=== PATIENT | male | born 1965 | race Hispanic/Latino ===

== ENCOUNTER 2016-08-28 13:40 | Emergency (ER) | payer MEDICAID ==
--- NOTE | 2016-08-28 13:58 | ED PDOC ---
Arrival/HPI - General Time Seen by Provider: 08/28/16 13:56 Historian: Patient - History of Present Illness Narrative History of Present Illness (Text): 08/28/16 13:57 51yo male with history of chronic back pain present with complaint of lower back pain. States pain started when he bent down to lift up his girlfriend from the floor. Pain is similar to his previous back pain. Took Flexeril this morning without relieve. States he was on analgesic up till few weeks ago. States he saw his neurosurgeon recently. Denies trauma, focal weakness, saddle anesthesia, urinary/fecal incontinence, tearing/ripping upper back pain, abdominal pain, urinary symptoms. Past Medical History - Provider Review Nursing Documentation Reviewed: Yes - Past History Past History: Non-Contributing - Infectious Disease Hx of Infectious Diseases: None - Tetanus Immunization Tetanus Immunization: Unknown - Cardiac Hx Cardiac Disorders: Yes Hx Congestive Heart Failure: Yes Hx Hypertension: Yes Hx Internal Defibrillator: Yes - Pulmonary Hx Chronic Obstructive Pulmonary Disease (COPD): No - Neurological HX Cerebrovascular Accident: No Hx Seizures: Yes - HEENT Hx HEENT Disorder: No Hx Blind: No Hx Cataracts: No Hx Deafness: No Hx Difficulty Chewing: No Hx Epistaxis: No Hx Glaucoma: No Hx Macular Degeneration: No - Renal Hx Renal Failure: No - Endocrine/Metabolic Hx Diabetes Mellitus Type 1: No Hx Diabetes Mellitus Type 2: No Hx Hypothyroidism: No - Hematological/Oncological Hx Blood Disorders: No Hx AIDS: No Hx Anemia: No Hx Cancer: No Hx Chemotherapy: No Hx Cirrhosis: No Hx Hemophilia: No Hx Hepatitis A: No Hx Hepatitis B: No Hx Hepatitis C: No Hx Metastasis: No Hx Shingles: No Hx Sickle Cell Disease: No Hx Unexplained Bleeding: No - Integumentary Hx Basal Cell Carcinoma: No Hx Eczema: No Hx Melanoma: No Hx Psoriasis: No Hx Squamous Cell Carcinoma: No - Musculoskeletal/Rheumatological Hx Arthritis: No - Gastrointestinal Hx Gastrointestinal Disorders: No Hx Colostomy: No Hx Crohn's Disease: No Hx Diverticulitis: No Hx Gall Bladder Disease: No Hx Gastroesophageal Reflux: No Hx Gastrointestinal Ulcer: No Hx Ileostomy: No Hx Liver Failure: No Hx Pancreatitis: No HX Swallowing Problems: No - Genitourinary/Gynecological Hx Genitourinary Disorders: No Hx Hematuria: No Hx Incontinence: No Hx Prostate Problems: No Hx Sexually Transmitted Diseases: No Hx Urinary Tract Infection: No - Psychiatric Hx Psychophysiologic Disorder: Yes Hx Substance Use: No 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: ETOH abuse - Past Surgical History Past Surgical History: Unable to Obtain - Surgical History Hx Cholecystectomy: No Hx Musculoskeletal Surgery: Yes Hx Orthopedic Surgery: Yes Hx Valve Replacement: No 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: PPM and AICD insertion. Right ankle surgery placement of screws. Plate placed in left brow area. - Anesthesia Hx Anesthesia: Yes Hx Anesthesia Reactions: No Hx Malignant Hyperthermia: No - Suicidal Assessment Feels Threatened In Home Enviroment: No Family/Social History - Physician Review Nursing Documentation Reviewed: Yes Family/Social History: Unknown Family HX Smoking Status: Light Smoker < 10 Cigarettes Daily Hx Alcohol Use: Yes Hx Substance Use: No Hx Substance Use Treatment: No Allergies/Home Meds Allergies/Adverse Reactions: Allergies Unknown Cardiac Medication Allergy (Uncoded 08/05/16 07:51) ANAPHYLAXIS Home Medications: Home Meds Medication Instructions Recorded Confirmed Folic Acid 1 mg PO DAILY 09/14/15 08/28/16 Latanoprost 0.005% Opht [Xalatan 2 drop BOTHEYES DAILY 09/14/15 08/28/16 Opht] Levetiracetam [Keppra] 500 mg PO BID 01/30/16 08/28/16 Pantoprazole [Protonix EC Tab] 20 mg PO DAILY 01/30/16 07/11/16 Vid2 1.2 mg PO QWK 01/30/16 06/15/16 Review of Systems - Physician Review All systems were reviewed & negative as marked: Yes - Review of Systems Constitutional: Normal Eyes: Normal ENT: Normal Respiratory: Normal Cardiovascular: Normal Gastrointestinal: Normal Genitourinary Male: Normal Musculoskeletal: Back Pain Skin: Normal Neurological: Normal Endocrine: Normal Hemo/Lymphatic: Normal Psychiatric: Normal Physical Exam Vital Signs Reviewed: Yes Vital Signs Temp Pulse Resp BP Pulse Ox 08/28/16 14:03 98.9 F 108 H 18 134/87 99 08/28/16 14:02 98.9 F 108 H 18 134/87 99 Temperature: Afebrile Blood Pressure: Normal Pulse: Regular Respiratory Rate: Normal Appearance: Positive for: Well-Appearing, Non-Toxic, Comfortable Pain Distress: None Mental Status: Positive for: Alert and Oriented X 3 - Systems Exam Head: Present: Atraumatic, Normocephalic Pupils: Present: PERRL Extroacular Muscles: Present: EOMI Conjunctiva: Present: Normal Mouth: Present: Moist Mucous Membranes Neck: Present: Normal Range of Motion Respiratory/Chest: Present: Clear to Auscultation, Good Air Exchange. No: Respiratory Distress, Accessory Muscle Use Cardiovascular: Present: Regular Rate and Rhythm, Normal S1, S2. No: Murmurs Abdomen: Present: Normal Bowel Sounds. No: Tenderness, Distention, Peritoneal Signs Back: Present: Midline Tenderness, Paraspinal Tenderness (Diffuse paralumbar tenderness), Pain with Leg Raise (B/L) Upper Extremity: Present: Normal Inspection. No: Cyanosis, Edema Lower Extremity: Present: Normal Inspection. No: Edema Neurological: Present: GCS=15, CN II-XII Intact, Speech Normal Skin: Present: Warm, Dry, Normal Color. No: Rashes Psychiatric: Present: Alert, Oriented x 3, Normal Insight, Normal Concentration Medical Decision Making ED Course and Treatment: 08/28/16 16:27 PT with history of chronic back pain in Ed for back pain. He was seen here on and had LS CT that was negative for any acute finding. His pain was controlled in ED with analgesic. he was ambulatory in ED. DC home with Naprosyn. Advised to f/u with his Neurosurgeon/PMD . TRT ED for any new or worsening symptoms - Medication Orders Current Medication Orders: Discontinued Medications Ketorolac Tromethamine (Toradol) 60 mg IM STAT STA Stop: 08/28/16 14:09 Last Admin: 08/28/16 14:18 Dose: 60 MG IM Administration Charges Document 08/28/16 14:18 HI (Rec: 08/28/16 14:18 HI [id number]) Injection Site MAR Injection Site Right Gluteus Aniket Charges for Administration # of IM Administrations 1 Disposition/Present on Arrival - Present on Arrival Any Indicators Present on Arrival: No History of DVT/PE: No History of Uncontrolled Diabetes: No Urinary Catheter: No History Surgical Site Infection Following: None - Disposition Have Diagnosis and Disposition been Completed?: Yes Diagnosis: Back pain Disposition: HOME/ ROUTINE Disposition Time: 14:20 Patient Plan: Discharge Patient Problems: Current Active Problems Problem Status Diagnosed Syncope Acute AICD (automatic cardioverter/defibrillator) present Acute Hypokalemia Acute Hypomagnesemia Acute Seizure disorder Acute Seizure Suspected Condition: STABLE Discharge Instructions (ExitCare): Chronic Back Pain (ED) Additional Instructions: Follow up with your doctor Return to ED for any new or worsening symptoms Prescriptions: Naproxen [Naprosyn] 500 mg PO BID #20 tab Referrals: Nestor Meyer MD [Staff Provider] - Follow up with primary
[2016-08-28 14:02] VITALS: BMI 21.4
[2016-08-28 14:03] VITALS: BP 134/87; PULSE 108; RESP 18; TEMP 98.9; O2SAT 99
== END 2016-08-28 14:44 | disposition home or self-care (01) ==
LOC: ED 13:40
DX: M54.5 Low back pain (principal); I10 Essential (primary) hypertension
CPT/HCPCS: 96372; 99283; J1885

== ENCOUNTER 2016-10-12 21:32 | Observation (INO) | payer MEDICAID ==
[2016-10-12 21:40] VITALS: BMI 21.5
[2016-10-12 21:54] VITALS: RESP 18
[2016-10-12] MEDS ORDERED: TDAP Vaccine 0.5 mL Syr IM ONE (22:02)
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
[2016-10-13 00:14] LABS: ADD MANUAL DIFF? NO
[2016-10-13 00:17] LABS: BASO # 0.04 K/mm3 (0.0-2.0); BASO % 0.6 % (0.0-3.0); EOS # 0.1 (0.0-0.7); EOS % 0.7 % (1.5-5.0); GRAN % 50.5 % (50.0-68.0); LYMPH % 42.6 % (22.0-35.0); MEAN CELL VOLUME 95.1 fL (80.0-105.0); MEAN CORPUSCULAR HEMOGLOBIN 32.7 pg (25.0-35.0); MEAN CORPUSCULAR HGB CONC 34.4 g/dl (31.0-37.0); MEAN PLATELET VOLUME 8.5 fl (7.0-11.0); MONO # 0.4 (0.1-0.6); MONO % 5.6 % (1.0-6.0); PLATELET COUNT 265 10^3/uL (120.0-450.0); RED CELL DISTRIBUTION WIDTH 15.6 % (11.5-14.5); WHITE BLOOD COUNT 7.1 10^3/ul (4.5-11.0)
[2016-10-13 00:30] LABS: ALB/GLOB RATIO 1.2 (1.1-1.8); ALKALINE PHOSPHATASE 84 U/L (38-133); ALT/SGPT 26 U/L (7-56); AST/SGOT 44 U/L (15-59); BILIRUBIN,TOTAL 0.5 mg/dL (0.2-1.3); BLOOD UREA NITROGEN 11 mg/dL (7-21); CALCIUM 8.3 mg/dL (8.4-10.5); CARBON DIOXIDE 26 mmol/L (21-33); CHLORIDE 105 mmol/L (95-110); GFR AFRICAN-AMERICAN > 60; GLUCOSE,RANDOM 98 mg/dL (70-110); POTASSIUM 3.8 mmol/L (3.6-5.0); SODIUM 147 mmol/L (132-148); TOTAL PROTEIN 7.8 g/dL (5.8-8.3)
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
[2016-10-13 09:27] VITALS: BP 126/66; PULSE 78; O2SAT 98
[2016-10-13 09:30] VITALS: TEMP 98
== END 2016-10-13 07:57 | disposition home or self-care (01) ==
LOC: ED 21:32 → EROBSV 22:02
PROVIDERS: ADMIT Emergency Medicine; ATTEND Emergency Medicine
DX: S00.81XA Abrasion of other part of head, initial encounter (principal); S09.93XA Unspecified injury of face, initial encounter; Y04.0XXA Assault by unarmed brawl or fight, initial encounter; F10.10 Alcohol abuse, uncomplicated; Y90.8 Blood alcohol level of 240 mg/100 ml or more; Z23 Encounter for immunization
CPT/HCPCS: 70450; 70486; 80053; 80320; 85025; 90471; 90715; 99283; G0378

== ENCOUNTER 2016-10-27 12:36 | Emergency (ER) | payer MEDICAID ==
[2016-10-27 12:45] VITALS: RESP 18; TEMP 98.2; O2SAT 98; BMI 22.1
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
--- NOTE | 2016-10-27 15:06 | RAD ---
HISTORY: pacer check COMPARISON: 02/07/2016 TECHNIQUE: Chest PA and lateral FINDINGS: LUNGS: No active pulmonary disease. PLEURA: No significant pleural effusion identified. No pneumothorax apparent. CARDIOVASCULAR: Normal. OSSEOUS STRUCTURES: No significant abnormalities. VISUALIZED UPPER ABDOMEN: Normal. OTHER FINDINGS: Single lead pacemaker IMPRESSION: No active disease.
[2016-10-27 15:28] VITALS: BP 135/69; PULSE 102
--- NOTE | 2016-10-27 22:30 | CARD ---
APPROVED REPORT EKG Measurement Heart [id number] <Conclusion> Poor data quality, interpretation may be adversely affected Sinus tachycardia Septal infarct, age undetermined Abnormal ECG
== END 2016-10-27 16:01 | disposition home or self-care (01) ==
LOC: ED 12:36
DX: S20.219A Contusion of unspecified front wall of thorax, initial encounter (principal); Y04.0XXA Assault by unarmed brawl or fight, initial encounter; Y92.009 Unspecified place in unspecified non-institutional (private) residence as the place of occurrence of the external cause; Z95.810 Presence of automatic (implantable) cardiac defibrillator; I10 Essential (primary) hypertension

== ENCOUNTER 2016-12-11 01:28 | Observation (INO) | payer MEDICAID ==
[2016-12-11 01:28] VITALS: BMI 22.1
[2016-12-11 01:45] VITALS: TEMP 97.8
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
[2016-12-11] MEDS ORDERED: Pantoprazole 40mg/100ml IVPB 40 MG/100 ML BAG IVPB SCH (02:00)
[2016-12-11 02:17] VITALS: BP 131/71
[2016-12-11 05:02] VITALS: PULSE 77; RESP 14; O2SAT 98
== END 2016-12-11 06:08 | disposition home or self-care (01) ==
LOC: ED 01:28 → EROBSV 02:06
PROVIDERS: ADMIT Emergency Medicine; ATTEND Emergency Medicine
DX: F10.10 Alcohol abuse, uncomplicated (principal)
CPT/HCPCS: 82948; 99284; G0378

== ENCOUNTER 2017-01-23 11:59 | Observation (INO) | payer MEDICAID ==
[2017-01-23 11:59] VITALS: BMI 22.1
--- NOTE | 2017-01-23 12:41 | ED PDOC ---
Arrival/HPI - General Chief Complaint: Alcohol Ingestion Time Seen by Provider: 01/23/17 12:33 Historian: Patient, EMS EM Caveat: Intoxicated - History of Present Illness Narrative History of Present Illness (Text): 01/23/17 12:20 51 year old M is brought in to the Emergency department for public intoxication. According to EMS patient was found sleeping in outside. Patient admits to using ETOH, but denies drug use or SI. No other complaints have been made. Time/Duration: Prior to Arrival Symptom Onset: Sudden Symptom Course: Unchanged Context: Street Past Medical History - Provider Review Nursing Documentation Reviewed: Yes - Past History Past History: Non-Contributing - Infectious Disease Hx of Infectious Diseases: None - Tetanus Immunization Tetanus Immunization: Unknown - Cardiac Hx Cardiac Disorders: Yes Hx Congestive Heart Failure: Yes Hx Hypertension: Yes Hx Internal Defibrillator: Yes (5 yrs) Hx Pacemaker: Yes (patient states he had it place 5 years ago) - Pulmonary Hx Respiratory Disorders: No Hx Chronic Obstructive Pulmonary Disease (COPD): No - Neurological Hx Neurological Disorder: Yes HX Cerebrovascular Accident: No Hx Seizures: Yes - HEENT Hx HEENT Disorder: No Hx Blind: No Hx Cataracts: No Hx Deafness: No Hx Difficulty Chewing: No Hx Epistaxis: No Hx Glaucoma: No Hx Macular Degeneration: No - Renal Hx Renal Disorder: No Hx Renal Failure: No - Endocrine/Metabolic Hx Endocrine Disorders: No Hx Diabetes Mellitus Type 1: No Hx Diabetes Mellitus Type 2: No Hx Hypothyroidism: No - Hematological/Oncological Hx Blood Disorders: No Hx AIDS: No Hx Anemia: No Hx Cancer: No Hx Chemotherapy: No Hx Cirrhosis: No Hx Hemophilia: No Hx Hepatitis A: No Hx Hepatitis B: No Hx Hepatitis C: No Hx Metastasis: No Hx Shingles: No Hx Sickle Cell Disease: No Hx Unexplained Bleeding: No - Integumentary Hx Basal Cell Carcinoma: No Hx Eczema: No Hx Melanoma: No Hx Psoriasis: No Hx Squamous Cell Carcinoma: No - Musculoskeletal/Rheumatological Hx Arthritis: No - Gastrointestinal Hx Gastrointestinal Disorders: No Hx Colostomy: No Hx Crohn's Disease: No Hx Diverticulitis: No Hx Gall Bladder Disease: No Hx Gastroesophageal Reflux: No Hx Gastrointestinal Ulcer: No Hx Ileostomy: No Hx Liver Failure: No Hx Pancreatitis: No HX Swallowing Problems: No - Genitourinary/Gynecological Hx Genitourinary Disorders: No Hx Hematuria: No Hx Incontinence: No Hx Prostate Problems: No Hx Sexually Transmitted Diseases: No Hx Urinary Tract Infection: No - Psychiatric Hx Psychophysiologic Disorder: Yes Hx Substance Use: No 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: ETOH abuse - Past Surgical History Past Surgical History: Unable to Obtain - Surgical History Hx Cholecystectomy: No Hx Musculoskeletal Surgery: Yes Hx Orthopedic Surgery: Yes (r ankle) Hx Valve Replacement: No 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: PPM and AICD insertion. Right ankle surgery placement of screws. Plate placed in left brow area. defibrillator 2012 - Anesthesia Hx Anesthesia: Yes Hx Anesthesia Reactions: No Hx Malignant Hyperthermia: No - Suicidal Assessment Feels Threatened In Home Enviroment: No Family/Social History - Physician Review Nursing Documentation Reviewed: Yes Family/Social History: Other (non-contributory ) Smoking Status: Heavy Smoker > 10 Cigarettes Daily Hx Alcohol Use: Yes Frequency of alcohol use: Daily Hx Substance Use: No Hx Substance Use Treatment: No Allergies/Home Meds Allergies/Adverse Reactions: Allergies No Known Allergies Allergy (Verified 01/23/17 12:17) Home Medications: Home Meds Medication Instructions Recorded Confirmed Unobtainable 01/23/17 01/23/17 Review of Systems - Physician Review All systems were reviewed & negative as marked: Yes - Review of Systems Constitutional: absent: Fevers Respiratory: absent: SOB Cardiovascular: absent: Chest Pain Gastrointestinal: absent: Abdominal Pain Neurological: absent: Headache Psychiatric: Other (Intoxicated ). absent: Suicidal Ideation Physical Exam - Physical Exam Physical Exam Limitations: Intoxication Vital Signs Reviewed: Yes Vital Signs Temp Pulse Resp BP Pulse Ox 01/23/17 15:40 92 H 18 106/82 98 01/23/17 12:47 98.3 F 88 17 103/77 100 - Systems Exam Head: Present: Atraumatic, Normocephalic Pupils: Present: PERRL Mouth: Present: Moist Mucous Membranes Neck: Present: Normal Range of Motion Respiratory/Chest: Present: Clear to Auscultation, Good Air Exchange. No: Respiratory Distress, Accessory Muscle Use Cardiovascular: Present: Regular Rate and Rhythm, Normal S1, S2. No: Murmurs Abdomen: Present: Normal Bowel Sounds. No: Tenderness, Distention, Peritoneal Signs Upper Extremity: No: Cyanosis, Edema Neurological: Present: GCS=15, CN II-XII Intact Skin: Present: Warm, Dry, Normal Color. No: Rashes Psychiatric: Present: Alert, Oriented x 3, Intoxicated. No: Suicidal Ideation Medical Decision Making ED Course and Treatment: 01/23/17 18:35 the pt is a&ox3 and ambulatory with steady gait. clinically sober prior to dc. ED OBSERVATION Discharge: Yes Date of observation admission: 01/23/17 Time of observation admission: 12:20 - Observation admission statement Patient is being placed in observation because:: Public intoxication - Goals of Observation Goals of observation are:: waiting for sobriety - Progress Note Progress Note: 01/23/17 12:20 Patient admits to using ETOH, no drug use. Patient will be observed for sobriety - Scribe Statement The provider has reviewed the documentation as recorded by the Scribe 01/23/2017 Angelica Villeda Provider Scribe Attestation: All medical record entries made by the Scribe were at my direction and personally dictated by me. I have reviewed the chart and agree that the record accurately reflects my personal performance of the history, physical exam, medical decision making, and the department course for this patient. I have also personally directed, reviewed, and agree with the discharge instructions and disposition. Disposition/Present on Arrival - Present on Arrival Any Indicators Present on Arrival: No History of DVT/PE: No History of Uncontrolled Diabetes: No Urinary Catheter: No History of Decub. Ulcer: No History Surgical Site Infection Following: None - Disposition Have Diagnosis and Disposition been Completed?: Yes Diagnosis: Alcohol abuse, Alcohol intoxication Disposition: HOME/ ROUTINE Disposition Time: 18:35 Patient Plan: Observation Patient Problems: Current Active Problems Problem Status Onset Alcohol abuse Acute Alcohol intoxication Acute Condition: STABLE
[2017-01-23 12:49] VITALS: TEMP 98.3
[2017-01-23 15:45] VITALS: RESP 18
[2017-01-23 18:43] VITALS: BP 118/80; PULSE 88; O2SAT 99
== END 2017-01-23 18:49 | disposition home or self-care (01) ==
LOC: ED 11:59 → EROBSV 12:52
PROVIDERS: ADMIT Emergency Medicine; ATTEND Emergency Medicine
DX: F10.129 Alcohol abuse with intoxication, unspecified (principal)
CPT/HCPCS: 99283; G0378

== ENCOUNTER 2017-02-26 15:19 | Observation (INO) | payer MEDICAID ==
[2017-02-26 15:19] VITALS: BMI 22.1
[2017-02-26 15:35] VITALS: TEMP 98
--- NOTE | 2017-02-26 15:51 | ED PDOC ---
Arrival/HPI - General Historian: Patient <Carmen Jones - Last Filed: 02/26/17 20:48> <Jonnie Goodwin - Last Filed: 02/27/17 07:52> <Neri Romero - Last Filed: 02/27/17 15:56> - General Chief Complaint: Alcohol Ingestion Time Seen by Provider: 02/26/17 15:25 - History of Present Illness Narrative History of Present Illness (Text): 02/26/17 15:48 50-year-old male presents today brought in by ambulance for acute alcohol intoxication. Patient states that he was drinking today and his girlfriend decided to call the ambulance on him. Patient denies any recent trauma or injury. Denies headache dizziness or weakness. No chest pain or shortness of breath. Patient states he had a few shots today. Patient denies suicidal or homicidal ideation. No complaints (Carmen Jones) Past Medical History - Provider Review Nursing Documentation Reviewed: Yes - Travel History Have you recently traveled outside [place] w/in the past 3 mons?: No - Past History Past History: Non-Contributing - Infectious Disease Hx of Infectious Diseases: None - Tetanus Immunization Tetanus Immunization: Unknown - Cardiac Hx Cardiac Disorders: Yes Hx Congestive Heart Failure: Yes Hx Hypertension: Yes Hx Internal Defibrillator: Yes (5 yrs) Hx Pacemaker: Yes (patient states he had it place 5 years ago) - Pulmonary Hx Respiratory Disorders: No Hx Chronic Obstructive Pulmonary Disease (COPD): No - Neurological Hx Neurological Disorder: Yes HX Cerebrovascular Accident: No Hx Seizures: Yes - HEENT Hx HEENT Disorder: No Hx Blind: No Hx Cataracts: No Hx Deafness: No Hx Difficulty Chewing: No Hx Epistaxis: No Hx Glaucoma: No Hx Macular Degeneration: No - Renal Hx Renal Disorder: No Hx Renal Failure: No - Endocrine/Metabolic Hx Endocrine Disorders: No Hx Diabetes Mellitus Type 1: No Hx Diabetes Mellitus Type 2: No Hx Hypothyroidism: No - Hematological/Oncological Hx Blood Disorders: No Hx AIDS: No Hx Anemia: No Hx Cancer: No Hx Chemotherapy: No Hx Cirrhosis: No Hx Hemophilia: No Hx Hepatitis A: No Hx Hepatitis B: No Hx Hepatitis C: No Hx Metastasis: No Hx Shingles: No Hx Sickle Cell Disease: No Hx Unexplained Bleeding: No - Integumentary Hx Basal Cell Carcinoma: No Hx Eczema: No Hx Melanoma: No Hx Psoriasis: No Hx Squamous Cell Carcinoma: No - Musculoskeletal/Rheumatological Hx Arthritis: No - Gastrointestinal Hx Gastrointestinal Disorders: No Hx Colostomy: No Hx Crohn's Disease: No Hx Diverticulitis: No Hx Gall Bladder Disease: No Hx Gastroesophageal Reflux: No Hx Gastrointestinal Ulcer: No Hx Ileostomy: No Hx Liver Failure: No Hx Pancreatitis: No HX Swallowing Problems: No - Genitourinary/Gynecological Hx Genitourinary Disorders: No Hx Hematuria: No Hx Incontinence: No Hx Prostate Problems: No Hx Sexually Transmitted Diseases: No Hx Urinary Tract Infection: No - Psychiatric Hx Psychophysiologic Disorder: Yes Hx Substance Use: No 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: ETOH abuse - Past Surgical History Past Surgical History: Unable to Obtain - Surgical History Hx Cholecystectomy: No Hx Musculoskeletal Surgery: Yes Hx Orthopedic Surgery: Yes (r ankle) Hx Valve Replacement: No 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: PPM and AICD insertion. Right ankle surgery placement of screws. Plate placed in left brow area. defibrillator 2012 - Anesthesia Hx Anesthesia: Yes Hx Anesthesia Reactions: No Hx Malignant Hyperthermia: No - Suicidal Assessment Feels Threatened In Home Enviroment: No <Carmen Jones - Last Filed: 02/26/17 20:48> Family/Social History - Physician Review Nursing Documentation Reviewed: Yes Family/Social History: Unknown Family HX Smoking Status: Heavy Smoker > 10 Cigarettes Daily Hx Alcohol Use: Yes Frequency of alcohol use: Few days per week Hx Substance Use: No Hx Substance Use Treatment: No <Carmen Jones - Last Filed: 02/26/17 20:48> Allergies/Home Meds <Carmen Jones - Last Filed: 02/26/17 20:48> <Jonnie Goodwin - Last Filed: 02/27/17 07:52> <Neri Romero - Last Filed: 02/27/17 15:56> Allergies/Adverse Reactions: Allergies No Known Allergies Allergy (Verified 02/26/17 15:29) Home Medications: Home Meds Medication Instructions Recorded Confirmed Unobtainable 01/23/17 02/26/17 Review of Systems - Review of Systems Constitutional: absent: Fatigue, Fevers Respiratory: absent: SOB, Cough Cardiovascular: absent: Chest Pain, Palpitations Gastrointestinal: absent: Abdominal Pain, Diarrhea, Nausea, Vomiting Genitourinary Male: absent: Dysuria Musculoskeletal: absent: Arthralgias Skin: absent: Rash, Pruritis Neurological: absent: Headache, Dizziness Psychiatric: absent: Anxiety, Depression, Suicidal Ideation <Carmen Jones - Last Filed: 02/26/17 20:48> Physical Exam Vital Signs Reviewed: Yes Temperature: Afebrile Blood Pressure: Normal Pulse: Regular Respiratory Rate: Normal Appearance: Positive for: Well-Appearing, Non-Toxic, Comfortable Pain Distress: None Mental Status: Positive for: Alert and Oriented X 3 - Systems Exam Head: Present: Atraumatic Mouth: Present: Moist Mucous Membranes Neck: Present: Normal Range of Motion Respiratory/Chest: Present: Clear to Auscultation, Good Air Exchange. No: Respiratory Distress, Accessory Muscle Use Cardiovascular: Present: Regular Rate and Rhythm, Normal S1, S2. No: Murmurs Abdomen: No: Tenderness Skin: Present: Warm, Dry, Normal Color. No: Rashes Psychiatric: Present: Alert, Oriented x 3. No: Suicidal Ideation, Homicidal Ideation <Carmen Jones - Last Filed: 02/26/17 20:48> Medical Decision Making <Carmen Jones - Last Filed: 02/26/17 20:48> <Jonnie Goodwin - Last Filed: 02/27/17 07:52> <Neri Romero - Last Filed: 02/27/17 15:56> ED Course and Treatment: 02/26/17 15:50 Patient alert oriented no distress admits to drinking alcohol today. Brought in by ambulance for alcohol intoxication Patient denies any complaints. Fingerstick: 93 We will observed for sobriety in the emergency room. 02/26/17 20:48 pt in no distress; sleeping in er; case signed out to dr. romero; pending sobriety. (Carmen Jones) Patient was discharged by prior shift. Addendum was inadvertently added to this chart. Disposition established by previous shift. (Jonnie Goodwin) - Lab Interpretations Lab Results: Lab Results 02/26/17 15:38: POC Glucose (mg/dL) 93 ED OBSERVATION Date of observation admission: 02/26/17 Time of observation admission: 15:51 <Carmen Jones - Last Filed: 02/26/17 20:48> <Jonnie Goodwin - Last Filed: 02/27/17 07:52> Discharge: Yes <Neri Romero - Last Filed: 02/27/17 15:56> - Observation admission statement Patient is being placed in observation because:: alcohol intoxication (Carmen Jones) - Goals of Observation Goals of observation are:: sobriety (Carmen Jones) - Progress Note Progress Note: 02/26/17 17:45 pt non toxic well appearing; resting in er. 02/26/17 19:50 pt sleeping in er; no distress 02/26/17 20:47 pt signed out to dr. romero; pending sobriety. (Carmen Jones) 02/26/17 20:47 Case endorsed to me by CRISTINA Jones, pending sobriety. 02/26/17 22:45 Pt resting comfortably, in no acute distress. 02/27/17 00:45 Pt sleeping currently, no new complaints. 02/27/17 02:39 Pt resting comfortably, in no acute distress. 02/27/17 04:12 Pt sleeping currently, no new complaints. 02/27/17 06:10 Pt resting comfortably, in no acute distress. 02/27/17 06:29 Pt awake, alert, ambulating with steady gait. In no acute distress. Pt stable for d/c. (Neri Romero) Disposition/Present on Arrival - Present on Arrival Any Indicators Present on Arrival: No History of DVT/PE: No History of Uncontrolled Diabetes: No Urinary Catheter: No History of Decub. Ulcer: No History Surgical Site Infection Following: None - Disposition Have Diagnosis and Disposition been Completed?: Yes <Carmen Jones - Last Filed: 02/26/17 20:48> <Jonnie Goodwin - Last Filed: 02/27/17 07:52> - Present on Arrival Any Indicators Present on Arrival: No - Disposition Have Diagnosis and Disposition been Completed?: Yes Disposition Time: 06:35 Patient Plan: Discharge <Neri Romero - Last Filed: 02/27/17 15:56> - Disposition Diagnosis: Alcohol abuse Disposition: HOME/ ROUTINE Condition: GOOD
[2017-02-27 06:52] VITALS: O2SAT 99
[2017-02-27 07:51] VITALS: BP 128/70; PULSE 82; RESP 18
== END 2017-02-27 06:33 | disposition home or self-care (01) ==
LOC: ED 15:19 → EROBSV 15:48
PROVIDERS: ADMIT Student in an Organized Health Care Education/Training Program; ATTEND Student in an Organized Health Care Education/Training Program
DX: F10.129 Alcohol abuse with intoxication, unspecified (principal)
CPT/HCPCS: 82948; 99284; G0378

== ENCOUNTER 2017-02-27 18:43 | Inpatient (IN) | payer MEDICAID ==
[2017-02-27 20:05] LABS: BASO # 0.04 K/mm3 (0.0-2.0); BASO % 0.9 % (0.0-3.0); EOS # 0.1 (0.0-0.7); EOS % 1.3 % (1.5-5.0); GRAN # 2.67 (1.4-6.5); GRAN % 58.1 % (50.0-68.0); HEMATOCRIT 34.1 % (42.0-52.0); LYMPH # 1.1 (1.2-3.4); LYMPH % 24.2 % (22.0-35.0); MEAN CELL VOLUME 101.2 fl (80.0-105.0); MEAN CORPUSCULAR HEMOGLOBIN 33.8 pg (25.0-35.0); MEAN CORPUSCULAR HGB CONC 33.4 g/dl (31.0-37.0); MEAN PLATELET VOLUME 8.8 fl (7.0-11.0); MONO # 0.7 (0.1-0.6); MONO % 15.5 % (1.0-6.0); RED CELL DISTRIBUTION WIDTH 14.5 % (11.5-14.5); WHITE BLOOD COUNT 4.6 10^3/ul (4.5-11.0)
[2017-02-27 20:16] LABS: ALB/GLOB RATIO 1.3 (1.1-1.8); ALKALINE PHOSPHATASE 68 U/L (38-126); ALT/SGPT 32 U/L (7-56); AST/SGOT 52 U/L (17-59); BILIRUBIN,TOTAL 2.3 mg/dL (0.2-1.3); BLOOD UREA NITROGEN 12 mg/dL (7-21); CALCIUM 8.6 mg/dL (8.4-10.5); CARBON DIOXIDE 31 mmol/L (21-33); CHLORIDE 98 mmol/L (98-107); GFR AFRICAN-AMERICAN > 60; GLUCOSE,RANDOM 83 mg/dL (70-110); INR 0.99 (0.93-1.08); PARTIAL THROMBOPLASTIN TIME 29.7 Seconds (23.7-30.8); POTASSIUM 3.3 mmol/L (3.6-5.0); SODIUM 136 mmol/L (132-148); TOTAL PROTEIN 6.8 g/dL (5.8-8.3)
[2017-02-27 20:29] LABS: TROPONIN I < 0.01 ng/mL
--- NOTE | 2017-02-27 20:38 | CT ---
EXAM: CT Head Without Intravenous Contrast CLINICAL HISTORY: 51 years old, male; Signs and symptoms; Numbness / parasthesia; Additional info: R arm/leg numbness TECHNIQUE: Axial computed tomography images of the head/brain without intravenous contrast. All CT scans at this facility use one or more dose reduction techniques, viz.: automated exposure control; ma/kV adjustment per patient size (including targeted exams where dose is matched to indication; i.e. head); or iterative reconstruction technique. COMPARISON: CT - HEAD W/O CONTRAST 10/13/2016 12:34:08 AM FINDINGS: Brain: Moderate atrophy. 1.7 x 1.2 cm intraparenchymal hemorrhage within LEFT thalamus. Mild surrounding edema. Few scattered foci of decreased attenuation within periventricular/subcortical white matter. Grossly preserved calix-white matter differentiation. Midline shift: None. Ventricles: No hydrocephalus. Bones/joints: No acute fracture. Chronic deformity LEFT zygomatic arch, nasal bones. Postsurgical changes of LEFT facial bones. Soft tissues: Unremarkable. Vasculature: Mild atherosclerotic disease of intracranial arteries. Sinuses: Moderate mucosal thickening of RIGHT maxillary sinus. Scattered minimal mucosal thickening of LEFT ethmoid, LEFT maxillary sinuses. Mastoid air cells: No mastoid effusion. Orbits: Unremarkable as visualized. IMPRESSION: 1. Intracranial hemorrhage as above. 2. Nonspecific white matter changes. 3. Incidental/non-acute findings are described above.
[2017-02-27] MEDS ORDERED: Potassium Chloride 20 mEq ER Tab PO STA (20:41)
--- NOTE | 2017-02-27 21:25 | ED PDOC ---
Arrival/HPI - General Chief Complaint: Weakness/Neurological Deficit Time Seen by Provider: 02/27/17 19:01 Historian: Patient - History of Present Illness Narrative History of Present Illness (Text): 02/27/17 21:22 Patient is well known to the ER, has had multiple visits for etoh intoxication, he has a h/o cervical and lumbar radiculopathy, presents via EMS for experiencing acute onset of R arm and R leg weakness that started possibly at 1730 today. Patient states that he was well today and then the symptoms started abruptly, states that he can not move his R arm and R leg well. Otherwise: (-) headache, (-) dizziness, (-) CP, (-) SOB, (-) head trauma, (-) N /V, (-) fever, (-) syncope. Has no history of CVA . Past Medical History - Provider Review Nursing Documentation Reviewed: Yes - Past History Past History: Non-Contributing - Infectious Disease Hx of Infectious Diseases: None - Tetanus Immunization Tetanus Immunization: Unknown - Cardiac Hx Cardiac Disorders: Yes Hx Congestive Heart Failure: Yes Hx Hypertension: Yes Hx Internal Defibrillator: Yes (5 yrs) Hx Pacemaker: Yes (patient states he had it place 5 years ago) - Pulmonary Hx Respiratory Disorders: No Hx Chronic Obstructive Pulmonary Disease (COPD): No - Neurological Hx Neurological Disorder: Yes HX Cerebrovascular Accident: No Hx Seizures: Yes - HEENT Hx HEENT Disorder: No Hx Blind: No Hx Cataracts: No Hx Deafness: No Hx Difficulty Chewing: No Hx Epistaxis: No Hx Glaucoma: No Hx Macular Degeneration: No - Renal Hx Renal Disorder: No Hx Renal Failure: No - Endocrine/Metabolic Hx Endocrine Disorders: No Hx Diabetes Mellitus Type 1: No Hx Diabetes Mellitus Type 2: No Hx Hypothyroidism: No - Hematological/Oncological Hx Blood Disorders: No Hx AIDS: No Hx Anemia: No Hx Cancer: No Hx Chemotherapy: No Hx Cirrhosis: No Hx Hemophilia: No Hx Hepatitis A: No Hx Hepatitis B: No Hx Hepatitis C: No Hx Metastasis: No Hx Shingles: No Hx Sickle Cell Disease: No Hx Unexplained Bleeding: No - Integumentary Hx Basal Cell Carcinoma: No Hx Eczema: No Hx Melanoma: No Hx Psoriasis: No Hx Squamous Cell Carcinoma: No - Musculoskeletal/Rheumatological Hx Arthritis: No - Gastrointestinal Hx Gastrointestinal Disorders: No Hx Colostomy: No Hx Crohn's Disease: No Hx Diverticulitis: No Hx Gall Bladder Disease: No Hx Gastroesophageal Reflux: No Hx Gastrointestinal Ulcer: No Hx Ileostomy: No Hx Liver Failure: No Hx Pancreatitis: No HX Swallowing Problems: No - Genitourinary/Gynecological Hx Genitourinary Disorders: No Hx Hematuria: No Hx Incontinence: No Hx Prostate Problems: No Hx Sexually Transmitted Diseases: No Hx Urinary Tract Infection: No - Psychiatric Hx Psychophysiologic Disorder: Yes Hx Substance Use: No 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: ETOH abuse - Past Surgical History Past Surgical History: Unable to Obtain - Surgical History Hx Cholecystectomy: No Hx Musculoskeletal Surgery: Yes Hx Orthopedic Surgery: Yes (r ankle) Hx Valve Replacement: No 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: PPM and AICD insertion. Right ankle surgery placement of screws. Plate placed in left brow area. defibrillator 2012 - Anesthesia Hx Anesthesia: Yes Hx Anesthesia Reactions: No Hx Malignant Hyperthermia: No - Suicidal Assessment Feels Threatened In Home Enviroment: No Family/Social History - Physician Review Nursing Documentation Reviewed: Yes Family/Social History: No Known Family HX Smoking Status: Heavy Smoker > 10 Cigarettes Daily Hx Alcohol Use: Yes Hx Substance Use: No Hx Substance Use Treatment: No Allergies/Home Meds Allergies/Adverse Reactions: Allergies No Known Allergies Allergy (Verified 02/27/17 18:47) Home Medications: Home Meds Medication Instructions Recorded Confirmed Unobtainable 01/23/17 02/27/17 Review of Systems - Review of Systems Constitutional: Normal. absent: Fatigue, Weight Change, Fevers Respiratory: Normal. absent: SOB, Cough, Sputum Cardiovascular: Normal. absent: Chest Pain, Palpitations, Edema Gastrointestinal: Normal. absent: Abdominal Pain, Stool Changes, Vomiting, Appetite Changes Musculoskeletal: Normal. absent: Arthralgias, Back Pain, Neck Pain Skin: Normal. absent: Rash, Pruritis, Skin Lesions Neurological: Normal, Focal Weakness. absent: Headache, Dizziness, Speech Changes, Facial Droop Physical Exam - Physical Exam Narrative Physical Exam (Text): 02/27/17 21:26 GENERAL APPEARANCE: Patient is awake, alert, oriented x 3, in no acute distress. SKIN: Warm, dry; (-) cyanosis. HEAD: (-) scalp tenderness, (-) scalp swelling. EYES: (-) conjunctival pallor. ENMT: Mucous membranes moist. NECK: (-) tenderness, (-) stiffness, (-) lymphadenopathy; (-) carotid bruits. CHEST AND RESPIRATORY: (-) rales, (-) rhonchi, (-) wheezes; breath sounds equal bilaterally. HEART AND CARDIOVASCULAR: (-) irregularity; (-) murmur, (-) gallop. ABDOMEN AND GI: Soft; (-) tenderness. EXTREMITIES: (-) deformity, (-) tenderness, (-) edema, distal pulses 2+. NEURO AND PSYCH: Mental status as above. Cranial nerves: Pupils equal and reactive. (-) Facial drooping noted. (-) Tongue deviation. Motor: Flaccid hemiparesis on the R side. Sensation: decreased to the R UE and LE, L UE and LE is intact. Vital Signs Temp Pulse Resp BP Pulse Ox 02/27/17 21:57 78 18 135/90 97 02/27/17 21:34 80 19 149/89 92 L 02/27/17 21:17 76 17 149/89 95 02/27/17 20:39 80 18 150/96 H 96 02/27/17 20:11 87 19 137/88 100 02/27/17 18:53 99.4 F 99 H 17 138/97 H 96 Medical Decision Making ED Course and Treatment: 02/27/17 21:28 51 y M well known to the ER, has had multiple visits for etoh intoxication, with h/o cervical and lumbar radiculopathy, presents via EMS for experiencing acute onset of R arm and R leg weakness that started at 1730 today. DDx : radiculopathy / neuropathy, r/o CVA, possible TIA Plan: -- Labs -- IV -- Urinalysis -- EKG -- CXR -- mortgage advisor -- Reassess and disposition -- CT head EKG : NSR at 90 bpm, (-) acute ST changes, as read by CRISTINA. CXR : NAD, as read by CRISTINA CT head : FINDINGS: Brain: Moderate atrophy. 1.7 x 1.2 cm intraparenchymal hemorrhage within LEFT thalamus. Mild surrounding edema. Few scattered foci of decreased attenuation within periventricular/subcortical white matter. Grossly preserved calix-white matter differentiation. Midline shift: None. Ventricles: No hydrocephalus. Bones/joints: No acute fracture. Chronic deformity LEFT zygomatic arch, nasal bones. Postsurgical changes of LEFT facial bones. Soft tissues: Unremarkable. Vasculature: Mild atherosclerotic disease of intracranial arteries. Sinuses: Moderate mucosal thickening of RIGHT maxillary sinus. Scattered minimal mucosal thickening of LEFT ethmoid, LEFT maxillary sinuses. Mastoid air cells: No mastoid effusion. Orbits: Unremarkable as visualized. IMPRESSION: 1. Intracranial hemorrhage as above. 2. Nonspecific white matter changes. 3. Incidental/non-acute findings are described above. Dictated and Authenticated by: Jerson Green MD 02/27/2017 8:37 PM Eastern Time ([place] & [place]) Vrad called ER MD and PA was notified of CT findings. Neurology and neurosurgery consulted stat. On re-evaluation, patient remains awake, alert and oriented x3. Has no additional complaints at this time. Repeat neuro exam : Cranial nerves: Pupils equal and reactive. (-) Facial drooping noted. (-) Tongue deviation. Motor: Flaccid hemiparesis on the R side. Sensation: decreased to the R UE and LE, L UE and LE is intact. Repeat neuro exam is unchanged. VS : T 99.4 P 99 BP 138/97 R 17 O2sat 96%RA. Case d/w Dr. Lozano, covering for Dr. Sy, states that the CT findings are consistent with hypertensive bleed, he states that he does not need to be consulted, request neuro to be called. Case d/w Dr. Pastor, agrees with plan to admit under the hospitalist to the ICU. Dr. Pastor discussed the case with neuro Dr. Steiner, who will evaluate the patient in the AM, recommends no IV steroids at this time. - Lab Interpretations Lab Results: 02/27/17 19:30 02/27/17 19:30 Lab Results 02/27/17 21:30: Blood Type Confirm O POSITIVE 02/27/17 21:15: Urine Opiates Screen Negative, Urine Methadone Screen Negative, Ur Barbiturates Screen Negative, Ur Phencyclidine Scrn Negative, Ur Amphetamines Screen Negative, U Benzodiazepines Scrn Negative, U Oth Cocaine Metabols Negative, U Cannabinoids Screen Negative 02/27/17 19:39: POC Glucose (mg/dL) 89 02/27/17 19:30: Magnesium 1.3 L 02/27/17 19:30: Alcohol, Quantitative < 10 02/27/17 19:30: Blood Type O POSITIVE, Antibody Screen Negative, BBK History Checked No verified bt 02/27/17 19:30: Sodium 136, Potassium 3.3 L, Chloride 98, Carbon Dioxide 31, Anion Gap 10, BUN 12, Creatinine 0.8, Est GFR ( Amer) > 60, Est GFR (Non- Af Amer) > 60, Random Glucose 83, Calcium 8.6, Total Bilirubin 2.3 H, AST 52, ALT 32, Alkaline Phosphatase 68, Troponin I < 0.01, NT-Pro-B Natriuret Pep 199, Total Protein 6.8, Albumin 3.9, Globulin 2.9, Albumin/Globulin Ratio 1.3 02/27/17 19:30: PT 10.7, INR 0.99, APTT 29.7 02/27/17 19:30: WBC 4.6 D, RBC 3.37 L, Hgb 11.4 L, Hct 34.1 L, MCV 101.2, MCH 33.8, MCHC 33.4, RDW 14.5, Plt Count 254, MPV 8.8, Gran % 58.1, Lymph % (Auto) 24.2, Ashley % (Auto) 15.5 H, Eos % (Auto) 1.3 L, Baso % (Auto) 0.9, Gran # 2.67, Lymph # 1.1 L, Ashley # 0.7 H, Eos # 0.1, Baso # 0.04 - RAD Interpretation Radiology Orders: 02/27/17 19:32 HEAD W/O CONTRAST [CT] Stat 02/27/17 19:34 CHEST TWO VIEWS (PA/LAT) [RAD] Stat - Medication Orders Current Medication Orders: Chlordiazepoxide (Librium) 10 mg PO Q8 JUSTINO PRN Reason: Protocol Hydralazine HCl (Apresoline) 10 mg IVP Q6H PRN PRN Reason: Systolic Blood Pressure Folic Acid 1 mg/ Thiamine HCl 100 mg/ Multivitamins/Vitamin C 10 ml/ Dextrose 1 ,011.2 mls @ 100 mls/hr IV .Q10H7M [facility] Last Admin: 02/27/17 22:48 Dose: 100 mls/hr Levetiracetam (Keppra) 500 mg PO BID [facility] Last Admin: 02/27/17 22:49 Dose: 500 mg Lorazepam (Ativan) 2 mg IVP Q2H PRN; Protocol PRN Reason: Symptoms of alcohol withdrawl Pantoprazole Sodium (Protonix Ec Tab) 40 mg PO 0600 JUSTINO Discontinued Medications Potassium Chloride (K-Dur 20 Meq Er Tab) 40 meq PO STAT STA Stop: 02/27/17 20:42 Last Admin: 02/27/17 20:47 Dose: 40 meq NIHSS Scale ([place]) Time Performed: 19:01 - How Severe is the Stoke Baseline Level of Consciousness: 0=Alert LOC to Questions: 0=Both comments correct LOC to commands: 0=Obeys both correctly Best Gaze: 0=Normal Visual: 0=No visual loss Facial: 0=Normal Motor Arm - Left: 0=No drift Motor Arm - Right: 1=Drift noted before 10 sec Motor Leg - Left: 0=No drift Motor Leg - Right: 1=Drift before 5 sec Limb Ataxia: 1=Present Upper or Lower Sensory: 1=Mild to moderate loss Best Language: 0=No aphasia Dysarthia: 0=Normal articulation Extinction & Inattention (Neglect): 0=Normal, no object Score: 4 Risk Level: Minor Stroke Risk - PA / CONCRETE ANALYST / Resident Statement MD/DO has reviewed & agrees with the documentation as recorded. Disposition/Present on Arrival - Present on Arrival Any Indicators Present on Arrival: No History of DVT/PE: No History of Uncontrolled Diabetes: No Urinary Catheter: No History of Decub. Ulcer: No History Surgical Site Infection Following: None - Disposition Have Diagnosis and Disposition been Completed?: Yes Diagnosis: Alcohol abuse, Intraparenchymal hemorrhage of brain Disposition: HOSPITALIZED Disposition Time: 18:37 Patient Plan: Admission Patient Problems: Current Active Problems Problem Status Onset Alcohol abuse Acute Intraparenchymal hemorrhage of brain Acute Condition: STABLE
[2017-02-27] MEDS ORDERED: levETIRAcetam Solution 100 MG/ML BOTTLE PO SCH (22:15)
[2017-02-27] MEDS: Folic Acid 1 MG, Thiamine 100 MG, Multivitamin (MVI) 10 ML in Dextrose 5% In Water 1,00... IV SCH (22:48)
[2017-02-28 06:27] LABS: ALB/GLOB RATIO 1.3 (1.1-1.8); ALKALINE PHOSPHATASE 70 U/L (38-126); ALT/SGPT 30 U/L (7-56); AST/SGOT 54 U/L (17-59); BLOOD UREA NITROGEN 9 mg/dL (7-21); CALCIUM 8.6 mg/dL (8.4-10.5); CARBON DIOXIDE 30 mmol/L (21-33); CHLORIDE 98 mmol/L (98-107); GFR AFRICAN-AMERICAN > 60; GLUCOSE,RANDOM 95 mg/dL (70-110); POTASSIUM 3.7 mmol/L (3.6-5.0); SODIUM 137 mmol/L (132-148)
--- NOTE | 2017-02-28 06:27 | CP.PCM.HP ---
History of Present Illness - History of Present Illness History of Present Illness: CC: right leg numbness x 1 day HPI: 51 y/o male with a PMhx Etoh abuse, Htn, CHF s/p AICD, seizure disorder came in to the [facility] ED with the complaint of right lower extremity numbness and tingling which started earlier today. Patient also reports a mild headache; denied any complaints of falls or loss of consciousness. States that he also feels slightly weaker in his legs and has occasional sensations of tingling and numbness in the left leg as well, but currently does not feel it. Pt underwent a CT of the head in the ED and was found to have a 1.7 x 1.2cm Left thalamic bleed. He denies any complaints of shortness of breath, chest pain, palpitations, nausea, vomiting, dizziness, fever, chills or diarrhea. He does admit to noncompliance with his medications and is unable to recall which meds he is currently supposed to be taking. PMHx: Etoh abuse (frequent ED visits for alcohol intoxication as well as admissions for alcohol withdrawal) Seizure disorder, noncompliant with keppra Htn CHF s/p AICD placement Allergies: NKDA Fam Hx: Sister - brain tumor; Sister - breast cancer Soc Hx: 1/2 ppdx x 25yrs; 1 pint of hard liquor every other day; denies illicit drug substances Meds: Keppra 500mg po bid Present on Admission - Present on Admission Any Indicators Present on Admission: No Review of Systems - Review of Systems Review of Systems: As per HPI otherwise negative for a 12 point review of systems Past Patient History - Infectious Disease Hx of Infectious Diseases: None - Tetanus Immunizations Tetanus Immunization: Unknown - Past Social History Smoking Status: Heavy Smoker > 10 Cigarettes Daily Alcohol: > 2 Drinks/Day Drugs: Denies - CARDIAC Hx Cardiac Disorders: Yes Hx Congestive Heart Failure: Yes Hx Hypertension: Yes Hx Internal Defibrillator: Yes (5 yrs) Hx Pacemaker: Yes (patient states he had it place 5 years ago) - PULMONARY Hx Respiratory Disorders: No Hx Chronic Obstructive Pulmonary Disease (COPD): No - NEUROLOGICAL Hx Neurological Disorder: Yes HX Cerebrovascular Accident: No Hx Seizures: Yes - HEENT Hx HEENT Problems: No Hx Blind: No Hx Cataracts: No Hx Deafness: No Hx Difficulty Chewing: No Hx Epistaxis: No Hx Glaucoma: No Hx Macular Degeneration: No - RENAL Hx Chronic Kidney Disease: No Hx Renal Failure: No - ENDOCRINE/METABOLIC Hx Endocrine Disorders: No Hx Diabetes Mellitus Type 1: No Hx Diabetes Mellitus Type 2: No Hx Hypothyroidism: No - HEMATOLOGICAL/ONCOLOGICAL Hx Blood Disorders: No Hx AIDS: No Hx Anemia: No Hx Cancer: No Hx Chemotherapy: No Hx Cirrhosis: No Hx Hemophilia: No Hx Hepatitis A: No Hx Hepatitis B: No Hx Hepatitis C: No Hx Metastesis: No Hx Shingles: No Hx Sickle Cell Disease: No Hx Unexplained Bleeding: No - INTEGUMENTARY Hx Basil Cell: No Hx Eczema: No Hx Melanoma: No Hx Psoriasis: No Hx Squamous Cell: No - MUSCULOSKELETAL/RHEUMATOLOGICAL Hx Arthritis: No - GASTROINTESTINAL Hx Gastrointestinal Disorders: No Hx Colostomy: No Hx Crohn's Disease: No Hx Diverticulitis: No Hx Gall Bladder Disease: No Hx Gastroesophageal Reflux: No Hx Ileostomy: No Hx Liver Failure: No Hx Pancreatitis: No HX Swallowing Problems: No - GENITOURINARY/GYNECOLOGICAL Hx Genitourinary Disorders: No Hx Hematuria: No Hx Incontinence: No Hx Prostate Problems: No Hx Sexually Transmitted Disorders: No Hx Urinary Tract Infection: No - PSYCHIATRIC Hx Psychophysiologic Disorder: Yes Hx Substance Use: No 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: ETOH abuse - SURGICAL HISTORY Hx Cholecystectomy: No Hx Musculoskeletal Surgery: Yes Hx Orthopedic Surgery: Yes (r ankle) Hx Valve Replacement: No 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: PPM and AICD insertion. Right ankle surgery placement of screws. Plate placed in left brow area. defibrillator 2012 - ANESTHESIA Hx Anesthesia: Yes Hx Anesthesia Reactions: No Hx Malignant Hyperthermia: No Meds Allergies/Adverse Reactions: Allergies Allergy/AdvReac Type Severity Reaction Status Date / Time No Known Allergies Allergy Verified 02/27/17 18:47 Physical Exam - Constitutional Appears: Non-toxic, No Acute Distress - Head Exam Head Exam: ATRAUMATIC, NORMOCEPHALIC - Eye Exam Eye Exam: EOMI, Normal appearance, PERRL Pupil Exam: NORMAL ACCOMODATION - ENT Exam ENT Exam: Mucous Membranes Moist, Normal Exam - Neck Exam Neck exam: Positive for: Normal Inspection - Respiratory Exam Respiratory Exam: Clear to Auscultation Bilateral, NORMAL BREATHING PATTERN. absent: Rhonchi, Wheezes - Cardiovascular Exam Cardiovascular Exam: REGULAR RHYTHM, +S1, +S2. absent: Systolic Murmur - GI/Abdominal Exam GI & Abdominal Exam: Normal Bowel Sounds, Soft. absent: Guarding, Rebound, Tenderness - Rectal Exam Rectal Exam: Deferred - Extremities Exam Extremities exam: Positive for: normal inspection - Neurological Exam Neurological exam: Alert, CN II-XII Intact, Oriented x3 Additional comments: 4/5 strength right upper and lower extremity; poor two point discriminations right lower extremity; abnormal finger to nose present on the right arm; normal on the left arm; some difficulty finding words however able to answer appropriately - Psychiatric Exam Psychiatric exam: Normal Affect, Normal Mood - Skin Skin Exam: Dry, Intact, Normal Color, Warm Results - Vital Signs Recent Vital Signs: Last Vital Signs Temp 99.4 F 02/27/17 18:53 Pulse 78 02/27/17 21:57 Resp 18 02/27/17 21:57 BP 135/90 02/27/17 21:57 Pulse Ox 97 02/27/17 21:57 - Labs Result Diagrams: 02/27/17 19:30 02/27/17 19:30 - EKG Data EKG Interpreted by: Myself Rate: Normal - Imaging and Cardiology CT scan - head Status: Image reviewed by me, Report reviewed by me (Left thalamic bleed 1.7 x 1.2cm) Assessment & Plan - Assessment and Plan (Free Text) Assessment: 51 yo male with a PMhx Etoh abuse, Seizure disorder, CHF s/p AICD presents to the ED with the complaint of right lower extremity numbness and tingling and is found to have an acute intraparenchymal bleed in the thalamus. The patient will be admitted to the ICU for closer management and care overnight. Plan: 1) Left thalamic bleed - will maintain a normal blood pressure (highest recorded blood pressure today was 159) will place him on Hydralazine 10mg IV Q6prn SBP > 185; formal swallow eval in the morning. Hold off on antiplatelet agents; neurochecks Q1x8h then Q2x4 then Q[address]h. CT Angio of the head/neck in the AM. ED discussed the case with neurosurgery who deferred to neurology. Case discussed with Dr. Steiner of Neurology. 2) Etoh Abuse - history of withdrawal; CIWA protocol; librium 10mg po Q8H; Ativan 2IV Q2h prn withdrawal; Banana Bag x 1 3) Seizure disorder - will restart keppra 500mg po bid; seizure precautions 4) CHF s/p AICD - stable; no acute issues at this time; strict i's and o's; daily weights 5) GI / DVT ppx - protonix po daily; SCD's case discussed with Dr Vinson in the ED labs and images reviewed personally Total time of care: 45 minutes
[2017-02-28] MEDS ORDERED: Magnesium Sulfate 2 GM in Sodium Chloride 0.9% 100 ML IVPB ONE (06:28)
[2017-02-28 06:32] LABS: BASO # 0.04 K/mm3 (0.0-2.0); BASO % 0.9 % (0.0-3.0); EOS # 0.1 (0.0-0.7); EOS % 1.6 % (1.5-5.0); GRAN # 2.56 (1.4-6.5); GRAN % 57.2 % (50.0-68.0); HEMATOCRIT 38.3 % (42.0-52.0); LYMPH # 1.1 (1.2-3.4); LYMPH % 24.4 % (22.0-35.0); MEAN CELL VOLUME 102.1 fl (80.0-105.0); MEAN CORPUSCULAR HEMOGLOBIN 35.2 pg (25.0-35.0); MEAN CORPUSCULAR HGB CONC 34.5 g/dl (31.0-37.0); MEAN PLATELET VOLUME 9.1 fl (7.0-11.0); MONO # 0.7 (0.1-0.6); MONO % 15.9 % (1.0-6.0); RED CELL DISTRIBUTION WIDTH 14.3 % (11.5-14.5); WHITE BLOOD COUNT 4.5 10^3/ul (4.5-11.0)
[2017-02-28 07:09] VITALS: BMI 19.5
[2017-02-28] MEDS ORDERED: Iohexol 350 MG/100 ML VIAL ONE (07:50)
[2017-02-28] MEDS: Pantoprazole 40 mg EC Tab PO SCH (07:54)
--- NOTE | 2017-02-28 09:14 | CT ---
PROCEDURE: CTA of the neck with contrast HISTORY: New left thalamic bleed COMPARISON: Comparison made with CT scan brain 02/28/2017 TECHNIQUE: Contiguous helical/transaxial images of the neck were obtained from the level of the skull-base to the superior mediastinum in the arteriographic phase of enhancement. Coronal and sagittal reformats or also generated. IV contrast dose: 100 cc Omnipaque 350 Radiation Dose - DLP: 513.59 mGy-cm This CT exam was performed using one or more of the following dose reduction techniques: Automated exposure control, adjustment of the mA and/or kV according to patient size, and/or use of iterative reconstruction technique FINDINGS: CT aortic arch is widely patent without evidence of significant atherosclerotic disease. The origins of the great vessels are also widely patent. The visualized common carotid arteries are patent however there arm mild Pap shaky ossified atherosclerotic plaque changes seen along both carotid bifurcations right side slightly more prominent than the left however no significant stenosis is identified. The internal carotid arteries including the petrous , cavernous and supraclinoid segments widely patent. There is mild atherosclerotic plaque along the right cavernous carotid artery with some mild narrowing of the right cavernous carotid artery. . The M1 segments are patent. The distal anterior and middle cerebral arteries are patent and not exhibit relative symmetry. The vertebral arteries are patent throughout left-sided which is slightly larger in caliber than the right. Basilar artery is also patent as are the distal posterior cerebral arteries. No evidence of large aneurysm nor vascular malformation. Previously noted chronic periventricular white matter ischemic changes and left thalamic hemorrhage is less well seen on this study as due to technique. Please refer to prior study of for additional details. . Mucoperiosteal inflammatory changes seen within the maxillary and ethmoid sinuses. Please refer to prior study for additional details. Degenerative spondylosis of the cervical spine most pronounced at the C6-C7 level. Lung apices are clear. No infiltrate or focal pneumothorax. Impression: Partially calcified atherosclerotic plaque seen both carotid bifurcations right larger than left. There also partially calcified atherosclerotic plaque seen along the right cavernous carotid artery with mild narrowing. No evidence of occlusion or significant stenosis. No evidence of large aneurysm nor vascular malformation
--- NOTE | 2017-02-28 09:23 | RAD ---
HISTORY: R arm/leg numbness COMPARISON: Comparison chest 10/27/2016 TECHNIQUE: Chest PA and lateral FINDINGS: LUNGS: No active pulmonary disease. PLEURA: No significant pleural effusion identified. No pneumothorax apparent. CARDIOVASCULAR: Heart size within range of normal. No change single lead pacemaker/defibrillator OSSEOUS STRUCTURES: Re- demonstrated is old healed fracture deformity right posterior 7th rib VISUALIZED UPPER ABDOMEN: Normal. OTHER FINDINGS: None. IMPRESSION: No acute infiltrates
[2017-02-28 09:30] LABS: CHOLESTEROL 185 mg/dL (130-200)
[2017-02-28] MEDS ORDERED: Thiamine 100 mg/ml Inj ONE (09:41)
[2017-02-28] MEDS: levETIRAcetam 500 mg/5ml UD cups PO SCH ×2 (10:00→17:26)
[2017-02-28] MEDS ORDERED: Metoprolol Succinate 25 mg XL Tab PO SCH (10:00)
[2017-02-28] MEDS: Folic Acid 1 MG, Thiamine 100 MG, Multivitamin (MVI) 10 ML in Dextrose 5% In Water 1,00... IV SCH ×2 (12:09→19:59)
--- NOTE | 2017-02-28 13:20 | CP.PCM.PN ---
Subjective - Date & Time of Evaluation Date of Evaluation: 02/28/17 Time of Evaluation: 09:55 - Subjective Subjective: CRITICAL CARE PROGRESS NOTE Patient seen and examined. 51 y/o male with a PMhx Etoh abuse, Htn, CHF s/p AICD , seizure disorder came in to the [facility] [place] [facility] ED with the complaint of right lower extremity numbness and tingling which started earlier today, CT of the head in the ED was found to have a 1.7 x 1.2cm Left thalamic bleed. He denies any complaints of shortness of breath, chest pain, palpitations, nausea, vomiting, dizziness, fever, chills or diarrhea. He does admit to noncompliance with his medications and is unable to recall which meds he is currently supposed to be taking. Currently awake, alert, motor strength 5/5 all ext. Objective - Vital Signs/Intake and Output Vital Signs (last 24 hours): Temp Pulse Resp BP Pulse Ox 98.8 F 72 15 138/93 H 97 02/28/17 12:00 02/28/17 10:00 02/28/17 01:18 02/28/17 09:43 02/27/17 21:57 Intake and Output: 02/28/17 02/28/17 06:59 18:59 Intake Total 660 Output Total 1250 Balance -590 - Medications Medications: Current Medications Amlodipine Besylate (Norvasc) 5 mg PO DAILY [facility] Last Admin: 02/28/17 09:43 Dose: 5 mg Chlordiazepoxide (Librium) 25 mg PO Q8 [facility] Last Admin: 02/28/17 09:43 Dose: 25 mg Hydralazine HCl (Apresoline) 10 mg IVP Q6H PRN PRN Reason: Systolic Blood Pressure Folic Acid 1 mg/ Thiamine HCl 100 mg/ Multivitamins/Vitamin C 10 ml/ Dextrose 1 ,011.2 mls @ 100 mls/hr IV .Q10H7M [facility] Last Admin: 02/28/17 12:09 Dose: 100 mls/hr Levetiracetam (Keppra) 500 mg PO BID [facility] Last Admin: 02/28/17 10:00 Dose: 500 mg Lorazepam (Ativan) 2 mg IVP Q2H PRN; Protocol PRN Reason: Symptoms of alcohol withdrawl Metoprolol Succinate (Toprol Xl) 25 mg PO BRK [facility] Pantoprazole Sodium (Protonix Ec Tab) 40 mg PO 0600 [facility] Last Admin: 02/28/17 07:54 Dose: 40 mg - Labs Labs: 02/28/17 05:30 02/28/17 05:30 PT 10.7 Seconds (9.9-11.8) 02/27/17 19:30 INR 0.99 (0.93-1.08) 02/27/17 19:30 APTT 29.7 Seconds (23.7-30.8) 02/27/17 19:30 - Constitutional Appears: Well, Non-toxic, No Acute Distress - Head Exam Head Exam: ATRAUMATIC, NORMAL INSPECTION - Eye Exam Eye Exam: Normal appearance Pupil Exam: PERRL - ENT Exam ENT Exam: Mucous Membranes Moist - Neck Exam Neck Exam: Full ROM - Respiratory Exam Respiratory Exam: Clear to Ausculation Bilateral, NORMAL BREATHING PATTERN - Cardiovascular Exam Cardiovascular Exam: REGULAR RHYTHM, RRR, +S1, +S2 - GI/Abdominal Exam GI & Abdominal Exam: Soft, Normal Bowel Sounds - Extremities Exam Extremities Exam: Normal Inspection - Neurological Exam Neurological Exam: Alert, Awake, Oriented x3 Neuro motor strength exam: Left Upper Extremity: 5, Right Upper Extremity: 5, Left Lower Extremity: 5, Right Lower Extremity: 5 - Skin Skin Exam: Normal Color Assessment and Plan - Assessment and Plan (Free Text) Assessment: 51 y/o male with a PMhx Etoh abuse, Htn, CHF s/p AICD, seizure disorder came in to the [facility] [place] ED with the complaint of right lower extremity numbness and tingling , found to have a 1.7 x 1.2cm Left thalamic bleed. ICH HTn EtOH abuse - currently afebrile, HD stable, comfortable on room air - CT head with L thalamic bleed - BP well controlled - Neurology consult pending Recommend: - supp o2 as needed - no active ID issues - BP control, maintain SBP 130-150 - Start Nosvasc 5mg daily, cont with home dose of Toprol XL - Check Lipid Panel, TSH - start Statin - Check ECHO - Seizure PPx Keppra - maintain euthermia - FS control - Follow up neurology, NSG - MVT, Thiamine, Folic Acid, Ativan PRN - DVT ppx, SCDs - GI ppx
--- NOTE | 2017-02-28 13:43 | CARD ---
APPROVED REPORT EKG Measurement Heart [id number] <Conclusion> Normal sinus rhythm with sinus arrhythmia Septal infarct, age undetermined Abnormal ECG
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
[2017-02-28] MEDS ORDERED: Metoprolol Succinate 25 mg XL Tab PO STA (14:50)
--- NOTE | 2017-03-01 02:49 | CON ---
DATE: HISTORY OF PRESENT ILLNESS: This is a 51-year-old male with past medical history of EtOH abuse, came to the emergency room with the right-sided weakness and CAT scan of the head show left thalamic hemorrhage. Patient in the ICU and is having right-sided weakness. PHYSICAL EXAMINATION: HEENT: Normocephalic and atraumatic. NECK: Supple. NEUROLOGIC: Awake, alert and oriented to self and place. No aphasia. Cranial nerves II through XII were tested. Pupils reactive. EOM intact. Visual field full. No facial asymmetry. Tongue midline. Motor examination: Left side 5/5, right side 2-3/5. Deep tendon reflexes 1+. Right plantar upgoing. Cerebellar gait deferred. IMPRESSION: Left thalamic hemorrhage seen by neurosurgery. Continue present management. We will follow up. James Steiner MD
[2017-03-01] MEDS: Pantoprazole 40 mg EC Tab PO SCH (05:45)
[2017-03-01 06:57] LABS: ALB/GLOB RATIO 1.3 (1.1-1.8); ALKALINE PHOSPHATASE 71 U/L (38-126); ALT/SGPT 29 U/L (7-56); AST/SGOT 52 U/L (17-59); BILIRUBIN,TOTAL 1.5 mg/dL (0.2-1.3); BLOOD UREA NITROGEN 9 mg/dL (7-21); CALCIUM 8.8 mg/dL (8.4-10.5); CARBON DIOXIDE 29 mmol/L (21-33); CHLORIDE 100 mmol/L (98-107); GFR AFRICAN-AMERICAN > 60; GLUCOSE,RANDOM 105 mg/dL (70-110); MAGNESIUM 1.9 mg/dL (1.7-2.2); PHOSPHOROUS 3.7 mg/dL (2.5-4.5); POTASSIUM 3.5 mmol/L (3.6-5.0); SODIUM 139 mmol/L (132-148); TOTAL PROTEIN 7.3 g/dL (5.8-8.3)
[2017-03-01 07:14] LABS: BASO # 0.02 K/mm3 (0.0-2.0); BASO % 0.4 % (0.0-3.0); EOS # 0.1 (0.0-0.7); EOS % 2.3 % (1.5-5.0); GRAN # 2.75 (1.4-6.5); GRAN % 53.7 % (50.0-68.0); HEMATOCRIT 40.6 % (42.0-52.0); LYMPH # 1.5 (1.2-3.4); LYMPH % 29.4 % (22.0-35.0); MEAN CELL VOLUME 103.6 fl (80.0-105.0); MEAN CORPUSCULAR HEMOGLOBIN 33.9 pg (25.0-35.0); MEAN CORPUSCULAR HGB CONC 32.8 g/dl (31.0-37.0); MEAN PLATELET VOLUME 9.6 fl (7.0-11.0); MONO # 0.7 (0.1-0.6); MONO % 14.2 % (1.0-6.0); RED CELL DISTRIBUTION WIDTH 14.4 % (11.5-14.5); WHITE BLOOD COUNT 5.1 10^3/ul (4.5-11.0)
--- NOTE | 2017-03-01 08:09 | CP.CCUPN ---
<Matilde Barth - Last Filed: 03/01/17 12:19> CCU Subjective - Physician Review Events Since Last Encounter (Free Text): 03/01/17 08:06 No acute events overnight Subjective (Free Text): 03/01/17 08:07 Critical care progress note for Dr. Eduin Barth, PGY-1 Pt S & E at bedside. Pt reports improved numbness of RUE and RLE, continues with weakness. Denies N/ V/F/C, SOB, CP, ECHOLS, vision changes. Critical Care Time Spent (in minutes): 35 CCU Objective - Vital Signs / Intake & Output Vital Signs (Last 4 hours): Vital Signs Pulse Resp 03/01/17 06:00 82 03/01/17 04:10 72 18 Intake and Output (Last 8hrs): Intake & Output 02/28/17 03/01/17 03/01/17 22:59 06:59 14:59 Intake Total 1850 1320 Output Total 1750 1250 Balance 100 70 Intake: IV 1200 1200 Right Forearm 1200 1200 Oral 650 120 Output: Urine 1750 1250 Urine, Voided 1750 1250 Stool 0 Other: # Voids Urine, Voided 4 # Bowel Movements 0 - Physical Exam Head: Positive for: Atraumatic, Normocephalic Pupils: Positive for: PERRL Extroacular Muscles: Positive for: EOMI Conjunctiva: Positive for: Normal Ears: Positive for: Normal Mouth: Positive for: Moist Mucous Membranes, Other (Tongue deviates to Right) Nose (External): Positive for: Atraumatic Neck: Positive for: Normal Range of Motion Respiratory/Chest: Positive for: Clear to Auscultation, Good Air Exchange. Negative for: Respiratory Distress, Accessory Muscle Use Cardiovascular: Positive for: Regular Rate and Rhythm, Normal S1, S2. Negative for: Murmurs Abdomen: Positive for: Normal Bowel Sounds. Negative for: Tenderness, Distention, Peritoneal Signs Upper Extremity: Positive for: Normal Inspection. Negative for: Cyanosis, Edema , Norm 2-Pt Discrimination Lower Extremity: Positive for: Normal Inspection. Negative for: Edema, CALF TENDERNESS Neurological: Positive for: GCS=15, Speech Normal. Negative for: CN II-XII Intact (Tongue deviation to Right), Motor Func Grossly Intact (2/5 motor strength of RUE and 2/5 motor strength of RLE, 5/5 motor strength of LUE and LLE ), Normal Sensory Function (Decreased sensation over RUE & RLE), Normal 2Pt Descrimination Skin: Positive for: Warm, Dry, Normal Color. Negative for: Rashes Psychiatric: Positive for: Alert, Oriented x 3, Normal Insight, Normal Concentration - Medications Active Medications: Active Medications Generic Name Dose Route Start Last Admin Trade Name Freq PRN Reason Stop Dose Admin Amlodipine Besylate 5 mg 02/28/17 10:00 02/28/17 09:43 Norvasc PO 5 mg DAILY JUSTINO Administration Chlordiazepoxide 25 mg 02/28/17 08:50 03/01/17 05:45 Librium PO 25 mg Q8 JUSTINO Administration Hydralazine HCl 10 mg 02/27/17 22:06 Apresoline IVP Q6H PRN Systolic Blood Pressure Folic Acid 1 mg/ Thiamine HCl 1,011.2 mls @ 100 mls/hr 02/27/17 22:15 19:59 100 mg/ Multivitamins/Vitamin IV 100 mls/hr C 10 ml/ Dextrose .Q10H7M JUSTINO Administration Levetiracetam 500 mg 02/28/17 10:00 02/28/17 17:26 Keppra PO 500 mg BID JUSTINO Administration Lorazepam 2 mg 02/27/17 22:07 Ativan IVP Q2H PRN Symptoms of alcohol withdrawl Protocol Metoprolol Succinate 25 mg 03/01/17 08:00 Toprol Xl PO BRK JUSTINO Pantoprazole Sodium 40 mg 02/28/17 06:00 03/01/17 05:45 Protonix Ec Tab PO 40 mg 0600 JUSTINO Administration Potassium Chloride 20 meq 03/01/17 08:00 K-Dur 20 Meq Er Tab PO BRK JUSTINO - Patient Studies Lab Studies: Lab Studies 03/01/17 03/01/17 03/01/17 Range/Units 07:57 05:15 05:15 WBC 5.1 (4.5-11.0) 10^3/ul RBC 3.92 (3.5-6.1) 10^6/uL Hgb 13.3 L (14.0-18.0) g/dL Hct 40.6 L (42.0-52.0) % MCV 103.6 (80.0-105.0) fl MCH 33.9 (25.0-35.0) pg MCHC 32.8 (31.0-37.0) g/dl RDW 14.4 (11.5-14.5) % Plt Count 276 (120.0-450.0) 10^3/uL MPV 9.6 (7.0-11.0) fl Gran % 53.7 (50.0-68.0) % Lymph % (Auto) 29.4 (22.0-35.0) % Barron % (Auto) 14.2 H (1.0-6.0) % Eos % (Auto) 2.3 (1.5-5.0) % Baso % (Auto) 0.4 (0.0-3.0) % Gran # 2.75 (1.4-6.5) Lymph # 1.5 (1.2-3.4) Barron # 0.7 H (0.1-0.6) Eos # 0.1 (0.0-0.7) Baso # 0.02 (0.0-2.0) K/mm3 Sodium 139 (132-148) mmol/L Potassium 3.5 L (3.6-5.0) mmol/L Chloride 100 (98-107) mmol/L Carbon Dioxide 29 (21-33) mmol/L Anion Gap 14 (10-20) BUN 9 (7-21) mg/dL Creatinine 0.8 (0.5-1.4) mg/dL Est GFR ( Amer) > 60 Est GFR (Non-Af Amer) > 60 POC Glucose (mg/dL) 149 H (65-110) mg/dL Random Glucose 105 (70-110) mg/dL Calcium 8.8 (8.4-10.5) mg/dL Phosphorus 3.7 (2.5-4.5) mg/dL Magnesium 1.9 (1.7-2.2) mg/dL Total Bilirubin 1.5 H (0.2-1.3) mg/dL AST 52 (17-59) U/L ALT 29 (7-56) U/L Alkaline Phosphatase 71 (38-126) U/L Total Protein 7.3 (5.8-8.3) g/dL Albumin 4.1 (3.0-4.8) g/dL Globulin 3.2 gm/dL Albumin/Globulin Ratio 1.3 (1.1-1.8) Triglycerides (35-160) mg/dL Cholesterol (130-200) mg/dL LDL Cholesterol Direct (0-129) mg/dL HDL Cholesterol (29-60) mg/dL 02/28/17 02/28/17 02/28/17 Range/Units 15:32 11:46 06:30 WBC (4.5-11.0) 10^3/ul RBC (3.5-6.1) 10^6/uL Hgb (14.0-18.0) g/dL Hct (42.0-52.0) % MCV (80.0-105.0) fl MCH (25.0-35.0) pg MCHC (31.0-37.0) g/dl RDW (11.5-14.5) % Plt Count (120.0-450.0) 10^3/uL MPV (7.0-11.0) fl Gran % (50.0-68.0) % Lymph % (Auto) (22.0-35.0) % Barron % (Auto) (1.0-6.0) % Eos % (Auto) (1.5-5.0) % Baso % (Auto) (0.0-3.0) % Gran # (1.4-6.5) Lymph # (1.2-3.4) Barron # (0.1-0.6) Eos # (0.0-0.7) Baso # (0.0-2.0) K/mm3 Sodium (132-148) mmol/L Potassium (3.6-5.0) mmol/L Chloride (98-107) mmol/L Carbon Dioxide (21-33) mmol/L Anion Gap (10-20) BUN (7-21) mg/dL Creatinine (0.5-1.4) mg/dL Est GFR ( Amer) Est GFR (Non-Af Amer) POC Glucose (mg/dL) 129 H 105 (65-110) mg/dL Random Glucose (70-110) mg/dL Calcium (8.4-10.5) mg/dL Phosphorus (2.5-4.5) mg/dL Magnesium (1.7-2.2) mg/dL Total Bilirubin (0.2-1.3) mg/dL AST (17-59) U/L ALT (7-56) U/L Alkaline Phosphatase (38-126) U/L Total Protein (5.8-8.3) g/dL Albumin (3.0-4.8) g/dL Globulin gm/dL Albumin/Globulin Ratio (1.1-1.8) Triglycerides 101 (35-160) mg/dL Cholesterol 185 (130-200) mg/dL LDL Cholesterol Direct 76 (0-129) mg/dL HDL Cholesterol 80 H (29-60) mg/dL Laboratory Results - last 24 hr 02/28/17 02/28/17 02/28/17 06:30 11:46 15:32 WBC RBC Hgb Hct MCV MCH MCHC RDW Plt Count MPV Gran % Lymph % (Auto) Barron % (Auto) Eos % (Auto) Baso % (Auto) Gran # Lymph # Barron # Eos # Baso # Sodium Potassium Chloride Carbon Dioxide Anion Gap BUN Creatinine Est GFR ( Amer) Est GFR (Non-Af Amer) POC Glucose (mg/dL) 105 129 H Random Glucose Calcium Phosphorus Magnesium Total Bilirubin AST ALT Alkaline Phosphatase Total Protein Albumin Globulin Albumin/Globulin Ratio Triglycerides 101 Cholesterol 185 LDL Cholesterol Direct 76 HDL Cholesterol 80 H 03/01/17 03/01/17 03/01/17 05:15 05:15 07:57 WBC 5.1 RBC 3.92 Hgb 13.3 L Hct 40.6 L MCV 103.6 MCH 33.9 MCHC 32.8 RDW 14.4 Plt Count 276 MPV 9.6 Gran % 53.7 Lymph % (Auto) 29.4 Barron % (Auto) 14.2 H Eos % (Auto) 2.3 Baso % (Auto) 0.4 Gran # 2.75 Lymph # 1.5 Barron # 0.7 H Eos # 0.1 Baso # 0.02 Sodium 139 Potassium 3.5 L Chloride 100 Carbon Dioxide 29 Anion Gap 14 BUN 9 Creatinine 0.8 Est GFR ( Amer) > 60 Est GFR (Non-Af Amer) > 60 POC Glucose (mg/dL) 149 H Random Glucose 105 Calcium 8.8 Phosphorus 3.7 Magnesium 1.9 Total Bilirubin 1.5 H AST 52 ALT 29 Alkaline Phosphatase 71 Total Protein 7.3 Albumin 4.1 Globulin 3.2 Albumin/Globulin Ratio 1.3 Triglycerides Cholesterol LDL Cholesterol Direct HDL Cholesterol Fingerstick Blood Sugar Results: 213 Review of Systems - Review of Systems All systems: reviewed and no additional remarkable complaints except - Constitutional Constitutional: absent: Fever, Chills - EENT Eyes: UNREMARKABLE. absent: Change in Vision Ears: UNREMARKABLE. absent: Dizziness Nose/Mouth/Throat: UNREMARKABLE. absent: Dry Mouth - Cardiovascular Cardiovascular: UNREMARKABLE. absent: Chest Pain - Gastrointestinal Gastrointestinal: UNREMARKABLE. absent: Abdominal Pain, Nausea, Vomiting - Genitourinary Genitourinary: UNREMARKABLE. absent: Change in Urinary Stream - Musculoskeletal Musculoskeletal: Muscle Weakness, Numbness - Neurological Neurological: Numbness, Focal Weakness, Lack of Coordination, Weakness. absent : Headaches Critical Care Progress Note - Extremities/Vascular Does the Patient have a Central Venous Catheter?: No Does the Patient need a Central Venous Catheter?: No Does the Patient have a [place]rana Catheter?: No Does the Patient need a [place] Catheter?: No - Prophylaxis GI Prophylaxis GI: PPI - Prophylaxis DVT Prophylaxis DVT: Not Indicated (Contraindicated 2/2 bleed) - Nutrition Nutrition: Nutrition Category Date Time Status Dysphagia/Modified Consistency Diet [DIET] Diets 03/01/17 Breakfast Ordered Assessment/Plan - Assessment and Plan (Free Text) Assessment: 51M w/PMH sig for ETOH abuse with intraparenchymal L thalamic hemorrhage with motor & sensory deficits- improving Plan: Neuro Hx ETOH abuse Intraparenchymal hemorrhage- 1.7 x 1.2 cm intraparenchymal hemorrhage within LEFT thalamus. Mild surrounding edema. Few scattered foci of decreased attenuation within periventricular/subcortical white matter. Grossly preserved calix-white matter differentiation. CT neck w/ Partially calcified atherosclerotic plaque seen both carotid bifurcations right larger than left. There also partially calcified atherosclerotic plaque seen along the right cavernous carotid artery with mild narrowing. No evidence of occlusion or significant stenosis. No evidence of large aneurysm nor vascular malformation AOx3 CIWA protocol Seizure precautions Aspiration precautions HOB to 45 degrees Ativan Librium- tapering Keppra Continued sensory/motor deficits of RUE and RLE Neuro surgery following Neuro following CVS Normotensive BP WNL Norvasc Toprol XL FU Echo Monitor Pulm SaO2 93% Target SaO2> 94% O2 via NC prn Monitor GI Hyperbilirubinemia in setting of ETOH abuse T bili 1.5 down from 3 Monitor Dysphagia/modified consistency diet Voids freely UDS negative Monitor Nephro D5W @100 Hypokalemia K 3.5 Replaced other electrolytes WNL Monitor Endo BS WNL Accuchecks Target euglycemia ID Afebrile over 24H No leukocytosis Monitor Heme/Onc Hgb 13.3 Hct 40.6 Stable MSK PT/OT Fall precautions GI/DVT ppx Protonix SCDs Contraindications to VTE ppx 2/2 bleed Dispo Stable overnight Transfer to [facility] attending Lary, PGY-1 - Date & Time Date: 03/01/17 Time: 06:40 <Demarcus Ponce - Last Filed: 03/01/17 13:51> CCU Objective - Vital Signs / Intake & Output Intake and Output (Last 8hrs): Intake & Output 02/28/17 03/01/17 03/01/17 22:59 06:59 14:59 Intake Total 1850 1320 Output Total 1750 1250 Balance 100 70 Intake: IV 1200 1200 Right Forearm 1200 1200 Oral 650 120 Output: Urine 1750 1250 Urine, Voided 1750 1250 Stool 0 Other: # Voids Urine, Voided 4 # Bowel Movements 0 - Medications Active Medications: Active Medications Generic Name Dose Route Start Last Admin Trade Name Freq PRN Reason Stop Dose Admin Amlodipine Besylate 5 mg 02/28/17 10:00 03/01/17 09:32 Norvasc PO 5 mg DAILY JUSTINO Administration Chlordiazepoxide 25 mg 03/01/17 22:00 Librium PO Q12 JUSTINO Hydralazine HCl 10 mg 02/27/17 22:06 Apresoline IVP Q6H PRN Systolic Blood Pressure Folic Acid 1 mg/ Thiamine HCl 1,011.2 mls @ 100 mls/hr 02/27/17 22:15 19:59 100 mg/ Multivitamins/Vitamin IV 100 mls/hr C 10 ml/ Dextrose .Q10H7M JUSTINO Administration Levetiracetam 500 mg 02/28/17 10:00 03/01/17 09:33 Keppra PO 500 mg BID JUSTINO Administration Lorazepam 2 mg 02/27/17 22:07 Ativan IVP Q2H PRN Symptoms of alcohol withdrawl Protocol Metoprolol Succinate 25 mg 03/01/17 08:00 03/01/17 09:32 Toprol Xl PO 25 mg BRK JUSTINO Administration Pantoprazole Sodium 40 mg 02/28/17 06:00 03/01/17 05:45 Protonix Ec Tab PO 40 mg 0600 JUSTINO Administration Potassium Chloride 20 meq 03/01/17 08:00 03/01/17 09:33 K-Dur 20 Meq Er Tab PO 20 meq BRK JUSTINO Administration - Patient Studies Lab Studies: Lab Studies 03/01/17 03/01/17 03/01/17 Range/Units 11:47 07:57 05:15 WBC (4.5-11.0) 10^3/ul RBC (3.5-6.1) 10^6/uL Hgb (14.0-18.0) g/dL Hct (42.0-52.0) % MCV (80.0-105.0) fl MCH (25.0-35.0) pg MCHC (31.0-37.0) g/dl RDW (11.5-14.5) % Plt Count (120.0-450.0) 10^3/uL MPV (7.0-11.0) fl Gran % (50.0-68.0) % Lymph % (Auto) (22.0-35.0) % Barron % (Auto) (1.0-6.0) % Eos % (Auto) (1.5-5.0) % Baso % (Auto) (0.0-3.0) % Gran # (1.4-6.5) Lymph # (1.2-3.4) Barron # (0.1-0.6) Eos # (0.0-0.7) Baso # (0.0-2.0) K/mm3 Sodium 139 (132-148) mmol/L Potassium 3.5 L (3.6-5.0) mmol/L Chloride 100 (98-107) mmol/L Carbon Dioxide 29 (21-33) mmol/L Anion Gap 14 (10-20) BUN 9 (7-21) mg/dL Creatinine 0.8 (0.5-1.4) mg/dL Est GFR ( Amer) > 60 Est GFR (Non-Af Amer) > 60 POC Glucose (mg/dL) 128 H 149 H (65-110) mg/dL Random Glucose 105 (70-110) mg/dL Calcium 8.8 (8.4-10.5) mg/dL Phosphorus 3.7 (2.5-4.5) mg/dL Magnesium 1.9 (1.7-2.2) mg/dL Total Bilirubin 1.5 H (0.2-1.3) mg/dL AST 52 (17-59) U/L ALT 29 (7-56) U/L Alkaline Phosphatase 71 (38-126) U/L Total Protein 7.3 (5.8-8.3) g/dL Albumin 4.1 (3.0-4.8) g/dL Globulin 3.2 gm/dL Albumin/Globulin Ratio 1.3 (1.1-1.8) 03/01/17 02/28/17 Range/Units 05:15 15:32 WBC 5.1 (4.5-11.0) 10^3/ul RBC 3.92 (3.5-6.1) 10^6/uL Hgb 13.3 L (14.0-18.0) g/dL Hct 40.6 L (42.0-52.0) % MCV 103.6 (80.0-105.0) fl MCH 33.9 (25.0-35.0) pg MCHC 32.8 (31.0-37.0) g/dl RDW 14.4 (11.5-14.5) % Plt Count 276 (120.0-450.0) 10^3/uL MPV 9.6 (7.0-11.0) fl Gran % 53.7 (50.0-68.0) % Lymph % (Auto) 29.4 (22.0-35.0) % Barron % (Auto) 14.2 H (1.0-6.0) % Eos % (Auto) 2.3 (1.5-5.0) % Baso % (Auto) 0.4 (0.0-3.0) % Gran # 2.75 (1.4-6.5) Lymph # 1.5 (1.2-3.4) Barron # 0.7 H (0.1-0.6) Eos # 0.1 (0.0-0.7) Baso # 0.02 (0.0-2.0) K/mm3 Sodium (132-148) mmol/L Potassium (3.6-5.0) mmol/L Chloride (98-107) mmol/L Carbon Dioxide (21-33) mmol/L Anion Gap (10-20) BUN (7-21) mg/dL Creatinine (0.5-1.4) mg/dL Est GFR ( Amer) Est GFR (Non-Af Amer) POC Glucose (mg/dL) 129 H (65-110) mg/dL Random Glucose (70-110) mg/dL Calcium (8.4-10.5) mg/dL Phosphorus (2.5-4.5) mg/dL Magnesium (1.7-2.2) mg/dL Total Bilirubin (0.2-1.3) mg/dL AST (17-59) U/L ALT (7-56) U/L Alkaline Phosphatase (38-126) U/L Total Protein (5.8-8.3) g/dL Albumin (3.0-4.8) g/dL Globulin gm/dL Albumin/Globulin Ratio (1.1-1.8) Laboratory Results - last 24 hr 02/28/17 03/01/17 03/01/17 15:32 05:15 05:15 WBC 5.1 RBC 3.92 Hgb 13.3 L Hct 40.6 L MCV 103.6 MCH 33.9 MCHC 32.8 RDW 14.4 Plt Count 276 MPV 9.6 Gran % 53.7 Lymph % (Auto) 29.4 Barron % (Auto) 14.2 H Eos % (Auto) 2.3 Baso % (Auto) 0.4 Gran # 2.75 Lymph # 1.5 Barron # 0.7 H Eos # 0.1 Baso # 0.02 Sodium 139 Potassium 3.5 L Chloride 100 Carbon Dioxide 29 Anion Gap 14 BUN 9 Creatinine 0.8 Est GFR ( Amer) > 60 Est GFR (Non-Af Amer) > 60 POC Glucose (mg/dL) 129 H Random Glucose 105 Calcium 8.8 Phosphorus 3.7 Magnesium 1.9 Total Bilirubin 1.5 H AST 52 ALT 29 Alkaline Phosphatase 71 Total Protein 7.3 Albumin 4.1 Globulin 3.2 Albumin/Globulin Ratio 1.3 03/01/17 03/01/17 07:57 11:47 WBC RBC Hgb Hct MCV MCH MCHC RDW Plt Count MPV Gran % Lymph % (Auto) Barron % (Auto) Eos % (Auto) Baso % (Auto) Gran # Lymph # Barron # Eos # Baso # Sodium Potassium Chloride Carbon Dioxide Anion Gap BUN Creatinine Est GFR ( Amer) Est GFR (Non-Af Amer) POC Glucose (mg/dL) 149 H 128 H Random Glucose Calcium Phosphorus Magnesium Total Bilirubin AST ALT Alkaline Phosphatase Total Protein Albumin Globulin Albumin/Globulin Ratio Critical Care Progress Note - Nutrition Nutrition: Nutrition Category Date Time Status Dysphagia/Modified Consistency Diet [DIET] Diets 03/01/17 Breakfast Ordered Assessment/Plan - Assessment and Plan (Free Text) Plan: Patient seen and examined, on roudns with Dr Barth, agree with note, A/P. Patient is doing significantly better, BP stable. Neurology, and NSg following. ICH, L Thalamic bleed EtOh abuse HTN Recommend: - supp o2 as needed - no active ID issues - BP control, Goal SBP 130-150 - cont with Norvasc, Lopressor - Librium taper - MVT, Thiamine, Folic Acid - HOB 30 deg - monitor HH - FS control - Maintain euthermia - follow up neurology, NSG - DVT ppx, SCDs - stable transfer to telemetry
[2017-03-01] MEDS: Metoprolol Succinate 25 mg XL Tab PO SCH (09:32)
[2017-03-01] MEDS: Potassium Chloride 20 mEq ER Tab PO SCH (09:33)
[2017-03-01] MEDS: levETIRAcetam 500 mg/5ml UD cups PO SCH ×2 (09:33→18:15)
--- NOTE | 2017-03-01 16:35 | CP.PCM.PN ---
<ANEL MEJIA - Last Filed: 03/01/17 16:32> Subjective - Date & Time of Evaluation Date of Evaluation: 03/01/17 Time of Evaluation: 07:35 - Subjective Subjective: patient was seen and examined bedside. denies any acute overnight events. denies withdrawal symptoms of seizures, shakes, irritability, or visual/ auditory hallucinations. pt feels that his motor skills have no improved and that he is still dropping things. denies fevers, chills, cp, sob, or vision changes. Objective - Vital Signs/Intake and Output Vital Signs (last 24 hours): Temp Pulse Resp BP Pulse Ox 98.2 F 98 H 18 150/100 H 93 L 03/01/17 04:00 03/01/17 09:32 03/01/17 04:10 03/01/17 09:32 02/28/17 23:01 Intake and Output: 03/01/17 03/01/17 06:59 18:59 Intake Total 1320 Output Total 1250 Balance 70 - Medications Medications: Current Medications Amlodipine Besylate (Norvasc) 5 mg PO DAILY [facility] Last Admin: 03/01/17 09:32 Dose: 5 mg Chlordiazepoxide (Librium) 25 mg PO Q12 [facility] Hydralazine HCl (Apresoline) 10 mg IVP Q6H PRN PRN Reason: Systolic Blood Pressure Folic Acid 1 mg/ Thiamine HCl 100 mg/ Multivitamins/Vitamin C 10 ml/ Dextrose 1 ,011.2 mls @ 100 mls/hr IV .Q10H7M [facility] Last Admin: 02/28/17 19:59 Dose: 100 mls/hr Levetiracetam (Keppra) 500 mg PO BID [facility] Last Admin: 03/01/17 09:33 Dose: 500 mg Lorazepam (Ativan) 2 mg IVP Q2H PRN; Protocol PRN Reason: Symptoms of alcohol withdrawl Metoprolol Succinate (Toprol Xl) 25 mg PO BRK [facility] Last Admin: 03/01/17 09:32 Dose: 25 mg Pantoprazole Sodium (Protonix Ec Tab) 40 mg PO 0600 [facility] Last Admin: 03/01/17 05:45 Dose: 40 mg Potassium Chloride (K-Dur 20 Meq Er Tab) 20 meq PO BRK [facility] Last Admin: 03/01/17 09:33 Dose: 20 meq - Labs Labs: 09/18/17 05:15 03/01/17 05:15 PT 10.7 Seconds (9.9-11.8) 02/27/17 19:30 INR 0.99 (0.93-1.08) 02/27/17 19:30 APTT 29.7 Seconds (23.7-30.8) 02/27/17 19:30 - Additional Findings Additional findings: - Constitutional Appears: No Acute Distress - Head Exam Head Exam: ATRAUMATIC, NORMAL INSPECTION, NORMOCEPHALIC - Eye Exam Eye Exam: EOMI, Normal appearance, PERRL Pupil Exam: NORMAL ACCOMODATION - ENT Exam ENT Exam: Mucous Membranes Moist - Neck Exam Neck Exam: Normal Inspection. absent: Meningismus - Respiratory Exam Respiratory Exam: Clear to Ausculation Bilateral, NORMAL BREATHING PATTERN. absent: Accessory Muscle Use, Rales, Wheezes, Respiratory Distress - Cardiovascular Exam Cardiovascular Exam: RRR - GI/Abdominal Exam GI & Abdominal Exam: Soft, Normal Bowel Sounds. absent: Distended, Tenderness - Extremities Exam Extremities Exam: absent: Full ROM, Pedal Edema - Neurological Exam Neurological Exam: Alert, Awake, Oriented x3 Neuro motor strength exam: Left Upper Extremity: 5, Right Upper Extremity: 5, Left Lower Extremity: 5, Right Lower Extremity: 4 Additional comments: RUE prefers to be flexed (less than prior exam) slurring of speech (milder than prior exam) sensory deficits in R side of face, RUE and RLE are improved - Psychiatric Exam Psychiatric exam: Normal Mood - Skin Skin Exam: Normal Color, Warm Assessment and Plan - Assessment and Plan (Free Text) Assessment: 51yo M PMH CHF s/p AICD, HTN, ETOH abuse and seizures presents w/ sudden onset R -sided weakness and numbness. Found to have 1.7x1.2cm L thalamic bleed w/ no midline shift, likely 2/2 uncontrolled HTN vs CVA w/ hemorrhagic conversion vs trauma Plan: 1. Intracranial hemorrhage - Neurology consulted, recs appreciated - CTA Head and Neck showed partially calcified atherosclerotic plaque in both carotid bifurcations (R>L), and along the R cavernous carotid artery. No evidence of occlusions, large aneurysms or vascular malformations - Neurochecks - PT eval - speech & swallow eval, rec po diet and liquid consistencies 2. ETOH - level on admission <10 - CIWA protocol - librium JUSTINO and Ativan PRN - banana bag 3. Hx HTN - Norvasc 5mg daily - Metoprolol succinate - Hydralazine PRN 4. Hx Seizures - Keppra restarted - pt has hx of non-compliance; educated about need and use of keppra - monitor for signs of withdrawal - neuro checks - VS checks - seizure precautions 5. Hx CHF w/ AICD - currently asymptomatic - should f/u as outpatient for workup - Echo shows 45% EF 6. hypokalemia - repleted - f/u BMP Dysphagia diet PTX/SCDs Patient was seen, evaluated and discussed with attending, Dr. Rosalee Mejia PGY1 <Shanti Turk - Last Filed: 03/01/17 17:51> Objective - Vital Signs/Intake and Output Vital Signs (last 24 hours): Temp Pulse Resp BP Pulse Ox 98.2 F 98 H 18 150/100 H 93 L 03/01/17 04:00 03/01/17 09:32 03/01/17 04:10 03/01/17 09:32 02/28/17 23:01 Intake and Output: 03/01/17 03/01/17 06:59 18:59 Intake Total 1320 Output Total 1250 Balance 70 - Medications Medications: Current Medications Amlodipine Besylate (Norvasc) 5 mg PO DAILY [facility] Last Admin: 03/01/17 09:32 Dose: 5 mg Chlordiazepoxide (Librium) 25 mg PO Q12 [facility] Hydralazine HCl (Apresoline) 10 mg IVP Q6H PRN PRN Reason: Systolic Blood Pressure Folic Acid 1 mg/ Thiamine HCl 100 mg/ Multivitamins/Vitamin C 10 ml/ Dextrose 1 ,011.2 mls @ 100 mls/hr IV .Q10H7M [facility] Last Admin: 02/28/17 19:59 Dose: 100 mls/hr Levetiracetam (Keppra) 500 mg PO BID [facility] Last Admin: 03/01/17 09:33 Dose: 500 mg Lorazepam (Ativan) 2 mg IVP Q2H PRN; Protocol PRN Reason: Symptoms of alcohol withdrawl Metoprolol Succinate (Toprol Xl) 25 mg PO BRK [facility] Last Admin: 03/01/17 09:32 Dose: 25 mg Pantoprazole Sodium (Protonix Ec Tab) 40 mg PO 0600 [facility] Last Admin: 03/01/17 05:45 Dose: 40 mg Potassium Chloride (K-Dur 20 Meq Er Tab) 20 meq PO BRK [facility] Last Admin: 03/01/17 09:33 Dose: 20 meq - Labs Labs: 03/01/17 05:15 03/01/17 05:15 PT 10.7 Seconds (9.9-11.8) 02/27/17 19:30 INR 0.99 (0.93-1.08) 02/27/17 19:30 APTT 29.7 Seconds (23.7-30.8) 02/27/17 19:30 Attending/Attestation - Attestation I have personally seen and examined this patient.: Yes I have fully participated in the care of the patient.: Yes I have reviewed all pertinent clinical information, including history, physical exam and plan: Yes Notes (Text): I have seen and examined the patient at bedside. Agree with the note above with the following additions/ exceptions: Briefly this is 51 year old male with history of CHF s/p AICD, HTN, alcohol abuse, seizures who was admitted for evaluation of sudden onset of right sided weakness and numbness and found to have left thalamic hemorrhage. NS and neurology consult appreciated. Avoid all anticoagulant and antiplatelet medications and maintain normothermia. Blood sugars are well within normal limits. Avoid severe elevation of BP. Keppra was restarted. Counselled patient regarding alcohol cessation. Continue librium taper, MVI, thiamine and folic acid. Echocardiogram is still pending. Upon discharge patient will follow up with Dr Stanton. Dr Shanti Turk
--- NOTE | 2017-03-01 18:47 | CP.PCM.PN ---
<Chidi Freeman - Last Filed: 03/01/17 22:36> Subjective - Date & Time of Evaluation Date of Evaluation: 03/01/17 Time of Evaluation: 09:10 - Subjective Subjective: Neurology Progress Note for Neurology Patient seen and examined at bedside in the ICU. No acute complaints. Reports improvement of R-sided extremity paresthesias, but weakness persists. Denies new paresthesias or weakness. Objective - Vital Signs/Intake and Output Vital Signs (last 24 hours): Temp Pulse Resp BP Pulse Ox 98.7 F 94 H 14 124/82 83 L 03/01/17 16:00 03/01/17 18:30 03/01/17 18:30 03/01/17 18:00 03/01/17 12:10 Intake and Output: 03/01/17 03/01/17 06:59 18:59 Intake Total 1320 Output Total 1250 Balance 70 - Medications Medications: Current Medications Amlodipine Besylate (Norvasc) 5 mg PO DAILY [facility] Last Admin: 03/01/17 09:32 Dose: 5 mg Chlordiazepoxide (Librium) 25 mg PO Q12 [facility] Hydralazine HCl (Apresoline) 10 mg IVP Q6H PRN PRN Reason: Systolic Blood Pressure Folic Acid 1 mg/ Thiamine HCl 100 mg/ Multivitamins/Vitamin C 10 ml/ Dextrose 1 ,011.2 mls @ 100 mls/hr IV .Q10H7M [facility] Last Admin: 02/28/17 19:59 Dose: 100 mls/hr Levetiracetam (Keppra) 500 mg PO BID [facility] Last Admin: 03/01/17 18:15 Dose: 500 mg Lorazepam (Ativan) 2 mg IVP Q2H PRN; Protocol PRN Reason: Symptoms of alcohol withdrawl Metoprolol Succinate (Toprol Xl) 25 mg PO BRK [facility] Last Admin: 03/01/17 09:32 Dose: 25 mg Pantoprazole Sodium (Protonix Ec Tab) 40 mg PO 0600 [facility] Last Admin: 03/01/17 05:45 Dose: 40 mg Potassium Chloride (K-Dur 20 Meq Er Tab) 20 meq PO BRK [facility] Last Admin: 03/01/17 09:33 Dose: 20 meq - Labs Labs: 03/01/17 05:15 03/01/17 05:15 PT 10.7 Seconds (9.9-11.8) 02/27/17 19:30 INR 0.99 (0.93-1.08) 02/27/17 19:30 APTT 29.7 Seconds (23.7-30.8) 02/27/17 19:30 - Constitutional Appears: Non-toxic, No Acute Distress - Head Exam Head Exam: ATRAUMATIC, NORMAL INSPECTION, NORMOCEPHALIC Additional comments: no gross facial droop appreciated - Eye Exam Eye Exam: EOMI, Normal appearance, PERRL. absent: Conjunctival injection, Scleral icterus Pupil Exam: NORMAL ACCOMODATION, PERRL. absent: Fixed, Irregular, Unequal - ENT Exam ENT Exam: Mucous Membranes Moist. absent: Normal Exam Additional comments: Tongue deviates to the right on extrusion, no uvular deviation, palate raises equally bilaterally - Neck Exam Neck Exam: Full ROM - Respiratory Exam Respiratory Exam: Clear to Ausculation Bilateral, NORMAL BREATHING PATTERN. absent: Accessory Muscle Use, Chest Wall Tenderness, Decreased Breath Sounds, Rales, Rhonchi, Wheezes - Cardiovascular Exam Cardiovascular Exam: REGULAR RHYTHM, RRR, +S1, +S2. absent: Bradycardia, Tachycardia, Irregular Rhythm, +S4 - GI/Abdominal Exam GI & Abdominal Exam: Soft, Normal Bowel Sounds. absent: Distended, Firm, Guarding, Rigid, Tenderness - Extremities Exam Extremities Exam: Normal Capillary Refill. absent: Joint Swelling, Pedal Edema , Tenderness - Neurological Exam Neurological Exam: Alert, Awake, CN II-XII Intact (except for tongue deviation to R as documented above) Additional comments: Awake and alert, follows/attempts to follow all commands appropriately 5/5 motor strength LUE/LLE/L workforce development assistant, 2-3/5 motor strength RUE/RLE (some movement against gravity but not able to maintain) and R workforce development assistant Sensory grossly intact and equal bilaterally, 2 point discrimination intact, no sided extinction with bilateral palpation - Psychiatric Exam Psychiatric exam: Normal Affect, Normal Mood - Skin Skin Exam: Dry, Intact, Normal Color, Warm Assessment and Plan - Assessment and Plan (Free Text) Assessment: This is a 51 yo M with PMH of HTN, CHF s/p AICD, seizure disorder, and EtOH abuse, known to be non-compliant with meds, who presented [place] [facility] [place] complain of new onset RLE and RUE weakness and headache, and was found to have a 1.7x1.2cm left thalamic infarct. His ICH is likely 2/2 poorly controlled HTN in the setting of chronic medication non-compliance vs new onset CVA converting into hemorrhagic CVA. Plan: 1) Avoid all antiplatelet agents for 3 weeks from start of bleeding 2) Maintain SBP 120's-130s; avoid overly elevated BPs, avoid aggressive sudden decreases in SBP to prevent watershed infarcts 3) Low sodium diet 4) Stressed importance of medication compliance with patient 5) PT/OT, will likely need acute rehab after discharge Patient reviewed and discussed with attending, Dr. Steiner. <Paddy Steiner - Last Filed: 03/02/17 10:43> Objective - Vital Signs/Intake and Output Vital Signs (last 24 hours): Temp Pulse Resp BP Pulse Ox 98.6 F 86 12 113/72 98 03/02/17 03:29 03/02/17 09:23 03/02/17 07:40 03/02/17 09:23 03/02/17 07:40 Intake and Output: 03/02/17 03/02/17 06:59 18:59 Intake Total 1920 1280 Output Total 1650 1500 Balance 270 -220 - Medications Medications: Current Medications Amlodipine Besylate (Norvasc) 5 mg PO DAILY [facility] Last Admin: 03/02/17 09:21 Dose: 5 mg Chlordiazepoxide (Librium) 25 mg PO Q12 [facility] Last Admin: 03/02/17 09:31 Dose: 25 mg Hydralazine HCl (Apresoline) 10 mg IVP Q6H PRN PRN Reason: Systolic Blood Pressure Folic Acid 1 mg/ Thiamine HCl 100 mg/ Multivitamins/Vitamin C 10 ml/ Dextrose 1 ,011.2 mls @ 100 mls/hr IV .Q10H7M [facility] Last Admin: 03/01/17 21:36 Dose: 100 mls/hr Levetiracetam (Keppra) 500 mg PO BID [facility] Last Admin: 03/02/17 09:21 Dose: 500 mg Lorazepam (Ativan) 2 mg IVP Q2H PRN; Protocol PRN Reason: Symptoms of alcohol withdrawl Metoprolol Succinate (Toprol Xl) 25 mg PO BRK [facility] Last Admin: 03/02/17 09:23 Dose: 25 mg Pantoprazole Sodium (Protonix Ec Tab) 40 mg PO 0600 [facility] Last Admin: 03/01/17 05:45 Dose: 40 mg Potassium Chloride (K-Dur 20 Meq Er Tab) 20 meq PO BRK [facility] Last Admin: 03/02/17 09:23 Dose: 20 meq - Labs Labs: 03/02/17 06:33 03/02/17 06:33 PT 10.7 Seconds (9.9-11.8) 02/27/17 19:30 INR 0.99 (0.93-1.08) 02/27/17 19:30 APTT 29.7 Seconds (23.7-30.8) 02/27/17 19:30 Attending/Attestation - Attestation I have personally seen and examined this patient.: Yes I have fully participated in the care of the patient.: Yes I have reviewed all pertinent clinical information, including history, physical exam and plan: Yes
--- NOTE | 2017-03-01 19:36 | CARD ---
APPROVED REPORT EXAM: Two-dimensional and M-mode echocardiogram with Doppler and color Doppler. INDICATION LV EF 2D DIMENSIONS Left Atrium (2D)4.3 (1.6-4.0cm)IVSd1.3 (0.7-1.1cm) LVDd4.4 (3.9-5.9cm)LVOT Diameter2.0 (1.8-2.4cm) PWd1.2 (0.7-1.1cm)LVDs3.4 (2.5-4.0cm) FS (%) 22.4 %LVEF (%)45.5 (>50%) M-Mode DIMENSIONS Aortic Root2.50 (2.2-3.7cm)Aortic Cusp Exc.0.70 (1.5-2.0cm) Aortic Valve AoV Peak Fewxnxef525.0cm/sAoV VTI32.0cmAO Peak GR.18mmHg LVOT Peak Wjwzyhmb94.9cm/sLVOT VTI8.92cmAO Mean GR.8mmHg GONZALEZ (VMAX)0.75ai9JPL (VTI)0.88cm2 Mitral Valve E/A ratio0.0 TDI E/Lateral E'0.0E/Medial E'0.0 Tricuspid Valve TR Peak Ywyradly308hi/sRAP [id number] Peak Gr.15mmHg [id number] LEFT VENTRICLE The left ventricle is normal size. There is mild concentric left ventricular hypertrophy. The systolic function is mildly impaired. Transmitral Doppler flow pattern is Grade II-pseudonormal filling dynamics. RIGHT VENTRICLE The right ventricle is normal size. There is normal right ventricular wall thickness. The right ventricular systolic function is normal. There is a pacemaker lead in the right ventricle. ATRIA The left atrium is borderline dilated. The right atrium size is normal. AORTIC VALVE The aortic valve is severely thickened , may be bicusped, a vegitation can not be ruled out, clinical correlation is recommended There is mild to moderate valvular aortic stenosis. MITRAL VALVE The mitral valve is mildly thickened. Mitral regurgitation is trace. GREAT VESSELS The aortic root is normal in size. The IVC is normal in size and collapses >50% with inspiration. <Conclusion> The left ventricle is normal size. There is mild concentric left ventricular hypertrophy. The systolic function is mildly impaired. The aortic valve is severely thickened , may be bicusped, a vegitation can not be ruled out, clinical correlation is recommended There is mild to moderate valvular aortic stenosis.
[2017-03-01] MEDS: Folic Acid 1 MG, Thiamine 100 MG, Multivitamin (MVI) 10 ML in Dextrose 5% In Water 1,00... IV SCH (21:36)
[2017-03-02 07:05] LABS: BASO # 0.02 K/mm3 (0.0-2.0); BASO % 0.3 % (0.0-3.0); EOS # 0.1 (0.0-0.7); EOS % 1.9 % (1.5-5.0); GRAN # 4.06 (1.4-6.5); GRAN % 58.9 % (50.0-68.0); HEMATOCRIT 39.8 % (42.0-52.0); LYMPH # 1.6 (1.2-3.4); LYMPH % 23.7 % (22.0-35.0); MEAN CELL VOLUME 104.5 fl (80.0-105.0); MEAN CORPUSCULAR HEMOGLOBIN 33.9 pg (25.0-35.0); MEAN CORPUSCULAR HGB CONC 32.4 g/dl (31.0-37.0); MEAN PLATELET VOLUME 9.4 fl (7.0-11.0); MONO # 1.1 (0.1-0.6); MONO % 15.2 % (1.0-6.0); RED CELL DISTRIBUTION WIDTH 14.1 % (11.5-14.5); WHITE BLOOD COUNT 6.9 10^3/ul (4.5-11.0)
[2017-03-02 07:54] LABS: ALB/GLOB RATIO 1.3 (1.1-1.8); ALKALINE PHOSPHATASE 64 U/L (38-126); ALT/SGPT 33 U/L (7-56); AST/SGOT 44 U/L (17-59); BILIRUBIN,TOTAL 0.8 mg/dL (0.2-1.3); BLOOD UREA NITROGEN 11 mg/dL (7-21); CALCIUM 8.9 mg/dL (8.4-10.5); CARBON DIOXIDE 28 mmol/L (21-33); CHLORIDE 102 mmol/L (98-107); GFR AFRICAN-AMERICAN > 60; GLUCOSE,RANDOM 74 mg/dL (70-110); MAGNESIUM 1.7 mg/dL (1.7-2.2); PHOSPHOROUS 3.5 mg/dL (2.5-4.5); SODIUM 138 mmol/L (132-148)
[2017-03-02] MEDS: levETIRAcetam 500 mg/5ml UD cups PO SCH ×2 (09:21→18:21)
[2017-03-02] MEDS: Metoprolol Succinate 25 mg XL Tab PO SCH (09:23)
[2017-03-02] MEDS: Potassium Chloride 20 mEq ER Tab PO SCH (09:23)
--- NOTE | 2017-03-02 10:19 | CP.PCM.PN ---
<ANLE FOWLER - Last Filed: 03/02/17 13:04> Subjective - Date & Time of Evaluation Date of Evaluation: 03/02/17 Time of Evaluation: 09:00 - Subjective Subjective: patient was seen and examined at bedside. states that he's feeling better and his sensation is back a little bit in the legs but his arm is still clumsy and is still dropping stuff. pt states that he is on disability due a lumbar spine surgery by neurosurgeon Dr. Trejo ([place]), whom he last saw in August. PMD is Dr. Dc ([address]), but states he hasn't seen him in a while. Pt states that he was supposed to go see Dr. Trejo for numbness in both legs. pt's pharmacy is [facility]. pt denies fevers, chills, headaches, changes in vision, cp, sob, n/v/d or seizures/withdrawal symptoms. Objective - Vital Signs/Intake and Output Vital Signs (last 24 hours): Temp Pulse Resp BP Pulse Ox 98.6 F 86 12 113/72 98 03/02/17 03:29 03/02/17 09:23 03/02/17 07:40 03/02/17 09:23 03/02/17 07:40 Intake and Output: 03/02/17 03/02/17 06:59 18:59 Intake Total 1920 1280 Output Total 1650 1500 Balance 270 -220 - Medications Medications: Current Medications Amlodipine Besylate (Norvasc) 5 mg PO DAILY [facility] Last Admin: 03/02/17 09:21 Dose: 5 mg Chlordiazepoxide (Librium) 25 mg PO Q12 [facility] Last Admin: 03/02/17 09:31 Dose: 25 mg Hydralazine HCl (Apresoline) 10 mg IVP Q6H PRN PRN Reason: Systolic Blood Pressure Folic Acid 1 mg/ Thiamine HCl 100 mg/ Multivitamins/Vitamin C 10 ml/ Dextrose 1 ,011.2 mls @ 100 mls/hr IV .Q10H7M [facility] Last Admin: 03/01/17 21:36 Dose: 100 mls/hr Levetiracetam (Keppra) 500 mg PO BID [facility] Last Admin: 03/02/17 09:21 Dose: 500 mg Lorazepam (Ativan) 2 mg IVP Q2H PRN; Protocol PRN Reason: Symptoms of alcohol withdrawl Metoprolol Succinate (Toprol Xl) 25 mg PO BRK [facility] Last Admin: 03/02/17 09:23 Dose: 25 mg Pantoprazole Sodium (Protonix Ec Tab) 40 mg PO 0600 [facility] Last Admin: 03/01/17 05:45 Dose: 40 mg Potassium Chloride (K-Dur 20 Meq Er Tab) 20 meq PO BRK [facility] Last Admin: 03/02/17 09:23 Dose: 20 meq - Labs Labs: 03/02/17 06:33 03/02/17 06:33 PT 10.7 Seconds (9.9-11.8) 02/27/17 19:30 INR 0.99 (0.93-1.08) 02/27/17 19:30 APTT 29.7 Seconds (23.7-30.8) 02/27/17 19:30 - Additional Findings Additional findings: - Constitutional Appears: No Acute Distress - Head Exam Head Exam: ATRAUMATIC, NORMAL INSPECTION, NORMOCEPHALIC - Eye Exam Eye Exam: EOMI, Normal appearance, PERRL Pupil Exam: NORMAL ACCOMODATION - ENT Exam ENT Exam: Mucous Membranes Moist - Neck Exam Neck Exam: Normal Inspection. absent: Meningismus - Respiratory Exam Respiratory Exam: Clear to Ausculation Bilateral, NORMAL BREATHING PATTERN. absent: Accessory Muscle Use, Rales, Wheezes, Respiratory Distress - Cardiovascular Exam Cardiovascular Exam: RRR - GI/Abdominal Exam GI & Abdominal Exam: Soft, Normal Bowel Sounds. absent: Distended, Tenderness - Extremities Exam Extremities Exam: absent: Full ROM, Pedal Edema - Neurological Exam Neurological Exam: Alert, Awake, Oriented x3 Neuro motor strength exam: Left Upper Extremity: 5, Right Upper Extremity: 5, Left Lower Extremity: 5, Right Lower Extremity: 4 Additional comments: RUE motor function improved from prior exam; pt able to hold arm up against gravity <5 seconds no slurring of speech noted sensory deficits in R side of face, RUE and RLE are still present but improved - Psychiatric Exam Psychiatric exam: Normal Mood - Skin Skin Exam: Normal Color, Warm Assessment and Plan - Assessment and Plan (Free Text) Assessment: 51yo M PMH CHF s/p AICD, HTN, ETOH abuse and seizures presents w/ sudden onset R -sided weakness and numbness. Found to have 1.7x1.2cm L thalamic bleed w/ no midline shift, likely 2/2 uncontrolled HTN. Currently has R-sided focal deficits that are improving. Plan: 1. Intracranial hemorrhage - Neurology consulted, rec avoiding antiplatelet agents for 3wks - PT eval pending - speech & swallow eval, rec cont dysphagia diet 2. Medical non-compliance - [facility] was contacted @ 1240 - pharmacist stated that pt is prescribed: Metoprolol 25 BID, Flexeril 10 TID, Folic acid, PTX, and Zyrtec - above meds prescribed by Dr. Bryce Dc ([address] [place] [address]) - Last time patient filled script for Keppra was in June 2016, prescribed by Dr. Stanton; pt still has refills just hasn't picked them up yet - pt educated about medication compliance, cessation of alcohol and tobacco use 3. ETOH - CIWA protocol - librium SARI and Ativan PRN - banana bag 4. Hx HTN - Norvasc 5mg daily - Metoprolol succinate - Hydralazine PRN 5. Hx Seizures - Keppra - pt has hx of non-compliance; educated about need and use of keppra - monitor for signs of withdrawal - neuro checks - VS checks - seizure precautions 6. Hx CHF w/ AICD - currently asymptomatic - should f/u as outpatient with his PMD Dr. Dc for workup - Echo shows 45% EF 7. hypokalemia, resolved - KDur 20meq sari - continue to monitor Dysphagia diet PTX/SCDs Patient was seen, evaluated and discussed with attending, Dr. Yann Fowler PGY1 <Carli Lerner - Last Filed: 03/02/17 17:46> Objective - Vital Signs/Intake and Output Vital Signs (last 24 hours): Temp Pulse Resp BP Pulse Ox 98.6 F 85 15 133/86 100 03/02/17 03:29 03/02/17 11:50 03/02/17 11:50 03/02/17 10:01 03/02/17 11:50 Intake and Output: 03/02/17 03/02/17 06:59 18:59 Intake Total 1920 1280 Output Total 1650 1500 Balance 270 -220 - Medications Medications: Current Medications Amlodipine Besylate (Norvasc) 5 mg PO DAILY [facility] Last Admin: 03/02/17 09:21 Dose: 5 mg Chlordiazepoxide (Librium) 25 mg PO Q12 [facility] Last Admin: 03/02/17 09:31 Dose: 25 mg Hydralazine HCl (Apresoline) 10 mg IVP Q6H PRN PRN Reason: Systolic Blood Pressure Folic Acid 1 mg/ Thiamine HCl 100 mg/ Multivitamins/Vitamin C 10 ml/ Dextrose 1 ,011.2 mls @ 100 mls/hr IV .Q10H7M [facility] Last Admin: 03/02/17 14:26 Dose: 100 mls/hr Levetiracetam (Keppra) 500 mg PO BID [facility] Last Admin: 03/02/17 09:21 Dose: 500 mg Lorazepam (Ativan) 2 mg IVP Q2H PRN; Protocol PRN Reason: Symptoms of alcohol withdrawl Metoprolol Succinate (Toprol Xl) 25 mg PO BRK [facility] Last Admin: 03/02/17 09:23 Dose: 25 mg Pantoprazole Sodium (Protonix Ec Tab) 40 mg PO 0600 [facility] Last Admin: 03/01/17 05:45 Dose: 40 mg Potassium Chloride (K-Dur 20 Meq Er Tab) 20 meq PO BRK [facility] Last Admin: 03/02/17 09:23 Dose: 20 meq - Labs Labs: 03/02/17 06:33 03/02/17 06:33 PT 10.7 Seconds (9.9-11.8) 02/27/17 19:30 INR 0.99 (0.93-1.08) 02/27/17 19:30 APTT 29.7 Seconds (23.7-30.8) 02/27/17 19:30 Attending/Attestation - Attestation I have personally seen and examined this patient.: Yes I have fully participated in the care of the patient.: Yes I have reviewed all pertinent clinical information, including history, physical exam and plan: Yes Notes (Text): 03/02/17 17:39 attending note; Patient seen and examined with resident in ICU. Patient is a 51 year old male with history of CHF s/p AICD, HTN, alcohol abuse, seizures who was admitted for evaluation of sudden onset of right sided weakness and numbness and found to have left thalamic hemorrhage. neurology consult appreciated. Avoid all anticoagulant and antiplatelet medications. Blood pressure is acceptable. history of seizure disorder; noncompliance with medications. Started on Keppra. Counselled patient regarding alcohol cessation. Continue librium taper, MVI, thiamine and folic acid. Echocardiogram Showed ejecton fraction of 45%. [id number] diet is stenosis. PT evaluation requested. alley worker evaluation appreciated for discharge planning. Upon discharge patient will follow up with . The diagnosis and treatment plan discussed with patient in detail. 03/02/17 17:46 03/02/17 17:46
--- NOTE | 2017-03-02 13:59 | CP.PCM.PN ---
<Chidi Freeman - Last Filed: 03/02/17 17:59> Subjective - Date & Time of Evaluation Date of Evaluation: 03/02/17 Time of Evaluation: 09:10 - Subjective Subjective: Neurology Progress Note for Neurology Patient seen and examined at bedside in the ICU. No acute complaints, and no acute events overnight. Reports improvement of R-sided extremity paresthesias, but weakness persists. Denies new paresthesias or weakness. Reports generally feeling better. Objective - Vital Signs/Intake and Output Vital Signs (last 24 hours): Temp Pulse Resp BP Pulse Ox 98.6 F 85 15 133/86 100 03/02/17 03:29 03/02/17 11:50 03/02/17 11:50 03/02/17 10:01 03/02/17 11:50 Intake and Output: 03/02/17 03/02/17 06:59 18:59 Intake Total 1920 1280 Output Total 1650 1500 Balance 270 -220 - Medications Medications: Current Medications Amlodipine Besylate (Norvasc) 5 mg PO DAILY [facility] Last Admin: 03/02/17 09:21 Dose: 5 mg Chlordiazepoxide (Librium) 25 mg PO Q12 [facility] Last Admin: 03/02/17 09:31 Dose: 25 mg Hydralazine HCl (Apresoline) 10 mg IVP Q6H PRN PRN Reason: Systolic Blood Pressure Folic Acid 1 mg/ Thiamine HCl 100 mg/ Multivitamins/Vitamin C 10 ml/ Dextrose 1 ,011.2 mls @ 100 mls/hr IV .Q10H7M [facility] Last Admin: 03/01/17 21:36 Dose: 100 mls/hr Levetiracetam (Keppra) 500 mg PO BID [facility] Last Admin: 03/02/17 09:21 Dose: 500 mg Lorazepam (Ativan) 2 mg IVP Q2H PRN; Protocol PRN Reason: Symptoms of alcohol withdrawl Metoprolol Succinate (Toprol Xl) 25 mg PO BRK [facility] Last Admin: 03/02/17 09:23 Dose: 25 mg Pantoprazole Sodium (Protonix Ec Tab) 40 mg PO 0600 [facility] Last Admin: 03/01/17 05:45 Dose: 40 mg Potassium Chloride (K-Dur 20 Meq Er Tab) 20 meq PO BRK [facility] Last Admin: 03/02/17 09:23 Dose: 20 meq - Labs Labs: 03/02/17 06:33 03/02/17 06:33 PT 10.7 Seconds (9.9-11.8) 02/27/17 19:30 INR 0.99 (0.93-1.08) 02/27/17 19:30 APTT 29.7 Seconds (23.7-30.8) 02/27/17 19:30 - Additional Findings Additional findings: - Constitutional Appears: Non-toxic, No Acute Distress - Head Exam Head Exam: ATRAUMATIC, NORMAL INSPECTION, NORMOCEPHALIC Additional comments: no gross facial droop appreciated - Eye Exam Eye Exam: EOMI, Normal appearance, PERRL. absent: Conjunctival injection, Scleral icterus Pupil Exam: NORMAL ACCOMODATION, PERRL. absent: Fixed, Irregular, Unequal - ENT Exam ENT Exam: Mucous Membranes Moist. absent: Normal Exam Tongue deviates to the right mildly on extrusion, no uvular deviation, palate raises equally bilaterally - Neck Exam Neck Exam: Full ROM - Respiratory Exam Respiratory Exam: Clear to Ausculation Bilateral, NORMAL BREATHING PATTERN. absent: Accessory Muscle Use, Chest Wall Tenderness, Decreased Breath Sounds, Rales, Rhonchi, Wheezes - Cardiovascular Exam Cardiovascular Exam: REGULAR RHYTHM, RRR, +S1, +S2. absent: Bradycardia, Tachycardia, Irregular Rhythm, +S4 - GI/Abdominal Exam GI & Abdominal Exam: Soft, Normal Bowel Sounds. absent: Distended, Firm, Guarding, Rigid, Tenderness - Extremities Exam Extremities Exam: Normal Capillary Refill. absent: Joint Swelling, Pedal Edema , Tenderness - Neurological Exam Neurological Exam: Alert, Awake, CN II-XII Intact (except for tongue deviation to R as documented above) Awake and alert, follows/attempts to follow all commands appropriately 5/5 motor strength LUE/LLE/L test hole driller, 2-3/5 motor strength RLE and 3/5 motor to RUE (some movement against gravity but not able to maintain), 3/5 R test hole driller Sensory grossly intact and equal bilaterally, 2 point discrimination intact, no sided extinction with bilateral palpation - Psychiatric Exam Psychiatric exam: Normal Affect, Normal Mood - Skin Skin Exam: Dry, Intact, Normal Color, Warm Assessment and Plan - Assessment and Plan (Free Text) Assessment: This is a 51 yo M with PMH of HTN, CHF s/p AICD, seizure disorder, and EtOH abuse, known to be non-compliant with meds, who presented to [facility] with complain of new onset RLE and RUE weakness and headache, and was found to have a 1.7x1.2cm left thalamic infarct. His ICH is likely 2/2 poorly controlled HTN in the setting of chronic medication non-compliance vs new onset CVA converting into hemorrhagic CVA. Plan: 1) Avoid all antiplatelet agents for 3 weeks from start of bleeding 2) Maintain SBP 120's-130s; avoid overly elevated BPs, avoid aggressive sudden decreases in SBP to prevent watershed infarcts 3) Low sodium diet 4) Stressed importance of medication compliance and alcohol cessation with patient 5) PT/OT, will likely need acute rehab after discharge Patient reviewed and discussed with attending, Dr. Steiner. <Paddy Steiner - Last Filed: 03/02/17 21:18> Objective - Vital Signs/Intake and Output Vital Signs (last 24 hours): Temp Pulse Resp BP Pulse Ox 97.8 F 77 12 131/81 99 03/02/17 20:00 03/02/17 20:50 03/02/17 20:50 03/02/17 20:00 03/02/17 20:00 Intake and Output: 03/02/17 03/03/17 18:59 06:59 Intake Total 1280 Output Total 1500 Balance -220 - Medications Medications: Current Medications Amlodipine Besylate (Norvasc) 5 mg PO DAILY [facility] Last Admin: 03/02/17 09:21 Dose: 5 mg Chlordiazepoxide (Librium) 25 mg PO Q12 [facility] Last Admin: 03/02/17 09:31 Dose: 25 mg Hydralazine HCl (Apresoline) 10 mg IVP Q6H PRN PRN Reason: Systolic Blood Pressure Folic Acid 1 mg/ Thiamine HCl 100 mg/ Multivitamins/Vitamin C 10 ml/ Dextrose 1 ,011.2 mls @ 100 mls/hr IV .Q10H7M [facility] Last Admin: 03/02/17 14:26 Dose: 100 mls/hr Levetiracetam (Keppra) 500 mg PO BID [facility] Last Admin: 03/02/17 18:21 Dose: 500 mg Lorazepam (Ativan) 2 mg IVP Q2H PRN; Protocol PRN Reason: Symptoms of alcohol withdrawl Metoprolol Succinate (Toprol Xl) 25 mg PO BRK [facility] Last Admin: 03/02/17 09:23 Dose: 25 mg Pantoprazole Sodium (Protonix Ec Tab) 40 mg PO 0600 [facility] Last Admin: 03/01/17 05:45 Dose: 40 mg Potassium Chloride (K-Dur 20 Meq Er Tab) 20 meq PO BRK [facility] Last Admin: 03/02/17 09:23 Dose: 20 meq - Labs Labs: 03/02/17 06:33 03/02/17 06:33 PT 10.7 Seconds (9.9-11.8) 02/27/17 19:30 INR 0.99 (0.93-1.08) 02/27/17 19:30 APTT 29.7 Seconds (23.7-30.8) 02/27/17 19:30 Attending/Attestation - Attestation I have personally seen and examined this patient.: Yes I have fully participated in the care of the patient.: Yes I have reviewed all pertinent clinical information, including history, physical exam and plan: Yes
[2017-03-02] MEDS: Folic Acid 1 MG, Thiamine 100 MG, Multivitamin (MVI) 10 ML in Dextrose 5% In Water 1,00... IV SCH ×3 (14:26→21:52)
[2017-03-03] MEDS: Pantoprazole 40 mg EC Tab PO SCH (06:20)
[2017-03-03 07:26] LABS: BASO # 0.03 K/mm3 (0.0-2.0); BASO % 0.4 % (0.0-3.0); EOS # 0.2 (0.0-0.7); EOS % 2.3 % (1.5-5.0); GRAN # 4.96 (1.4-6.5); HEMATOCRIT 41.3 % (42.0-52.0); LYMPH # 1.8 (1.2-3.4); LYMPH % 22.2 % (22.0-35.0); MEAN CELL VOLUME 104.6 fl (80.0-105.0); MEAN CORPUSCULAR HEMOGLOBIN 33.7 pg (25.0-35.0); MEAN CORPUSCULAR HGB CONC 32.2 g/dl (31.0-37.0); MEAN PLATELET VOLUME 9.3 fl (7.0-11.0); MONO # 1.1 (0.1-0.6); MONO % 13.1 % (1.0-6.0); RED CELL DISTRIBUTION WIDTH 13.9 % (11.5-14.5)
[2017-03-03 07:57] LABS: ALB/GLOB RATIO 1.3 (1.1-1.8); ALKALINE PHOSPHATASE 73 U/L (38-126); ALT/SGPT 34 U/L (7-56); AST/SGOT 47 U/L (17-59); BILIRUBIN,TOTAL 0.8 mg/dL (0.2-1.3); BLOOD UREA NITROGEN 13 mg/dL (7-21); CALCIUM 9.2 mg/dL (8.4-10.5); CARBON DIOXIDE 29 mmol/L (21-33); CHLORIDE 102 mmol/L (98-107); GFR AFRICAN-AMERICAN > 60; GLUCOSE,RANDOM 95 mg/dL (70-110); MAGNESIUM 1.7 mg/dL (1.7-2.2); PHOSPHOROUS 3.1 mg/dL (2.5-4.5); SODIUM 138 mmol/L (132-148); TOTAL PROTEIN 7.4 g/dL (5.8-8.3)
[2017-03-03] MEDS: Metoprolol Succinate 25 mg XL Tab PO SCH (08:22)
[2017-03-03] MEDS: Potassium Chloride 20 mEq ER Tab PO SCH (08:23)
[2017-03-03] MEDS: levETIRAcetam 500 mg/5ml UD cups PO SCH ×2 (09:53→17:15)
--- NOTE | 2017-03-03 18:31 | CP.PCM.PN ---
<ANEL MEJIA - Last Filed: 03/03/17 18:27> Subjective - Date & Time of Evaluation Date of Evaluation: 03/03/17 Time of Evaluation: 09:40 - Subjective Subjective: Patient was seen and examined at bedside. No acute events overnight, and patient denies any complaints of chest pain, shortness of breath, fevers/chills , n/v / d. patient is awaiting placement at sub-acute rehab for discharge. Objective - Vital Signs/Intake and Output Vital Signs (last 24 hours): Temp Pulse Resp BP Pulse Ox 98.2 F 74 11 L 119/68 96 03/03/17 16:00 03/03/17 17:00 03/03/17 17:00 03/03/17 16:00 03/03/17 04:00 Intake and Output: 03/03/17 03/03/17 06:59 18:59 Intake Total 1400 Output Total 1500 Balance -100 - Medications Medications: Current Medications Amlodipine Besylate (Norvasc) 5 mg PO DAILY [facility] Last Admin: 03/03/17 09:51 Dose: 5 mg Chlordiazepoxide (Librium) 25 mg PO Q12 [facility] Last Admin: 03/03/17 09:52 Dose: 25 mg Hydralazine HCl (Apresoline) 10 mg IVP Q6H PRN PRN Reason: Systolic Blood Pressure Levetiracetam (Keppra) 500 mg PO BID [facility] Last Admin: 03/03/17 17:15 Dose: 500 mg Lorazepam (Ativan) 2 mg IVP Q2H PRN; Protocol PRN Reason: Symptoms of alcohol withdrawl Metoprolol Succinate (Toprol Xl) 25 mg PO BRK [facility] Last Admin: 03/03/17 08:22 Dose: 25 mg Pantoprazole Sodium (Protonix Ec Tab) 40 mg PO 0600 [facility] Last Admin: 03/03/17 06:20 Dose: 40 mg Potassium Chloride (K-Dur 20 Meq Er Tab) 20 meq PO BRK [facility] Last Admin: 03/03/17 08:23 Dose: 20 meq - Labs Labs: 03/03/17 06:30 03/03/17 06:30 PT 10.7 Seconds (9.9-11.8) 02/27/17 19:30 INR 0.99 (0.93-1.08) 02/27/17 19:30 APTT 29.7 Seconds (23.7-30.8) 02/27/17 19:30 - Additional Findings Additional findings: - Constitutional Appears: No Acute Distress - Head Exam Head Exam: ATRAUMATIC, NORMAL INSPECTION, NORMOCEPHALIC - Eye Exam Eye Exam: EOMI, Normal appearance, PERRL Pupil Exam: NORMAL ACCOMODATION - ENT Exam ENT Exam: Mucous Membranes Moist - Neck Exam Neck Exam: Normal Inspection. absent: Meningismus - Respiratory Exam Respiratory Exam: Clear to Ausculation Bilateral, NORMAL BREATHING PATTERN. absent: Accessory Muscle Use, Rales, Wheezes, Respiratory Distress - Cardiovascular Exam Cardiovascular Exam: RRR - GI/Abdominal Exam GI & Abdominal Exam: Soft, Normal Bowel Sounds. absent: Distended, Tenderness - Extremities Exam Extremities Exam: absent: Full ROM, Pedal Edema - Neurological Exam Neurological Exam: Alert, Awake, Oriented x3 Neuro motor strength exam: Left Upper Extremity: 5, Right Upper Extremity: 5, Left Lower Extremity: 5, Right Lower Extremity: 4 Additional comments: RUE motor function improved from prior exam; pt able to hold arm up against gravity no slurring of speech noted sensory deficits in R side of face, RUE and RLE are still present but improved - Psychiatric Exam Psychiatric exam: Normal Mood - Skin Skin Exam: Normal Color, Warm Assessment and Plan - Assessment and Plan (Free Text) Assessment: 51yo M PMH CHF s/p AICD, HTN, ETOH abuse and seizures presents w/ sudden onset R -sided weakness and numbness. Found to have 1.7x1.2cm L thalamic bleed w/ no midline shift, likely 2/2 uncontrolled HTN. Currently has R-sided focal deficits that are improving. Plan: 1. Intracranial hemorrhage - Neurology consulted, rec avoiding antiplatelet agents for 3wks - PT eval rec MIROSLAVA pending SW and placement - speech & swallow eval, rec cont dysphagia diet 2. ETOH - CIWA protocol - folate, thiamine and MV - not currently going through withdrawals - librium JUSTINO and Ativan PRN 3. Hx HTN - Norvasc 5mg daily - Metoprolol succinate - Hydralazine PRN 4. Hx Seizures - Keppra 500mg BID - pt has hx of non-compliance; educated about need and use of keppra - neuro checks - VS checks - seizure precautions 5. Hx CHF w/ AICD - currently asymptomatic - should f/u as outpatient with his PMD Dr. Dc for workup - Echo shows 45% EF 6. Medical non-compliance - pt educated about medication compliance, cessation of alcohol and tobacco use - should f/u Dr. Bryce Dc (PMD) after d/c Dysphagia diet PTX/SCDs Patient was seen, evaluated and discussed with attending, Dr. Yann Mejia PGY1 <Carli Lerenr - Last Filed: 03/04/17 12:41> Objective - Vital Signs/Intake and Output Vital Signs (last 24 hours): Temp Pulse Resp BP Pulse Ox 98.6 F 76 18 112/79 97 03/04/17 06:00 03/04/17 06:00 03/04/17 06:00 03/04/17 06:00 03/04/17 06:00 Intake and Output: 03/04/17 03/04/17 06:59 18:59 Intake Total 240 Output Total 500 Balance -260 - Medications Medications: Current Medications Amlodipine Besylate (Norvasc) 5 mg PO DAILY [facility] Last Admin: 03/04/17 09:14 Dose: 5 mg Chlordiazepoxide (Librium) 10 mg PO Q12H [facility] Last Admin: 03/04/17 09:15 Dose: 10 mg Folic Acid (Folic Acid) 1 mg PO DAILY [facility] Last Admin: 03/04/17 09:14 Dose: 1 mg Levetiracetam (Keppra) 500 mg PO BID [facility] Last Admin: 03/04/17 09:14 Dose: 500 mg Lorazepam (Ativan) 2 mg IVP Q2H PRN; Protocol PRN Reason: Symptoms of alcohol withdrawl Metoprolol Succinate (Toprol Xl) 25 mg PO BRK [facility] Last Admin: 03/04/17 09:14 Dose: 25 mg Multivitamins/Minerals (Therapeutic-M Tab) 1 tab PO 0800 [facility] Last Admin: 03/04/17 09:14 Dose: 1 tab Pantoprazole Sodium (Protonix Ec Tab) 40 mg PO 0600 [facility] Last Admin: 03/04/17 06:42 Dose: 40 mg Thiamine HCl (Vitamin B1 Tab) 100 mg PO DAILY [facility] Last Admin: 03/04/17 09:14 Dose: 100 mg - Labs Labs: 03/03/17 06:30 09/20/17 06:30 PT 10.7 Seconds (9.9-11.8) 02/27/17 19:30 INR 0.99 (0.93-1.08) 02/27/17 19:30 APTT 29.7 Seconds (23.7-30.8) 02/27/17 19:30 Attending/Attestation - Attestation I have personally seen and examined this patient.: Yes I have fully participated in the care of the patient.: Yes I have reviewed all pertinent clinical information, including history, physical exam and plan: Yes Notes (Text): 03/04/17 12:37 attending note; Patient seen and examined with resident. Patient is a 51 year old male with history of CHF s/p AICD, HTN, alcohol abuse, seizures who was admitted for evaluation of sudden onset of right sided weakness and numbness and found to have left thalamic hemorrhage. neurology consult appreciated. Avoid all anticoagulant and antiplatelet medications. Blood pressure is stable. history of seizure disorder; noncompliance with medications. Started on Keppra. Counselled patient regarding alcohol cessation. Continue librium taper, MVI, thiamine and folic acid. Echocardiogram Showed ejecton fraction of 45%. [id number] diet is stenosis. PT evaluation appreciated. case discussed with supervisor hand workers evaluation for discharge planning. referral for rehabilitation made. Upon discharge patient will follow up with . The diagnosis and treatment plan discussed with patient in detail.
[2017-03-04] MEDS: Pantoprazole 40 mg EC Tab PO SCH (06:42)
[2017-03-04 07:06] LABS: MAGNESIUM 1.7 mg/dL (1.7-2.2); PHOSPHOROUS 3.9 mg/dL (2.5-4.5)
[2017-03-04] MEDS ORDERED: Multivitamin With Minerals Tab PO SCH (08:00)
[2017-03-04] MEDS: levETIRAcetam 500 mg/5ml UD cups PO SCH ×2 (09:14→18:13)
[2017-03-04] MEDS: Potassium Chloride 20 mEq ER Tab PO SCH (09:14)
[2017-03-04] MEDS: Metoprolol Succinate 25 mg XL Tab PO SCH (09:14)
--- NOTE | 2017-03-04 15:41 | CP.PCM.PN ---
<Chidi Freeman - Last Filed: 03/04/17 17:07> Subjective - Date & Time of Evaluation Date of Evaluation: 03/04/17 Time of Evaluation: :20 - Subjective Subjective: Neurology Progress Note for Neurology Patient seen and examined at bedside. No acute complaints, and no acute events overnight. Reports continued feeling of improving R-sided strength. Pending transfer to subacute rehab. Objective - Vital Signs/Intake and Output Vital Signs (last 24 hours): Temp Pulse Resp BP Pulse Ox 98.6 F 76 18 112/79 97 03/04/17 06:00 03/04/17 06:00 03/04/17 06:00 03/04/17 06:00 03/04/17 06:00 Intake and Output: 03/04/17 03/04/17 06:59 18:59 Intake Total 840 Output Total 950 Balance -110 - Medications Medications: Current Medications Amlodipine Besylate (Norvasc) 5 mg PO DAILY [facility] Last Admin: 03/04/17 09:14 Dose: 5 mg Chlordiazepoxide (Librium) 10 mg PO Q12H [facility] Last Admin: 03/04/17 09:15 Dose: 10 mg Folic Acid (Folic Acid) 1 mg PO DAILY [facility] Last Admin: 03/04/17 09:14 Dose: 1 mg Levetiracetam (Keppra) 500 mg PO BID [facility] Last Admin: 03/04/17 09:14 Dose: 500 mg Lorazepam (Ativan) 2 mg IVP Q2H PRN; Protocol PRN Reason: Symptoms of alcohol withdrawl Metoprolol Succinate (Toprol Xl) 25 mg PO BRK [facility] Last Admin: 03/04/17 09:14 Dose: 25 mg Multivitamins/Minerals (Therapeutic-M Tab) 1 tab PO 0800 [facility] Last Admin: 03/04/17 09:14 Dose: 1 tab Pantoprazole Sodium (Protonix Ec Tab) 40 mg PO 0600 [facility] Last Admin: 03/04/17 06:42 Dose: 40 mg Thiamine HCl (Vitamin B1 Tab) 100 mg PO DAILY [facility] Last Admin: 03/04/17 09:14 Dose: 100 mg - Labs Labs: 03/03/17 06:30 03/03/17 06:30 PT 10.7 Seconds (9.9-11.8) 02/27/17 19:30 INR 0.99 (0.93-1.08) 02/27/17 19:30 APTT 29.7 Seconds (23.7-30.8) 02/27/17 19:30 - Additional Findings Additional findings: - Constitutional Appears: Non-toxic, No Acute Distress - Head Exam Head Exam: ATRAUMATIC, NORMAL INSPECTION, NORMOCEPHALIC Additional comments: no gross facial droop appreciated - Eye Exam Eye Exam: EOMI, Normal appearance, PERRL. absent: Conjunctival injection, Scleral icterus Pupil Exam: NORMAL ACCOMODATION, PERRL. absent: Fixed, Irregular, Unequal - ENT Exam ENT Exam: Mucous Membranes Moist. absent: Normal Exam Tongue deviates to the right mildly on extrusion, no uvular deviation, palate raises equally bilaterally - Neck Exam Neck Exam: Full ROM - Respiratory Exam Respiratory Exam: Clear to Ausculation Bilateral, NORMAL BREATHING PATTERN. absent: Accessory Muscle Use, Chest Wall Tenderness, Decreased Breath Sounds, Rales, Rhonchi, Wheezes - Cardiovascular Exam Cardiovascular Exam: REGULAR RHYTHM, RRR, +S1, +S2. absent: Bradycardia, Tachycardia, Irregular Rhythm, +S4 - GI/Abdominal Exam GI & Abdominal Exam: Soft, Normal Bowel Sounds. absent: Distended, Firm, Guarding, Rigid, Tenderness - Extremities Exam Extremities Exam: Normal Capillary Refill. absent: Joint Swelling, Pedal Edema , Tenderness - Neurological Exam Neurological Exam: Alert, Awake, CN II-XII Intact (except for tongue deviation to R as documented above) Awake and alert, follows/attempts to follow all commands appropriately 5/5 motor strength LUE/LLE/L project manager finance, 3/5 motor strength RLE and 4/5 motor to RUE ( some movement against gravity but not able to maintain), 3/5 R project manager finance Sensory grossly intact and equal bilaterally, 2 point discrimination intact, no sided extinction with bilateral palpation - Psychiatric Exam Psychiatric exam: Normal Affect, Normal Mood - Skin Skin Exam: Dry, Intact, Normal Color, Warm Assessment and Plan - Assessment and Plan (Free Text) Assessment: This is a 51 yo M with PMH of HTN, CHF s/p AICD, seizure disorder, and EtOH abuse, known to be non-compliant with meds, who presented to [facility] with complain of new onset RLE and RUE weakness and headache, and was found to have a 1.7x1.2cm left thalamic infarct. His ICH is likely 2/2 poorly controlled HTN in the setting of chronic medication non-compliance vs new onset CVA converting into hemorrhagic CVA. He has since improved, is currently neurologically stable , and is pending transfer to subacute rehab. We will sign off at this time. Plan: 1) Avoid all antiplatelet agents for 3 weeks from start of bleeding 2) Maintain SBP 120's-130s; avoid overly elevated BPs, avoid aggressive sudden decreases in SBP to prevent watershed infarcts 3) Low sodium diet 4) Stressed importance of medication compliance and alcohol/substance cessation with patient 5) PT/OT, pending subacute rehab Patient reviewed and discussed with attending, Dr. Steiner. <Paddy Steiner - Last Filed: 03/05/17 10:23> Objective - Vital Signs/Intake and Output Vital Signs (last 24 hours): Temp Pulse Resp BP Pulse Ox 98.0 F 87 20 113/77 98 03/04/17 16:00 03/04/17 16:00 03/04/17 16:00 03/04/17 16:00 03/04/17 16:00 - Labs Labs: 03/03/17 06:30 03/03/17 06:30 PT 10.7 Seconds (9.9-11.8) 02/27/17 19:30 INR 0.99 (0.93-1.08) 02/27/17 19:30 APTT 29.7 Seconds (23.7-30.8) 02/27/17 19:30 Attending/Attestation - Attestation I have personally seen and examined this patient.: Yes I have fully participated in the care of the patient.: Yes I have reviewed all pertinent clinical information, including history, physical exam and plan: Yes
[2017-03-04 16:23] VITALS: BP 113/77; PULSE 87; RESP 20; TEMP 98; O2SAT 98
--- NOTE | 2017-03-06 00:32 | CP.PCM.DIS ---
Provider - Provider Date of Admission: 02/27/17 21:46 Attending physician: Carli Lerner MD Primary care physician: NO PRIMARY CARE PROVIDER Time Spent in preparation of Discharge (in minutes): 45 Hospital Course - Lab Results Lab Results: Micro Results 02/28/17 00:50 Nose MRSA Culture (Admit) - Final MRSA NOT DETECTED Most Recent Lab Values WBC 8.0 10^3/ul (4.5-11.0) 03/03/17 06:30 RBC 3.95 10^6/uL (3.5-6.1) 03/03/17 06:30 Hgb 13.3 g/dL (14.0-18.0) L 03/03/17 06:30 Hct 41.3 % (42.0-52.0) L 03/03/17 06:30 MCV 104.6 fl (80.0-105.0) 03/03/17 06:30 MCH 33.7 pg (25.0-35.0) 03/03/17 06:30 MCHC 32.2 g/dl (31.0-37.0) 03/03/17 06:30 RDW 13.9 % (11.5-14.5) 03/03/17 06:30 Plt Count 238 10^3/uL (120.0-450.0) 03/03/17 06:30 MPV 9.3 fl (7.0-11.0) 03/03/17 06:30 Gran % 62.0 % (50.0-68.0) 03/03/17 06:30 Lymph % (Auto) 22.2 % (22.0-35.0) 03/03/17 06:30 [place] % (Auto) 13.1 % (1.0-6.0) H 03/03/17 06:30 Eos % (Auto) 2.3 % (1.5-5.0) 03/03/17 06:30 Baso % (Auto) 0.4 % (0.0-3.0) 03/03/17 06:30 Gran # 4.96 (1.4-6.5) 03/03/17 06:30 Lymph # 1.8 (1.2-3.4) 03/03/17 06:30 [place] # 1.1 (0.1-0.6) H 03/03/17 06:30 Eos # 0.2 (0.0-0.7) 03/03/17 06:30 Baso # 0.03 K/mm3 (0.0-2.0) 03/03/17 06:30 PT 10.7 Seconds (9.9-11.8) 02/27/17 19:30 INR 0.99 (0.93-1.08) 02/27/17 19:30 APTT 29.7 Seconds (23.7-30.8) 02/27/17 19:30 Sodium 138 mmol/L (132-148) 03/03/17 06:30 Potassium 4.0 mmol/L (3.6-5.0) 03/03/17 06:30 Chloride 102 mmol/L (98-107) 03/03/17 06:30 Carbon Dioxide 29 mmol/L (21-33) 03/03/17 06:30 Anion Gap 11 (10-20) 03/03/17 06:30 BUN 13 mg/dL (7-21) 03/03/17 06:30 Creatinine 0.8 mg/dL (0.5-1.4) 03/03/17 06:30 Est GFR ( Amer) > 60 03/03/17 06:30 Est GFR (Non-Af Amer) > 60 03/03/17 06:30 POC Glucose (mg/dL) 114 mg/dL (65-110) H 03/04/17 16:52 Random Glucose 95 mg/dL (70-110) 03/03/17 06:30 Calcium 9.2 mg/dL (8.4-10.5) 03/03/17 06:30 Phosphorus 3.9 mg/dL (2.5-4.5) 03/04/17 06:10 Magnesium 1.7 mg/dL (1.7-2.2) 03/04/17 06:10 Total Bilirubin 0.8 mg/dL (0.2-1.3) 03/03/17 06:30 AST 47 U/L (17-59) 03/03/17 06:30 ALT 34 U/L (7-56) 03/03/17 06:30 Alkaline Phosphatase 73 U/L (38-126) 03/03/17 06:30 Troponin I < 0.01 ng/mL 02/27/17 19:30 NT-Pro-B Natriuret Pep 199 pg/mL (0-450) 02/27/17 19:30 Total Protein 7.4 g/dL (5.8-8.3) 03/03/17 06:30 Albumin 4.2 g/dL (3.0-4.8) 03/03/17 06:30 Globulin 3.2 gm/dL 03/03/17 06:30 Albumin/Globulin Ratio 1.3 (1.1-1.8) 03/03/17 06:30 Triglycerides 101 mg/dL (35-160) 02/28/17 06:30 Cholesterol 185 mg/dL (130-200) 02/28/17 06:30 LDL Cholesterol Direct 76 mg/dL (0-129) 02/28/17 06:30 HDL Cholesterol 80 mg/dL (29-60) H 02/28/17 06:30 Urine Opiates Screen Negative (NEGATIVE) 02/27/17 21:15 Urine Methadone Screen Negative (NEGATIVE) 02/27/17 21:15 Ur Barbiturates Screen Negative (NEGATIVE) 02/27/17 21:15 Ur Phencyclidine Scrn Negative (NEGATIVE) 02/27/17 21:15 Ur Amphetamines Screen Negative (NEGATIVE) 02/27/17 21:15 U Benzodiazepines Scrn Negative (NEGATIVE) 02/27/17 21:15 U Oth Cocaine Metabols Negative (NEGATIVE) 02/27/17 21:15 U Cannabinoids Screen Negative (NEGATIVE) 02/27/17 21:15 Alcohol, Quantitative < 10 mg/dL (0-10) 02/27/17 19:30 Blood Type O POSITIVE 02/27/17 19:30 Blood Type Confirm O POSITIVE 02/27/17 21:30 Antibody Screen Negative 02/27/17 19:30 BBK History Checked No verified bt 02/27/17 19:30 - Hospital Course Hospital Course: Mr Myers is a 51 y/o male with a PMhx Etoh abuse, Htn, CHF s/p AICD, seizure disorder came in to the [facility] with the complaint of right lower extremity numbness and tingling which started prior to admission. Patient also reports a mild headache; denied any complaints of falls or loss of consciousness. States that he also feels slightly weaker in his legs and has occasional sensations of tingling and numbness in the left leg as well, but currently does not feel it. Pt underwent a CT of the head in the ED and was found to have a 1.7 x 1.2cm Left thalamic bleed. He denies any complaints of shortness of breath, chest pain, palpitations, nausea, vomiting, dizziness, fever, chills or diarrhea. He does admit to noncompliance with his medications and is unable to recall which meds he is currently supposed to be taking. - Date & Time of H&P Date of H&P: 02/27/17 Time of H&P: 22:01 Discharge Exam - Head Exam Head Exam: ATRAUMATIC, NORMAL INSPECTION, NORMOCEPHALIC Discharge Plan - Follow Up Plan Condition: STABLE Disposition: REHAB FACILITY/REHAB UNIT Instructions: Hemorrhagic Stroke (DC) Additional Instructions: - please take Keppra 500mg TWICE a day - please take your folic acid, thiamine and multivitamin daily - please take your norvasc 5mg daily and metoprolol 25mg twice a day - please take protonix daily - please take your flexeril three times a day - please take Zyrtec twice daily if needed - please stop using alcohol as it has serious negative effects on your health - please take all your medications as prescribed - please f/u Neurology after your are discharged from rehab within 1-2 weeks. avoid aspirin, plavix, heparin or lovenox for 3 weeks. Thank you James Mejia PGY1 Dr. Lerner, Attending Physician Referrals: [facility] [Outside] Paddy Steiner MD [Staff Provider] - PCP,NO [Primary Care Provider] -
== END 2017-03-04 18:48 | DRG 810 ==
LOC: ED 18:43 → ERH 21:46 → CCU 02-28 00:20 → 3RSO 03-04 00:50
PROVIDERS: ADMIT Hospitalist; ATTEND Internal Medicine
DX: I61.8 Other nontraumatic intracerebral hemorrhage (principal); I11.0 Hypertensive heart disease with heart failure; I50.9 Heart failure, unspecified; E87.6 Hypokalemia; M54.12 Radiculopathy, cervical region; M54.16 Radiculopathy, lumbar region; G40.909 Epilepsy, unspecified, not intractable, without status epilepticus; F10.10 Alcohol abuse, uncomplicated; Z91.14 Patient's other noncompliance with medication regimen; Z95.810 Presence of automatic (implantable) cardiac defibrillator

== ENCOUNTER 2017-03-29 18:02 | Emergency (ER) | payer MEDICAID ==
[2017-03-29 18:02] VITALS: BMI 20.7
[2017-03-29 18:23] VITALS: BP 152/82; PULSE 82; RESP 16; TEMP 98.2; O2SAT 100
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
--- NOTE | 2017-03-29 19:03 | CT ---
PROCEDURE: CT scan brain dated 03/29/2017 HISTORY: trauma COMPARISON: Comparison made with prior study 02/28/2017. TECHNIQUE: Axial computed tomography images were obtained through the head/brain without intravenous contrast. Radiation dose: Total exam DLP = 800.41 mGy-cm. This CT exam was performed using one or more of the following dose reduction techniques: Automated exposure control, adjustment of the mA and/or kV according to patient size, and/or use of iterative reconstruction technique. FINDINGS: HEMORRHAGE: Previously noted left colonic hemorrhage has resolved with an area of low attenuation encephalomalacia. BRAIN: Moderate chronic periventricular white matter ischemic changes seen extending peripherally into the deep and subcortical regions of both cerebral hemispheres. . Moderate atrophy. Minor vascular calcifications both carotid siphons. VENTRICLES: No obstructive CALVARIUM: Hydrocephalus there are no acute calvarial fractures PARANASAL SINUSES: Moderate mucosal thickening within the right maxillary sinus with apparent postoperative changes medial wall left maxillary sinus. There is also deformity posterolateral wall which could be due to old trauma. Clinical correlation recommended. MASTOID AIR CELLS: Mild to moderate mucosal thickening within the OTHER FINDINGS: None. IMPRESSION: Interval resolution previously noted left colonic hemorrhage within area of low attenuation encephalomalacia. There is also moderate diffuse/ confluent chronic white matter ischemic changes. Moderate atrophy.
== END 2017-03-29 20:05 | disposition home or self-care (01) ==
LOC: ED 18:02
DX: F10.129 Alcohol abuse with intoxication, unspecified (principal); I50.9 Heart failure, unspecified; I10 Essential (primary) hypertension; Z86.73 Personal history of transient ischemic attack (TIA), and cerebral infarction without residual deficits

== ENCOUNTER 2017-07-03 15:55 | Emergency (ER) | payer MEDICAID ==
[2017-07-03 15:56] VITALS: BMI 20.7
[2017-07-03] MEDS ORDERED: TDAP Vaccine 0.5 mL Syr IM ONE (16:26)
--- NOTE | 2017-07-03 16:49 | ED PDOC ---
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 Pt denies any loc, c/o mild icnrementation of his chronic lubar back pain and is concerned about the movement of his spina;l hardware. ROS: per HPI, 12 systems reviewed and negative by me PMD: Dr. Bryce Dc in [facility] PMH: Intracranial hemorrhage, ETOH abuse, HTN, Seizures, Moderate Aortic Stenosis, Mild Systolic Dysfunction PSH: R ankle surgery, s/p AICD FH: brain CA SH: tobacco 25 pack year, ETOH abuse hx denies IVDU MEDS: as below and reviewed ALLERGIES: NKDA Time/Duration: Prior to Arrival Symptom Onset: Gradual Symptom Course: Worsening Quality: Aching Past Medical History - Provider Review Nursing Documentation Reviewed: Yes - Past History Past History: Non-Contributing - Infectious Disease Hx of Infectious Diseases: None - Tetanus Immunization Tetanus Immunization: Unknown - Cardiac Hx Cardiac Disorders: Yes Hx Congestive Heart Failure: Yes Hx Hypertension: Yes - Pulmonary Hx Respiratory Disorders: No - Neurological Hx Neurological Disorder: Yes HX Cerebrovascular Accident: Yes Hx Seizures: Yes - HEENT Hx HEENT Disorder: No - Renal Hx Renal Disorder: No - Endocrine/Metabolic Hx Endocrine Disorders: No - Hematological/Oncological Hx Blood Disorders: No Hx Blood Transfusions: No Hx Blood Transfusion Reaction: No - Integumentary Hx Dermatological Disorder: No - Musculoskeletal/Rheumatological Hx Falls: No - Gastrointestinal Hx Gastrointestinal Disorders: No - Genitourinary/Gynecological Hx Genitourinary Disorders: No - Psychiatric Hx Psychophysiologic Disorder: Yes Hx Substance Use: No - Past Surgical History Past Surgical History: Unable to Obtain - Surgical History Hx Musculoskeletal Surgery: Yes Hx Orthopedic Surgery: Yes (r ankle) Hx Valve Replacement: No 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: PPM and AICD insertion. Right ankle surgery placement of screws. Plate placed in left brow area. defibrillator 2012 - Anesthesia Hx Anesthesia: Yes Hx Anesthesia Reactions: No Hx Malignant Hyperthermia: No - Suicidal Assessment Feels Threatened In Home Enviroment: No Family/Social History - Physician Review Nursing Documentation Reviewed: Yes Family/Social History: No Known Family HX Smoking Status: Current Some Days Smoker Hx Alcohol Use: Yes Hx Substance Use: No Hx Substance Use Treatment: No Allergies/Home Meds Allergies/Adverse Reactions: Allergies No Known Allergies Allergy (Verified 07/03/17 16:15) Home Medications: Home Meds Medication Instructions Recorded Confirmed Unobtainable 03/29/17 07/03/17 Review of Systems - Physician Review All systems were reviewed & negative as marked: Yes - Review of Systems Constitutional: Normal Eyes: Normal ENT: Normal Respiratory: Normal Cardiovascular: Normal Gastrointestinal: Normal Genitourinary Male: Normal Musculoskeletal: Other (aforementioned ) Skin: Normal Neurological: Normal Endocrine: Normal Hemo/Lymphatic: Normal Psychiatric: Normal Physical Exam Vital Signs Reviewed: Yes Vital Signs Temp Pulse Resp BP Pulse Ox 07/04/17 07:00 85 18 118/82 100 07/04/17 03:18 93 H 17 118/75 96 07/03/17 21:37 92 H 19 114/73 98 07/03/17 19:00 98 F 87 19 121/81 100 07/03/17 18:44 97.8 F 86 20 128/78 97 07/03/17 16:00 97.8 F 100 H 20 132/94 H 99 Temperature: Afebrile Blood Pressure: Normal Pulse: Regular Respiratory Rate: Normal Appearance: Positive for: Well-Appearing, Non-Toxic, Comfortable Pain Distress: None Mental Status: Positive for: Alert and Oriented X 3 - Systems Exam Pupils: Present: PERRL Extroacular Muscles: Present: EOMI Conjunctiva: Present: Normal Mouth: Present: Moist Mucous Membranes Nose (External): Present: Abrasion, Other (cartilagnous nose and base on bony nare deviated to the right . ) Neck: Present: Normal Range of Motion Respiratory/Chest: Present: Clear to Auscultation, Good Air Exchange. No: Respiratory Distress, Accessory Muscle Use Cardiovascular: Present: Regular Rate and Rhythm, Normal S1, S2. No: Murmurs Abdomen: Present: Normal Bowel Sounds. No: Tenderness, Distention, Peritoneal Signs Back: Present: Normal Inspection Upper Extremity: Present: Normal Inspection. No: Cyanosis, Edema Lower Extremity: Present: Normal Inspection. No: Edema Neurological: Present: GCS=15, CN II-XII Intact, Speech Normal Skin: Present: Warm, Dry, Normal Color. No: Rashes Psychiatric: Present: Alert, Oriented x 3, Normal Insight, Normal Concentration Medical Decision Making ED Course and Treatment: 51 y/o male w/ pmhx of spinal surgeries as well as cva presents + etob , s/p acciddntal [facility] nasal fracture -r/o occult fracture ct head/maxillofcaial ct/lumbar spine xray /pelvis/chest xray abx tdap update 07/03/17 16:54 - RAD Interpretation Radiology Orders: 07/03/17 16:22 HEAD W/O CONTRAST [CT] Stat MAXILLOFACIAL W/O CONTRAST [CT] Stat 07/03/17 16:23 HAND RIGHT 3RD DIGIT (FINGER) [RAD] Stat 07/03/17 16:28 CHEST ONE VIEW [RAD] Stat PELVIS ONE VIEW [RAD] Stat 07/03/17 17:53 LUMBAR SPINE W/O CONTRAST [CT] Stat THORACIC SPINE W/O CONT [CT] Stat - Medication Orders Current Medication Orders: Discontinued Medications Cephalexin Monohydrate (Keflex) 500 mg PO STAT STA PRN Reason: Protocol Stop: 07/03/17 16:28 Last Admin: 07/03/17 16:41 Dose: 500 mg Tetanus/Reduced Diphtheria/Acell Pertussis (Boostrix Vaccine Inj) 0.5 ml IM .ONCE ONE Stop: 07/03/17 16:27 Last Admin: 07/03/17 16:42 Dose: 0.5 ml [facility] Immunization Data Document 07/03/17 16:42 AKIRA (Rec: 07/03/17 16:42 AKIRA [id number]) Immunization Data Vaccine Information Sheet Given Yes Disposition/Present on Arrival - Present on Arrival Any Indicators Present on Arrival: No History of DVT/PE: No History of Uncontrolled Diabetes: No Urinary Catheter: No History of Decub. Ulcer: No History Surgical Site Infection Following: None - Disposition Have Diagnosis and Disposition been Completed?: Yes Diagnosis: Nasal fracture Disposition: HOME/ ROUTINE Disposition Time: :25 Patient Plan: Discharge Condition: FAIR Discharge Instructions (ExitCare): Nasal Fracture (ED) [place] [facility] [place] [facility] [place] - Follow up with primary Forms: [employer] (Turkish)
[2017-07-03 19:47] VITALS: TEMP 98
--- NOTE | 2017-07-03 19:58 | CT ---
EXAM: CT Head Without Intravenous Contrast EXAM DATE/TIME: 07/03/2017 4:22 PM CLINICAL HISTORY: The patient age is 51 years old and is male; Injury or trauma; Fall; Initial encounter; Abrasion; Head, generalized Facility exam id and description: Ct heads head w/o contrast TECHNIQUE: Axial computed tomography images of the head/brain without intravenous contrast. All CT scans at this facility use one or more dose reduction techniques, viz.: automated exposure control; ma/kV adjustment per patient size (including targeted exams where dose is matched to indication; i.e. head); or iterative reconstruction technique. Coronal and sagittal reformatted images were created and reviewed. COMPARISON: CT - HEAD W/O CONTRAST 2017-03-29 18:50 FINDINGS: Brain: There are nonspecific periventricular foci of hypodensity, suggestive of small vessel ischemic disease. Demyelination is within the differential. There is a small hypodense chronic lacunar infarct within the left thalamus. The acuity of the white matter disease is indeterminate. The white-calix differentiation is preserved demonstrating no acute territorial type infarct. There is mild prominence of the ventricles and sulci, compatible with atrophy. No acute intracranial hemorrhage is seen. There is a band of hypodensity within the inferior left frontal lobe, suggestive of artifact. Midline shift: There is no midline shift. Ventricles: See above. Bones/joints: The calvarium demonstrates no evidence for a depressed fracture. Soft tissues: No acute abnormality. Vasculature: There is atherosclerotic calcification of the cavernous internal carotid arteries. Sinuses: Unremarkable as visualized. No acute sinusitis. Mastoid air cells: Minimal effusions are visualized within the mastoid air cells bilaterally. IMPRESSION: 1. No acute intracranial hemorrhage or acute territorial type infarct. 2. There are nonspecific periventricular foci of hypodensity, suggestive of small vessel ischemic disease. Demyelination is within the differential. 3. There is a small hypodense chronic lacunar infarct within the left thalamus. 4. Mild atrophy. 5. Incidental/non-acute findings are described above.
--- NOTE | 2017-07-03 20:08 | CT ---
EXAM: CT Maxillofacial Without Intravenous Contrast EXAM DATE/TIME: 07/03/2017 4:22 PM CLINICAL HISTORY: The patient age is 51 years old and is male; Injury or trauma; Fall; Initial encounter; Abrasion; Nose; Patient HX: S/P fall Facility exam id and description: Ct faces maxillofacial w/o contrast TECHNIQUE: Axial computed tomography images of the face without intravenous contrast. All CT scans at this facility use one or more dose reduction techniques, viz.: automated exposure control; ma/kV adjustment per patient size (including targeted exams where dose is matched to indication; i.e. head); or iterative reconstruction technique. Coronal and sagittal reformatted images were created and reviewed. COMPARISON: CT - MAXILLOFACIAL W/O CONTRAST 2016-10-13 00:36 FINDINGS: Bones/joints: There is mucosal thickening of the bilateral maxillary sinuses. There is stable abnormal morphology and of the bautista of the left maxillary sinus, with discontinuity/old fractures of the anterior and lateral bautista. These findings are stable. There is an old fracture of the left zygomatic arch. The nasal bones are fractured, stable compared to the prior study. Old fractures are visualized of the anterior nasal spine. Old fractures are visualized of the inferior and lateral bautista of the left orbit. There is angulation of the superior nasal septum, consistent with old fracture. There is nasal septal deviation to the left. There is a fracture of the nasal septum superiorly, which is likely chronic. 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 The remaining visualized facial bones are intact, without acute fracture. Soft tissues: No acute facial soft tissue swelling. Orbits: Postoperative changes are identified involving the lateral left orbit. Sinuses: See above. There is opacification of a few left-sided ethmoid air cells. IMPRESSION: 1. No definitive new acute facial bone fracture is visualized. 2. There is stable abnormal morphology and of the bautista of the left maxillary sinus, with discontinuity/old fractures of the anterior and lateral bautista. These findings are stable. 3. There is an old fracture of the left zygomatic arch. 4. The nasal bones are fractured, stable compared to the prior study. Old fractures are visualized of the anterior nasal spine. 5. Old fractures are visualized of the inferior and lateral bautista of the left orbit. 6. There is a fracture of the nasal septum superiorly, which is likely chronic. 7. Paranasal sinus disease is noted above. 8. Additional CT findings described above.
--- NOTE | 2017-07-03 20:36 | CT ---
EXAM: CT Lumbar Spine Without Intravenous Contrast EXAM DATE/TIME: 07/03/2017 5:53 PM CLINICAL HISTORY: 51 years old, male; Injury or trauma; Fall; Initial encounter; Abrasion; Prior surgery; Patient HX: R/O hardware dislodgement TECHNIQUE: Axial computed tomography images of the lumbar spine without intravenous contrast. All CT scans at this facility use one or more dose reduction techniques, viz.: automated exposure control; ma/kV adjustment per patient size (including targeted exams where dose is matched to indication; i.e. head); or iterative reconstruction technique. Coronal and sagittal reformatted images were created and reviewed. COMPARISON: Prior lumbar spine CT of 2016-08-05 08:30 FINDINGS: LIMITATIONS: Streak artifact from metallic hardware in the lumbar spine. VERTEBRAE: Post operative changes. There is a bilateral posterior kj and screw fixation device extending from L4 to L5, which appears intact. There is a metallic spacer in the L3-4 intervertebral disc. Mild anterolisthesis of L3 over L4 is seen, about 5 mm, stable in appearance. Indentation of multiple superior lumbar vertebral endplates noted, which clears unchanged, and is felt to be secondary to degenerative Schmorl's nodes. Vertebrae appear demineralized. No acute lumbar spine fractures are seen. No evidence of acute vertebral compression fractures. DISCS/SPINAL CANAL/NEURAL FORAMINA: Moderate to severe multilevel degenerative disc disease, greatest at L3-4 on the right. Intervertebral disc incidentally noted at S1-2, a normal variant. No evidence of bony spinal canal stenosis. SOFT TISSUES: Right inguinal hernia incidentally noted, containing fat, vessels, and a possible bowel loop. This is incompletely visualized. IMPRESSION: - No acute lumbar spine fractures identified. - Postsurgical changes. Evidence of previous surgical fusion of L3 and L4. - Mild anterior subluxation of L3 over L4, which appears chronic, and is stable compared to a 08/05/[address] - See above for remaining findings.
--- NOTE | 2017-07-03 20:46 | CT ---
EXAM: CT Thoracic Spine Without Intravenous Contrast EXAM DATE/TIME: 07/03/2017 5:53 PM CLINICAL HISTORY: 51 years old, male; Injury or trauma; Fall; Initial encounter; Abrasion; Prior surgery; Patient HX: R/O hardware dislodegment TECHNIQUE: Axial computed tomography images of the thoracic spine without intravenous contrast. All CT scans at this facility use one or more dose reduction techniques, viz.: automated exposure control; ma/kV adjustment per patient size (including targeted exams where dose is matched to indication; i.e. head); or iterative reconstruction technique. Coronal and sagittal reformatted images were created and reviewed. COMPARISON: No relevant prior studies available. FINDINGS: VERTEBRAE: Chronic-appearing 50% vertebral height loss/compression deformity of T12, which could be secondary to either a chronic compression fracture or an underlying congenital vertebral anomaly. Degenerative Schmorl's nodes noted within multiple vertebra, greatest at T5. Vertebrae appear demineralized. No acute fractures are seen. No evidence of significant vertebral subluxation. DISCS/SPINAL CANAL/NEURAL FORAMINA: Moderate to severe multilevel degenerative disc disease of the mid to lower thoracic spine, greatest at the T10-11 level. No evidence of bony spinal canal stenosis. SOFT TISSUES: No acute abnormality of the visualized soft tissues is seen. IMPRESSION: - No acute thoracic spine fractures identified. - Chronic 50% vertebral height loss/compression deformity of T12. - See above for multiple non-emergent findings.
--- NOTE | 2017-07-03 20:59 | ED PDOC ---
Physical Exam Vital Signs Temp Pulse Resp BP Pulse Ox 07/03/17 21:37 92 H 19 114/73 98 07/03/17 19:00 98 F 87 19 121/81 100 07/03/17 18:44 97.8 F 86 20 128/78 97 07/03/17 16:00 97.8 F 100 H 20 132/94 H 99 Medical Decision Making ED Course and Treatment: 07/03/17 19:00 Case endorsed to me by Dr. Vail, pending CT scans, XR, re-evaluation, and disposition. 07/03/17 22:30 Reviewed radiology, Chest X-ray shows no acute processes XR Pelvis shows no acute processes XR Right Hand shows no acute processes. CT Head: 1. No acute intracranial hemorrhage or acute territorial type infarct. 2. There are nonspecific periventricular foci of hypodensity, suggestive of small vessel ischemic disease. Demyelination is within the differential. 3. There is a small hypodense chronic lacunar infarct within the left thalamus. 4. Mild atrophy. 5. Incidental/non-acute findings are described above. CT Maxillofacial: 1. No definitive new acute facial bone fracture is visualized. 2. There is stable abnormal morphology and of the bautista of the left maxillary sinus, with discontinuity/old fractures of the anterior and lateral bautista. These findings are stable. 3. There is an old fracture of the left zygomatic arch. 4. The nasal bones are fractured, stable compared to the prior study. Old fractures are visualized of the anterior nasal spine. 5. Old fractures are visualized of the inferior and lateral bautista of the left orbit. 6. There is a fracture of the nasal septum superiorly, which is likely chronic. 7. Paranasal sinus disease is noted above. 8. Additional CT findings described above. CT Thoracic Spine: - No acute thoracic spine fractures identified. - Chronic 50% vertebral height loss/compression deformity of T12. - See above for multiple non-emergent findings. CT Lumbar Spine: - No acute lumbar spine fractures identified. - Postsurgical changes. Evidence of previous surgical fusion of L3 and L4. - Mild anterior subluxation of L3 over L4, which appears chronic, and is stable compared to a 08/05/[address] - See above for remaining findings. Re-evaluation Time: 06:30 Reassessment Condition: Re-examined - RAD Interpretation Radiology Orders: 07/03/17 16:22 HEAD W/O CONTRAST [CT] Stat MAXILLOFACIAL W/O CONTRAST [CT] Stat 07/03/17 16:23 HAND RIGHT 3RD DIGIT (FINGER) [RAD] Stat 07/03/17 16:28 CHEST ONE VIEW [RAD] Stat PELVIS ONE VIEW [RAD] Stat 07/03/17 17:53 LUMBAR SPINE W/O CONTRAST [CT] Stat THORACIC SPINE W/O CONT [CT] Stat - Medication Orders Current Medication Orders: Discontinued Medications Cephalexin Monohydrate (Keflex) 500 mg PO STAT STA PRN Reason: Protocol Stop: 07/03/17 16:28 Last Admin: 07/03/17 16:41 Dose: 500 mg Tetanus/Reduced Diphtheria/Acell Pertussis (Boostrix Vaccine Inj) 0.5 ml IM .ONCE ONE Stop: 07/03/17 16:27 Last Admin: 07/03/17 16:42 Dose: 0.5 ml MAR Immunization Data Document 07/03/17 16:42 [place] (Rec: 07/03/17 16:42 AKIRA [id number]) Immunization Data Vaccine Information Sheet Given Yes - Scribe Statement The provider has reviewed the documentation as recorded by the Scribe Nereida Casanova All medical record entries made by the Scribe were at my direction and personally dictated by me. I have reviewed the chart and agree that the record accurately reflects my personal performance of the history, physical exam, medical decision making, and the department course for this patient. I have also personally directed, reviewed, and agree with the discharge instructions and disposition. Disposition/Present on Arrival - Present on Arrival Any Indicators Present on Arrival: No History of DVT/PE: No History of Uncontrolled Diabetes: No Urinary Catheter: No History of Decub. Ulcer: No History Surgical Site Infection Following: None - Disposition Have Diagnosis and Disposition been Completed?: Yes Diagnosis: Nasal fracture Disposition: HOME/ ROUTINE Disposition Time: 06:30 Condition: FAIR Discharge Instructions (ExitCare): Nasal Fracture (ED) [place] [facility] [place] [facility] [place] - Follow up with primary Forms: [employer] (Norwegian)
[2017-07-04 07:08] VITALS: BP 118/82; PULSE 85; RESP 18; O2SAT 100
--- NOTE | 2017-07-04 08:43 | RAD ---
HISTORY: fall COMPARISON: Chest x-ray performed 02/27/17 TECHNIQUE: Chest, one view. FINDINGS: LUNGS: No focal consolidation. Please note that chest x-ray has limited sensitivity for the detection of pulmonary masses. PLEURA: No significant pleural effusion identified. No definite pneumothorax . CARDIOVASCULAR: Heart size appears within normal limits. Left-sided AICD. OSSEOUS STRUCTURES: Right 7th rib fracture deformity, chronic. VISUALIZED UPPER ABDOMEN: Unremarkable. OTHER FINDINGS: None. IMPRESSION: No acute findings. See above.
--- NOTE | 2017-07-04 10:08 | RAD ---
PROCEDURE: Right middle finger radiographs. HISTORY: s/p fall COMPARISON: None available. TECHNIQUE: AP radiograph of the right hand, as well as spot oblique and lateral images of right middle finger were obtained. FINDINGS: RIGHT MIDDLE FINGER: Right 3rd digit appears unremarkable, without acute displaced fracture identified. Irregularity about the distal 1st phalanx imaged on a single view of unclear significance ; nondisplaced fracture cannot be excluded. Correlate with physical exam. Remainder of the right hand (as seen on the AP view) grossly unremarkable. JOINTS: No dislocation. SOFT TISSUES: Unremarkable. No evidence of radiopaque foreign body. OTHER FINDINGS: None. IMPRESSION: Right 3rd digit appears unremarkable, without acute displaced fracture identified. Irregularity about the distal 1st phalanx imaged on a single view of unclear significance ; nondisplaced fracture cannot be excluded. Correlate with physical exam. Study has been marked for PA review.
--- NOTE | 2017-07-04 10:15 | RAD ---
PROCEDURE: Radiographs of the pelvis. HISTORY: s/p fall COMPARISON: None available. FINDINGS: BONES: No acute displaced fracture. Degenerative changes of the included lower lumbar spine and bilateral hip joints. Partially imaged lumbar fusion hardware. JOINTS: Limited evaluation for dislocation in the absence of orthogonal views. No dislocation identified. OTHER FINDINGS: No significant joint effusion appreciated. Soft tissues appear unremarkable. No evidence of radiopaque foreign body. Pelvic calcifications, likely phleboliths. IMPRESSION: No acute displaced fracture or dislocation identified. If high clinical index of suspicion for occult fracture suggest cross-sectional imaging. Otherwise, if symptoms persist, or if there is continued clinical concern, x-ray follow-up in 7-10 days should be considered.
== END 2017-07-04 07:00 | disposition home or self-care (01) ==
LOC: ED 15:55
DX: S02.2XXA Fracture of nasal bones, initial encounter for closed fracture (principal); W01.0XXA Fall on same level from slipping, tripping and stumbling without subsequent striking against object, initial encounter; Z23 Encounter for immunization

== ENCOUNTER 2017-07-23 23:23 | Emergency (ER) | payer MEDICAID ==
[2017-07-23 23:24] VITALS: BMI 20.7
--- NOTE | 2017-07-24 00:17 | ED PDOC ---
Arrival/HPI - General Chief Complaint: Upper Extremity Problem/Injury Time Seen by Provider: 07/24/17 00:09 Historian: Patient - History of Present Illness Narrative History of Present Illness (Text): 07/24/17 00:10 52 y/o male pmh including a.fibb/seizure/cva, nkda, c/o rt. hand 4th digit pain x 3 hours s/p twisted while walking down the stair. Pt. stated that he had a stroke with chronic rt. sided bodyweakness, trying to walk down the stair tonight, caught the rt. hand on the side rail and twisted the 4th digit, stated that he has chronic rt. upper extremity pain as well with no fall or trauma but he is concerning for DVT. pt. has no chest pain or shortness of breath, no night sweat, no rash, no numbness or tingling, no other medical or psychological complaints. Past Medical History - Provider Review Nursing Documentation Reviewed: Yes - Past History Past History: Non-Contributing - Infectious Disease Hx of Infectious Diseases: None - Tetanus Immunization Tetanus Immunization: Unknown - Cardiac Hx Cardiac Disorders: Yes Hx Congestive Heart Failure: Yes Hx Hypertension: Yes - Pulmonary Hx Respiratory Disorders: No - Neurological Hx Neurological Disorder: Yes HX Cerebrovascular Accident: Yes Hx Seizures: Yes - HEENT Hx HEENT Disorder: No - Renal Hx Renal Disorder: No - Endocrine/Metabolic Hx Endocrine Disorders: No - Hematological/Oncological Hx Blood Disorders: No Hx Blood Transfusions: No Hx Blood Transfusion Reaction: No - Integumentary Hx Dermatological Disorder: No - Musculoskeletal/Rheumatological Hx Musculoskeletal Disorders: No Hx Falls: No - Gastrointestinal Hx Gastrointestinal Disorders: No - Genitourinary/Gynecological Hx Genitourinary Disorders: No - Psychiatric Hx Psychophysiologic Disorder: Yes Hx Substance Use: No - Past Surgical History Past Surgical History: Unable to Obtain - Surgical History Hx Musculoskeletal Surgery: Yes Hx Orthopedic Surgery: Yes (r ankle) Hx Valve Replacement: No 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: PPM and AICD insertion. Right ankle surgery placement of screws. Plate placed in left brow area. defibrillator 2012 - Anesthesia Hx Anesthesia: Yes Hx Anesthesia Reactions: No Hx Malignant Hyperthermia: No - Suicidal Assessment Feels Threatened In Home Enviroment: No Family/Social History - Physician Review Nursing Documentation Reviewed: Yes Family/Social History: Unknown Family HX Smoking Status: Light Smoker < 10 Cigarettes Daily Hx Alcohol Use: Yes Frequency of alcohol use: Few days per week Hx Substance Use: No Hx Substance Use Treatment: No Allergies/Home Meds Allergies/Adverse Reactions: Allergies No Known Allergies Allergy (Verified 07/03/17 16:15) Review of Systems - Review of Systems Constitutional: absent: Fatigue, Fevers Eyes: absent: Vision Changes ENT: absent: Hearing Changes Respiratory: absent: SOB, Cough Cardiovascular: absent: Chest Pain Gastrointestinal: absent: Abdominal Pain, Nausea, Vomiting Musculoskeletal: Arthralgias. absent: Back Pain, Neck Pain, Joint Swelling, Myalgias Skin: absent: Rash, Pruritis Neurological: absent: Headache Psychiatric: absent: Anxiety, Depression Physical Exam Vital Signs Reviewed: Yes Vital Signs Temp Pulse Resp BP Pulse Ox 07/24/17 06:13 98.2 F 79 17 124/84 98 07/23/17 23:54 97.9 F 96 H 16 140/89 97 Temperature: Afebrile Blood Pressure: Normal Pulse: Regular Respiratory Rate: Normal Appearance: Positive for: Well-Appearing, Non-Toxic, Comfortable Pain Distress: Mild Mental Status: Positive for: Alert and Oriented X 3 - Systems Exam Head: Present: Atraumatic, Normocephalic Pupils: Present: PERRL Extroacular Muscles: Present: EOMI Conjunctiva: Present: Normal Ears: Present: NORMAL TM, Normal Canal. No: Erythema Mouth: Present: Moist Mucous Membranes Neck: Present: Normal Range of Motion, Trachea Midline. No: MIDLINE TENDERNESS , Paraspinal Tenderness, Lymphadenopathy Respiratory/Chest: Present: Clear to Auscultation, Good Air Exchange. No: Respiratory Distress, Accessory Muscle Use Cardiovascular: Present: Regular Rate and Rhythm, Normal S1, S2. No: Murmurs Abdomen: Present: Normal Bowel Sounds. No: Tenderness, Distention, Peritoneal Signs Back: Present: Normal Inspection Upper Extremity: Present: Normal Inspection, Other (RUE: +ttp on the proximal 4th digit region, +ttp on the 1st digit thumb distal phalanx region with skin close, no scaphoid or wrist tenderness, no ecchymosis, FROM without limitation, sensation intact, motor 5/5, +radial pulse, capillary refill< 2 seconds, neurovascular intact. ). No: Cyanosis, Edema Lower Extremity: Present: Normal Inspection. No: Edema Neurological: Present: GCS=15, CN II-XII Intact, Speech Normal Skin: Present: Warm, Dry, Normal Color. No: Rashes Psychiatric: Present: Alert, Oriented x 3, Normal Insight, Normal Concentration Medical Decision Making ED Course and Treatment: 07/24/17 00:18 -Rt. hand xray -RUE venuous doppler -tylenol -observe and reassess 07/24/17 02:32 -xray show rt. hand thumb and rt. 4th digit fracture, thumb spica and ulnar gutter splint applied me with neurovascular intact. -Sling applied. -Discharge home with thumb spica and ulnar gutter splint applied, tylenol for pain, follow up with your own pmd and hand specialist within 2 days, return to the ER for any new or worsening signs or symptoms. -Pain is well controlled. - RAD Interpretation Radiology Orders: 07/24/17 00:19 HAND RIGHT 3 VIEWS [RAD] Stat 07/24/17 00:20 DUPLEX UPPER EXTRM VEIN RIGHT [US] Stat Rt. hand: acute proximal 4th digit fracture. RUE Venuous doppler: as per preliminary report, no acute DVT. Triage Nurse: Radiologist - Medication Orders Current Medication Orders: Discontinued Medications Acetaminophen (Tylenol 325mg Tab) 650 mg PO STAT STA Stop: 07/24/17 00:21 Last Admin: 07/24/17 01:05 Dose: 650 mg - PA / LEAD QUALITY CONTROL TECHNICIAN / Resident Statement / has reviewed & agrees with the documentation as recorded. Disposition/Present on Arrival - Present on Arrival Any Indicators Present on Arrival: No History of DVT/PE: No History of Uncontrolled Diabetes: No Urinary Catheter: No History of Decub. Ulcer: No History Surgical Site Infection Following: None - Disposition Have Diagnosis and Disposition been Completed?: Yes Diagnosis: Hand fracture Disposition: HOME/ ROUTINE Disposition Time: 02:36 Patient Plan: Discharge Condition: GOOD Additional Instructions: -Discharge home with thumb spica and ulnar gutter splint applied, tylenol for pain, follow up with your own pmd and hand specialist within 2 days, return to the ER for any new or worsening signs or symptoms. Prescriptions: Acetaminophen [Tylenol 325mg tab] 2 tab PO QID PRN #30 tab PRN Reason: Other Referrals: Bryce Dc MD [Primary Care Provider] - Follow up with primary Suman Royal III, MD [Medical Doctor] - Follow up with primary Forms: WORK NOTE
[2017-07-24 06:16] VITALS: BP 124/84; PULSE 79; RESP 17; TEMP 98.2; O2SAT 98
--- NOTE | 2017-07-24 09:51 | RAD ---
PROCEDURE: Right Hand Radiographs. HISTORY: rt. hand 4th proximal phalanx injury COMPARISON: None. FINDINGS: BONES: Oblique fracture through the proximal phalanx 4th digit. Major fracture fragments are anatomically aligned. JOINTS: Normal. No osteoarthritic changes. SOFT TISSUES: Soft tissue swelling attests to the acuity of the fracture. OTHER FINDINGS: None. IMPRESSION: Acute fracture proximal phalanx 4th digit. Concordant results with the preliminary interpretation rendered by the emergency department physician procedure.
--- NOTE | 2017-07-25 10:57 | US ---
PROCEDURE: Right upper extremity venous US CLINICAL HISTORY: Arm pain and swelling Evaluate for deep venous thrombosis. PHYSICIAN(S): Antione Aaron M.D FINDINGS: The visualized rightinternal jugular vein is sonographically normal and compressible. No evidence of obstruction or thrombus is seen. The visualized segments of the right subclavian vein are patent with normal waveforms. No sonographic evidence of obstruction or thrombosis is seen. The visualized deep venous system of the proximal right upper extremity is sonographically normal and compressible. IMPRESSION: 1. No sonographic evidence for deep venous thrombosis in the visualized segments of the right upper extremity.
== END 2017-07-24 06:16 | disposition home or self-care (01) ==
LOC: ED 23:23
DX: S62.614A Displaced fracture of proximal phalanx of right ring finger, initial encounter for closed fracture (principal); X50.1XXA Overexertion from prolonged static or awkward postures, initial encounter; Y92.89 Other specified places as the place of occurrence of the external cause

== ENCOUNTER 2017-08-26 19:33 | Emergency (ER) | payer MEDICAID ==
[2017-08-26 19:33] VITALS: BMI 20.7
[2017-08-26 19:45] VITALS: TEMP 98.3
[2017-08-26] MEDS ORDERED: Morphine 5 MG/ML SYRINGE IVP STA (20:14)
[2017-08-26] MEDS ORDERED: Sodium Chloride 0.9% 1,000 ML IV STA (20:14)
--- NOTE | 2017-08-26 20:18 | ED PDOC ---
Arrival/HPI - General Chief Complaint: Abdominal Pain Time Seen by Provider: 08/26/17 20:10 Historian: Patient - History of Present Illness Narrative History of Present Illness (Text): 08/26/17 20:16 A 52 year old female, whose past medical history includes right inguinal hernia , presents to the emergency department complaining of worsening right groin pain. Patient notes his hernia has progressively increased in size over the past few months and now won't reduce by itself. Patient states his pain has worsened over the past 3 days which caused him to come in for further evaluation. Patient notes associated nausea and constipation but denies any fever, chills, vomiting, chest pain, shortness of breath or any other complaints. Time/Duration: Other (months) Symptom Course: Worsening (x3 days) Quality: Other Context: Home Past Medical History - Provider Review Nursing Documentation Reviewed: Yes - Past History Past History: Non-Contributing - Infectious Disease Hx of Infectious Diseases: None - Tetanus Immunization Tetanus Immunization: Unknown - Cardiac Hx Cardiac Disorders: Yes Hx Congestive Heart Failure: Yes Hx Hypertension: Yes - Pulmonary Hx Respiratory Disorders: No - Neurological Hx Neurological Disorder: Yes HX Cerebrovascular Accident: Yes Hx Seizures: Yes - HEENT Hx HEENT Disorder: No - Renal Hx Renal Disorder: No - Endocrine/Metabolic Hx Endocrine Disorders: No - Hematological/Oncological Hx Blood Disorders: No Hx Blood Transfusions: No Hx Blood Transfusion Reaction: No - Integumentary Hx Dermatological Disorder: No - Musculoskeletal/Rheumatological Hx Musculoskeletal Disorders: No Hx Falls: No - Gastrointestinal Hx Gastrointestinal Disorders: No - Genitourinary/Gynecological Hx Genitourinary Disorders: No - Psychiatric Hx Psychophysiologic Disorder: Yes Hx Substance Use: No - Past Surgical History Past Surgical History: Unable to Obtain - Surgical History Hx Musculoskeletal Surgery: Yes Hx Orthopedic Surgery: Yes (r ankle) Hx Valve Replacement: No 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 - Anesthesia Hx Anesthesia: Yes Hx Anesthesia Reactions: No Hx Malignant Hyperthermia: No - Suicidal Assessment Feels Threatened In Home Enviroment: No Family/Social History - Physician Review Nursing Documentation Reviewed: Yes Family/Social History: No Known Family HX Smoking Status: Light Smoker < 10 Cigarettes Daily Hx Alcohol Use: Yes Frequency of alcohol use: Daily Hx Substance Use: No Hx Substance Use Treatment: No Allergies/Home Meds Allergies/Adverse Reactions: Allergies No Known Allergies Allergy (Verified 08/26/17 19:35) Home Medications: Home Meds Medication Instructions Recorded Confirmed Cetirizine HCl [All Day Allergy] 10 mg PO DAILY 08/26/17 08/26/17 Metoprolol Tartrate [Lopressor] 25 mg PO BID 08/26/17 08/26/17 Pantoprazole [Protonix EC Tab] 20 mg PO DAILY 08/26/17 08/26/17 Thiamine Mononitrate [Vitamin B-1] 1 tab PO DAILY 08/26/17 08/26/17 amLODIPine [Norvasc] 5 mg PO DAILY 08/26/17 08/26/17 Review of Systems - Physician Review All systems were reviewed & negative as marked: Yes - Review of Systems Constitutional: absent: Fevers, Night Sweats Respiratory: absent: SOB Cardiovascular: absent: Chest Pain Gastrointestinal: Constipation, Nausea. absent: Vomiting Genitourinary Male: Other (right groin pain) Physical Exam Vital Signs Reviewed: Yes Vital Signs Temp Pulse Resp BP Pulse Ox 08/26/17 19:39 98.3 F 97 H 17 137/83 96 Temperature: Afebrile Blood Pressure: Normal Pulse: Tachycardic Respiratory Rate: Normal Appearance: Positive for: Well-Appearing, Non-Toxic, Comfortable Pain Distress: None Mental Status: Positive for: Alert and Oriented X 3 - Systems Exam Head: Present: Atraumatic, Normocephalic Pupils: Present: PERRL Extroacular Muscles: Present: EOMI Conjunctiva: Present: Normal Mouth: Present: Moist Mucous Membranes Neck: Present: Normal Range of Motion Respiratory/Chest: Present: Clear to Auscultation, Good Air Exchange. No: Respiratory Distress, Accessory Muscle Use Cardiovascular: Present: Regular Rate and Rhythm, Normal S1, S2. No: Murmurs Abdomen: Present: Normal Bowel Sounds, Hernias (Large right inguinal hernia, non -reducible). No: Tenderness, Distention, Peritoneal Signs Back: Present: Normal Inspection Upper Extremity: Present: Normal Inspection. No: Cyanosis, Edema Lower Extremity: Present: Normal Inspection. No: Edema Neurological: Present: GCS=15, CN II-XII Intact, Speech Normal Skin: Present: Warm, Dry, Normal Color. No: Rashes Psychiatric: Present: Alert, Oriented x 3, Normal Insight, Normal Concentration Medical Decision Making ED Course and Treatment: 08/26/17 20:16 Impression: A 52 year old male with worsening right inguinal hernia. Patient notes nausea and constipation. Plan: -- Abdomen and pelvis CT -- Labs -- Morphine and IV fluids -- Reassess and disposition 08/26/17 22:22 Resting comfortably after morphine. Will sign out to Dr. Fox to follow-up CT and consult surgery. 08/26/17 22:23 - Lab Interpretations Lab Results: 08/26/17 20:46 08/26/17 20:46 Lab Results 08/26/17 20:46: Sodium 137, Potassium 3.7, Chloride 102, Carbon Dioxide 26, Anion Gap 12, BUN 20, Creatinine 0.7 L, Est GFR ( Amer) > 60, Est GFR ( Non-Af Amer) > 60, Random Glucose 92, Calcium 9.6, Total Bilirubin 0.6, AST 35, ALT 26, Alkaline Phosphatase 54, Total Protein 7.2, Albumin 4.2, Globulin 3.0, Albumin/Globulin Ratio 1.4 08/26/17 20:46: PT 10.4, INR 0.91 L, APTT 29.5 08/26/17 20:46: WBC 5.4 D, RBC 3.75, Hgb 12.2 L, Hct 36.8 L, MCV 98.1 D, MCH 32.5, MCHC 33.2, RDW 13.9, Plt Count 218, MPV 9.3, Gran % 44.9 L, Lymph % (Auto ) 36.7 H, [place] % (Auto) 15.2 H, Eos % (Auto) 2.6, Baso % (Auto) 0.6, Gran # 2.43 , Lymph # (Auto) 2.0, [place] # (Auto) 0.8 H, Eos # (Auto) 0.1, Baso # (Auto) 0.03 I have reviewed the lab results: Yes - RAD Interpretation Radiology Orders: 08/26/17 20:30 ABD PELVIS PO & IV CONTRAST [CT] Stat - Medication Orders Current Medication Orders: Discontinued Medications Sodium Chloride (Sodium Chloride 0.9%) 1,000 mls @ 999 mls/hr IV .Q1H1M STA Stop: 08/26/17 21:14 Last Admin: 08/26/17 20:43 Dose: 999 mls/hr eMAR Start Stop Document 08/26/17 20:43 SS (Rec: 08/26/17 20:43 SS [id number]) Intravenous Solution Start Date 08/26/17 Start Time 20:43 End Date 08/26/17 End time 21:43 Total Infusion Time 60 Morphine Sulfate (Morphine) 5 mg IVP STAT STA Stop: 08/26/17 20:15 Last Admin: 08/26/17 20:35 Dose: 5 mg IVP Administration Document 08/26/17 20:35 SS (Rec: 08/26/17 20:43 SS [id number]) Charges for Administration # of IVP Administrations 1 - Scribe Statement The provider has reviewed the documentation as recorded by the Todibsarahi Spencer Provider Scribe Attestation: All medical record entries made by the Scribe were at my direction and personally dictated by me. I have reviewed the chart and agree that the record accurately reflects my personal performance of the history, physical exam, medical decision making, and the department course for this patient. I have also personally directed, reviewed, and agree with the discharge instructions and disposition. Disposition/Present on Arrival - Present on Arrival Any Indicators Present on Arrival: No History of DVT/PE: No History of Uncontrolled Diabetes: No Urinary Catheter: No History of Decub. Ulcer: No History Surgical Site Infection Following: None - Disposition Have Diagnosis and Disposition been Completed?: Yes Diagnosis: Hernia Disposition Time: 23:00 Condition: FAIR Referrals: PCP,NO [Primary Care Provider] - Follow up with primary Forms: Fnbox (Honduran)
[2017-08-26] MEDS ORDERED: Iohexol 240 (50 ml) ONE (20:49)
[2017-08-26 20:51] LABS: BASO # 0.03 K/mm3 (0.0-2.0); BASO % 0.6 % (0.0-3.0); EOS # 0.1 (0.0-0.7); EOS % 2.6 % (1.5-5.0); GRAN # 2.43 (1.4-6.5); GRAN % 44.9 % (50.0-68.0); HEMOGLOBIN 12.2 g/dL (14.0-18.0); LYMPH % 36.7 % (22.0-35.0); MEAN CELL VOLUME 98.1 fl (80.0-105.0); MEAN CORPUSCULAR HEMOGLOBIN 32.5 pg (25.0-35.0); MEAN CORPUSCULAR HGB CONC 33.2 g/dl (31.0-37.0); MEAN PLATELET VOLUME 9.3 fl (7.0-11.0); MONO # 0.8 (0.1-0.6); MONO % 15.2 % (1.0-6.0); RBC 3.75 10^6/uL (3.5-6.1); RED CELL DISTRIBUTION WIDTH 13.9 % (11.5-14.5); WHITE BLOOD COUNT 5.4 10^3/ul (4.5-11.0)
[2017-08-26 21:01] LABS: ALB/GLOB RATIO 1.4 (1.1-1.8); ALBUMIN 4.2 g/dL (3.0-4.8); ALT/SGPT 26 U/L (7-56); AST/SGOT 35 U/L (17-59); BLOOD UREA NITROGEN 20 mg/dL (7-21); CALCIUM 9.6 mg/dL (8.4-10.5); GFR AFRICAN-AMERICAN > 60; GFR NON-AFRICAN AMERICAN > 60; PROTHROMBIN TIME 10.4 SECONDS (9.4-12.5)
[2017-08-26 21:02] LABS: INR 0.91 (0.93-1.08); PARTIAL THROMBOPLASTIN TIME 29.5 Seconds (25.1-36.5)
[2017-08-26] MEDS ORDERED: Iohexol 350 MG/100 ML VIAL ONE (22:49)
--- NOTE | 2017-08-26 23:19 | ED PDOC ---
Physical Exam Vital Signs Reviewed: Yes Vital Signs Temp Pulse Resp BP Pulse Ox 08/26/17 19:39 98.3 F 97 H 17 137/83 96 Temperature: Afebrile Blood Pressure: Normal Pulse: Tachycardic Respiratory Rate: Normal Appearance: Positive for: Well-Appearing, Non-Toxic, Comfortable Pain Distress: None Mental Status: Positive for: Alert and Oriented X 3 Medical Decision Making ED Course and Treatment: 08/26/17 23:17 :Patient endorsed to me by Dr. Rodriguez. Patient has history of right inguinal hernia that has become increasingly worse over the past [address], surgery consult, reevaluation and disposition. 08/27/17 03:25: residential sales came to evaluate patient and was able to reduce the hernia. States patient is able to be discharged home. - Lab Interpretations Lab Results: 08/26/17 20:46 08/26/17 20:46 Lab Results 08/26/17 20:46: Sodium 137, Potassium 3.7, Chloride 102, Carbon Dioxide 26, Anion Gap 12, BUN 20, Creatinine 0.7 L, Est GFR ( Amer) > 60, Est GFR ( Non-Af Amer) > 60, Random Glucose 92, Calcium 9.6, Total Bilirubin 0.6, AST 35, ALT 26, Alkaline Phosphatase 54, Total Protein 7.2, Albumin 4.2, Globulin 3.0, Albumin/Globulin Ratio 1.4 08/26/17 20:46: PT 10.4, INR 0.91 L, APTT 29.5 08/26/17 20:46: WBC 5.4 D, RBC 3.75, Hgb 12.2 L, Hct 36.8 L, MCV 98.1 D, MCH 32.5, MCHC 33.2, RDW 13.9, Plt Count 218, MPV 9.3, Gran % 44.9 L, Lymph % (Auto ) 36.7 H, [place] % (Auto) 15.2 H, Eos % (Auto) 2.6, Baso % (Auto) 0.6, Gran # 2.43 , Lymph # (Auto) 2.0, [place] # (Auto) 0.8 H, Eos # (Auto) 0.1, Baso # (Auto) 0.03 - RAD Interpretation Radiology Orders: 08/26/17 20:30 ABD PELVIS PO & IV CONTRAST [CT] Stat - Medication Orders Current Medication Orders: Discontinued Medications Sodium Chloride (Sodium Chloride 0.9%) 1,000 mls @ 999 mls/hr IV .Q1H1M STA Stop: 08/26/17 21:14 Last Admin: 08/26/17 20:43 Dose: 999 mls/hr eMAR Start Stop Document 08/26/17 20:43 SS (Rec: 08/26/17 20:43 SS [id number]) Intravenous Solution Start Date 08/26/17 Start Time 20:43 End Date 08/26/17 End time 21:43 Total Infusion Time 60 Morphine Sulfate (Morphine) 5 mg IVP STAT STA Stop: 08/26/17 20:15 Last Admin: 08/26/17 20:35 Dose: 5 mg IVP Administration Document 08/26/17 20:35 SS (Rec: 08/26/17 20:43 SS [id number]) Charges for Administration # of IVP Administrations 1 - Scribe Statement The provider has reviewed the documentation as recorded by the Pawan Roper Provider Scribe Attestation: All medical record entries made by the Scribe were at my direction and personally dictated by me. I have reviewed the chart and agree that the record accurately reflects my personal performance of the history, physical exam, medical decision making, and the department course for this patient. I have also personally directed, reviewed, and agree with the discharge instructions and disposition. Disposition/Present on Arrival - Present on Arrival Any Indicators Present on Arrival: No History of DVT/PE: No History of Uncontrolled Diabetes: No Urinary Catheter: No History of Decub. Ulcer: No History Surgical Site Infection Following: None - Disposition Have Diagnosis and Disposition been Completed?: No Diagnosis: Hernia, Right inguinal hernia Disposition: HOME/ ROUTINE Disposition Time: 03:12 Patient Plan: Discharge Patient Problems: Current Active Problems Problem Status Onset Hernia Acute Condition: GOOD Discharge Instructions (ExitCare): Abdominal Hernia (DC), Groin Hernia Repair, Laparoscopic Surgery, Abdominal Wall Hernias Additional Instructions: Mr Myers- Please follow up with Dr Eric [General Surgery] [phone]. Return to us if any problems Best- Dr. Jeremias Fox Referrals: PCP,NO [Primary Care Provider] - Follow up with primary Forms: [employer]nachey (Greek)
--- NOTE | 2017-08-27 00:12 | CT ---
EXAM: CT Abdomen and Pelvis With Intravenous Contrast CLINICAL HISTORY: 52 years old, male; Pain; Abdominal pain; Additional info: R inguinal hernia TECHNIQUE: Axial computed tomography images of the abdomen and pelvis with intravenous contrast. All CT scans at this facility use one or more dose reduction techniques, viz.: automated exposure control; ma/kV adjustment per patient size (including targeted exams where dose is matched to indication; i.e. head); or iterative reconstruction technique. Coronal and sagittal reformatted images were created and reviewed. CONTRAST: 91 mL of omni 350 administered intravenously. COMPARISON: DX - PELVIS ONE VIEW 2017-07-03 18:13 FINDINGS: Limitations: Streak artifact - mild. Lower thorax: Mild atelectasis. Pacemaker leads. Coronary artery calcifications. ABDOMEN: Liver: Fatty infiltration. Few < 0.5 cm lesions. Gallbladder and bile ducts: Tiny calcified gallstone or wall calcification. No significant ductal dilation. Pancreas: No ductal dilation. No mass. Spleen: No splenomegaly. Adrenals: No mass. Kidneys and ureters: Few too small to characterize lesions within kidneys. No hydronephrosis. Stomach and bowel: Duodenal diverticulum. No definite mural thickening. No obstruction. Appendix: No findings to suggest acute appendicitis. PELVIS: Bladder: Unremarkable. Reproductive: Unremarkable as visualized. ABDOMEN and PELVIS: Intraperitoneal space: No significant fluid collection. No free air. Bones/joints: Postsurgical changes of lumbar spine. Degenerative changes of spine. Mild compression deformity T12 vertebral body, chronic. Soft tissues: Large right inguinal hernia containing fat and loops of small bowel. Tiny left inguinal hernia containing fat. Tiny umbilical hernia containing fat. Vasculature: Mild atherosclerotic disease. No aneurysm. Lymph nodes: No pathologically enlarged lymph nodes. IMPRESSION: 1. Large right inguinal hernia containing fat and bowel. No obstruction. 2. Liver lesions. For patients with low to average risk of malignancy, no further follow-up is necessary. For patients with high risk of malignancy (known malignancy that can metastasize or other risk factors), recommend follow-up abdominal CT or MR in 6 months. 3. Incidental/non-acute findings are described above.
--- NOTE | 2017-08-27 03:17 | CP.PCM.CON ---
History of Present Illness - History of Present Illness History of Present Illness: General Surgery Consult Note: Dr. Eric Reason for consult: Right inguinal hernia CC: Right groin discomfort HPI: 51M with PMH Intracranial hemorrhage, s/p AICD, ETOH abuse, HTN, Seizures, Moderate Aortic Stenosis, Mild Systolic Dysfunction, presented to [facility] ED with complaints of right groin pain. Patient states pain he developed right groin pain this afternoon. At time of examination patient denied fever/chills, nausea/ vomiting, chest pain, shortness of breath, abdominal pain. Patient reports passing flatus and having normal bowel movements. CT scan of Abd & Pelvis demonstrated a large right inguinal hernia containing fat and bowel with no signs of obstruction. Right inguinal hernia was easily reducible at bedside. PMH: as stated above PSH: spine surgery, R ankle surgery, AICD placement Soc Hx: Hx of EtOH abuse Allergies: NKDA Review of Systems - Review of Systems Review of Systems: 12 pt ROS unremarkable except as stated in HPI Past Patient History - Infectious Disease Hx of Infectious Diseases: None - Tetanus Immunizations Tetanus Immunization: Unknown - Past Medical History & Family History Past Medical History?: Yes - Past Social History Smoking Status: Light Smoker < 10 Cigarettes Daily - CARDIAC Hx Cardiac Disorders: Yes Hx Congestive Heart Failure: Yes Hx Hypertension: Yes - PULMONARY Hx Respiratory Disorders: No - NEUROLOGICAL Hx Neurological Disorder: Yes HX Cerebrovascular Accident: Yes Hx Seizures: Yes - HEENT Hx HEENT Problems: No - RENAL Hx Chronic Kidney Disease: No - ENDOCRINE/METABOLIC Hx Endocrine Disorders: No - HEMATOLOGICAL/ONCOLOGICAL Hx Blood Disorders: No Hx Blood Transfusions: No Hx Blood Transfusion Reaction: No - INTEGUMENTARY Hx Dermatological Problems: No - MUSCULOSKELETAL/RHEUMATOLOGICAL Hx Musculoskeletal Disorders: No Hx Falls: No - GASTROINTESTINAL Hx Gastrointestinal Disorders: No - GENITOURINARY/GYNECOLOGICAL Hx Genitourinary Disorders: No - PSYCHIATRIC Hx Psychophysiologic Disorder: Yes Hx Substance Use: No - SURGICAL HISTORY Hx Musculoskeletal Surgery: Yes Hx Orthopedic Surgery: Yes (r ankle) Hx Valve Replacement: No 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 - ANESTHESIA Hx Anesthesia: Yes Hx Anesthesia Reactions: No Hx Malignant Hyperthermia: No Meds Allergies/Adverse Reactions: Allergies Allergy/AdvReac Type Severity Reaction Status Date / Time No Known Allergies Allergy Verified 08/26/17 19:35 Physical Exam - Constitutional Appears: No Acute Distress - Head Exam Head Exam: NORMOCEPHALIC - Eye Exam Eye Exam: EOMI, Normal appearance - ENT Exam ENT Exam: Mucous Membranes Moist, Normal Exam - Neck Exam Neck exam: Positive for: Normal Inspection - Respiratory Exam Respiratory Exam: NORMAL BREATHING PATTERN - Cardiovascular Exam Cardiovascular Exam: +S1, +S2 - GI/Abdominal Exam GI & Abdominal Exam: Hernia, Soft. absent: Distended, Firm, Guarding, Rebound, Rigid Additional comments: right inguinal hernia reducible No erythematous changes in skin No crepitus noted - Neurological Exam Neurological exam: Alert, Oriented x3 - Psychiatric Exam Psychiatric exam: Normal Mood - Skin Skin Exam: Dry, Normal Color, Warm Results - Vital Signs Recent Vital Signs: Last Vital Signs Temp 98.3 F 08/26/17 19:39 Pulse 97 H 08/26/17 19:39 Resp 17 08/26/17 19:39 BP 137/83 08/26/17 19:39 Pulse Ox 96 08/26/17 19:39 - Labs Result Diagrams: 08/26/17 20:46 08/26/17 20:46 Labs: Laboratory Results - last 24 hr 08/26/17 08/26/17 08/26/17 20:46 20:46 20:46 WBC 5.4 D RBC 3.75 Hgb 12.2 L Hct 36.8 L MCV 98.1 D MCH 32.5 MCHC 33.2 RDW 13.9 Plt Count 218 MPV 9.3 Gran % 44.9 L Lymph % (Auto) 36.7 H [place] % (Auto) 15.2 H Eos % (Auto) 2.6 Baso % (Auto) 0.6 Gran # 2.43 Lymph # (Auto) 2.0 [place] # (Auto) 0.8 H Eos # (Auto) 0.1 Baso # (Auto) 0.03 PT 10.4 INR 0.91 L APTT 29.5 Sodium 137 Potassium 3.7 Chloride 102 Carbon Dioxide 26 Anion Gap 12 BUN 20 Creatinine 0.7 L Est GFR ( Amer) > 60 Est GFR (Non-Af Amer) > 60 Random Glucose 92 Calcium 9.6 Total Bilirubin 0.6 AST 35 ALT 26 Alkaline Phosphatase 54 Total Protein 7.2 Albumin 4.2 Globulin 3.0 Albumin/Globulin Ratio 1.4 - Imaging and Cardiology CT scan - abdomen Status: Image reviewed by me, Report reviewed by me Assessment & Plan - Assessment and Plan (Free Text) Assessment: 52M with right inguinal hernia Plan: Hernia easily reducible at bedside Patient has no signs of obstructive symptoms May follow up in Dr. Eric's office to plan for elective inguinal hernia repair No acute surgical intervention required at this present time Further recs per Dr. Hernesto Ledezma PGY2
[2017-08-27 03:51] VITALS: RESP 18
[2017-08-27 05:40] VITALS: BP 128/80; PULSE 80; O2SAT 97
== END 2017-08-27 05:15 | disposition home or self-care (01) ==
LOC: ED 19:33
DX: K40.90 Unilateral inguinal hernia, without obstruction or gangrene, not specified as recurrent (principal); F17.210 Nicotine dependence, cigarettes, uncomplicated; I50.9 Heart failure, unspecified; I10 Essential (primary) hypertension
CPT/HCPCS: 74177; 80053; 85025; 85610; 85730; 96361; 96374; 99284; J2270; J7040; Q9966; Q9967

== ENCOUNTER 2017-11-14 21:33 | Emergency (ER) | payer MEDICAID ==
[2017-11-14 21:33] VITALS: BMI 20.7
[2017-11-14 21:49] VITALS: TEMP 97.4
--- NOTE | 2017-11-14 22:22 | ED PDOC ---
Arrival/HPI - General Chief Complaint: Alcohol Ingestion Time Seen by Provider: 11/14/17 21:47 Historian: Patient - History of Present Illness Narrative History of Present Illness (Text): 11/14/17 22:18 Omar Myers is a 52 year old male, whose past medical history includes alcohol abuse, hypertension s/p AICD, and seizure disorder, who presents to the Emergency department brought in by EMS for public intoxication. Patient was found outside inebriated by EMS tonight and patient admits to drinking alcohol. Patient denies any fever, chills, chest pain, shortness of breath, nausea, vomiting, diarrhea, urinary symptoms, back pain, neck pain, headache, dizziness , or any other complaints. Time/Duration: Other (tonight) Symptom Onset: Gradual Symptom Course: Unchanged Activities at Onset: Light Context: Street Past Medical History - Provider Review Nursing Documentation Reviewed: Yes - Past History Past History: Non-Contributing - Infectious Disease Hx of Infectious Diseases: None - Tetanus Immunization Tetanus Immunization: Unknown - Cardiac Hx Cardiac Disorders: Yes Hx Congestive Heart Failure: Yes Hx Hypertension: Yes - Pulmonary Hx Respiratory Disorders: No - Neurological Hx Neurological Disorder: Yes HX Cerebrovascular Accident: Yes Hx Seizures: Yes - HEENT Hx HEENT Disorder: No - Renal Hx Renal Disorder: No - Endocrine/Metabolic Hx Endocrine Disorders: No - Hematological/Oncological Hx Blood Disorders: No Hx Blood Transfusions: No Hx Blood Transfusion Reaction: No - Integumentary Hx Dermatological Disorder: No - Musculoskeletal/Rheumatological Hx Musculoskeletal Disorders: No Hx Falls: No - Gastrointestinal Hx Gastrointestinal Disorders: No - Genitourinary/Gynecological Hx Genitourinary Disorders: No - Psychiatric Hx Psychophysiologic Disorder: Yes Hx Substance Use: No - Past Surgical History Past Surgical History: Unable to Obtain - Surgical History Hx Musculoskeletal Surgery: Yes Hx Orthopedic Surgery: Yes (r ankle) Hx Valve Replacement: No 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 - Anesthesia Hx Anesthesia: Yes Hx Anesthesia Reactions: No Hx Malignant Hyperthermia: No - Suicidal Assessment Feels Threatened In Home Enviroment: No Family/Social History - Physician Review Nursing Documentation Reviewed: Yes Family/Social History: Unknown Family HX Smoking Status: Light Smoker < 10 Cigarettes Daily Hx Alcohol Use: Yes Frequency of alcohol use: Daily Hx Substance Use: No Hx Substance Use Treatment: No Allergies/Home Meds Allergies/Adverse Reactions: Allergies No Known Allergies Allergy (Verified 11/14/17 21:48) Home Medications: Home Meds Medication Instructions Recorded Confirmed Cetirizine HCl [All Day Allergy] 10 mg PO DAILY 08/26/17 11/14/17 Metoprolol Tartrate [Lopressor] 25 mg PO BID 08/26/17 11/14/17 Pantoprazole [Protonix EC Tab] 20 mg PO DAILY 08/26/17 11/14/17 Thiamine Mononitrate [Vitamin B-1] 1 tab PO DAILY 08/26/17 11/14/17 amLODIPine [Norvasc] 5 mg PO DAILY 08/26/17 11/14/17 Review of Systems - Physician Review All systems were reviewed & negative as marked: Yes - Review of Systems Constitutional: Normal. absent: Fevers Eyes: Normal ENT: Normal Respiratory: Normal. absent: SOB, Cough Cardiovascular: Normal. absent: Chest Pain Gastrointestinal: Normal. absent: Abdominal Pain, Diarrhea, Nausea, Vomiting Genitourinary Male: Normal. absent: Dysuria, Frequency, Hematuria, Urinary Output Changes Musculoskeletal: Normal. absent: Back Pain, Neck Pain Skin: Normal. absent: Rash Neurological: Normal. absent: Headache, Dizziness Endocrine: Normal Hemo/Lymphatic: Normal Psychiatric: Other (+alcohol intoxication) Physical Exam Vital Signs Reviewed: Yes Vital Signs Temp Pulse Resp BP Pulse Ox 11/15/17 01:50 87 12 132/74 96 11/14/17 21:44 97.4 F L 97 H 17 149/73 96 Temperature: Afebrile Blood Pressure: Normal Pulse: Regular Respiratory Rate: Normal Appearance: Positive for: Well-Appearing, Non-Toxic, Comfortable Pain Distress: None Mental Status: Positive for: Alert and Oriented X 3 - Systems Exam Head: Present: Atraumatic, Normocephalic Pupils: Present: PERRL Extroacular Muscles: Present: EOMI Conjunctiva: Present: Normal Mouth: Present: Moist Mucous Membranes Neck: Present: Normal Range of Motion Respiratory/Chest: Present: Clear to Auscultation, Good Air Exchange. No: Respiratory Distress, Accessory Muscle Use Cardiovascular: Present: Regular Rate and Rhythm, Normal S1, S2. No: Murmurs Abdomen: No: Tenderness, Distention, Peritoneal Signs Back: Present: Normal Inspection Upper Extremity: Present: Normal Inspection. No: Cyanosis, Edema Lower Extremity: Present: Normal Inspection. No: Edema Neurological: Present: GCS=15, CN II-XII Intact, Speech Normal Skin: Present: Warm, Dry, Normal Color. No: Rashes Psychiatric: Present: Alert, Oriented x 3, Normal Insight, Normal Concentration Medical Decision Making ED Course and Treatment: 11/14/17 22:18 Impression: 52 year old male brought in for public intoxication tonight. Differential Diagnosis included but are not limited to: alcohol intoxication Plan: -- Reassess and disposition Progress Notes: 11/15/17 06:22 Pt awake, alert, in no acute distress. Ambulating with steady gait, clinically sober. Pt stable for d/c. - Scribe Statement The provider has reviewed the documentation as recorded by the Todibsarahi Casanova Provider Scribe Attestation: All medical record entries made by the Scribe were at my direction and personally dictated by me. I have reviewed the chart and agree that the record accurately reflects my personal performance of the history, physical exam, medical decision making, and the department course for this patient. I have also personally directed, reviewed, and agree with the discharge instructions and disposition. Disposition/Present on Arrival - Present on Arrival Any Indicators Present on Arrival: No History of DVT/PE: No History of Uncontrolled Diabetes: No Urinary Catheter: No History of Decub. Ulcer: No History Surgical Site Infection Following: None - Disposition Have Diagnosis and Disposition been Completed?: Yes Diagnosis: Alcohol abuse Disposition: HOME/ ROUTINE Disposition Time: 06:24 Patient Plan: Discharge Condition: STABLE Discharge Instructions (ExitCare): Alcohol Intoxication (ED), Abuse of Alcohol (ED), Alcohol Dependence (ED) Referrals: Alcoholics Anonymous [Outside] - Follow up with primary Forms: [employer] ([place])
[2017-11-15 06:37] VITALS: BP 118/70; PULSE 72; RESP 16; O2SAT 100
== END 2017-11-15 06:36 | disposition home or self-care (01) ==
LOC: ED 21:33
DX: F10.10 Alcohol abuse, uncomplicated (principal)

== ENCOUNTER 2017-11-16 17:52 | Emergency (ER) | payer MEDICAID ==
[2017-11-16 18:08] VITALS: BMI 22.1
[2017-11-16 18:17] VITALS: TEMP 98
--- NOTE | 2017-11-16 18:38 | ED PDOC ---
Arrival/HPI - General Chief Complaint: Alcohol Ingestion Time Seen by Provider: 11/16/17 18:12 Historian: Patient - History of Present Illness Narrative History of Present Illness (Text): 11/16/17 18:16 A 52 year old male, whose past medical history includes alcohol abuse, hypertension s/p AICD, and seizure disorder, brought in by EMS and presents to the emergency department for public intoxication. Patient admits to drinking today. Patient denies any fall/trauma. PMD: Dr. Rosales Past Medical History - Provider Review Nursing Documentation Reviewed: Yes - Past History Past History: Non-Contributing - Infectious Disease Hx of Infectious Diseases: None - Tetanus Immunization Tetanus Immunization: Unknown - Cardiac Hx Cardiac Disorders: Yes Hx Congestive Heart Failure: Yes Hx Hypertension: Yes Hx Pacemaker: Yes (defibrillator) - Pulmonary Hx Respiratory Disorders: No - Neurological Hx Neurological Disorder: Yes HX Cerebrovascular Accident: Yes (right sided weakness) Hx Seizures: Yes - HEENT Hx HEENT Disorder: No - Renal Hx Renal Disorder: No - Endocrine/Metabolic Hx Endocrine Disorders: No - Hematological/Oncological Hx Blood Disorders: No Hx Blood Transfusions: No Hx Blood Transfusion Reaction: No - Integumentary Hx Dermatological Disorder: No - Musculoskeletal/Rheumatological Hx Musculoskeletal Disorders: No Hx Falls: No - Gastrointestinal Hx Gastrointestinal Disorders: No - Genitourinary/Gynecological Hx Genitourinary Disorders: No - Psychiatric Hx Psychophysiologic Disorder: Yes Hx Substance Use: No - Past Surgical History Past Surgical History: Unable to Obtain - Surgical History Hx Cardiac Catheterization: Yes Hx Musculoskeletal Surgery: Yes Hx Orthopedic Surgery: Yes (r ankle) Hx Valve Replacement: No 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 - Anesthesia Hx Anesthesia: Yes Hx Anesthesia Reactions: No Hx Malignant Hyperthermia: No - Suicidal Assessment Feels Threatened In Home Enviroment: No Family/Social History - Physician Review Nursing Documentation Reviewed: Yes Family/Social History: No Known Family HX Smoking Status: Light Smoker < 10 Cigarettes Daily Hx Alcohol Use: Yes Frequency of alcohol use: Daily Hx Substance Use: No Hx Substance Use Treatment: No Allergies/Home Meds Allergies/Adverse Reactions: Allergies No Known Allergies Allergy (Verified 11/16/17 18:08) Home Medications: Home Meds Medication Instructions Recorded Confirmed Cetirizine HCl [All Day Allergy] 10 mg PO DAILY 08/26/17 11/14/17 Metoprolol Tartrate [Lopressor] 25 mg PO BID 08/26/17 11/14/17 Pantoprazole [Protonix EC Tab] 20 mg PO DAILY 08/26/17 11/14/17 Thiamine Mononitrate [Vitamin B-1] 1 tab PO DAILY 08/26/17 11/14/17 amLODIPine [Norvasc] 5 mg PO DAILY 08/26/17 11/14/17 Review of Systems - Physician Review All systems were reviewed & negative as marked: Yes - Review of Systems Constitutional: absent: Other (no head trauma and no falls) Gastrointestinal: absent: Abdominal Pain Physical Exam Vital Signs Reviewed: Yes Vital Signs Temp Pulse Resp BP Pulse Ox 11/17/17 06:27 85 18 118/67 99 11/17/17 05:56 82 18 112/69 99 11/17/17 02:00 98.0 F 85 19 117/69 99 11/16/17 22:08 84 18 110/72 98 11/16/17 18:16 98.0 F 90 20 120/82 97 Temperature: Afebrile Blood Pressure: Normal Pulse: Regular Respiratory Rate: Normal Appearance: Positive for: Other (intoxicated) Pain Distress: None - Systems Exam Head: Present: Atraumatic, Normocephalic Pupils: Present: PERRL Extroacular Muscles: Present: EOMI Conjunctiva: Present: Normal Mouth: Present: Moist Mucous Membranes Neck: Present: Normal Range of Motion Respiratory/Chest: Present: Clear to Auscultation, Good Air Exchange. No: Respiratory Distress, Accessory Muscle Use Cardiovascular: Present: Regular Rate and Rhythm, Normal S1, S2. No: Murmurs Abdomen: No: Tenderness, Distention, Peritoneal Signs Back: Present: Normal Inspection Upper Extremity: Present: Normal Inspection. No: Cyanosis, Edema Lower Extremity: Present: Normal Inspection. No: Edema Neurological: Present: GCS=15, CN II-XII Intact, Speech Normal Skin: Present: Warm, Dry, Normal Color. No: Rashes Psychiatric: Present: Intoxicated Medical Decision Making ED Course and Treatment: 11/16/17 18:20 Impression: 52 year old male with intoxication. Plan: -- Fingerstick -- Reassess and disposition Prior Visits: Notes and results from previous visits were reviewed. Patient was last seen in the emergency department on 11/14/2017 for public intoxication. Patient was discharged home. Progress Notes: 11/19/17 23:19 pt observed sleeping in n ad. 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 I have reviewed the chart and agree that the record accurately reflects my personal performance of the history, physical exam, medical decision making, and the department course for this patient. I have also personally directed, reviewed, and agree with the discharge instructions and disposition. Disposition/Present on Arrival - Present on Arrival Any Indicators Present on Arrival: No History of DVT/PE: No History of Uncontrolled Diabetes: No Urinary Catheter: No History of Decub. Ulcer: No History Surgical Site Infection Following: None - Disposition Have Diagnosis and Disposition been Completed?: Yes Diagnosis: Alcohol abuse Disposition: HOME/ ROUTINE Disposition Time: 11:00 Condition: STABLE Discharge Instructions (ExitCare): Alcohol Intoxication (ED), Abuse of Alcohol (ED), Alcohol Dependence (ED) Referrals: Yvon Rosales MD [Primary Care Provider] - Follow up with primary Forms: [employer] ([place])
[2017-11-17 03:18] VITALS: O2SAT 99
[2017-11-17 05:57] VITALS: RESP 18
[2017-11-17 06:28] VITALS: BP 118/67; PULSE 85
== END 2017-11-17 06:27 | disposition home or self-care (01) ==
LOC: ED 17:52
DX: F10.10 Alcohol abuse, uncomplicated (principal)

== ENCOUNTER 2018-01-13 21:29 | Emergency (ER) | payer MEDICAID ==
[2018-01-13 21:29] VITALS: BMI 22.1
[2018-01-13] MEDS ORDERED: Multivitamin (MVI) 10 ML, Thiamine 100 MG, Folic Acid 1 MG in Dextrose 5% In Water 1,00... IV ONE (21:38)
[2018-01-13] MEDS ORDERED: TDAP Vaccine 0.5 mL Syr IM ONE (21:39)
--- NOTE | 2018-01-13 21:41 | ED PDOC ---
Arrival/HPI - General Historian: Patient - History of Present Illness Time/Duration: Prior to Arrival Symptom Onset: Sudden Symptom Course: Unchanged Activities at Onset: Rest, Light Context: Home <Etienne Blanc - Last Filed: 01/14/18 02:26> <Neri Hillman - Last Filed: 01/14/18 07:36> - General Chief Complaint: Alcohol Ingestion Time Seen by Provider: 01/13/18 21:31 - History of Present Illness Narrative History of Present Illness (Text): 01/13/18 21:39 A 52 year old male, whose past medical history includes intracranial bleed/ hypertension with AICD, no allergies to food/drug, last tetanus shot unknown, is brought into the emergency department by EMS s/p tip and fall on his head while intoxicated. The patient found publicly intoxicated, bring here by the ambulance. Pt. denies fevers, chills, headache, dizziness, sore throat, cough, chest pain, shortness of breath, dyspnea on exertion, abdominal pain, nausea, vomiting, diarrhea, neck/back pain, urinary/bowel changes, extremity pain/ discomfort, suidical/homicidal ideation, auditory/visual hallucination or any other complaint. (Etienne Blanc) Past Medical History - Provider Review Nursing Documentation Reviewed: Yes - Past History Past History: Non-Contributing - Infectious Disease Hx of Infectious Diseases: None - Tetanus Immunization Tetanus Immunization: Unknown - Cardiac Hx Cardiac Disorders: Yes Hx Congestive Heart Failure: Yes Hx Hypertension: Yes Hx Pacemaker: Yes (defibrillator) - Pulmonary Hx Respiratory Disorders: No - Neurological Hx Neurological Disorder: Yes HX Cerebrovascular Accident: Yes (right sided weakness) Hx Seizures: Yes - HEENT Hx HEENT Disorder: No - Renal Hx Renal Disorder: No - Endocrine/Metabolic Hx Endocrine Disorders: No - Hematological/Oncological Hx Blood Disorders: No Hx Blood Transfusions: No Hx Blood Transfusion Reaction: No - Integumentary Hx Dermatological Disorder: No - Musculoskeletal/Rheumatological Hx Musculoskeletal Disorders: No Hx Falls: No - Gastrointestinal Hx Gastrointestinal Disorders: No - Genitourinary/Gynecological Hx Genitourinary Disorders: No - Psychiatric Hx Psychophysiologic Disorder: Yes Hx Substance Use: No - Past Surgical History Past Surgical History: Unable to Obtain - Surgical History Hx Cardiac Catheterization: Yes Hx Musculoskeletal Surgery: Yes Hx Orthopedic Surgery: Yes (r ankle) Hx Valve Replacement: No 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 - Anesthesia Hx Anesthesia: Yes Hx Anesthesia Reactions: No Hx Malignant Hyperthermia: No - Suicidal Assessment Feels Threatened In Home Enviroment: No <Etienne Blanc - Last Filed: 01/14/18 02:26> Family/Social History - Physician Review Nursing Documentation Reviewed: Yes Family/Social History: No Known Family HX Smoking Status: Light Smoker < 10 Cigarettes Daily Hx Alcohol Use: Yes Hx Substance Use: No Hx Substance Use Treatment: No <Etienne Blanc - Last Filed: 01/14/18 02:26> Allergies/Home Meds <Etienne Blanc - Last Filed: 01/14/18 02:26> <Neri Hillman - Last Filed: 01/14/18 07:36> Allergies/Adverse Reactions: Allergies No Known Allergies Allergy (Verified 01/13/18 21:38) Home Medications: Home Meds Medication Instructions Recorded Confirmed Cetirizine HCl [All Day Allergy] 10 mg PO DAILY 08/26/17 11/14/17 Metoprolol Tartrate [Lopressor] 25 mg PO BID 08/26/17 11/14/17 Pantoprazole [Protonix EC Tab] 20 mg PO DAILY 08/26/17 11/14/17 Thiamine Mononitrate [Vitamin B-1] 1 tab PO DAILY 08/26/17 11/14/17 amLODIPine [Norvasc] 5 mg PO DAILY 08/26/17 11/14/17 Review of Systems - Physician Review All systems were reviewed & negative as marked: Yes - Review of Systems Constitutional: absent: Fatigue, Fevers Respiratory: absent: SOB, Cough Cardiovascular: absent: Chest Pain, PARRISH Gastrointestinal: absent: Abdominal Pain, Stool Changes, Diarrhea, Nausea, Vomiting Genitourinary Male: absent: Urinary Output Changes Musculoskeletal: absent: Back Pain, Neck Pain Skin: Other (Abrasion to forehead). absent: Rash, Pruritis, Laceration, Abscess , Cellulitis Neurological: absent: Headache, Dizziness Psychiatric: absent: Anxiety, Depression, Suicidal Ideation <Etienne Blanc - Last Filed: 01/14/18 02:26> Physical Exam Vital Signs Reviewed: Yes Temperature: Afebrile Blood Pressure: Normal Pulse: Regular Respiratory Rate: Normal Appearance: Positive for: Well-Appearing, Non-Toxic, Comfortable Pain Distress: None Mental Status: Positive for: Alert and Oriented X 3 - Systems Exam Head: Present: Tenderness (frontal forehead with 2cm diameter abrasion with no skin laceration or gapping) Pupils: Present: PERRL Extroacular Muscles: Present: EOMI Conjunctiva: Present: Normal Ears: Present: NORMAL TM, Normal Canal. No: Erythema Mouth: Present: Moist Mucous Membranes Pharnyx: Present: Normal. No: ERYTHEMA, EXUDATE, TONSILS ENLARGED Nose (External): Present: Abrasion (0.5cm diameter), Contusion. No: Laceration , Lesions Nose (Internal): Present: Normal Inspection, No Active Bleeding. No: Rhinorrhea , Septal Hematoma, Epistaxis Neck: Present: Normal Range of Motion, Trachea Midline. No: MIDLINE TENDERNESS , Paraspinal Tenderness, Lymphadenopathy Respiratory/Chest: Present: Clear to Auscultation, Good Air Exchange. No: Respiratory Distress, Accessory Muscle Use, Wheezes, Decreased Breath Sounds, Rales, Retracting, Rhonchi Cardiovascular: Present: Regular Rate and Rhythm, Normal S1, S2. No: Murmurs Abdomen: No: Tenderness, Distention, Peritoneal Signs, Rebound Back: Present: Normal Inspection Upper Extremity: Present: Normal Inspection. No: Cyanosis, Edema Lower Extremity: Present: Normal Inspection. No: Edema Neurological: Present: GCS=15, CN II-XII Intact, Speech Normal, Motor Func Grossly Intact, Gait Normal, Memory Normal Skin: Present: Warm, Dry, Normal Color. No: Rashes Psychiatric: Present: Alert, Oriented x 3, Normal Insight, Normal Concentration <Etienne Blanc - Last Filed: 01/14/18 02:26> Vital Signs Temp Pulse Resp BP Pulse Ox 01/14/18 05:29 82 16 114/72 97 01/14/18 03:29 70 16 116/78 97 01/14/18 01:29 74 16 112/72 96 01/13/18 23:29 84 17 118/74 98 01/13/18 21:40 97.7 F 87 16 115/79 97 Medical Decision Making - Lab Interpretations I have reviewed the lab results: Yes <Etienne Blanc - Last Filed: 01/14/18 02:26> <Neri Hillman - Last Filed: 01/14/18 07:36> ED Course and Treatment: 01/13/18 21:47 -Labs -CT head/cervical/facial -IV Banana bag/tdap -wound irrigated with saline, clean with betadine, bacitracin and gauze dressing. -Observe and reassess 01/14/18 02:27 -Labs are non-significant -CT Head/facial/cervical ordered and pending result -Case discussed and endorsed to the ER attending Dr. Hillman for the follow up care/labs/radiology result and dispo. (Etienne Blanc) 01/14/18 06:32 Reviewed radiology, CT Head shows: 1. No evidence of an acute intracranial hemorrhage, midline shift or mass effect is identified. 2. Right posterior parietal scalp soft tissue swelling and contusion. CT Cervical Spine shows: There is no acute fracture of the cervical spine. CT scan Maxillo/facial-No acute findings /old chronic fxs.Discussed in full with the radiologist 01/14/18 07:33 Pt. awake alert sober with steady gait. (Neri Hillman) - Lab Interpretations Lab Results: 01/13/18 22:35 01/13/18 22:35 Lab Results 01/13/18 22:35: WBC 6.8 D, RBC 4.26, Hgb 13.8 L, Hct 40.5 L, MCV 95.1 D, MCH 32.4, MCHC 34.1, RDW 13.3, Plt Count 212, MPV 8.9, Gran % 37.9 L, Lymph % (Auto ) 52.1 H, [place] % (Auto) 7.3 H, Eos % (Auto) 2.3, Baso % (Auto) 0.4, Gran # 2.58 , Lymph # (Auto) 3.6 H, [place] # (Auto) 0.5, Eos # (Auto) 0.2, Baso # (Auto) 0.03 01/13/18 22:35: Sodium 145, Potassium 3.9, Chloride 107, Carbon Dioxide 25, Anion Gap 18, BUN 13, Creatinine 0.7 L, Est GFR ( Amer) > 60, Est GFR ( Non-Af Amer) > 60, Random Glucose 92, Calcium 8.3 L, Magnesium 1.9, Total Bilirubin 0.4, AST 49, ALT 18, Alkaline Phosphatase 69, Total Creatine Kinase 112, Total Protein 7.3, Albumin 4.2, Globulin 3.1, Albumin/Globulin Ratio 1.4 - RAD Interpretation Radiology Orders: 01/13/18 21:38 CERVICAL SPINE W/O CONTRAST [CT] Stat HEAD W/O CONTRAST [CT] Stat MAXILLOFACIAL W/O CONTRAST [CT] Stat - Medication Orders Current Medication Orders: Discontinued Medications Multivitamins/Vitamin C 10 ml/Thiamine HCl 100 mg/ Folic Acid 1 mg/ Dextrose 1, 011.2 mls @ 1,000 mls/hr IV .Q1H1M ONE Stop: 01/13/18 22:38 Last Admin: 01/13/18 22:00 Dose: 1,000 mls/hr eMAR Start Stop Document 01/13/18 22:00 JOL (Rec: 01/13/18 23:33 [email or web address] [id number]) Intravenous Solution Start Date 01/13/18 Start Time 22:00 End Date 01/13/18 End time 23:01 Total Infusion Time 61 Tetanus/Reduced Diphtheria/Acell Pertussis (Boostrix Vaccine Inj) 0.5 ml IM .ONCE ONE Stop: 01/13/18 21:40 Last Admin: 01/14/18 00:05 Dose: 0.5 ml Immunization Registry Document 01/14/18 00:05 JOL (Rec: 01/14/18 00:47 JOL [id number]) Immunization Registry Consent Date 01/13/18 - PA / EXCELLENCE COACH / Resident Statement / has reviewed & agrees with the documentation as recorded. <Etienne Blanc - Last Filed: 01/14/18 02:26> Disposition/Present on Arrival - Present on Arrival Any Indicators Present on Arrival: No History of DVT/PE: No History of Uncontrolled Diabetes: No Urinary Catheter: No History of Decub. Ulcer: No History Surgical Site Infection Following: None - Disposition Have Diagnosis and Disposition been Completed?: Yes Disposition Time: 02:28 <Etienne Blanc - Last Filed: 01/14/18 02:26> - Present on Arrival Any Indicators Present on Arrival: No - Disposition Have Diagnosis and Disposition been Completed?: Yes Disposition Time: 07:33 Patient Plan: Discharge <Neri Hillman - Last Filed: 01/14/18 07:36> - Disposition Diagnosis: Alcohol abuse, Alcohol intoxication, Abrasion, Fall Disposition: HOME/ ROUTINE Patient Problems: Current Active Problems Problem Status Onset Abrasion Acute Alcohol abuse Acute Alcohol intoxication Acute Fall Acute Condition: GOOD Discharge Instructions (ExitCare): Alcohol Intoxication (ED), Abuse of Alcohol (ED), Alcohol Dependence (ED) Referrals: Alcoholics Anonymous [Outside] - Follow up with primary Forms: Bridg ([place]orese)
[2018-01-13 22:45] LABS: BASO # 0.03 K/mm3 (0.0-2.0); BASO % 0.4 % (0.0-3.0); EOS # 0.2 (0.0-0.7); EOS % 2.3 % (1.5-5.0); GRAN # 2.58 (1.4-6.5); GRAN % 37.9 % (50.0-68.0); HEMOGLOBIN 13.8 g/dL (14.0-18.0); LYMPH # 3.6 (1.2-3.4); LYMPH % 52.1 % (22.0-35.0); MEAN CELL VOLUME 95.1 fl (80.0-105.0); MEAN CORPUSCULAR HEMOGLOBIN 32.4 pg (25.0-35.0); MEAN CORPUSCULAR HGB CONC 34.1 g/dl (31.0-37.0); MEAN PLATELET VOLUME 8.9 fl (7.0-11.0); MONO # 0.5 (0.1-0.6); MONO % 7.3 % (1.0-6.0); RBC 4.26 10^6/uL (3.5-6.1); RED CELL DISTRIBUTION WIDTH 13.3 % (11.5-14.5); WHITE BLOOD COUNT 6.8 10^3/ul (4.5-11.0)
[2018-01-13 22:52] LABS: ALB/GLOB RATIO 1.4 (1.1-1.8); ALBUMIN 4.2 g/dL (3.0-4.8); ALT/SGPT 18 U/L (7-56); AST/SGOT 49 U/L (17-59); BLOOD UREA NITROGEN 13 mg/dL (7-21); CALCIUM 8.3 mg/dL (8.4-10.5); GFR AFRICAN-AMERICAN > 60; GFR NON-AFRICAN AMERICAN > 60
[2018-01-14 07:46] VITALS: PULSE 72; RESP 18
[2018-01-14 07:47] VITALS: BP 112/79; TEMP 98.2; O2SAT 99
--- NOTE | 2018-01-14 09:26 | CT ---
Date of service: 01/14/2018 PROCEDURE: CT Cervical Spine without contrast HISTORY: fall, etoh COMPARISON: None available. TECHNIQUE: Axial computed tomography images were obtained of the cervical spine without the use of intravenous contrast. Coronal and sagittal reformatted images were created and reviewed. Radiation dose: Total exam DLP = 425 mGy-cm. This CT exam was performed using one or more of the following dose reduction techniques: Automated exposure control, adjustment of the mA and/or kV according to patient size, and/or use of iterative reconstruction technique. FINDINGS: VERTEBRAE: No fracture. Normal alignment. No destructive bony lesion. DISCS/SPINAL CANAL/NEURAL FORAMINA: There is severe facet arthropathy on the right side at C4-5 and C5-6. There is mild foraminal stenosis. Disc degeneration at C6-7 PARASPINAL SOFT TISSUES: Unremarkable. OTHER FINDINGS: The report concurs with the preliminary [facility] report IMPRESSION: No acute findings
--- NOTE | 2018-01-14 09:30 | CT ---
Date of service: 01/14/2018 PROCEDURE: CT HEAD WITHOUT CONTRAST. HISTORY: head injury fall, etoh COMPARISON: None available. TECHNIQUE: Axial computed tomography images were obtained through the head/brain without intravenous contrast. Radiation dose: Total exam DLP = 906 mGy-cm. This CT exam was performed using one or more of the following dose reduction techniques: Automated exposure control, adjustment of the mA and/or kV according to patient size, and/or use of iterative reconstruction technique. FINDINGS: HEMORRHAGE: No intracranial hemorrhage. BRAIN: No mass effect or edema. Mild atrophy. Mild microvascular changes. No acute findings VENTRICLES: Unremarkable. No hydrocephalus. CALVARIUM: Unremarkable. PARANASAL SINUSES: Unremarkable as visualized. No significant inflammatory changes. MASTOID AIR CELLS: Unremarkable as visualized. No inflammatory changes. OTHER FINDINGS: The report concurs with the preliminary [facility] report IMPRESSION: No acute findings
--- NOTE | 2018-01-14 10:14 | CT ---
Date of service: 01/14/2018 PROCEDURE: CT MAXILLOFACIAL BONES WITHOUT CONTRAST HISTORY: nasal injury fall, etoh COMPARISON: 07/03/17 TECHNIQUE: Contiguous axial CT images of the maxillofacial bones were obtained. Coronal and sagittal reformats were generated. Radiation dose: Total exam DLP = mGy-cm. This CT exam was performed using one or more of the following dose reduction techniques: Automated exposure control, adjustment of the mA and/or kV according to patient size, and/or use of iterative reconstruction technique. FINDINGS: There is mucosal thickening of the bilateral maxillary sinuses. There is stable abnormal morphology and of the bautista of the left maxillary sinus, with discontinuity/old fractures of the anterior and lateral bautista. These findings are stable. There is an old fracture of the left zygomatic arch. The nasal bones are fractured, stable compared to the prior study. Old fractures are visualized of the anterior nasal spine. Old fractures are visualized of the inferior and lateral bautista of the left orbit. There is angulation of the superior nasal septum, consistent with old fracture. There is nasal septal deviation to the left. There is a fracture of the nasal septum superiorly, which is likely chronic. 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 No acute fracture. IMPRESSION: No acute pathology. No significant interval change since prior exam.
== END 2018-01-14 07:46 | disposition home or self-care (01) ==
LOC: ED 21:29
DX: F10.129 Alcohol abuse with intoxication, unspecified (principal); S00.81XA Abrasion of other part of head, initial encounter; W19.XXXA Unspecified fall, initial encounter; F17.210 Nicotine dependence, cigarettes, uncomplicated; I50.9 Heart failure, unspecified; Z23 Encounter for immunization
CPT/HCPCS: 70450; 70486; 72125; 80053; 82550; 83735; 85025; 90471; 90715; 96360; 99285; J3411; J7070

== ENCOUNTER 2018-02-22 07:23 | Emergency (ER) | payer MEDICAID ==
[2018-02-22 07:37] VITALS: BMI 22.8
[2018-02-22 07:38] VITALS: BP 134/94
--- NOTE | 2018-02-22 07:58 | ED PDOC ---
Arrival/HPI - General Chief Complaint: Alcohol Ingestion Time Seen by Provider: 02/22/18 07:49 Historian: Patient, EMS - History of Present Illness Narrative History of Present Illness (Text): 02/22/18 07:53 52 year old male, with past medical history of alcohol abuse, intracranial bleed , hypertension s/p AICD, and seizure disorder, presents to the Emergency department via EMS for possible public intoxication. As per EMS, patient was sleeping on the park bench when a bystander called 911 and patient was subsequently brought to the Emergency department for medical evaluation. Patient denies drinking alcohol and states he was just sleeping on the park bench secondary to homelessness. Patient denies any medical complaints. Patient denies symptoms of alcohol withdrawal in the past. Patient admits to drinking alcohol couple days a week but none today. Patient denies any tremors, sweats, or anxiousness. Patient denies any fevers, chills, headache, dizziness, chest pain, shortness of breath, dyspnea on exertion, cough, abdominal pain, nausea, vomiting, diarrhea, back pain, neck pain, or any other complaints. Patient states he is feeling fine and requests to be discharged. Time/Duration: Prior to Arrival Symptom Onset: Gradual Symptom Course: Resolved Activities at Onset: Light Context: Other (Park) Past Medical History - Provider Review Nursing Documentation Reviewed: Yes - Past History Past History: Non-Contributing - Infectious Disease Hx of Infectious Diseases: None - Tetanus Immunization Tetanus Immunization: Unknown - Cardiac Hx Cardiac Disorders: Yes Hx Congestive Heart Failure: Yes Hx Hypertension: Yes Hx Pacemaker: Yes (defibrillator) - Pulmonary Hx Respiratory Disorders: No - Neurological Hx Neurological Disorder: Yes HX Cerebrovascular Accident: Yes (right sided weakness) Hx Seizures: Yes - HEENT Hx HEENT Disorder: No - Renal Hx Renal Disorder: No - Endocrine/Metabolic Hx Endocrine Disorders: No - Hematological/Oncological Hx Blood Disorders: No Hx Blood Transfusions: No Hx Blood Transfusion Reaction: No - Integumentary Hx Dermatological Disorder: No - Musculoskeletal/Rheumatological Hx Musculoskeletal Disorders: No Hx Falls: No - Gastrointestinal Hx Gastrointestinal Disorders: No - Genitourinary/Gynecological Hx Genitourinary Disorders: No - Psychiatric Hx Psychophysiologic Disorder: Yes Hx Substance Use: No - Past Surgical History Past Surgical History: Unable to Obtain - Surgical History Hx Cardiac Catheterization: Yes Hx Musculoskeletal Surgery: Yes Hx Orthopedic Surgery: Yes (r ankle) Hx Valve Replacement: No 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 - Anesthesia Hx Anesthesia: Yes Hx Anesthesia Reactions: No Hx Malignant Hyperthermia: No - Suicidal Assessment Feels Threatened In Home Enviroment: No Family/Social History - Physician Review Nursing Documentation Reviewed: Yes Family/Social History: No Known Family HX Smoking Status: Light Smoker < 10 Cigarettes Daily Hx Alcohol Use: Yes Hx Substance Use: No Hx Substance Use Treatment: No Allergies/Home Meds Allergies/Adverse Reactions: Allergies No Known Allergies Allergy (Verified 01/13/18 21:38) Home Medications: Home Meds Medication Instructions Recorded Confirmed Cetirizine HCl [All Day Allergy] 10 mg PO DAILY 08/26/17 02/22/18 Metoprolol Tartrate [Lopressor] 25 mg PO BID 08/26/17 02/22/18 Pantoprazole [Protonix EC Tab] 20 mg PO DAILY 08/26/17 02/22/18 amLODIPine [Norvasc] 5 mg PO DAILY 08/26/17 02/22/18 Cyclobenzaprine [Cyclobenzaprine 10 mg PO TID 02/22/18 02/22/18 HCl] Folic Acid 1 mg PO DAILY 02/22/18 02/22/18 Meloxicam [Mobic] 7.5 mg PO DAILY 02/22/18 02/22/18 Review of Systems - Physician Review All systems were reviewed & negative as marked: Yes - Review of Systems Constitutional: absent: Fevers, Night Sweats Respiratory: absent: SOB, Cough Cardiovascular: absent: Chest Pain, PARRISH Gastrointestinal: absent: Abdominal Pain, Diarrhea, Nausea, Vomiting Musculoskeletal: absent: Back Pain, Neck Pain Neurological: absent: Headache, Dizziness Psychiatric: absent: Anxiety Physical Exam - Physical Exam Narrative Physical Exam (Text): 02/22/18 07:50 Gen: VS reviewed, alert, well developed, well nourished, nontoxic, mild distress. ENT: normal pharynx. Eye: EOMI, PERRL. Neck: no JVD, supple, no adenopathy. CV: regular rate, regular rhythm, no rubs, no murmur, no gallops, S1, S2, pulses equal and strong. Pulm: no distress, clear to auscultation, no wheeze, no rhonchi, breath sounds equal, no rales. Abd: soft, nontender, no guarding, no rebound, no rigidity, normal bowel sounds. Ext: no edema. 4/5 strength on left upper extremity secondary to history of CVA Skin: good color, no rash, no cyanosis. Psych: responds appropriately to questions, normal affect. Neuro: oriented x 3, CN2-12 intact grossly, motor intact, sensation intact. Vital Signs Reviewed: Yes Vital Signs Temp Pulse Resp BP Pulse Ox 02/22/18 07:36 98.7 F 99 H 18 134/94 H 98 Temperature: Afebrile Blood Pressure: Normal Pulse: Tachycardic Respiratory Rate: Normal Appearance: Positive for: Well-Appearing, Non-Toxic, Comfortable Pain Distress: None Mental Status: Positive for: Alert and Oriented X 3 Medical Decision Making ED Course and Treatment: 02/22/18 08:00 Impression: 52 year old male presents to the Emergency department for medical evaluation for possible alcohol intoxication. Plan: -- Diet -- Reassess and disposition Prior Visits: Notes and results from previous visits were reviewed. Progress Notes: 02/22/18 08:00 - Scribe Statement The provider has reviewed the documentation as recorded by the Scribe Ned Allen. All medical record entries made by the Scribe were at my direction and personally dictated by me. I have reviewed the chart and agree that the record accurately reflects my personal performance of the history, physical exam, medical decision making, and the department course for this patient. I have also personally directed, reviewed, and agree with the discharge instructions and disposition. Disposition/Present on Arrival - Present on Arrival History of DVT/PE: No History of Uncontrolled Diabetes: No Urinary Catheter: No History of Decub. Ulcer: No History Surgical Site Infection Following: None - Disposition Diagnosis: Homeless Patient Problems: Current Active Problems Problem Status Onset Homeless Acute Print Language: ICELANDIC Additional Instructions: EMMA DAVIES, thank you for letting us take care of you today. Your provider was Dr. Martin An and you were treated for suspected alcohol intoxication. The emergency medical care you received today was directed at your acute symptoms. If you were prescribed any medication, please fill it and take as directed. It may take several days for your symptoms to resolve. Return to the Emergency Department if your symptoms worsen, do not improve, or if you have any other problems. Please contact your doctor or call one of the physicians/clinics you have been referred to that are listed on the Patient Visit Information form that is included in your discharge packet. Bring any paperwork you were given at discharge with you along with any medications you are taking to your follow up visit. Our treatment cannot replace ongoing medical care by a primary care provider outside of the emergency department. Thank you for allowing the [facility] team to be part of your care today. If you had an X-Ray or CT scan: A Radiologist will review the ED reading if any change in treatment is needed we will contact you. If you had a blood, urine, or wound culture: It will take several days for the results, if any change in treatment is needed we will contact you. If you had an STI test: It will take 48 hours for the results. Please call after 1 week if you have not heard back. Referrals: [facility] [Outside] - Follow up with primary Bryce Dc MD [Primary Care Provider] - Follow up with primary Mariza Alvarez MD [Medical Doctor] - Follow up with primary Forms: Re-Compose (Divehi)
[2018-02-22 08:44] VITALS: PULSE 97; RESP 19; TEMP 98.5; O2SAT 99
== END 2018-02-22 08:44 | disposition home or self-care (01) ==
LOC: ED 07:23
DX: Z59.0 Homelessness (principal); I50.9 Heart failure, unspecified; I10 Essential (primary) hypertension; G40.909 Epilepsy, unspecified, not intractable, without status epilepticus; F17.210 Nicotine dependence, cigarettes, uncomplicated

== ENCOUNTER 2018-07-12 17:31 | Emergency (ER) | payer MEDICAID ==
[2018-07-12 17:48] VITALS: BMI 24.3
[2018-07-12] MEDS ORDERED: Naproxen 550 mg Tab PO STA (17:51)
--- NOTE | 2018-07-12 18:47 | ED PDOC ---
Arrival/HPI - General Chief Complaint: Lower Extremity Problem/Injury Time Seen by Provider: 07/12/18 17:43 Historian: Patient - History of Present Illness Narrative History of Present Illness (Text): 07/12/18 17:51 52 year old male, with past medical history of alcohol abuse, intracranial bleed, hypertension s/p AICD, and seizure disorder, presents to the Emergency department complaining of right foot pain at the first MTP joint since 2 days. Patient informs trip and fall 2 days ago with no immediate discomfort to the area. Patient reports progressively worsening pain today prompting him to present to the ED for medical evaluation. Patient denies any fevers, chills, headache, numbness/tingling to the extremities, dizziness, chest pain, shortness of breath, dyspnea on exertion, cough, abdominal pain, nausea, vomiting, diarrhea, back pain, neck pain, or any other complaints. Time/Duration: < week Symptom Onset: Gradual Symptom Course: Unchanged Quality: Aching Activities at Onset: Light Context: Home Past Medical History - Provider Review Nursing Documentation Reviewed: Yes - Past History Past History: Non-Contributing - Infectious Disease Hx of Infectious Diseases: None - Tetanus Immunization Tetanus Immunization: Unknown - Cardiac Hx Cardiac Disorders: Yes Hx Cardiac Arrhythmia: Yes Hx Congestive Heart Failure: Yes Hx Hypertension: Yes Hx Pacemaker: Yes (defibrillator) 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: L pacemaker +defibrillator - Pulmonary Hx Respiratory Disorders: No - Neurological Hx Neurological Disorder: Yes HX Cerebrovascular Accident: Yes (right sided weakness) Hx Seizures: Yes - HEENT Hx HEENT Disorder: No - Renal Hx Renal Disorder: No - Endocrine/Metabolic Hx Endocrine Disorders: No - Hematological/Oncological Hx Blood Disorders: No Hx Blood Transfusions: No Hx Blood Transfusion Reaction: No - Integumentary Hx Dermatological Disorder: No - Musculoskeletal/Rheumatological Hx Falls: No 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: R ankle surgery. back surgery - Gastrointestinal Hx Gastrointestinal Disorders: No - Genitourinary/Gynecological Hx Genitourinary Disorders: No - Psychiatric Hx Psychophysiologic Disorder: Yes Hx Substance Use: No - Past Surgical History Past Surgical History: Unable to Obtain - Surgical History Hx Cardiac Catheterization: Yes Hx Musculoskeletal Surgery: Yes Hx Orthopedic Surgery: Yes (r ankle) Hx Valve Replacement: No 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 - Anesthesia Hx Anesthesia: Yes Hx Anesthesia Reactions: No Hx Malignant Hyperthermia: No - Suicidal Assessment Feels Threatened In Home Enviroment: No Family/Social History - Physician Review Nursing Documentation Reviewed: Yes Family/Social History: No Known Family HX Smoking Status: Light Smoker < 10 Cigarettes Daily Hx Alcohol Use: Yes Frequency of alcohol use: Few days per week Hx Substance Use: No Hx Substance Use Treatment: No Allergies/Home Meds Allergies/Adverse Reactions: Allergies No Known Allergies Allergy (Verified 01/13/18 21:38) Home Medications: Home Meds Medication Instructions Recorded Confirmed Cetirizine HCl [All Day Allergy] 10 mg PO DAILY 08/26/17 02/22/18 Metoprolol Tartrate [Lopressor] 25 mg PO BID 08/26/17 02/22/18 Pantoprazole [Protonix EC Tab] 20 mg PO DAILY 08/26/17 02/22/18 amLODIPine [Norvasc] 5 mg PO DAILY 08/26/17 02/22/18 Cyclobenzaprine [Cyclobenzaprine 10 mg PO TID 02/22/18 02/22/18 HCl] Folic Acid 1 mg PO DAILY 02/22/18 02/22/18 Meloxicam [Mobic] 7.5 mg PO DAILY 02/22/18 02/22/18 Review of Systems - Physician Review All systems were reviewed & negative as marked: Yes - Review of Systems Constitutional: absent: Fevers Respiratory: absent: SOB, Cough Cardiovascular: absent: Chest Pain Gastrointestinal: absent: Abdominal Pain, Diarrhea, Nausea, Vomiting Genitourinary Male: absent: Dysuria, Urinary Output Changes Musculoskeletal: Myalgias (right foot pain ). absent: Back Pain, Neck Pain Skin: absent: Rash Neurological: absent: Headache, Dizziness Psychiatric: absent: Anxiety Physical Exam Appearance: Positive for: Well-Appearing, Non-Toxic, Comfortable Pain Distress: None Mental Status: Positive for: Alert and Oriented X 3 - Systems Exam Head: Present: Atraumatic, Normocephalic Pupils: Present: PERRL Extroacular Muscles: Present: EOMI Conjunctiva: Present: Normal Neck: Present: Normal Range of Motion Respiratory/Chest: Present: Clear to Auscultation, Good Air Exchange. No: Respiratory Distress, Accessory Muscle Use Cardiovascular: Present: Regular Rate and Rhythm, Normal S1, S2. No: Murmurs Abdomen: No: Tenderness, Distention, Peritoneal Signs Upper Extremity: Present: Normal Inspection. No: Cyanosis, Edema Lower Extremity: Present: Tenderness (Right first MTP joint), Swelling (Right first MTP joint), Erythema (Right first MTP joint). No: Edema Neurological: Present: GCS=15, CN II-XII Intact, Speech Normal Skin: Present: Warm, Dry, Normal Color. No: Rashes Psychiatric: Present: Alert, Oriented x 3, Normal Insight, Normal Concentration Medical Decision Making ED Course and Treatment: 07/12/18 17:51 Impression: 52 year old male presents to the ED for evaluation of right foot pain. Plan: -- Colocrys -- Indocin -- X-ray of right foot -- Reassess and disposition Prior Visits: Notes and results from previous visits were reviewed. Progress Notes: XR R foot: +2 screws by the ankle joint, no fracture, no dislocation, as read by PA On reevaluation, patient reports improvement of pain. On exam, patient remains awake alert and oriented 3 in no acute distress. Advised to follow up with the clinic in 1-2 days without fail. Advised to take medication as prescribed. Return to the emergency room at any time for any new or worsening symptoms. Patient states he fully agrees with and understands discharge instructions. States that he agrees with the plan and disposition. Verbalized and repeated discharge instructions and plan. I have given the patient opportunity to ask any additional questions. - RAD Interpretation Radiology Orders: 07/12/18 17:51 FOOT RIGHT 3 VIEWS ROUTINE [RAD] Stat - Medication Orders Current Medication Orders: Colchicine (Colocrys) 0.6 mg PO ONCE ONE Stop: 07/13/18 19:11 Discontinued Medications Colchicine (Colocrys) 1.2 mg PO STAT STA Stop: 07/12/18 18:10 Last Admin: 07/12/18 18:43 Dose: 1.2 mg Indomethacin (Indocin) 50 mg PO STAT STA Stop: 07/12/18 18:10 Last Admin: 07/12/18 18:43 Dose: 50 mg [facility] Pain Assessment Document 07/12/18 18:43 OCS (Rec: 07/12/18 18:43 OCS [id number]) Pain Reassessment Is this a pain reassessment? No Sleep Is patient sleeping during reassessment? No Presence of Pain Presence of Pain Yes Pain Scale Used Protocol: PSCALES Pain Scale Used Numeric Location Left, Right or Bilateral Right Pain Location Body Site Leg Description Description Constant Intensity of Pain at present 6 Aggravating Factors ADL's - PA / NATIONAL INSURANCE OFFICER / Resident Statement MD/DO has reviewed & agrees with the documentation as recorded. - Scribe Statement The provider has reviewed the documentation as recorded by the Todibe Ned Allen. All medical record entries made by the Pawan were at my direction and personally dictated by me. I have reviewed the chart and agree that the record accurately reflects my personal performance of the history, physical exam, medical decision making, and the department course for this patient. I have also personally directed, reviewed, and agree with the discharge instructions and disposition. Disposition/Present on Arrival - Present on Arrival Any Indicators Present on Arrival: No History of DVT/PE: No History of Uncontrolled Diabetes: No Urinary Catheter: No History of Decub. Ulcer: No History Surgical Site Infection Following: None - Disposition Have Diagnosis and Disposition been Completed?: Yes Diagnosis: Gout Disposition: HOME/ ROUTINE Disposition Time: 19:30 Patient Plan: Discharge Patient Problems: Current Active Problems Problem Status Onset Gout Acute Condition: STABLE Discharge Instructions (ExitCare): Gout (DC) Additional Instructions: Thank you for letting us take care of you today. You were treated for gout. The emergency medical care you received today was directed at your acute symptoms. If you were prescribed any medication, please fill it and take as directed. It may take several days for your symptoms to resolve. Return to the Emergency Department if your symptoms worsen, do not improve, or if you have any other problems. Please contact the clinic in 2 days for re-evaluation and follow up. Bring any paperwork you were given at discharge with you along with any medications you are taking to your follow up visit. Our treatment cannot replace ongoing medical care by a primary care provider (PCP) outside of the emergency department. Thank you for allowing the [facility] team to be part of your care today. If you had an X-Ray : A Radiologist will review the ED reading if any change in treatment is needed we will contact you. Prescriptions: Colchicine 0.6 mg PO DAILY #10 tablet Indomethacin [Indocin] 50 mg PO TID PRN #20 cap PRN Reason: Pain, Moderate (4-7) Referrals: Podiatry Clinic [Outside] - Follow up with primary [facility] [Outside] - Follow up with primary Forms: [employer] (Salvadorean)
[2018-07-12 21:09] VITALS: BP 135/74; PULSE 78; RESP 16; TEMP 97.6; O2SAT 96
--- NOTE | 2018-07-13 16:01 | RAD ---
PROCEDURE: Right foot radiographs. HISTORY: pain COMPARISON: Right foot radiographs performed 01/09/15 FINDINGS: BONES: Osseous demineralization limits evaluation for acute fracture lines. No acute displaced fracture. Postsurgical changes with 2 screws the distal tibia. JOINTS: No dislocation. Degenerative changes including joint space narrowing at the 1st MTP joint. SOFT TISSUES: Unremarkable. No evidence of radiopaque foreign body. OTHER FINDINGS: None. IMPRESSION: Osseous demineralization. Degenerative changes. No acute displaced fracture, dislocation, or significant joint effusion identified.If symptoms persist, or if there is continued clinical concern, x-ray follow-up in 7-10 days should be considered.
== END 2018-07-12 21:06 | disposition home or self-care (01) ==
LOC: ED 17:31
DX: M10.9 Gout, unspecified (principal); F17.210 Nicotine dependence, cigarettes, uncomplicated; I50.9 Heart failure, unspecified; I10 Essential (primary) hypertension

== ENCOUNTER 2018-08-01 18:38 | Inpatient (IN) | payer MEDICAID ==
[2018-08-01 18:39] VITALS: BMI 22.8
[2018-08-01] MEDS ORDERED: Folic Acid 1 MG, Thiamine 100 MG, Multivitamin (MVI) 10 ML in Dextrose 5% In Water 1,00... IV SCH ×2 (19:45→23:15)
[2018-08-01] MEDS ORDERED: Sodium Chloride 0.9% 1,000 ML IV SCH (20:00)
--- NOTE | 2018-08-01 20:37 | ED PDOC ---
Arrival/HPI <Martin An - Last Filed: 08/02/18 00:43> - General Historian: Patient - History of Present Illness Narrative History of Present Illness (Text): 08/01/18 20:30 53 y/o male with PMH of HTN, CHF, alcohol abuse presents to the ED with one day h/o vomiting that started early this morning after drinking green tea. It's getting worse during the day with multiple dark colored vomitus during the day. It's associated with nausea and epigastric pain. Patient is a chronic alcoholic, drinks 4 times a week, 5 beers a day with hard liquir as well. Patient had episodes of vomiting in the past related to alcohol drinking but denied similar severity of symptoms. He denied associated fever, chills, diarrhea, change in bowel movement, pain that radiates to the back, hematemesis, chest pain, SOB, palpitations. Patient's last drink was last night, denied recent travel/sick contacts, unusual food. Time/Duration: 24 hours Symptom Onset: Gradual Symptom Course: Worsening Quality: Dullness Severity Level: 7 Activities at Onset: Rest <Darian Ross - Last Filed: 08/02/18 02:42> - General Chief Complaint: GI Problem Past Medical History - Provider Review Nursing Documentation Reviewed: Yes - Past History Past History: Non-Contributing - Infectious Disease Hx of Infectious Diseases: None - Tetanus Immunization Tetanus Immunization: Unknown - Cardiac Hx Cardiac Disorders: Yes Hx Cardiac Arrhythmia: Yes Hx Congestive Heart Failure: Yes Hx Hypertension: Yes Hx Pacemaker: Yes (defibrillator) 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: L pacemaker +defibrillator - Pulmonary Hx Respiratory Disorders: No - Neurological Hx Neurological Disorder: Yes HX Cerebrovascular Accident: Yes (right sided weakness) Hx Seizures: Yes - HEENT Hx HEENT Disorder: No - Renal Hx Renal Disorder: No - Endocrine/Metabolic Hx Endocrine Disorders: No - Hematological/Oncological Hx Blood Disorders: No Hx Blood Transfusions: No Hx Blood Transfusion Reaction: No - Integumentary Hx Dermatological Disorder: No - Musculoskeletal/Rheumatological Hx Falls: No 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: R ankle surgery. back surgery - Gastrointestinal Hx Gastrointestinal Disorders: No - Genitourinary/Gynecological Hx Genitourinary Disorders: No - Psychiatric Hx Psychophysiologic Disorder: Yes Hx Substance Use: No - Past Surgical History Past Surgical History: Unable to Obtain - Surgical History Hx Cardiac Catheterization: Yes Hx Musculoskeletal Surgery: Yes Hx Orthopedic Surgery: Yes (r ankle) Hx Valve Replacement: No 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 - Anesthesia Hx Anesthesia: Yes Hx Anesthesia Reactions: No Hx Malignant Hyperthermia: No - Suicidal Assessment Feels Threatened In Home Enviroment: No <Darian Ross - Last Filed: 08/02/18 02:42> Family/Social History - Physician Review Nursing Documentation Reviewed: Yes Family/Social History: No Known Family HX Smoking Status: Heavy Smoker > 10 Cigarettes Daily Hx Alcohol Use: Yes Frequency of alcohol use: Daily Hx Substance Use: No Hx Substance Use Treatment: No <Darian Ross - Last Filed: 08/02/18 02:42> Allergies/Home Meds <Martin An - Last Filed: 08/02/18 00:43> <Darian Ross - Last Filed: 08/02/18 02:42> Allergies/Adverse Reactions: Allergies No Known Allergies Allergy (Verified 08/01/18 18:41) Home Medications: Home Meds Medication Instructions Recorded Confirmed Cetirizine HCl [All Day Allergy] 10 mg PO DAILY 08/26/17 02/22/18 Metoprolol Tartrate [Lopressor] 25 mg PO BID 08/26/17 02/22/18 Pantoprazole [Protonix EC Tab] 20 mg PO DAILY 08/26/17 02/22/18 amLODIPine [Norvasc] 5 mg PO DAILY 08/26/17 02/22/18 Cyclobenzaprine [Cyclobenzaprine 10 mg PO TID 02/22/18 02/22/18 HCl] Folic Acid 1 mg PO DAILY 02/22/18 02/22/18 Meloxicam [Mobic] 7.5 mg PO DAILY 02/22/18 02/22/18 Review of Systems - Physician Review All systems were reviewed & negative as marked: Yes - Review of Systems Constitutional: Normal Eyes: Normal ENT: Normal Respiratory: Normal Cardiovascular: Normal Gastrointestinal: Abdominal Pain, Nausea, Vomiting Genitourinary Male: Normal Musculoskeletal: Normal Skin: Normal Neurological: Normal Endocrine: Normal Hemo/Lymphatic: Normal Psychiatric: Normal <Darian Ross - Last Filed: 08/02/18 02:42> Physical Exam Pain Distress: Mild Mental Status: Positive for: Alert and Oriented X 3 - Systems Exam Head: Present: Atraumatic, Normocephalic Pupils: Present: PERRL Extroacular Muscles: Present: EOMI Conjunctiva: Present: Normal Mouth: Present: Dry Pharnyx: Present: Normal Neck: Present: Normal Range of Motion Respiratory/Chest: Present: Decreased Breath Sounds Cardiovascular: Present: Regular Rate and Rhythm, Normal S1, S2 Abdomen: Present: Tenderness (mild epigastric tenderness) Upper Extremity: Present: Normal Inspection. No: Cyanosis, Edema Lower Extremity: Present: Normal Inspection. No: Edema Neurological: Present: GCS=15, CN II-XII Intact Skin: Present: Warm, Dry Psychiatric: Present: Alert, Oriented x 3, Normal Insight <Darian Ross - Last Filed: 08/02/18 02:42> Medical Decision Making - Lab Interpretations Lab Results: Total Bilirubin 1.3 mg/dL (0.2-1.3) 08/01/18 21:10 AST 249 U/L (17-59) H D 08/01/18 21:10 ALT 146 U/L (7-56) H 08/01/18 21:10 Alkaline Phosphatase 77 U/L (38-126) 08/01/18 21:10 Total Protein 8.1 g/dL (5.8-8.3) 08/01/18 21:10 Albumin 5.1 g/dL (3.0-4.8) H 08/01/18 21:10 Globulin 3.0 gm/dL 08/01/18 21:10 Albumin/Globulin Ratio 1.7 (1.1-1.8) 08/01/18 21:10 Lipase 79 U/L (23-300) 08/01/18 21:10 Urine Color Yellow (YELLOW) 08/01/18 22:50 Urine Appearance Clear (CLEAR) 08/01/18 22:50 Urine pH 6.0 (4.7-8.0) 08/01/18 22:50 Ur Specific [place] >= 1.030 (1.005-1.035) 08/01/18 22:50 Urine Protein 30 mg/dL (<30 mg/dL) H 08/01/18 22:50 Urine Glucose (UA) Negative mg/dL (NEGATIVE) 08/01/18 22:50 Urine Ketones >=80 mg/dL (NEGATIVE) 08/01/18 22:50 Urine Blood Negative (NEGATIVE) 08/01/18 22:50 Urine Nitrate Negative (NEGATIVE) 08/01/18 22:50 Urine Bilirubin Negative (NEGATIVE) 08/01/18 22:50 Urine Urobilinogen 0.2 E.U./dL (<1 E.U./dL) 08/01/18 22:50 Ur Leukocyte Esterase Negative Silvia/uL (NEGATIVE) 08/01/18 22:50 Urine RBC 0 - 2 /hpf (0-2) 08/01/18 22:50 Urine WBC 0 - 2 /hpf (0-6) 08/01/18 22:50 Ur Epithelial Cells 0 - 2 /hpf (0-5) 08/01/18 22:50 Urine Bacteria None /hpf (NONE) 08/01/18 22:50 Hyaline Casts 1-3 /hpf (NONE) 08/01/18 22:50 - RAD Interpretation Radiology Orders: 08/01/18 19:40 CHEST PORTABLE [RAD] Stat - EKG Interpretation EKG Interpretation (Text): 08/02/18 00:43 0030: ekg my read: sinus tachycardia at 104 bpm, nml qrs, nml axis, lateral flipped t waves Interpreted by ED Physician: Yes - Medication Orders Current Medication Orders: Sodium Chloride (Sodium Chloride 0.9%) 1,000 mls @ 150 mls/hr IV .Q6H40M [facility] Last Admin: 08/01/18 21:05 Dose: 150 mls/hr eMAR Start Stop Document 08/01/18 21:05 (Rec: 08/01/18 21:05 [email or web address] Intravenous Solution Start Date 08/01/18 Start Time 21:05 Folic Acid 1 mg/ Thiamine HCl 100 mg/ Multivitamins/Vitamin C 10 ml/ Dextrose 1 ,011.2 mls @ 100 mls/hr IV .Q10H7M [facility] Last Admin: 08/02/18 00:15 Dose: 150 mls/hr eMAR Start Stop Document 08/02/18 00:15 (Rec: 08/02/18 00:16 [email or web address] Intravenous Solution Start Date 08/02/18 Start Time 00:15 Pantoprazole Sodium (Protonix 40mg Ivpb) 40 mg in 100 mls @ 20 mls/hr IVPB .Q5H [facility] Discontinued Medications Magnesium Sulfate (Magnesium Sulfate 2 Gm/50 Ml Water) 2 gm in 50 mls @ 50 mls/hr IVPB ONCE ONE Stop: 08/01/18 23:14 Last Admin: 08/01/18 23:46 Dose: 50 mls/hr eMAR Start Stop Document 08/01/18 23:46 (Rec: 08/01/18 23:46 [facility] [email or web address] Intravenous Solution Start Date 08/01/18 Start Time 23:46 Ondansetron HCl (Zofran Inj) 4 mg IVP STAT STA Stop: 08/01/18 19:39 Last Admin: 08/01/18 21:05 Dose: 4 mg IVP Administration Document 08/01/18 21:05 MD (Rec: 08/01/18 21:06 [facility] [email or web address]) Charges for Administration # of IVP Administrations 1 Pantoprazole Sodium (Protonix Inj) 40 mg IVP STAT STA Stop: 08/01/18 19:39 Last Admin: 08/01/18 21:06 Dose: 40 mg IVP Administration Document 08/01/18 21:06 (Rec: 08/01/18 21:06 [facility] [email or web address] Charges for Administration # of IVP Administrations 1 <Martin An - Last Filed: 08/02/18 00:43> ED Course and Treatment: 08/01/18 23:32 Case discussed with attending Dr Olivia and the district medical examiner who accepted the admission. Patient to be admitted to [facility] for observation. - Lab Interpretations I have reviewed the lab results: Yes Interpretation: Abnormal lab values - RAD Interpretation Radiology Orders: 08/01/18 19:40 CHEST PORTABLE [RAD] Stat - Medication Orders Current Medication Orders: Sodium Chloride (Sodium Chloride 0.9%) 1,000 mls @ 150 mls/hr IV .Q6H40M [facility] Discontinued Medications Ondansetron HCl (Zofran Inj) 4 mg IVP STAT STA Stop: 08/01/18 19:39 Pantoprazole Sodium (Protonix Inj) 40 mg IVP STAT STA Stop: 08/01/18 19:39 <Darian Ross - Last Filed: 08/02/18 02:42> Disposition/Present on Arrival <Martin An - Last Filed: 08/02/18 00:43> - Present on Arrival Any Indicators Present on Arrival: No History of DVT/PE: No History of Uncontrolled Diabetes: No Urinary Catheter: No History of Decub. Ulcer: No History Surgical Site Infection Following: None - Disposition Have Diagnosis and Disposition been Completed?: Yes Disposition Time: 23:26 Patient Plan: Admission <Darian Ross - Last Filed: 08/02/18 02:42> - Disposition Diagnosis: Alcohol abuse, Alcoholic gastritis Disposition: HOSPITALIZED Patient Problems: Current Active Problems Problem Status Onset Alcohol abuse Acute Alcoholic gastritis Acute Condition: GUARDED
[2018-08-01 21:30] LABS: BASO # 0.01 K/mm3 (0.0-2.0); BASO % 0.1 % (0.0-3.0); HEMOGLOBIN 14.6 g/dL (14.0-18.0); LYMPH # 0.5 (1.2-3.4); LYMPH % 4.6 % (22.0-35.0); MEAN CELL VOLUME 98.2 fl (80.0-105.0); MEAN CORPUSCULAR HEMOGLOBIN 32.9 pg (25.0-35.0); MEAN CORPUSCULAR HGB CONC 33.5 g/dl (31.0-37.0); MONO # 0.5 (0.1-0.6); MONO % 4.1 % (1.0-6.0); PLATELET COUNT 150 10^3/uL (120.0-450.0); RBC 4.44 10^6/uL (3.5-6.1); RED CELL DISTRIBUTION WIDTH 15.5 % (11.5-14.5); WHITE BLOOD COUNT 11.6 10^3/uL (4.5-11.0)
[2018-08-01 21:55] LABS: ALB/GLOB RATIO 1.7 (1.1-1.8); ALBUMIN 5.1 g/dL (3.0-4.8); ALT/SGPT 146 U/L (7-56); AST/SGOT 249 U/L (17-59); BLOOD UREA NITROGEN 15 mg/dL (7-21); CALCIUM 8.9 mg/dL (8.4-10.5); GFR NON-AFRICAN AMERICAN > 60; LIPASE 79 U/L (23-300)
[2018-08-01] MEDS ORDERED: Magnesium Sulfate 2 gm/50 ml 2 GM/50 ML BAG IVPB ONE (22:15)
[2018-08-01 23:00] LABS: URINE BILIRUBIN NEGATIVE (NEGATIVE); URINE BLOOD NEGATIVE (NEGATIVE); URINE GLUCOSE (UA) NEGATIVE (NEGATIVE); URINE LEUKOCYTE ESTERASE NEGATIVE Leu/uL (NEGATIVE); URINE PROTEIN 30 mg/dL (<30 mg/dL); URINE UROBILINOGEN 0.2 E.U./dL (<1 E.U./dL)
[2018-08-01 23:03] LABS: BAND 5 % (0-2); EOSINOPHIL 2 % (0.0-3.0); LYMPHOCYTE 3 % (22.0-35.0); MONOCYTE 4 % (1.0-6.0); NEUTROPHIL 86 % (50.0-70.0); PLATELET ESTIMATE NORMAL (NORMAL); TOXIC GRANULATION 1+
[2018-08-01 23:04] LABS: URINE APPEARANCE CLEAR (CLEAR); URINE COLOR YELLOW (YELLOW)
[2018-08-01 23:23] LABS: URINE EPITHELIAL CELLS 0 - 2 /hpf (0-5); URINE RBC 0 - 2 /hpf (0-2); URINE WBC 0 - 2 /hpf (0-6)
--- NOTE | 2018-08-02 00:01 | CP.PCM.HP ---
<Edvin Blanc L - Last Filed: 08/02/18 02:20> History of Present Illness - History of Present Illness History of Present Illness: Resident History & Physical for Hospitalist Service Patient is a 53 year old male with past medical history of gastritis, intracranial hemorrhage, seizures, aortic stenosis, systolic CHF, HTN presenting with chief complaint of nausea, vomiting, and abdominal discomfort which began this morning. Patient states that he has had approximately 30 episodes of brown colored emesis. For the past week he has been drinking an extra two to three shots of hard liquor in addition to his typical daily beer intake. He tried Tums and Peptol Bismol with minimal relief. Patient's last alcohol intake was yesterday evening. [place] [facility] [place] November [place] and endoscopy done at that time showed diffuse gastritis and Grade D esophageal ulcers. Denies fevers, chills, chest pain, shortness of breath, palpitations, diarrhea, hematochezia, dysuria. PMH: gastritis, intracranial hemorrhage, seizures, aortic stenosis, systolic CHF, HTN PSH: AICD, inguinal hernia repair, back surgery, right ankle surgery SHx: drinks three 24 oz. 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 Present on Admission - Present on Admission Any Indicators Present on Admission: No Review of Systems - Review of Systems All systems: reviewed and no additional remarkable complaints except (as stated in HPI) Past Patient History - Infectious Disease Hx of Infectious Diseases: None - Tetanus Immunizations Tetanus Immunization: Unknown - Past Medical History & Family History Past Medical History?: Yes - Past Social History Smoking Status: Heavy Smoker > 10 Cigarettes Daily - CARDIAC Hx Cardiac Disorders: Yes Hx Cardia Arrhythmia: Yes Hx Congestive Heart Failure: Yes Hx Hypertension: Yes Hx Pacemaker: Yes (defibrillator) 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: L pacemaker +defibrillator - PULMONARY Hx Respiratory Disorders: No - NEUROLOGICAL Hx Neurological Disorder: Yes HX Cerebrovascular Accident: Yes (right sided weakness) Hx Seizures: Yes - HEENT Hx HEENT Problems: No - RENAL Hx Chronic Kidney Disease: No - ENDOCRINE/METABOLIC Hx Endocrine Disorders: No - HEMATOLOGICAL/ONCOLOGICAL Hx Blood Disorders: No Hx Blood Transfusions: No Hx Blood Transfusion Reaction: No - INTEGUMENTARY Hx Dermatological Problems: No - MUSCULOSKELETAL/RHEUMATOLOGICAL Hx Falls: No 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: R ankle surgery. back surgery - GASTROINTESTINAL Hx Gastrointestinal Disorders: No - GENITOURINARY/GYNECOLOGICAL Hx Genitourinary Disorders: No - PSYCHIATRIC Hx Psychophysiologic Disorder: Yes Hx Substance Use: No - SURGICAL HISTORY Hx Cardiac Catheterization: Yes Hx Musculoskeletal Surgery: Yes Hx Orthopedic Surgery: Yes (r ankle) Hx Valve Replacement: No 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 - ANESTHESIA Hx Anesthesia: Yes Hx Anesthesia Reactions: No Hx Malignant Hyperthermia: No Meds Allergies/Adverse Reactions: Allergies Allergy/AdvReac Type Severity Reaction Status Date / Time No Known Allergies Allergy Verified 08/01/18 18:41 Physical Exam - Constitutional Appears: Non-toxic, No Acute Distress - Head Exam Head Exam: ATRAUMATIC, NORMOCEPHALIC - Eye Exam Eye Exam: EOMI, Normal appearance, PERRL. absent: Scleral icterus - ENT Exam ENT Exam: Mucous Membranes Moist - Neck Exam Neck exam: Positive for: Full Rom - Respiratory Exam Respiratory Exam: Clear to Auscultation Bilateral, NORMAL BREATHING PATTERN. absent: Rales, Rhonchi, Wheezes, Respiratory Distress - Cardiovascular Exam Cardiovascular Exam: REGULAR RHYTHM, +S1, +S2. absent: Tachycardia, Systolic Murmur - GI/Abdominal Exam GI & Abdominal Exam: Soft. absent: Distended, Firm, Guarding, Rebound, Rigid, Tenderness - Extremities Exam Extremities exam: Positive for: normal capillary refill, pedal pulses present. Negative for: pedal edema, tenderness - Neurological Exam Neurological exam: Alert, CN II-XII Intact, Oriented x3 Additional comments: +4/5 muscle strength on right extremities - Psychiatric Exam Psychiatric exam: Normal Affect, Normal Mood - Skin Skin Exam: Dry, Intact, Normal Color, Warm Results - Labs Result Diagrams: 08/01/18 21:10 08/01/18 21:10 Labs: Laboratory Results - last 24 hr 08/01/18 08/01/18 08/01/18 21:10 21:10 21:10 WBC 11.6 H RBC 4.44 Hgb 14.6 Hct 43.6 MCV 98.2 D MCH 32.9 MCHC 33.5 RDW 15.5 H Plt Count 150 MPV 11.0 Neut % (Auto) 91.2 H Lymph % (Auto) 4.6 L Wake % (Auto) 4.1 Eos % (Auto) 0.0 L Baso % (Auto) 0.1 Lymph # (Auto) 0.5 L Wake # (Auto) 0.5 Eos # (Auto) 0.0 Baso # (Auto) 0.01 Absolute Neuts (auto) 10.59 H Neutrophils % (Manual) 86 H Band Neutrophils % 5 H Lymphocytes % (Manual) 3 L Monocytes % (Manual) 4 Eosinophils % (Manual) 2 Toxic Granulation 1+ Platelet Evaluation Normal Sodium 143 Potassium 3.9 Chloride 100 Carbon Dioxide 18 L Anion Gap 30 H BUN 15 Creatinine 0.8 Est GFR ( Amer) > 60 Est GFR (Non-Af Amer) > 60 Random Glucose 93 Calcium 8.9 Magnesium 1.3 L Total Bilirubin 1.3 AST 249 H D ALT 146 H Alkaline Phosphatase 77 Total Protein 8.1 Albumin 5.1 H Globulin 3.0 Albumin/Globulin Ratio 1.7 Lipase 79 Urine Color Urine Appearance Urine pH Ur Specific Pooler Urine Protein Urine Glucose (UA) Urine Ketones Urine Blood Urine Nitrate Urine Bilirubin Urine Urobilinogen Ur Leukocyte Esterase Urine RBC Urine WBC Ur Epithelial Cells Urine Bacteria Hyaline Casts Alcohol, Quantitative 28 H 08/01/18 22:50 WBC RBC Hgb Hct MCV MCH MCHC RDW Plt Count MPV Neut % (Auto) Lymph % (Auto) Wake % (Auto) Eos % (Auto) Baso % (Auto) Lymph # (Auto) Wake # (Auto) Eos # (Auto) Baso # (Auto) Absolute Neuts (auto) Neutrophils % (Manual) Band Neutrophils % Lymphocytes % (Manual) Monocytes % (Manual) Eosinophils % (Manual) Toxic Granulation Platelet Evaluation Sodium Potassium Chloride Carbon Dioxide Anion Gap BUN Creatinine Est GFR ( Amer) Est GFR (Non-Af Amer) Random Glucose Calcium Magnesium Total Bilirubin AST ALT Alkaline Phosphatase Total Protein Albumin Globulin Albumin/Globulin Ratio Lipase Urine Color Yellow Urine Appearance Clear Urine pH 6.0 Ur Specific Pooler >= 1.030 Urine Protein 30 H Urine Glucose (UA) Negative Urine Ketones >=80 Urine Blood Negative Urine Nitrate Negative Urine Bilirubin Negative Urine Urobilinogen 0.2 Ur Leukocyte Esterase Negative Urine RBC 0 - 2 Urine WBC 0 - 2 Ur Epithelial Cells 0 - 2 Urine Bacteria None Hyaline Casts 1-3 Alcohol, Quantitative Assessment & Plan - Assessment and Plan (Free Text) Assessment: Patient is a 53 year old male with past medical history of intracranial hemorrhage, seizures, aortic stenosis, systolic CHF, HTN presenting with hematem esis and alcohol intoxication. Plan: Hematemesis - Protonix drip - Zofran PRN - NPO - GI consulted. Appreciate recs. - Type and screen - FOBT - CBC Q6H Polysubstance abuse - Alcohol level 28 - [facility] protocol - Ativan 2 mg IV Q4H for signs of alcohol withdrawal - MVI/folic acid/thiamine daily - Nicotine patch - Aspiration, seizure precautions - Neurochecks - Cessation counseling HTN - hold home metoprolol due to NPO PPX - Protonix drip, SCDs Case discussed with Dr. Ne Blanc PGY-1 <Gena Olivia - Last Filed: 08/02/18 19:32> Results - Vital Signs Recent Vital Signs: Last Vital Signs Temp 98.3 F 08/02/18 14:16 Pulse 96 H 08/02/18 15:30 Resp 18 08/02/18 15:30 BP 124/83 08/02/18 15:30 Pulse Ox 96 08/02/18 15:30 - Labs Result Diagrams: 08/02/18 07:50 08/02/18 07:50 Labs: Laboratory Results - last 24 hr 08/01/18 08/01/18 08/01/18 21:10 21:10 21:10 WBC 11.6 H RBC 4.44 Hgb 14.6 Hct 43.6 MCV 98.2 D MCH 32.9 MCHC 33.5 RDW 15.5 H Plt Count 150 MPV 11.0 Neut % (Auto) 91.2 H Lymph % (Auto) 4.6 L Wake % (Auto) 4.1 Eos % (Auto) 0.0 L Baso % (Auto) 0.1 Lymph # (Auto) 0.5 L Wake # (Auto) 0.5 Eos # (Auto) 0.0 Baso # (Auto) 0.01 Absolute Neuts (auto) 10.59 H Neutrophils % (Manual) 86 H Band Neutrophils % 5 H Lymphocytes % (Manual) 3 L Monocytes % (Manual) 4 Eosinophils % (Manual) 2 Toxic Granulation 1+ Platelet Evaluation Normal Retic Count PT INR Sodium 143 Potassium 3.9 Chloride 100 Carbon Dioxide 18 L Anion Gap 30 H BUN 15 Creatinine 0.8 Est GFR ( Amer) > 60 Est GFR (Non-Af Amer) > 60 Random Glucose 93 Calcium 8.9 Magnesium 1.3 L Iron TIBC % Saturation Ferritin Total Bilirubin 1.3 AST 249 H D ALT 146 H Alkaline Phosphatase 77 Troponin I Total Protein 8.1 Albumin 5.1 H Globulin 3.0 Albumin/Globulin Ratio 1.7 Lipase 79 Urine Color Urine Appearance Urine pH Ur Specific Pooler Urine Protein Urine Glucose (UA) Urine Ketones Urine Blood Urine Nitrate Urine Bilirubin Urine Urobilinogen Ur Leukocyte Esterase Urine RBC Urine WBC Ur Epithelial Cells Urine Bacteria Hyaline Casts Alcohol, Quantitative 28 H Hepatitis A IgM Ab Hep Bs Antigen Hep B Core IgM Ab Hepatitis C Antibody Blood Type Antibody Screen BBK History Checked 08/01/18 08/01/18 08/01/18 21:10 21:10 21:10 WBC RBC Hgb Hct MCV MCH MCHC RDW Plt Count MPV Neut % (Auto) Lymph % (Auto) Wake % (Auto) Eos % (Auto) Baso % (Auto) Lymph # (Auto) Wake # (Auto) Eos # (Auto) Baso # (Auto) Absolute Neuts (auto) Neutrophils % (Manual) Band Neutrophils % Lymphocytes % (Manual) Monocytes % (Manual) Eosinophils % (Manual) Toxic Granulation Platelet Evaluation Retic Count 0.67 PT INR Sodium Potassium Chloride Carbon Dioxide Anion Gap BUN Creatinine Est GFR ( Amer) Est GFR (Non-Af Amer) Random Glucose Calcium Magnesium Iron 64 TIBC 231 L % Saturation 28 Ferritin 441.0 Total Bilirubin AST ALT Alkaline Phosphatase Troponin I < 0.01 Total Protein Albumin Globulin Albumin/Globulin Ratio Lipase Urine Color Urine Appearance Urine pH Ur Specific Pooler Urine Protein Urine Glucose (UA) Urine Ketones Urine Blood Urine Nitrate Urine Bilirubin Urine Urobilinogen Ur Leukocyte Esterase Urine RBC Urine WBC Ur Epithelial Cells Urine Bacteria Hyaline Casts Alcohol, Quantitative Hepatitis A IgM Ab Hep Bs Antigen Hep B Core IgM Ab Hepatitis C Antibody Blood Type Antibody Screen BBK History Checked 08/01/18 08/02/18 08/02/18 22:50 01:45 07:50 WBC RBC Hgb Hct MCV MCH MCHC RDW Plt Count MPV Neut % (Auto) Lymph % (Auto) Wake % (Auto) Eos % (Auto) Baso % (Auto) Lymph # (Auto) Wake # (Auto) Eos # (Auto) Baso # (Auto) Absolute Neuts (auto) Neutrophils % (Manual) Band Neutrophils % Lymphocytes % (Manual) Monocytes % (Manual) Eosinophils % (Manual) Toxic Granulation Platelet Evaluation Retic Count PT 11.3 INR 1.00 Sodium Potassium Chloride Carbon Dioxide Anion Gap BUN Creatinine Est GFR ( Amer) Est GFR (Non-Af Amer) Random Glucose Calcium Magnesium Iron TIBC % Saturation Ferritin Total Bilirubin AST ALT Alkaline Phosphatase Troponin I Total Protein Albumin Globulin Albumin/Globulin Ratio Lipase Urine Color Yellow Urine Appearance Clear Urine pH 6.0 Ur Specific Pooler >= 1.030 Urine Protein 30 H Urine Glucose (UA) Negative Urine Ketones >=80 Urine Blood Negative Urine Nitrate Negative Urine Bilirubin Negative Urine Urobilinogen 0.2 Ur Leukocyte Esterase Negative Urine RBC 0 - 2 Urine WBC 0 - 2 Ur Epithelial Cells 0 - 2 Urine Bacteria None Hyaline Casts 1-3 Alcohol, Quantitative Hepatitis A IgM Ab Hep Bs Antigen Hep B Core IgM Ab Hepatitis C Antibody Blood Type O POSITIVE Antibody Screen Negative BBK History Checked Patient has bt 08/02/18 08/02/18 08/02/18 07:50 07:50 07:50 WBC 10.3 RBC 4.09 Hgb 13.4 L Hct 40.1 L MCV 98.0 MCH 32.8 MCHC 33.4 RDW 15.4 H Plt Count 131 MPV 10.8 Neut % (Auto) 80.9 H Lymph % (Auto) 9.9 L Wake % (Auto) 9.0 H Eos % (Auto) 0.1 L Baso % (Auto) 0.1 Lymph # (Auto) 1.0 L Wake # (Auto) 0.9 H Eos # (Auto) 0.0 Baso # (Auto) 0.01 Absolute Neuts (auto) 8.36 H Neutrophils % (Manual) Band Neutrophils % Lymphocytes % (Manual) Monocytes % (Manual) Eosinophils % (Manual) Toxic Granulation Platelet Evaluation Retic Count PT INR Sodium 142 Potassium 4.1 Chloride 100 Carbon Dioxide 24 Anion Gap 22 H BUN 19 Creatinine 0.9 Est GFR ( Amer) > 60 Est GFR (Non-Af Amer) > 60 Random Glucose 111 H Calcium 8.6 Magnesium Iron TIBC % Saturation Ferritin Total Bilirubin 1.8 H AST 219 H ALT 122 H Alkaline Phosphatase 76 Troponin I Total Protein 7.8 Albumin 4.7 Globulin 3.1 Albumin/Globulin Ratio 1.5 Lipase Urine Color Urine Appearance Urine pH Ur Specific Pooler Urine Protein Urine Glucose (UA) Urine Ketones Urine Blood Urine Nitrate Urine Bilirubin Urine Urobilinogen Ur Leukocyte Esterase Urine RBC Urine WBC Ur Epithelial Cells Urine Bacteria Hyaline Casts Alcohol, Quantitative Hepatitis A IgM Ab Negative Hep Bs Antigen Negative Hep B Core IgM Ab Negative Hepatitis C Antibody Negative Blood Type Antibody Screen BBK History Checked Attending/Attestation - Attestation I have personally seen and examined this patient.: Yes I have fully participated in the care of the patient.: Yes I have reviewed all pertinent clinical information: Yes Notes (Text): 08/02/18 19:31 seen and examined with resident. A&P formulated with resident. H/O gastritis, intracranial hemorrhage, seizures, aortic stenosis, systolic CHF and HTN. Hematemesis Protonix gtt H&H Q 6 Tele GI consult Exam significate for right sided paresis (Pt.at baseline).
[2018-08-02] MEDS ORDERED: Multivitamin (MVI) 10 ML, Thiamine 100 MG, Folic Acid 1 MG in Sodium Chloride 0.9% 1,00... IV ONE (00:02)
[2018-08-02] MEDS ORDERED: Pantoprazole 40mg/100mL NS 40 MG/100 ML BAG IVPB SCH (00:15)
[2018-08-02] MEDS ORDERED: Morphine 2 mg/ml ISec IVP PRN (00:59)
[2018-08-02] MEDS ORDERED: Lidocaine 5% Patch TD PRN (01:00)
[2018-08-02 02:21] LABS: IRON 64 ug/dL (45-180)
[2018-08-02 02:30] LABS: % IRON SATURATION 28 % (20-55); TOTAL IRON BINDING CAPACITY 231 ug/dL (261-462)
[2018-08-02 03:08] LABS: TROPONIN I < 0.01 ng/mL
[2018-08-02 08:09] LABS: PROTHROMBIN TIME 11.3 SECONDS (9.4-12.5)
[2018-08-02 08:38] LABS: BASO # 0.01 K/mm3 (0.0-2.0); BASO % 0.1 % (0.0-3.0); EOS % 0.1 % (1.5-5.0); HEMOGLOBIN 13.4 g/dL (14.0-18.0); LYMPH % 9.9 % (22.0-35.0); MEAN CORPUSCULAR HEMOGLOBIN 32.8 pg (25.0-35.0); MEAN CORPUSCULAR HGB CONC 33.4 g/dl (31.0-37.0); MEAN PLATELET VOLUME 10.8 fl (7.0-11.0); MONO # 0.9 (0.1-0.6); RBC 4.09 10^6/uL (3.5-6.1); RED CELL DISTRIBUTION WIDTH 15.4 % (11.5-14.5); WHITE BLOOD COUNT 10.3 10^3/uL (4.5-11.0)
[2018-08-02 09:02] LABS: ALB/GLOB RATIO 1.5 (1.1-1.8); ALBUMIN 4.7 g/dL (3.0-4.8); ALT/SGPT 122 U/L (7-56); AST/SGOT 219 U/L (17-59); BLOOD UREA NITROGEN 19 mg/dL (7-21); CALCIUM 8.6 mg/dL (8.4-10.5); GFR NON-AFRICAN AMERICAN > 60
--- NOTE | 2018-08-02 09:48 | RAD ---
Date of service: 08/01/2018 HISTORY: CHF COMPARISON: 07/03/2017 FINDINGS: LUNGS: No active pulmonary disease. PLEURA: No significant pleural effusion identified, no pneumothorax apparent. CARDIOVASCULAR: No aortic atherosclerotic calcification present. Normal cardiac size. No pulmonary vascular congestion. OSSEOUS STRUCTURES: No significant abnormalities. VISUALIZED UPPER ABDOMEN: Normal. OTHER FINDINGS: Dual lead pacemaker IMPRESSION: No active disease.
[2018-08-02] MEDS ORDERED: Multivitamin (MVI) 10 ML, Folic Acid 1 MG, Thiamine 100 MG in Sodium Chloride 0.9% 1,00... IV SCH (10:00)
[2018-08-02] MEDS ORDERED: Thiamine 100 mg/ml Inj IM SCH (10:00)
--- NOTE | 2018-08-02 10:40 | CP.PCM.CON ---
<Meme Warner - Last Filed: 08/02/18 10:43> History of Present Illness - History of Present Illness History of Present Illness: PGY5 GI Consult Omar Myers is a 53M w/ hx of alcohol abuse, Grade D esophagitis, who presents intractable vomiting. Pt states that the onset was 1 day prior to admission. Pt states that the onset was sudden and noted that the emesis was dark brown. He does admit to drinking at least 6 beers and few shots prior to onset. Denies any abd pain, rectal bleeding or hematemsis (bright red). Pt came to the ER for further evaluation. Pt continued to have emesis in ER but resolved. His initial hgb was ~14 and only dropped to ~13 after 6 hrs. Pt was started on PPI drip. He was noted to have a hx of Grade D esophagitis in 2014 at [facility] [place]. Pt notes compliance to PPI until a few months ago and was switched to Pepcid at [place]. Vitals remained stable throughout ER visit. PMH: gastritis, intracranial hemorrhage, seizures, aortic stenosis, systolic CHF, HTN PSH: AICD, inguinal hernia repair, back surgery, right ankle surgery SHx: drinks three 24 oz. cans of beer per day for the past 30 years, 1/2 PPD for 30 years, denies illicit drug use FHx: brain cancer Endo Hx: EGD [facility] [place] 11/201415 Grade D esophagitis, Colonoscopy: unknown (pt not sure) ROS 12 point ROS conducted neg other than above Past Patient History - Infectious Disease Hx of Infectious Diseases: None - Tetanus Immunizations Tetanus Immunization: Unknown - Past Medical History & Family History Past Medical History?: Yes - Past Social History Smoking Status: Heavy Smoker > 10 Cigarettes Daily - CARDIAC Hx Cardiac Disorders: Yes Hx Cardia Arrhythmia: Yes Hx Congestive Heart Failure: Yes Hx Hypertension: Yes Hx Pacemaker: Yes (defibrillator) 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: L pacemaker +defibrillator - PULMONARY Hx Respiratory Disorders: No - NEUROLOGICAL Hx Neurological Disorder: Yes HX Cerebrovascular Accident: Yes (right sided weakness) Hx Seizures: Yes - HEENT Hx HEENT Problems: No - RENAL Hx Chronic Kidney Disease: No - ENDOCRINE/METABOLIC Hx Endocrine Disorders: No - HEMATOLOGICAL/ONCOLOGICAL Hx Blood Disorders: No Hx Blood Transfusions: No Hx Blood Transfusion Reaction: No - INTEGUMENTARY Hx Dermatological Problems: No - MUSCULOSKELETAL/RHEUMATOLOGICAL Hx Falls: No 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: R ankle surgery. back surgery - GASTROINTESTINAL Hx Gastrointestinal Disorders: No - GENITOURINARY/GYNECOLOGICAL Hx Genitourinary Disorders: No - PSYCHIATRIC Hx Psychophysiologic Disorder: Yes Hx Substance Use: No - SURGICAL HISTORY Hx Cardiac Catheterization: Yes Hx Musculoskeletal Surgery: Yes Hx Orthopedic Surgery: Yes (r ankle) Hx Valve Replacement: No 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 - ANESTHESIA Hx Anesthesia: Yes Hx Anesthesia Reactions: No Hx Malignant Hyperthermia: No Meds Allergies/Adverse Reactions: Allergies Allergy/AdvReac Type Severity Reaction Status Date / Time No Known Allergies Allergy Verified 08/01/18 18:41 - Medications Medications: Current Medications Multivitamins/Vitamin C 10 ml/Folic Acid 1 mg/ Thiamine HCl 100 mg/ Sodium Chloride 1,011.2 mls @ 100 mls/hr IV DAILY JUSTINO Lidocaine (Lidoderm) 1 ea TD DAILY PRN PRN Reason: Pain, moderate (4-7) Lorazepam (Ativan) 2 mg IVP Q4H PRN; Protocol PRN Reason: Symptoms of alcohol withdrawl Nicotine (Nicoderm Cq) 1 patch TD DAILY PRN PRN Reason: URGE TO SMOKE Ondansetron HCl (Zofran Inj) 4 mg IVP Q6H PRN PRN Reason: Nausea/Vomiting Pantoprazole Sodium (Protonix Inj) 40 mg IVP Q12 JUSTINO Physical Exam - Constitutional Appears: Well, No Acute Distress - Head Exam Head Exam: ATRAUMATIC, NORMOCEPHALIC - Eye Exam Eye Exam: Normal appearance - ENT Exam ENT Exam: Mucous Membranes Moist, Normal Exam - Neck Exam Neck exam: Positive for: Normal Inspection - Respiratory Exam Respiratory Exam: Clear to Auscultation Bilateral, NORMAL BREATHING PATTERN. absent: Rales, Rhonchi, Wheezes, Respiratory Distress - Cardiovascular Exam Cardiovascular Exam: REGULAR RHYTHM, +S1, +S2 - GI/Abdominal Exam GI & Abdominal Exam: Normal Bowel Sounds, Soft. absent: Diminished Bowel Sounds, Distended, Firm, Guarding, Hernia, Organomegaly, Rebound, Rigid - Extremities Exam Extremities exam: Negative for: joint swelling, pedal edema - Neurological Exam Neurological exam: Alert, Oriented x3 - Psychiatric Exam Psychiatric exam: Normal Affect, Normal Mood - Skin Skin Exam: Dry, Intact, Normal Color, Warm Results - Vital Signs Recent Vital Signs: Last Vital Signs Temp 98.2 F 08/02/18 07:00 Pulse 103 H 08/02/18 07:00 Resp 19 08/02/18 07:00 BP 142/78 08/02/18 07:00 Pulse Ox 98 08/02/18 07:00 - Labs Result Diagrams: 08/02/18 07:50 08/02/18 07:50 Labs: Laboratory Results - last 24 hr 08/01/18 08/01/18 08/01/18 21:10 21:10 21:10 WBC 11.6 H RBC 4.44 Hgb 14.6 Hct 43.6 MCV 98.2 D MCH 32.9 MCHC 33.5 RDW 15.5 H Plt Count 150 MPV 11.0 Neut % (Auto) 91.2 H Lymph % (Auto) 4.6 L Walker % (Auto) 4.1 Eos % (Auto) 0.0 L Baso % (Auto) 0.1 Lymph # (Auto) 0.5 L Walker # (Auto) 0.5 Eos # (Auto) 0.0 Baso # (Auto) 0.01 Absolute Neuts (auto) 10.59 H Neutrophils % (Manual) 86 H Band Neutrophils % 5 H Lymphocytes % (Manual) 3 L Monocytes % (Manual) 4 Eosinophils % (Manual) 2 Toxic Granulation 1+ Platelet Evaluation Normal Retic Count PT INR Sodium 143 Potassium 3.9 Chloride 100 Carbon Dioxide 18 L Anion Gap 30 H BUN 15 Creatinine 0.8 Est GFR ( Amer) > 60 Est GFR (Non-Af Amer) > 60 Random Glucose 93 Calcium 8.9 Magnesium 1.3 L Iron TIBC % Saturation Total Bilirubin 1.3 AST 249 H D ALT 146 H Alkaline Phosphatase 77 Troponin I Total Protein 8.1 Albumin 5.1 H Globulin 3.0 Albumin/Globulin Ratio 1.7 Lipase 79 Urine Color Urine Appearance Urine pH Ur Specific Newell Urine Protein Urine Glucose (UA) Urine Ketones Urine Blood Urine Nitrate Urine Bilirubin Urine Urobilinogen Ur Leukocyte Esterase Urine RBC Urine WBC Ur Epithelial Cells Urine Bacteria Hyaline Casts Alcohol, Quantitative 28 H Blood Type Antibody Screen BBK History Checked 08/01/18 08/01/18 08/01/18 21:10 21:10 21:10 WBC RBC Hgb Hct MCV MCH MCHC RDW Plt Count MPV Neut % (Auto) Lymph % (Auto) Walker % (Auto) Eos % (Auto) Baso % (Auto) Lymph # (Auto) Walker # (Auto) Eos # (Auto) Baso # (Auto) Absolute Neuts (auto) Neutrophils % (Manual) Band Neutrophils % Lymphocytes % (Manual) Monocytes % (Manual) Eosinophils % (Manual) Toxic Granulation Platelet Evaluation Retic Count 0.67 PT INR Sodium Potassium Chloride Carbon Dioxide Anion Gap BUN Creatinine Est GFR ( Amer) Est GFR (Non-Af Amer) Random Glucose Calcium Magnesium Iron 64 TIBC 231 L % Saturation 28 Total Bilirubin AST ALT Alkaline Phosphatase Troponin I < 0.01 Total Protein Albumin Globulin Albumin/Globulin Ratio Lipase Urine Color Urine Appearance Urine pH Ur Specific Newell Urine Protein Urine Glucose (UA) Urine Ketones Urine Blood Urine Nitrate Urine Bilirubin Urine Urobilinogen Ur Leukocyte Esterase Urine RBC Urine WBC Ur Epithelial Cells Urine Bacteria Hyaline Casts Alcohol, Quantitative Blood Type Antibody Screen BBK History Checked 08/01/18 08/02/18 08/02/18 22:50 01:45 07:50 WBC RBC Hgb Hct MCV MCH MCHC RDW Plt Count MPV Neut % (Auto) Lymph % (Auto) Walker % (Auto) Eos % (Auto) Baso % (Auto) Lymph # (Auto) Walker # (Auto) Eos # (Auto) Baso # (Auto) Absolute Neuts (auto) Neutrophils % (Manual) Band Neutrophils % Lymphocytes % (Manual) Monocytes % (Manual) Eosinophils % (Manual) Toxic Granulation Platelet Evaluation Retic Count PT 11.3 INR 1.00 Sodium Potassium Chloride Carbon Dioxide Anion Gap BUN Creatinine Est GFR ( Amer) Est GFR (Non-Af Amer) Random Glucose Calcium Magnesium Iron TIBC % Saturation Total Bilirubin AST ALT Alkaline Phosphatase Troponin I Total Protein Albumin Globulin Albumin/Globulin Ratio Lipase Urine Color Yellow Urine Appearance Clear Urine pH 6.0 Ur Specific Newell >= 1.030 Urine Protein 30 H Urine Glucose (UA) Negative Urine Ketones >=80 Urine Blood Negative Urine Nitrate Negative Urine Bilirubin Negative Urine Urobilinogen 0.2 Ur Leukocyte Esterase Negative Urine RBC 0 - 2 Urine WBC 0 - 2 Ur Epithelial Cells 0 - 2 Urine Bacteria None Hyaline Casts 1-3 Alcohol, Quantitative Blood Type O POSITIVE Antibody Screen Negative BBK History Checked Patient has bt 08/02/18 08/02/18 07:50 07:50 WBC 10.3 RBC 4.09 Hgb 13.4 L Hct 40.1 L MCV 98.0 MCH 32.8 MCHC 33.4 RDW 15.4 H Plt Count 131 MPV 10.8 Neut % (Auto) 80.9 H Lymph % (Auto) 9.9 L Walker % (Auto) 9.0 H Eos % (Auto) 0.1 L Baso % (Auto) 0.1 Lymph # (Auto) 1.0 L Walker # (Auto) 0.9 H Eos # (Auto) 0.0 Baso # (Auto) 0.01 Absolute Neuts (auto) 8.36 H Neutrophils % (Manual) Band Neutrophils % Lymphocytes % (Manual) Monocytes % (Manual) Eosinophils % (Manual) Toxic Granulation Platelet Evaluation Retic Count PT INR Sodium 142 Potassium 4.1 Chloride 100 Carbon Dioxide 24 Anion Gap 22 H BUN 19 Creatinine 0.9 Est GFR ( Amer) > 60 Est GFR (Non-Af Amer) > 60 Random Glucose 111 H Calcium 8.6 Magnesium Iron TIBC % Saturation Total Bilirubin 1.8 H AST 219 H ALT 122 H Alkaline Phosphatase 76 Troponin I Total Protein 7.8 Albumin 4.7 Globulin 3.1 Albumin/Globulin Ratio 1.5 Lipase Urine Color Urine Appearance Urine pH Ur Specific Newell Urine Protein Urine Glucose (UA) Urine Ketones Urine Blood Urine Nitrate Urine Bilirubin Urine Urobilinogen Ur Leukocyte Esterase Urine RBC Urine WBC Ur Epithelial Cells Urine Bacteria Hyaline Casts Alcohol, Quantitative Blood Type Antibody Screen BBK History Checked Assessment & Plan - Assessment and Plan (Free Text) Assessment: Patient is a 53 year old male with past medical history of intracranial hemorrha ge, seizures, aortic stenosis, systolic CHF, HTN presenting with hematemesis and alcohol intoxication. Intractable vomiting Alcohol intoxication Coffee-ground emesis? Alcoholic Hepatitis Hx of esophagitis Plan: -d/c PPI drip, start protonix 40mg IV BID -recommend abd U/S to eval liver lesions noted on prior imaging w/ AFP -zofran PRN -monitor cbc q 8hrs -maintain x2 IV access -check viral hep profile -discussed alcohol cessation with Pt -type and screen blood -start clears -will continue to monitor D/W Dr. Ramirez <Emir Ramirez Y - Last Filed: 08/02/18 12:26> Meds - Medications Medications: Current Medications Multivitamins/Vitamin C 10 ml/Folic Acid 1 mg/ Thiamine HCl 100 mg/ Sodium Chloride 1,011.2 mls @ 100 mls/hr IV DAILY JUSTINO Lidocaine (Lidoderm) 1 ea TD DAILY PRN PRN Reason: Pain, moderate (4-7) Lorazepam (Ativan) 2 mg IVP Q4H PRN; Protocol PRN Reason: Symptoms of alcohol withdrawl Nicotine (Nicoderm Cq) 1 patch TD DAILY PRN PRN Reason: URGE TO SMOKE Ondansetron HCl (Zofran Inj) 4 mg IVP Q6H PRN PRN Reason: Nausea/Vomiting Pantoprazole Sodium (Protonix Inj) 40 mg IVP Q12 JUSTINO Last Admin: 08/02/18 11:29 Dose: 40 mg Results - Vital Signs Recent Vital Signs: Last Vital Signs Temp 98 F 08/02/18 10:00 Pulse 79 08/02/18 10:00 Resp 18 08/02/18 10:00 BP 138/77 08/02/18 10:00 Pulse Ox 97 08/02/18 10:00 - Labs Result Diagrams: 08/02/18 07:50 08/02/18 07:50 Labs: Laboratory Results - last 24 hr 08/01/18 08/01/18 08/01/18 21:10 21:10 21:10 WBC 11.6 H RBC 4.44 Hgb 14.6 Hct 43.6 MCV 98.2 D MCH 32.9 MCHC 33.5 RDW 15.5 H Plt Count 150 MPV 11.0 Neut % (Auto) 91.2 H Lymph % (Auto) 4.6 L Walker % (Auto) 4.1 Eos % (Auto) 0.0 L Baso % (Auto) 0.1 Lymph # (Auto) 0.5 L Walker # (Auto) 0.5 Eos # (Auto) 0.0 Baso # (Auto) 0.01 Absolute Neuts (auto) 10.59 H Neutrophils % (Manual) 86 H Band Neutrophils % 5 H Lymphocytes % (Manual) 3 L Monocytes % (Manual) 4 Eosinophils % (Manual) 2 Toxic Granulation 1+ Platelet Evaluation Normal Retic Count PT INR Sodium 143 Potassium 3.9 Chloride 100 Carbon Dioxide 18 L Anion Gap 30 H BUN 15 Creatinine 0.8 Est GFR ( Amer) > 60 Est GFR (Non-Af Amer) > 60 Random Glucose 93 Calcium 8.9 Magnesium 1.3 L Iron TIBC % Saturation Total Bilirubin 1.3 AST 249 H D ALT 146 H Alkaline Phosphatase 77 Troponin I Total Protein 8.1 Albumin 5.1 H Globulin 3.0 Albumin/Globulin Ratio 1.7 Lipase 79 Urine Color Urine Appearance Urine pH Ur Specific Newell Urine Protein Urine Glucose (UA) Urine Ketones Urine Blood Urine Nitrate Urine Bilirubin Urine Urobilinogen Ur Leukocyte Esterase Urine RBC Urine WBC Ur Epithelial Cells Urine Bacteria Hyaline Casts Alcohol, Quantitative 28 H Blood Type Antibody Screen BBK History Checked 08/01/18 08/01/18 08/01/18 21:10 21:10 21:10 WBC RBC Hgb Hct MCV MCH MCHC RDW Plt Count MPV Neut % (Auto) Lymph % (Auto) Walker % (Auto) Eos % (Auto) Baso % (Auto) Lymph # (Auto) Walker # (Auto) Eos # (Auto) Baso # (Auto) Absolute Neuts (auto) Neutrophils % (Manual) Band Neutrophils % Lymphocytes % (Manual) Monocytes % (Manual) Eosinophils % (Manual) Toxic Granulation Platelet Evaluation Retic Count 0.67 PT INR Sodium Potassium Chloride Carbon Dioxide Anion Gap BUN Creatinine Est GFR ( Amer) Est GFR (Non-Af Amer) Random Glucose Calcium Magnesium Iron 64 TIBC 231 L % Saturation 28 Total Bilirubin AST ALT Alkaline Phosphatase Troponin I < 0.01 Total Protein Albumin Globulin Albumin/Globulin Ratio Lipase Urine Color Urine Appearance Urine pH Ur Specific Newell Urine Protein Urine Glucose (UA) Urine Ketones Urine Blood Urine Nitrate Urine Bilirubin Urine Urobilinogen Ur Leukocyte Esterase Urine RBC Urine WBC Ur Epithelial Cells Urine Bacteria Hyaline Casts Alcohol, Quantitative Blood Type Antibody Screen BBK History Checked 08/01/18 08/02/18 08/02/18 22:50 01:45 07:50 WBC RBC Hgb Hct MCV MCH MCHC RDW Plt Count MPV Neut % (Auto) Lymph % (Auto) Walker % (Auto) Eos % (Auto) Baso % (Auto) Lymph # (Auto) Walker # (Auto) Eos # (Auto) Baso # (Auto) Absolute Neuts (auto) Neutrophils % (Manual) Band Neutrophils % Lymphocytes % (Manual) Monocytes % (Manual) Eosinophils % (Manual) Toxic Granulation Platelet Evaluation Retic Count PT 11.3 INR 1.00 Sodium Potassium Chloride Carbon Dioxide Anion Gap BUN Creatinine Est GFR ( Amer) Est GFR (Non-Af Amer) Random Glucose Calcium Magnesium Iron TIBC % Saturation Total Bilirubin AST ALT Alkaline Phosphatase Troponin I Total Protein Albumin Globulin Albumin/Globulin Ratio Lipase Urine Color Yellow Urine Appearance Clear Urine pH 6.0 Ur Specific Newell >= 1.030 Urine Protein 30 H Urine Glucose (UA) Negative Urine Ketones >=80 Urine Blood Negative Urine Nitrate Negative Urine Bilirubin Negative Urine Urobilinogen 0.2 Ur Leukocyte Esterase Negative Urine RBC 0 - 2 Urine WBC 0 - 2 Ur Epithelial Cells 0 - 2 Urine Bacteria None Hyaline Casts 1-3 Alcohol, Quantitative Blood Type O POSITIVE Antibody Screen Negative BBK History Checked Patient has bt 08/02/18 08/02/18 07:50 07:50 WBC 10.3 RBC 4.09 Hgb 13.4 L Hct 40.1 L MCV 98.0 MCH 32.8 MCHC 33.4 RDW 15.4 H Plt Count 131 MPV 10.8 Neut % (Auto) 80.9 H Lymph % (Auto) 9.9 L Walker % (Auto) 9.0 H Eos % (Auto) 0.1 L Baso % (Auto) 0.1 Lymph # (Auto) 1.0 L Walker # (Auto) 0.9 H Eos # (Auto) 0.0 Baso # (Auto) 0.01 Absolute Neuts (auto) 8.36 H Neutrophils % (Manual) Band Neutrophils % Lymphocytes % (Manual) Monocytes % (Manual) Eosinophils % (Manual) Toxic Granulation Platelet Evaluation Retic Count PT INR Sodium 142 Potassium 4.1 Chloride 100 Carbon Dioxide 24 Anion Gap 22 H BUN 19 Creatinine 0.9 Est GFR ( Amer) > 60 Est GFR (Non-Af Amer) > 60 Random Glucose 111 H Calcium 8.6 Magnesium Iron TIBC % Saturation Total Bilirubin 1.8 H AST 219 H ALT 122 H Alkaline Phosphatase 76 Troponin I Total Protein 7.8 Albumin 4.7 Globulin 3.1 Albumin/Globulin Ratio 1.5 Lipase Urine Color Urine Appearance Urine pH Ur Specific Newell Urine Protein Urine Glucose (UA) Urine Ketones Urine Blood Urine Nitrate Urine Bilirubin Urine Urobilinogen Ur Leukocyte Esterase Urine RBC Urine WBC Ur Epithelial Cells Urine Bacteria Hyaline Casts Alcohol, Quantitative Blood Type Antibody Screen BBK History Checked Attending/Attestation - Attestation I have fully participated in the care of the patient.: Yes I have reviewed all pertinent clinical information: Yes Notes (Text): 08/02/18 12:24 ETOH abuse Nausea, vomiting Acute alcoholic hepatitis - Liquid diet as tolerated - Abdominal US reviewed by me showing steatosis, no evidence of hepatic lesions - Continue to monitor LFTs - Continue with PPI therapy, supportive care - ETOH cessation counseling
--- NOTE | 2018-08-02 10:47 | US ---
Date of service: 08/02/2018 HISTORY: eval liver lesions, elevated LFTs COMPARISON: None. TECHNIQUE: Sonographic evaluation of the abdomen. FINDINGS: LIVER: Measures 18.1 cm. Diffusely increased echogenicity of the liver parenchyma. Consistent with fatty infiltration. Smooth contour. No mass. No biliary ductal dilatation. GALLBLADDER: Unremarkable. No gallstones. COMMON BILE DUCT: Measures 6 mm. No stones. No dilatation. PANCREAS: Unremarkable as visualized. No mass. No ductal dilatation. RIGHT KIDNEY: Measures 11.9cm. Normal echogenicity. No calculus, mass, or hydronephrosis. LEFT KIDNEY: Measures 10.3cm. Normal echogenicity. No calculus, mass, or hydronephrosis. SPLEEN: Normal in size and contour. No mass. AORTA: No aneurysmal dilatation. IVC: Unremarkable. OTHER FINDINGS: None. IMPRESSION: Mild hepatomegaly with fatty infiltration of the liver. No evidence of cholelithiasis or cholecystitis. No evidence of biliary obstruction.
[2018-08-02 13:22] LABS: HEPATITIS B SURFACE AG Negative (NEGATIVE)
[2018-08-02 13:28] LABS: HEPATITIS A IGM NEGATIVE (NEGATIVE); HEPATITIS B CORE AB NEGATIVE (NEGATIVE)
[2018-08-02 13:39] LABS: HEPATITIS C ANTIBODY NEGATIVE (NEGATIVE)
[2018-08-02] MEDS ORDERED: Influenza Vaccine 60 mcg/0.5 mL SYR (4YR UP) IM ONE (21:52)
[2018-08-02] MEDS ORDERED: Pneumococcal 23-Valent Vaccine IM ONE (21:52)
--- NOTE | 2018-08-02 22:57 | CARD ---
APPROVED REPORT Date of service: 08/02/2018 EKG Measurement Heart [id number] <Conclusion> Poor data quality, interpretation may be adversely affected Sinus tachycardia Possible septal infarct, age undetermined NDSTT abnormalities Abnormal ECG
[2018-08-03 04:09] LABS: BASO # 0.02 K/mm3 (0.0-2.0); BASO % 0.3 % (0.0-3.0); EOS # 0.1 (0.0-0.7); EOS % 0.8 % (1.5-5.0); HEMOGLOBIN 12.7 g/dL (14.0-18.0); LYMPH # 1.8 (1.2-3.4); LYMPH % 22.9 % (22.0-35.0); MEAN CELL VOLUME 97.7 fl (80.0-105.0); MEAN CORPUSCULAR HEMOGLOBIN 32.5 pg (25.0-35.0); MEAN CORPUSCULAR HGB CONC 33.2 g/dl (31.0-37.0); MEAN PLATELET VOLUME 10.9 fl (7.0-11.0); MONO # 0.7 (0.1-0.6); MONO % 8.3 % (1.0-6.0); RBC 3.91 10^6/uL (3.5-6.1); RED CELL DISTRIBUTION WIDTH 15.3 % (11.5-14.5); WHITE BLOOD COUNT 7.9 10^3/uL (4.5-11.0)
[2018-08-03 04:27] LABS: ALB/GLOB RATIO 1.4 (1.1-1.8); ALBUMIN 3.9 g/dL (3.0-4.8); ALT/SGPT 92 U/L (7-56); AST/SGOT 121 U/L (17-59); BLOOD UREA NITROGEN 15 mg/dL (7-21); CALCIUM 8.3 mg/dL (8.4-10.5); GFR NON-AFRICAN AMERICAN > 60
[2018-08-03] MEDS ORDERED: Alum-Mag Hydrox-Simethicone Susp (30 mL) PO PRN (06:26)
--- NOTE | 2018-08-03 08:35 | CP.PCM.PN ---
<Meme Warner - Last Filed: 08/03/18 08:36> Subjective - Date & Time of Evaluation Date of Evaluation: 08/03/18 Time of Evaluation: 07:15 - Subjective Subjective: PGY5 GI Gi Followup Pt seen and examined bedside slight LLQ abd discomfort denies any BM in 3-4 days Denies any nausea or vomiting; or any additional episodes of hematemsis or coffee-ground emesis ROS: 12 point ROS conducted neg other than above Objective - Vital Signs/Intake and Output Vital Signs (last 24 hours): Temp Pulse Resp BP Pulse Ox 98.3 F 66 18 124/83 96 08/02/18 14:16 08/03/18 05:37 08/02/18 21:36 08/02/18 15:30 08/02/18 15:30 Intake and Output: 08/03/18 08/03/18 06:59 18:59 Intake Total 1860 Output Total 1350 Balance 510 - Medications Medications: Current Medications Al Hydrox/Mg Hydrox/Simethicone (Maalox Plus 30 Ml) 30 ml PO DAILY PRN PRN Reason: Indigestion / Heartburn Last Admin: 08/03/18 06:34 Dose: 30 ml Multivitamins/Vitamin C 10 ml/Folic Acid 1 mg/ Thiamine HCl 100 mg/ Sodium Chloride 1,011.2 mls @ 100 mls/hr IV DAILY [facility] Last Admin: 08/02/18 21:37 Dose: 100 mls/hr Lidocaine (Lidoderm) 1 ea TD DAILY PRN PRN Reason: Pain, moderate (4-7) Lorazepam (Ativan) 2 mg IVP Q4H PRN; Protocol PRN Reason: Symptoms of alcohol withdrawl Nicotine (Nicoderm Cq) 1 patch TD DAILY PRN PRN Reason: URGE TO SMOKE Ondansetron HCl (Zofran Inj) 4 mg IVP Q6H PRN PRN Reason: Nausea/Vomiting Pantoprazole Sodium (Protonix Inj) 40 mg IVP Q12 [facility] Last Admin: 08/02/18 21:35 Dose: 40 mg - Labs Labs: 08/03/18 03:25 08/03/18 03:25 PT 11.3 SECONDS (9.4-12.5) 08/02/18 07:50 INR 1.00 08/02/18 07:50 - Constitutional Appears: Well, No Acute Distress - Head Exam Head Exam: ATRAUMATIC, NORMOCEPHALIC - Eye Exam Eye Exam: Normal appearance - ENT Exam ENT Exam: Mucous Membranes Moist, Normal Exam - Respiratory Exam Respiratory Exam: Clear to Ausculation Bilateral, NORMAL BREATHING PATTERN. absent: Rales, Rhonchi, Wheezes, Respiratory Distress - Cardiovascular Exam Cardiovascular Exam: REGULAR RHYTHM, +S1, +S2 - GI/Abdominal Exam GI & Abdominal Exam: Soft, Normal Bowel Sounds. absent: Distended, Firm, Guarding, Rigid, Tenderness, Organomegaly, Rebound - Extremities Exam Extremities Exam: absent: Joint Swelling, Pedal Edema - Neurological Exam Neurological Exam: Alert, Awake, Oriented x3 - Psychiatric Exam Psychiatric exam: Normal Affect, Normal Mood - Skin Skin Exam: Dry, Intact, Normal Color, Warm Assessment and Plan - Assessment and Plan (Free Text) Assessment: Patient is a 53 year old male with past medical history of intracranial hemorrhage, seizures, aortic stenosis, systolic CHF, HTN presenting with hematemesis and alcohol intoxication. Intractable vomiting Alcohol intoxication Coffee-ground emesis, no further episodes, hgb stable Alcoholic Hepatitis, LFT improving, DF <32 Hx of esophagitis Plan: -continue PPi BID -Abd U/S did not reveal any lesion, or cholelithiasis -zofran PRN -maintain x2 IV access -discussed alcohol cessation with Pt -continue clears, can advance diet to full for lunch -watch for alcohol withdrawl -keep hgb > 7 -no indication for EGD at this time D/W Dr. Ramirez <Emir Ramirez - Last Filed: 08/03/18 12:26> Objective - Vital Signs/Intake and Output Vital Signs (last 24 hours): Temp Pulse Resp BP Pulse Ox 98 F 71 20 126/80 96 08/03/18 08:48 08/03/18 08:48 08/03/18 08:48 08/03/18 08:48 08/03/18 08:48 Intake and Output: 08/03/18 08/03/18 06:59 18:59 Intake Total 1860 Output Total 1350 Balance 510 - Medications Medications: Current Medications Al Hydrox/Mg Hydrox/Simethicone (Maalox Plus 30 Ml) 30 ml PO DAILY PRN PRN Reason: Indigestion / Heartburn Last Admin: 08/03/18 06:34 Dose: 30 ml Multivitamins/Vitamin C 10 ml/Folic Acid 1 mg/ Thiamine HCl 100 mg/ Sodium Chloride 1,011.2 mls @ 100 mls/hr IV DAILY [facility] Last Admin: 08/02/18 21:37 Dose: 100 mls/hr Lidocaine (Lidoderm) 1 ea TD DAILY PRN PRN Reason: Pain, moderate (4-7) Lorazepam (Ativan) 2 mg IVP Q4H PRN; Protocol PRN Reason: Symptoms of alcohol withdrawl Nicotine (Nicoderm Cq) 1 patch TD DAILY PRN PRN Reason: URGE TO SMOKE Ondansetron HCl (Zofran Inj) 4 mg IVP Q6H PRN PRN Reason: Nausea/Vomiting Pantoprazole Sodium (Protonix Inj) 40 mg IVP Q12 [facility] Last Admin: 08/03/18 12:15 Dose: 40 mg Polyethylene Glycol (Miralax) 17 gm PO BID [facility] Last Admin: 08/03/18 12:14 Dose: 17 gm Potassium Phos/Sodium Phos (Neutra-Phos) 1 pkt PO DAILY [facility] Last Admin: 08/03/18 12:15 Dose: 1 pkt Senna/Docusate Sodium (Senokot S 50 Mg-8.6 Mg) 1 tab PO HS [facility] - Labs Labs: 08/03/18 08:38 08/03/18 03:25 PT 11.3 SECONDS (9.4-12.5) 08/02/18 07:50 INR 1.00 08/02/18 07:50 Attending/Attestation - Attestation I have fully participated in the care of the patient.: Yes I have reviewed all pertinent clinical information, including history, physical exam and plan: Yes Notes (Text): 08/03/18 12:24 ETOH abuse Nausea, vomiting - resolved CHF HTN Seizure disorder Transaminitis, acute ETOH hepatitis - Advance diet as tolerated - Continue with PPI therapy - H/H stable, continue to monitor - Abdominal US reviewed by me showing no biliary dilation or hepatic lesions - Continue to monitor LFTs, viral hepatitis panel negative - ETOH cessation counseling - No further planned GI intervention, will sign off case. Please reconsult as necessary, thank you.
[2018-08-03 08:45] LABS: BASO # 0.01 K/mm3 (0.0-2.0); BASO % 0.1 % (0.0-3.0); EOS % 0.4 % (1.5-5.0); HEMOGLOBIN 12.5 g/dL (14.0-18.0); LYMPH # 1.7 (1.2-3.4); LYMPH % 24.2 % (22.0-35.0); MEAN CELL VOLUME 97.7 fl (80.0-105.0); MEAN CORPUSCULAR HEMOGLOBIN 32.2 pg (25.0-35.0); MEAN PLATELET VOLUME 9.8 fl (7.0-11.0); MONO # 0.7 (0.1-0.6); RBC 3.88 10^6/uL (3.5-6.1); RED CELL DISTRIBUTION WIDTH 15.1 % (11.5-14.5); WHITE BLOOD COUNT 6.9 10^3/uL (4.5-11.0)
[2018-08-03] MEDS ORDERED: Potassium Chloride 20 mEq ER Tab PO ONE ×2 (08:53→09:15)
[2018-08-03] MEDS ORDERED: Potassium Phosphate 15 MMOLE in Sodium Chloride 0.9% 250 ML IVPB ONE (09:14)
[2018-08-03] MEDS ORDERED: Potassium Chloride 20 mEq ER Tab PO SCH (10:00)
[2018-08-03] MEDS ORDERED: POLYETHYLENE GLYCOL 3350 17 GM/Dose PACKET PO SCH (10:00)
[2018-08-03] MEDS ORDERED: Potassium & Sodium Phosphate PO SCH (10:00)
--- NOTE | 2018-08-03 16:24 | CP.PCM.DIS ---
<NelasukhiKanwal mcclain - Last Filed: 08/03/18 16:16> Provider - Provider Date of Admission: 08/01/18 23:19 Attending physician: Tahir Gonzalez MD Primary care physician: NO FAMILY PROVIDER Consults: 08/02/18 21:29 Social Work Referral Routine Comment: gastritis/alcohol dependence Physician Instructions: Reason For Exam: eval 08/02/18 21:52 Inpatient [employer]EL [employer] Core Measures Referral Routine Comment: gastritis alcohol dependence Physician Instructions: Reason For Exam: assess Transition In Care/Readmission Reduction Routine Comment: gastritis/alcohol dependence Physician Instructions: Reason For Exam: assess Time Spent in preparation of Discharge (in minutes): 60 Diagnosis - Discharge Diagnosis (1) Alcohol abuse Status: Acute (2) Alcoholic gastritis Status: Acute Hospital Course - Lab Results Lab Results: Most Recent Lab Values WBC 6.9 10^3/uL (4.5-11.0) 08/03/18 08:38 RBC 3.88 10^6/uL (3.5-6.1) 08/03/18 08:38 Hgb 12.5 g/dL (14.0-18.0) L 08/03/18 08:38 Hct 37.9 % (42.0-52.0) L 08/03/18 08:38 MCV 97.7 fl (80.0-105.0) 08/03/18 08:38 MCH 32.2 pg (25.0-35.0) 08/03/18 08:38 MCHC 33.0 g/dl (31.0-37.0) 08/03/18 08:38 RDW 15.1 % (11.5-14.5) H 08/03/18 08:38 Plt Count 95 10^3/uL (120.0-450.0) L 08/03/18 08:38 MPV 9.8 fl (7.0-11.0) 08/03/18 08:38 Neut % (Auto) 65.3 % (50.0-68.0) 08/03/18 08:38 Lymph % (Auto) 24.2 % (22.0-35.0) 08/03/18 08:38 [place] % (Auto) 10.0 % (1.0-6.0) H 08/03/18 08:38 Eos % (Auto) 0.4 % (1.5-5.0) L 08/03/18 08:38 Baso % (Auto) 0.1 % (0.0-3.0) 08/03/18 08:38 Lymph # (Auto) 1.7 (1.2-3.4) 08/03/18 08:38 [place] # (Auto) 0.7 (0.1-0.6) H 08/03/18 08:38 Eos # (Auto) 0.0 (0.0-0.7) 08/03/18 08:38 Baso # (Auto) 0.01 K/mm3 (0.0-2.0) 08/03/18 08:38 Absolute Neuts (auto) 4.51 (1.4-6.5) 08/03/18 08:38 Neutrophils % (Manual) 86 % (50.0-70.0) H 08/01/18 21:10 Band Neutrophils % 5 % (0-2) H 08/01/18 21:10 Lymphocytes % (Manual) 3 % (22.0-35.0) L 08/01/18 21:10 Monocytes % (Manual) 4 % (1.0-6.0) 08/01/18 21:10 Eosinophils % (Manual) 2 % (0.0-3.0) 08/01/18 21:10 Toxic Granulation 1+ 08/01/18 21:10 Platelet Evaluation Normal (NORMAL) 08/01/18 21:10 Retic Count 0.67 % (0.5-1.5) 08/01/18 21:10 PT 11.3 SECONDS (9.4-12.5) 08/02/18 07:50 INR 1.00 08/02/18 07:50 Sodium 135 mmol/L (132-148) 08/03/18 03:25 Potassium 3.2 mmol/L (3.6-5.0) L 08/03/18 03:25 Chloride 96 mmol/L (98-107) L 08/03/18 03:25 Carbon Dioxide 32 mmol/L (21-33) 08/03/18 03:25 Anion Gap 10 (10-20) 08/03/18 03:25 BUN 15 mg/dL (7-21) 08/03/18 03:25 Creatinine 0.7 mg/dl (0.8-1.5) L 08/03/18 03:25 Est GFR ( Amer) > 60 08/03/18 03:25 Est GFR (Non-Af Amer) > 60 08/03/18 03:25 Random Glucose 108 mg/dL (70-110) 08/03/18 03:25 Calcium 8.3 mg/dL (8.4-10.5) L 08/03/18 03:25 Phosphorus 2.2 mg/dL (2.5-4.5) L 08/03/18 03:25 Magnesium 2.0 mg/dL (1.7-2.2) 08/03/18 03:25 Iron 64 ug/dL (45-180) 08/01/18 21:10 TIBC 231 ug/dL (261-462) L 08/01/18 21:10 % Saturation 28 % (20-55) 08/01/18 21:10 Ferritin 441.0 ng/mL 08/01/18 21:10 Total Bilirubin 2.2 mg/dL (0.2-1.3) H 08/03/18 03:25 AST 121 U/L (17-59) H D 08/03/18 03:25 ALT 92 U/L (7-56) H 08/03/18 03:25 Alkaline Phosphatase 61 U/L (38-126) 08/03/18 03:25 Troponin I < 0.01 ng/mL 08/01/18 21:10 Total Protein 6.7 g/dL (5.8-8.3) 08/03/18 03:25 Albumin 3.9 g/dL (3.0-4.8) 08/03/18 03:25 Globulin 2.8 gm/dL 08/03/18 03:25 Albumin/Globulin Ratio 1.4 (1.1-1.8) 08/03/18 03:25 Lipase 79 U/L (23-300) 08/01/18 21:10 Urine Color Yellow (YELLOW) 08/01/18 22:50 Urine Appearance Clear (CLEAR) 08/01/18 22:50 Urine pH 6.0 (4.7-8.0) 08/01/18 22:50 Ur Specific [place] >= 1.030 (1.005-1.035) 08/01/18 22:50 Urine Protein 30 mg/dL (<30 mg/dL) H 08/01/18 22:50 Urine Glucose (UA) Negative mg/dL (NEGATIVE) 08/01/18 22:50 Urine Ketones >=80 mg/dL (NEGATIVE) 08/01/18 22:50 Urine Blood Negative (NEGATIVE) 08/01/18 22:50 Urine Nitrate Negative (NEGATIVE) 08/01/18 22:50 Urine Bilirubin Negative (NEGATIVE) 08/01/18 22:50 Urine Urobilinogen 0.2 E.U./dL (<1 E.U./dL) 08/01/18 22:50 Ur Leukocyte Esterase Negative Silvia/uL (NEGATIVE) 08/01/18 22:50 Urine RBC 0 - 2 /hpf (0-2) 08/01/18 22:50 Urine WBC 0 - 2 /hpf (0-6) 08/01/18 22:50 Ur Epithelial Cells 0 - 2 /hpf (0-5) 08/01/18 22:50 Urine Bacteria None /hpf (NONE) 08/01/18 22:50 Hyaline Casts 1-3 /hpf (NONE) 08/01/18 22:50 Alcohol, Quantitative 28 mg/dL (0-10) H 08/01/18 21:10 Hepatitis A IgM Ab Negative (NEGATIVE) 08/02/18 07:50 Hep Bs Antigen Negative (NEGATIVE) 08/02/18 07:50 Hep B Core Total Ab Non reactive (Non Reactive) 08/02/18 08:43 Hep B Core IgM Ab Negative (NEGATIVE) 08/02/18 07:50 Hepatitis Be Antigen Non-reactive (Non-reactive) 08/02/18 08:43 Hepatitis C Antibody Negative (NEGATIVE) 08/02/18 07:50 Blood Type O POSITIVE 08/02/18 01:45 Antibody Screen Negative 08/02/18 01:45 BBK History Checked Patient has bt 08/02/18 01:45 - Hospital Course Hospital Course: Kanwal Winkler, PGY-1, Internal Medicine Discharge Summary for Dr. Gonzalez 53 year old male with past medical history of gastritis, intracranial hemorrhage, seizures, aortic stenosis, systolic congestive heart failure and hypertension presented with chief complaint of nausea, intractable vomiting, and abdominal discomfort of one day. Patient states that he had approximately 30 episodes of brown colored emesis the day prior to admission. He admitted to drinking at least six beers and multiple shots the night prior to onset of vomiting. He tried Tums and PeptolBismol with minimal relief. Patient had previously presented to [facility] with hematemesis in November 2014 and endoscopy done at that time showed diffuse gastritis and Grade D esophageal ulcers. Due to intractable bloody vomitus likely indicating gastritis vs. mild Angela-Gonzalez tear during this admission, patient was started on PPI drip. Lab workup showed elevated serum alcohol and LFTs. Abdominal Ultrasound was ordered by GI on 08/02 which indicated mild hepatomegaly with fatty infiltration of the liver, no evidence of cholelithiasis or cholecystitis and no evidence of biliary obstruction. Dr. Ramirez recommended checking viral hepatitis profile which returned as negative. LFTs trended downward throughout the admission. Patients diet was gradually advanced to regular diet today. Patient was treated for ETOH withdrawal with Ativan PRN. He was started on a banana bag and started on CIWA protocol. Patient did not require PRN Ativan during admission as CIWA scores were 0-2 throughout admission. Patient was started on MVI, thiamine, and folic acid once banana bag was completed. Patient was observed to rule out ACS. Troponin was negative. No acute EKG changes were noted. CXR revealed no abnormalities with an AICD placed. He was treated symptomatically with Protonix, Miralax, and Maalox for abdominal symptoms. GI recommended patient be discharged on PPI BID and does not need endoscopy at this time. Patient was stable and ready for discharge on 08/03. He reported feeling better this morning with no acute complaints. He was told to follow up with PCP and GI. He was instructed to follow his home medication regimen. He was advised on cessation of alcohol. In addition, he was told to return to the emergency department if he had any recurring or new concerning symptoms. - Date & Time of H&P Date of H&P: 08/02/18 Time of H&P: 00:01 Discharge Exam - Head Exam Head Exam: ATRAUMATIC, NORMOCEPHALIC - Eye Exam Eye Exam: EOMI, PERRL - ENT Exam ENT Exam: Mucous Membranes Moist - Respiratory Exam Respiratory Exam: Clear to PA & Lateral, NORMAL BREATHING PATTERN - Cardiovascular Exam Cardiovascular Exam: REGULAR RHYTHM, RRR - GI/Abdominal Exam GI & Abdominal Exam: Normal Bowel Sounds, Soft. absent: Tenderness - Extremities Exam Extremities exam: full ROM - Neurological Exam Neurological exam: Alert, CN II-XII Intact, Oriented x3 - Skin Skin Exam: Dry, Intact, Normal Color Discharge Plan - Discharge Medications Prescriptions: Pantoprazole Sodium [Protonix] 40 mg PO BID 10 Days #20 ect - Follow Up Plan Condition: GUARDED Disposition: HOME/ ROUTINE Instructions: Alcohol Use - When Is Drinking a Problem? Additional Instructions: Please follow up with PCP in 7-14 days and follow up with GI within 5-7 days Please take all medications as prescribed. Please refrain from alcohol use due to myriad of problems that arise with chronic use and abuse including esophageal varices, liver cancer, and esophageal cancer. 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 Routine Comment: gastritis alcohol dependence Physician Instructions: Reason For Exam: assess Transition In Care/Readmission Reduction Routine Comment: gastritis/alcohol dependence Physician Instructions: Reason For Exam: assess Hospital Course - Lab Results Lab Results: Most Recent Lab Values WBC 6.9 10^3/uL (4.5-11.0) 08/03/18 08:38 RBC 3.88 10^6/uL (3.5-6.1) 08/03/18 08:38 Hgb 12.5 g/dL (14.0-18.0) L 08/03/18 08:38 Hct 37.9 % (42.0-52.0) L 08/03/18 08:38 MCV 97.7 fl (80.0-105.0) 08/03/18 08:38 MCH 32.2 pg (25.0-35.0) 08/03/18 08:38 MCHC 33.0 g/dl (31.0-37.0) 08/03/18 08:38 RDW 15.1 % (11.5-14.5) H 08/03/18 08:38 Plt Count 95 10^3/uL (120.0-450.0) L 08/03/18 08:38 MPV 9.8 fl (7.0-11.0) 08/03/18 08:38 Neut % (Auto) 65.3 % (50.0-68.0) 08/03/18 08:38 Lymph % (Auto) 24.2 % (22.0-35.0) 08/03/18 08:38 [place] % (Auto) 10.0 % (1.0-6.0) H 08/03/18 08:38 Eos % (Auto) 0.4 % (1.5-5.0) L 08/03/18 08:38 Baso % (Auto) 0.1 % (0.0-3.0) 08/03/18 08:38 Lymph # (Auto) 1.7 (1.2-3.4) 08/03/18 08:38 [place] # (Auto) 0.7 (0.1-0.6) H 08/03/18 08:38 Eos # (Auto) 0.0 (0.0-0.7) 08/03/18 08:38 Baso # (Auto) 0.01 K/mm3 (0.0-2.0) 08/03/18 08:38 Absolute Neuts (auto) 4.51 (1.4-6.5) 08/03/18 08:38 Neutrophils % (Manual) 86 % (50.0-70.0) H 08/01/18 21:10 Band Neutrophils % 5 % (0-2) H 08/01/18 21:10 Lymphocytes % (Manual) 3 % (22.0-35.0) L 08/01/18 21:10 Monocytes % (Manual) 4 % (1.0-6.0) 08/01/18 21:10 Eosinophils % (Manual) 2 % (0.0-3.0) 08/01/18 21:10 Toxic Granulation 1+ 08/01/18 21:10 Platelet Evaluation Normal (NORMAL) 08/01/18 21:10 Retic Count 0.67 % (0.5-1.5) 08/01/18 21:10 PT 11.3 SECONDS (9.4-12.5) 08/02/18 07:50 INR 1.00 08/02/18 07:50 Sodium 135 mmol/L (132-148) 08/03/18 03:25 Potassium 3.2 mmol/L (3.6-5.0) L 08/03/18 03:25 Chloride 96 mmol/L (98-107) L 08/03/18 03:25 Carbon Dioxide 32 mmol/L (21-33) 08/03/18 03:25 Anion Gap 10 (10-20) 08/03/18 03:25 BUN 15 mg/dL (7-21) 08/03/18 03:25 Creatinine 0.7 mg/dl (0.8-1.5) L 08/03/18 03:25 Est GFR ( Amer) > 60 08/03/18 03:25 Est GFR (Non-Af Amer) > 60 08/03/18 03:25 Random Glucose 108 mg/dL (70-110) 08/03/18 03:25 Calcium 8.3 mg/dL (8.4-10.5) L 08/03/18 03:25 Phosphorus 2.2 mg/dL (2.5-4.5) L 08/03/18 03:25 Magnesium 2.0 mg/dL (1.7-2.2) 08/03/18 03:25 Iron 64 ug/dL (45-180) 08/01/18 21:10 TIBC 231 ug/dL (261-462) L 08/01/18 21:10 % Saturation 28 % (20-55) 08/01/18 21:10 Ferritin 441.0 ng/mL 08/01/18 21:10 Total Bilirubin 2.2 mg/dL (0.2-1.3) H 08/03/18 03:25 AST 121 U/L (17-59) H D 08/03/18 03:25 ALT 92 U/L (7-56) H 08/03/18 03:25 Alkaline Phosphatase 61 U/L (38-126) 08/03/18 03:25 Troponin I < 0.01 ng/mL 08/01/18 21:10 Total Protein 6.7 g/dL (5.8-8.3) 08/03/18 03:25 Albumin 3.9 g/dL (3.0-4.8) 08/03/18 03:25 Globulin 2.8 gm/dL 08/03/18 03:25 Albumin/Globulin Ratio 1.4 (1.1-1.8) 08/03/18 03:25 Lipase 79 U/L (23-300) 08/01/18 21:10 Urine Color Yellow (YELLOW) 08/01/18 22:50 Urine Appearance Clear (CLEAR) 08/01/18 22:50 Urine pH 6.0 (4.7-8.0) 08/01/18 22:50 Ur Specific [place] >= 1.030 (1.005-1.035) 08/01/18 22:50 Urine Protein 30 mg/dL (<30 mg/dL) H 08/01/18 22:50 Urine Glucose (UA) Negative mg/dL (NEGATIVE) 08/01/18 22:50 Urine Ketones >=80 mg/dL (NEGATIVE) 08/01/18 22:50 Urine Blood Negative (NEGATIVE) 08/01/18 22:50 Urine Nitrate Negative (NEGATIVE) 08/01/18 22:50 Urine Bilirubin Negative (NEGATIVE) 08/01/18 22:50 Urine Urobilinogen 0.2 E.U./dL (<1 E.U./dL) 08/01/18 22:50 Ur Leukocyte Esterase Negative Silvia/uL (NEGATIVE) 08/01/18 22:50 Urine RBC 0 - 2 /hpf (0-2) 08/01/18 22:50 Urine WBC 0 - 2 /hpf (0-6) 08/01/18 22:50 Ur Epithelial Cells 0 - 2 /hpf (0-5) 08/01/18 22:50 Urine Bacteria None /hpf (NONE) 08/01/18 22:50 Hyaline Casts 1-3 /hpf (NONE) 08/01/18 22:50 Alcohol, Quantitative 28 mg/dL (0-10) H 08/01/18 21:10 Hepatitis A IgM Ab Negative (NEGATIVE) 08/02/18 07:50 Hep Bs Antigen Negative (NEGATIVE) 08/02/18 07:50 Hep B Core Total Ab Non reactive (Non Reactive) 08/02/18 08:43 Hep B Core IgM Ab Negative (NEGATIVE) 08/02/18 07:50 Hepatitis Be Antigen Non-reactive (Non-reactive) 08/02/18 08:43 Hepatitis C Antibody Negative (NEGATIVE) 08/02/18 07:50 Blood Type O POSITIVE 08/02/18 01:45 Antibody Screen Negative 08/02/18 01:45 BBK History Checked Patient has bt 08/02/18 01:45 Attending/Attestation - Attestation I have personally seen and examined this patient.: Yes I have fully participated in the care of the patient.: Yes I have reviewed all pertinent clinical information, including history, physical exam and plan: Yes Notes (Text): 08/03/18 17:00 53 year old male with past medical history of alcohol abuse, gastritis, seizures, CHF, and hypertension who presented with complaint of ?hematemesis after recent alcohol use. He was admitted for observation. He was not in alcohol withdrawal. His nausea/vomiting resolved and he had no further episodes. LFTs were elevated likely secondary to ETOH abuse. US abdomen was reviewed. He was seen by GI who advanced diet which patient tolerated. Patient is discharged home to follow up with pmd. Follow up with GI. Discharged on PPI. Counselled on alcohol abstinence. Tahir Gonzalez MD Hospitalist.
[2018-08-03 17:07] VITALS: BP 126/84; PULSE 76; RESP 18; TEMP 98.4; O2SAT 97
[2018-08-03] MEDS ORDERED: Docusate-Senna 50 mg-8.6 mg Tab PO SCH (22:00)
== END 2018-08-03 19:58 | disposition home or self-care (01) | DRG 551 ==
LOC: ED 18:38 → ERH 23:19 → 3RSO 08-02 13:23 → ERH 08-02 15:30 → 3RSO 08-02 15:59
PROVIDERS: ADMIT Internal Medicine; ATTEND Internal Medicine
DX: K29.20 Alcoholic gastritis without bleeding (principal); I50.22 Chronic systolic (congestive) heart failure; I11.0 Hypertensive heart disease with heart failure; I35.0 Nonrheumatic aortic (valve) stenosis; F10.239 Alcohol dependence with withdrawal, unspecified; Y90.1 Blood alcohol level of 20-39 mg/100 ml; I69.351 Hemiplegia and hemiparesis following cerebral infarction affecting right dominant side; K22.10 Ulcer of esophagus without bleeding; K70.10 Alcoholic hepatitis without ascites; G40.909 Epilepsy, unspecified, not intractable, without status epilepticus; Z95.810 Presence of automatic (implantable) cardiac defibrillator; Z87.891 Personal history of nicotine dependence

== ENCOUNTER 2018-09-10 18:05 | Emergency (ER) | payer SELFPAY ==
[2018-09-10 18:06] VITALS: BMI 22.8
--- NOTE | 2018-09-10 18:17 | ED PDOC ---
Arrival/HPI - General Chief Complaint: Trauma Historian: Patient - History of Present Illness Narrative History of Present Illness (Text): 09/10/18 19:18 53 y/o male with PMH of alcohol abuse, ICH, cardiac disease (s/p ICD) presents to the ED [facility] for public intoxication. Pt has abrasion to right forehead, states he stumbled and fell today. 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 Admits to drinking a large amount of alcohol today, (+) ETOH on breath, asking for something to eat. No physical complaints. Alert and ambulating in ED. Had tetanus booster in 01/2018. Denies fever, chills, chest pain, shortness of breath, numbness, paresthesias, weakness, headache, vision changes, abdominal pain, nausea, vomiting, neck pain, back pain, or any other associated complaints . ROS and HPI limited secondary to intoxicated state. Past Medical History - Past History Past History: Non-Contributing - Infectious Disease Hx of Infectious Diseases: None - Tetanus Immunization Tetanus Immunization: Unknown - Cardiac Hx Cardiac Disorders: Yes Hx Cardiac Arrhythmia: Yes Hx Congestive Heart Failure: Yes Hx Hypertension: Yes Hx Internal Defibrillator: Yes (about 7 yrs ago) 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: pt stated"I just have a defibrillator." - Pulmonary Hx Respiratory Disorders: No - Neurological Hx Neurological Disorder: Yes HX Cerebrovascular Accident: Yes (right sided weakness) Hx Seizures: Yes 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: off balance, difficulty climbing stairs since cva 1 1/2 yrs ago - HEENT Hx HEENT Disorder: No - Renal Hx Renal Disorder: No - Endocrine/Metabolic Hx Endocrine Disorders: No - Hematological/Oncological Hx Blood Disorders: No - Integumentary Hx Dermatological Disorder: Yes (skin flushed) - Musculoskeletal/Rheumatological Hx Falls: Yes (past) - Gastrointestinal Hx Gastrointestinal Disorders: Yes (gastritis) - Genitourinary/Gynecological Hx Genitourinary Disorders: No - Psychiatric Hx Psychophysiologic Disorder: Yes Hx Substance Use: No - Past Surgical History Past Surgical History: Unable to Obtain - Surgical History Hx Cardiac Catheterization: Yes Hx Musculoskeletal Surgery: Yes Hx Orthopedic Surgery: Yes (r ankle, has a screw) Hx Valve Replacement: No 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: pt stated "I just have a defibrillator." - Anesthesia Hx Anesthesia: Yes Hx Anesthesia Reactions: No Hx Malignant Hyperthermia: No - Suicidal Assessment Feels Threatened In Home Enviroment: No Family/Social History - Physician Review Nursing Documentation Reviewed: Yes Family/Social History: No Known Family HX Smoking Status: Heavy Smoker > 10 Cigarettes Daily Hx Alcohol Use: Yes (every other day 5 beers) Frequency of alcohol use: Daily Hx Substance Use: No Hx Substance Use Treatment: No Allergies/Home Meds Allergies/Adverse Reactions: Allergies No Known Allergies Allergy (Verified 08/01/18 18:41) Home Medications: Home Meds Medication Instructions Recorded Confirmed Metoprolol Tartrate [Lopressor] 25 mg PO BID 08/26/17 08/02/18 Cyclobenzaprine [Flexeril] 10 mg PO TID 02/22/18 08/02/18 Folic Acid 1 mg PO DAILY 02/22/18 08/02/18 Review of Systems - Review of Systems Systems not reviewed;Unavailable: Intoxicated Constitutional: Normal. absent: Fatigue, Fevers Eyes: Normal. absent: Vision Changes Respiratory: Normal. absent: SOB, Cough Cardiovascular: Normal. absent: Chest Pain, Palpitations Gastrointestinal: Normal. absent: Abdominal Pain, Nausea, Vomiting Musculoskeletal: Normal. absent: Arthralgias, Back Pain, Neck Pain Skin: Other (abrasion) Neurological: Normal. absent: Headache, Dizziness, Focal Weakness, Seizure Physical Exam Vital Signs Reviewed: Yes Temperature: Afebrile Blood Pressure: Normal Pulse: Regular Respiratory Rate: Normal Appearance: Positive for: Non-Toxic, Comfortable, Unkept Pain Distress: None Mental Status: Positive for: other (Intoxicated) - Systems Exam Head: Present: Normocephalic, Abrasion (superficial abrasion to right forehead) Pupils: Present: PERRL Extroacular Muscles: Present: EOMI Conjunctiva: Present: Normal Mouth: Present: Moist Mucous Membranes Nose (External): Present: Atraumatic Nose (Internal): Present: No Active Bleeding, Other (chronic appearing nasal deformity). No: Septal Hematoma Neck: Present: Normal Range of Motion. No: Meningeal Signs, MIDLINE TENDERNESS, Paraspinal Tenderness Respiratory/Chest: Present: Clear to Auscultation, Good Air Exchange. No: Respiratory Distress, Accessory Muscle Use Cardiovascular: Present: Regular Rate and Rhythm, Normal S1, S2, Peripheal Pulses Present Abdomen: Present: Normal Bowel Sounds. No: Tenderness, Distention, Peritoneal Signs, Rebound, Guarding Back: Present: Normal Inspection. No: CVA Tenderness, Midline Tenderness, Paraspinal Tenderness Upper Extremity: Present: Normal Inspection, Normal ROM, NORMAL PULSES, Neurovascularly Intact, Capillary Refill < 2s. No: Cyanosis, Edema, Tenderness, Swelling, Temperature Abnormalties Lower Extremity: Present: Normal Inspection, NORMAL PULSES, Normal ROM, Neurovascularly Intact, Capillary Refill < 2 s. No: Edema, Tenderness, Swelling, Deformity, Temperature Abnormalties Neurological: Present: GCS=15, Motor Func Grossly Intact, Normal Sensory Function Skin: Present: Warm, Dry, Normal Color. No: Rashes Psychiatric: Present: Alert, Oriented x 3, Intoxicated Medical Decision Making ED Course and Treatment: 09/10/18 19:27 Initial Plan: * Fingerstick * CT Head * CT Maxillofacial * CT Cervical Spine * Reassess and Disposition 01:21 CT negative for acute pathology Fingerstick wnl Pt tolerated full meal without vomiting. 02:00 Patient care signed out to ED attending Dr. Bhatia, pending clinical sobriety, reassessment and disposition. - RAD Interpretation Narrative RAD Interpretations (Text): 19:[address]: FINDINGS: BRAIN Chronic periventricular and subcortical microvascular disease is seen. VENTRICLES: There is generalized parenchymal atrophy noted as demonstrated by symmetrical dilatation of ventricles and sulci. ORBITS: The orbits are unremarkable. SINUSES AND MASTOIDS: The paranasal sinuses and mastoid air cells are clear. BONES: No fracture. SOFT TISSUES: Unremarkable. MISCELLANEOUS: No acute intracranial pathology. IMPRESSION: 1. There is generalized parenchymal atrophy noted as demonstrated by symmetrical dilatation of ventricles and sulci. 2. Chronic periventricular and subcortical microvascular disease is seen. 3. No acute intracranial pathology. Electronically signed on Sep 10, 2018 7:16:29 PM EDT by: Syed Espinosa M.D., ADARSH Certified By ABR & [facility] Fellowship Trained MRI and CT Specialist 20:[address]: FINDINGS: BONES: There is deformity and multiple fractures involving the nasal bones. There is deformity of the maxillary sinuses particularly the left maxillary sinus likely related to old trauma. There is also fracture deformity of the left zygomatic arch which is likely chronic in nature. SOFT TISSUES: The soft tissues are unremarkable. SINUSES: Mucous membrane thickening involving the maxillary sinuses. ORBITS: The orbits are normal. No retrobulbar hematoma or mass. IMPRESSION: Nasal bone deformity and fractures likely chronic in nature. Deformity and old posttraumatic changes likely involving the left maxillary sinus and left zygomatic arch. Clinical correlation advised. Electronically signed on Sep 10, 2018 7:47:25 PM EDT by: James Barragan M.D., Certified by ABR, Diagnostic Radiology Cervical Spine CT: FINDINGS: There is mild reversal of the normal lordotic curve. The vertebral body stature is maintained throughout. There is advanced hypertrophic and degenerative change with disc space narrowing at the C5-C6 C6-C7 C7-T1 levels. There is minimal anterolisthesis at the C4-C5 and C5-C6 levels. Spinal canal appears preserved. There is no acute fracture. Impression: Advanced hypertrophic and degenerative changes with chronic disc disease lower cervical spine. No acute fracture. Minimal anterolisthesis at the C4-C5 and C5-C6 levels. Clinical correlation advised. Electronically signed on Sep 10, 2018 7:57:56 PM EDT by: James Barragan M.D., Certified by ABR, Diagnostic Radiology Research Attorney: Radiologist - Transfer of Care Patient signed out to Dr:: Jannette Other: Clinical sobriety, Reassessment and Disposition Disposition/Present on Arrival - Present on Arrival Any Indicators Present on Arrival: No History of DVT/PE: No History of Uncontrolled Diabetes: No Urinary Catheter: No History of Decub. Ulcer: No History Surgical Site Infection Following: None - Disposition Have Diagnosis and Disposition been Completed?: No Diagnosis: Alcohol intoxication Disposition: HOME/ ROUTINE Disposition Time: 02:00 Condition: STABLE
[2018-09-10 18:31] VITALS: RESP 18; TEMP 98.3
[2018-09-10] MEDS ORDERED: Lidocaine 5% Patch TD STA (19:48)
--- NOTE | 2018-09-11 02:14 | ED PDOC ---
Physical Exam Vital Signs Reviewed: Yes Vital Signs Temp Pulse Resp BP Pulse Ox 09/11/18 01:26 95 H 18 114/62 96 09/10/18 18:06 98.3 F 82 18 129/81 98 Temperature: Afebrile Blood Pressure: Normal Pulse: Regular Respiratory Rate: Normal Appearance: Positive for: Well-Appearing, Non-Toxic, Comfortable Pain Distress: None Mental Status: Positive for: Alert and Oriented X 3 Finger Stick Blood Glucose: 70 Medical Decision Making ED Course and Treatment: 09/11/18 02:14: Case endorsed to me by CRSITINA Hall. Pending clinical sobriety, reassessment, and disposition. - RAD Interpretation Radiology Orders: 09/10/18 18:17 CERVICAL SPINE W/O CONTRAST [CT] Stat HEAD W/O CONTRAST [CT] Stat MAXILLOFACIAL W/O CONTRAST [CT] Stat - Medication Orders Current Medication Orders: Discontinued Medications Lidocaine (Lidoderm) 1 ea TD STAT STA Stop: 09/10/18 19:49 Last Admin: 09/10/18 20:10 Dose: 1 ea MAR Transdermal Patch Site Document 09/10/18 20:10 AD (Rec: 09/10/18 20:10 AD [id number]) Transdermal Patch Site Transdermal Patch Site Right Shoulder - Scribe Statement The provider has reviewed the documentation as recorded by the Paw[employer] training under Ciara Roper Provider Scribe Attestation: All medical record entries made by the Scribe were at my direction and personally dictated by me. I have reviewed the chart and agree that the record accurately reflects my personal performance of the history, physical exam, medical decision making, and the department course for this patient. I have also personally directed, reviewed, and agree with the discharge instructions and disposition. Disposition/Present on Arrival - Present on Arrival Any Indicators Present on Arrival: No History of DVT/PE: No History of Uncontrolled Diabetes: No Urinary Catheter: No History of Decub. Ulcer: No History Surgical Site Infection Following: None - Disposition Have Diagnosis and Disposition been Completed?: Yes Diagnosis: Alcohol intoxication Disposition: HOME/ ROUTINE Disposition Time: 02:00 Patient Plan: Discharge Patient Problems: Current Active Problems Problem Status Onset Alcohol intoxication Acute Condition: GOOD Discharge Instructions (ExitCare): Alcohol Abuse and Alcoholism (DC) Forms: [employer] (Gu[place]an)
[2018-09-11 06:07] VITALS: O2SAT 100
[2018-09-11 06:09] VITALS: BP 114/89; PULSE 87
--- NOTE | 2018-09-11 09:02 | CT ---
Date of service: 09/10/2018 PROCEDURE: CT HEAD WITHOUT CONTRAST. HISTORY: headache COMPARISON: 01/14/2018 TECHNIQUE: Axial computed tomography images were obtained through the head/brain without intravenous contrast. Radiation dose: Total exam DLP = 914.07 mGy-cm. This CT exam was performed using one or more of the following dose reduction techniques: Automated exposure control, adjustment of the mA and/or kV according to patient size, and/or use of iterative reconstruction technique. FINDINGS: HEMORRHAGE: No intracranial hemorrhage. BRAIN: No mass effect or edema. No atrophy or chronic microvascular ischemic changes. VENTRICLES: Unremarkable. No hydrocephalus. CALVARIUM: Unremarkable. PARANASAL SINUSES: Unremarkable as visualized. No significant inflammatory changes. MASTOID AIR CELLS: Unremarkable as visualized. No inflammatory changes. OTHER FINDINGS: The report concurs with the preliminary [facility] report IMPRESSION: No acute findings
--- NOTE | 2018-09-11 09:08 | CT ---
Date of service: 09/10/2018 PROCEDURE: CT MAXILLOFACIAL BONES WITHOUT CONTRAST HISTORY: facial injury COMPARISON: None available. TECHNIQUE: Contiguous axial CT images of the maxillofacial bones were obtained. Coronal and sagittal reformats were generated. Radiation dose: Total exam DLP = 1688.72 mGy-cm. This CT exam was performed using one or more of the following dose reduction techniques: Automated exposure control, adjustment of the mA and/or kV according to patient size, and/or use of iterative reconstruction technique. FINDINGS: NASAL BONES: Chronic appearing nasal bone fractures ORBITS: Unremarkable. PARANASAL SINUSES/ MASTOIDS: Clear. MAXILLA: Chronic appearing fractures of the left maxilla and left zygomatic arch MANDIBLE/ TEMPOROMANDIBULAR JOINTS: Unremarkable. SKULL BASE: Unremarkable. TEMPORAL BONES: Middle ears and mastoid grossly unremarkable. OTHER FINDINGS: The report concurs with the preliminary [facility] report IMPRESSION: Chronic nasal bone in left maxillary fractures. No acute fractures
--- NOTE | 2018-09-11 09:11 | CT ---
Date of service: 09/10/2018 PROCEDURE: CT Cervical Spine without contrast HISTORY: neck pain COMPARISON: None available. TECHNIQUE: Axial computed tomography images were obtained of the cervical spine without the use of intravenous contrast. Coronal and sagittal reformatted images were created and reviewed. Radiation dose: Total exam DLP = 553.58 mGy-cm. This CT exam was performed using one or more of the following dose reduction techniques: Automated exposure control, adjustment of the mA and/or kV according to patient size, and/or use of iterative reconstruction technique. FINDINGS: VERTEBRAE: No fracture. Normal alignment. No destructive bony lesion. DISCS/SPINAL CANAL/NEURAL FORAMINA: No significant central canal or neural foraminal stenosis. Disc degeneration at C5-6 and C6-7 PARASPINAL SOFT TISSUES: Unremarkable. OTHER FINDINGS: The report concurs with the preliminary [facility] report IMPRESSION: Unremarkable CT of the cervical spine.
== END 2018-09-11 06:07 | disposition home or self-care (01) ==
LOC: ED 18:05
DX: F10.129 Alcohol abuse with intoxication, unspecified (principal); I11.0 Hypertensive heart disease with heart failure; I50.9 Heart failure, unspecified; I69.351 Hemiplegia and hemiparesis following cerebral infarction affecting right dominant side; F17.210 Nicotine dependence, cigarettes, uncomplicated

== ENCOUNTER 2018-09-27 16:23 | Observation (INO) | payer OTHER ==
[2018-09-27 16:24] VITALS: BMI 22.8
[2018-09-27] MEDS ORDERED: TDAP Vaccine 0.5 mL Syr IM ONE (17:45)
--- NOTE | 2018-09-27 18:27 | ED PDOC ---
Arrival/HPI - General Chief Complaint: Trauma Time Seen by Provider: 09/27/18 17:38 Historian: Patient - History of Present Illness Narrative History of Present Illness (Text): 09/27/18 18:35 53 year old male, with a past medical history of alcohol abuse, hypertension, ICH, and cardiac disease, who presents to the emergency department with public intoxication. Patient reports his last drink was yesterday. He reports he was walking to the store when he felt lightheaded, had LOC and hit his head. He endorses a "bump" on his right forehead and laceration on his right elbow. Patient denies any headache, nausea, palpitations, vomiting, neck pain, back pain, shortness of breath, or any other complaints. Time/Duration: 24 hours Symptom Onset: Gradual Symptom Course: Unchanged Activities at Onset: Light Context: Home Past Medical History - Provider Review Nursing Documentation Reviewed: Yes - Past History Past History: Non-Contributing - Infectious Disease Hx of Infectious Diseases: None - Tetanus Immunization Tetanus Immunization: Unknown - Cardiac Hx Cardiac Disorders: Yes Hx Cardiac Arrhythmia: Yes Hx Congestive Heart Failure: Yes Hx Hypertension: Yes Hx Internal Defibrillator: Yes (about 7 yrs ago) 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: pt stated"I just have a defibrillator." - Pulmonary Hx Respiratory Disorders: No - Neurological Hx Neurological Disorder: Yes HX Cerebrovascular Accident: Yes (right sided weakness) Hx Seizures: Yes 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: off balance, difficulty climbing stairs since cva 1 1/2 yrs ago - HEENT Hx HEENT Disorder: No - Renal Hx Renal Disorder: No - Endocrine/Metabolic Hx Endocrine Disorders: No - Hematological/Oncological Hx Blood Disorders: No - Integumentary Hx Dermatological Disorder: Yes (skin flushed) - Musculoskeletal/Rheumatological Hx Falls: Yes (past) - Gastrointestinal Hx Gastrointestinal Disorders: Yes (gastritis) - Genitourinary/Gynecological Hx Genitourinary Disorders: No - Psychiatric Hx Psychophysiologic Disorder: Yes Hx Substance Use: No - Past Surgical History Past Surgical History: Unable to Obtain - Surgical History Hx Cardiac Catheterization: Yes Hx Musculoskeletal Surgery: Yes Hx Orthopedic Surgery: Yes (r ankle, has a screw) Hx Valve Replacement: No 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: pt stated "I just have a defibrillator." - Anesthesia Hx Anesthesia: Yes Hx Anesthesia Reactions: No Hx Malignant Hyperthermia: No - Suicidal Assessment Feels Threatened In Home Enviroment: No Family/Social History - Physician Review Nursing Documentation Reviewed: Yes Family/Social History: Unknown Family HX Smoking Status: Heavy Smoker > 10 Cigarettes Daily Hx Alcohol Use: Yes (every other day 5 beers) Hx Substance Use: No Hx Substance Use Treatment: No Allergies/Home Meds Allergies/Adverse Reactions: Allergies No Known Allergies Allergy (Verified 08/01/18 18:41) Home Medications: Home Meds Medication Instructions Recorded Confirmed Metoprolol Tartrate [Lopressor] 25 mg PO BID 08/26/17 08/02/18 Cyclobenzaprine [Flexeril] 10 mg PO TID 02/22/18 08/02/18 Folic Acid 1 mg PO DAILY 02/22/18 08/02/18 Review of Systems - Physician Review All systems were reviewed & negative as marked: Yes - Review of Systems Constitutional: absent: Fevers Respiratory: absent: SOB, Cough Gastrointestinal: absent: Nausea, Vomiting Musculoskeletal: absent: Back Pain, Neck Pain Neurological: absent: Headache, Dizziness Endocrine: absent: Diaphoresis Physical Exam Vital Signs Reviewed: Yes Vital Signs Temp Pulse Resp BP Pulse Ox 09/27/18 17:04 99.3 F 94 H 18 136/86 95 Temperature: Afebrile Blood Pressure: Normal Pulse: Regular Respiratory Rate: Normal Appearance: Positive for: Non-Toxic, Comfortable Pain Distress: None Mental Status: Positive for: Alert and Oriented X 3 Finger Stick Blood Glucose: 188 - Systems Exam Head: Present: Atraumatic, Normocephalic, Swelling (+ hematoma 4cm on right side of forehead), Other Pupils: Present: PERRL Extroacular Muscles: Present: EOMI Conjunctiva: Present: Normal Mouth: Present: Dry Neck: Present: Normal Range of Motion Respiratory/Chest: Present: Clear to Auscultation, Good Air Exchange. No: Respiratory Distress, Accessory Muscle Use Cardiovascular: Present: Regular Rate and Rhythm, Normal S1, S2. No: Murmurs Abdomen: No: Tenderness, Distention, Peritoneal Signs Back: Present: Normal Inspection Upper Extremity: Present: Normal Inspection, Other (2cm laceration on olecranon process of right elow ). No: Cyanosis, Edema Lower Extremity: Present: Normal Inspection. No: Edema Neurological: Present: GCS=15, Speech Normal Skin: Present: Warm, Dry, Normal Color. No: Rashes Psychiatric: Present: Alert, Oriented x 3, Normal Insight, Normal Concentration Medical Decision Making ED Course and Treatment: 09/27/18 18:24 Impression: 53 year old male presents to the emergency department with public intoxication. Differential Diagnosis included but are not limited to: Plan: -- CT head -- EKG -- Labs -- Chest X-ray -- XR R shoulder / humerus / elbow -- IV Fluids -- Dextrose -- Boostrix vaccine -- Laceration repair -- Reassess and disposition Prior Visits: Notes and results from previous visits were reviewed. Progress Notes: XR R shoulder : no fracture, no dislocation, as read by PA XR R humerus : no fracture, no dislocation, as read by PA XR R elbow: no fracture, no dislocation, as read by PA CXR : NAD. EKG : accelerated junctional rhythm at 79 bpm, prolonged QT 452ms, no acute ST changes. Labs reviewed, trop (-), K 3.5, rest of the labs wnl. On reevaluation, patient remains awake alert and oriented 3 in no acute distress. Results d/w the patient, he is in agreement with observation in the hospital. Case d/w the medical assistant internal medicine, agrees with plan for observation, resident discussed case with Dr. Alvarez and agrees with plan for observation to remote [facility] for observation for syncope. - RAD Interpretation Narrative RAD Interpretations (Text): 09/27/18 20:07 CT Head Without IV contrast. FINDINGS: BRAIN: No acute intraparenchymal hemorrhage. No mass lesion. No CT evidence for acute territorial infarct. No midline shift or extra-axial collections. VENTRICLES: No hydrocephalus. ORBITS: The orbits are unremarkable. SINUSES AND MASTOIDS: There is mucosal membrane thickening involving the maxillary sinuses postsurgical changes medial aspect left maxillary sinus. There is deformity of the left maxillary sinus which may be related to old trauma or postsurgical change. BONES: Nasal bone fractures which may be acute and/or chronic in nature. Clinical correlation advised. There is evidence of an old fracture deformity left zygomatic arch. Metallic density projects along the superolateral aspect of the left orbit for which clinical correlation is advised. SOFT TISSUES: Unremarkable. IMPRESSION: No acute intracranial abnormality. Chronic changes suspected within the maxillary sinuses. Nasal bone fractures. Old fracture left zygomatic arch suspected. Clinical correlation advised. 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 - Medication Orders Current Medication Orders: Folic Acid 1 mg/ Thiamine HCl 100 mg/ Multivitamins/Vitamin C 10 ml/ Dextrose 1,011.2 mls @ 200 mls/hr IV .[id number] JUSTINO Discontinued Medications Tetanus/Reduced Diphtheria/Acell Pertussis (Boostrix Vaccine Inj) 0.5 ml IM .ONCE ONE Stop: 09/27/18 17:46 Procedure: Wound Repair - Time Performed Time Performed: 22:00 - Time Out Time Out: Side verified, Site verified, Patient ID confirmed - Consent Obtained Consent obtained: Verbal - Performed by Performed by: Mid-level Provider - Indications Indication(s):: Laceration - Location Location:: Right, Elbow Shape:: Linear Dimensions Length cm: 1 Depth:: Epidermis - Anesthetic Technique Anesthetic Technique: Local - Debris Debris:: None - Irrigated Irrigated with ml of normal saline: 50 - Complexity Complexity:: Simple (one layer) - Wound repair method Sutures:: # (2), Size (4-0 nylon) - Patient tolerated procedure Patient Tolerated Procedure:: Well - PA / INSTRUMENT TECHNICIAN APPRENTICE / Resident Statement / has reviewed & agrees with the documentation as recorded. / has examined the patient and agrees with the treatment plan. - Scribe Statement The provider has reviewed the documentation as recorded by the Todibsarahi Hutchins All medical record entries made by the Todibsarahi were at my direction and personally dictated by me. I have reviewed the chart and agree that the record accurately reflects my personal performance of the history, physical exam, medical decision making, and the department course for this patient. I have also personally directed, reviewed, and agree with the discharge instructions and disposition. Disposition/Present on Arrival - Present on Arrival Any Indicators Present on Arrival: No History of DVT/PE: No History of Uncontrolled Diabetes: No Urinary Catheter: No History of Decub. Ulcer: No History Surgical Site Infection Following: None - Disposition Have Diagnosis and Disposition been Completed?: Yes Diagnosis: Syncope, Alcohol abuse, Head trauma, Laceration of right elbow Disposition: HOSPITALIZED Disposition Time: 23:00 Patient Plan: Observation (to remote tele) Patient Problems: Current Active Problems Problem Status Onset Alcohol abuse Acute Head trauma Acute Laceration of right elbow Acute Syncope Acute Condition: STABLE Discharge Instructions (ExitCare): Syncope (ED), Alcohol Intoxication (ED), Abuse of Alcohol (ED), Alcohol Dependence (ED) Forms: [employer] (Grenadian)
[2018-09-27 18:51] LABS: BASO # 0.03 K/mm3 (0.0-2.0); BASO % 0.6 % (0.0-3.0); EOS % 0.4 % (1.5-5.0); HEMOGLOBIN 12.8 g/dL (14.0-18.0); LYMPH # 1.1 (1.2-3.4); LYMPH % 22.2 % (22.0-35.0); MEAN CELL VOLUME 98.4 fl (80.0-105.0); MEAN CORPUSCULAR HEMOGLOBIN 33.1 pg (25.0-35.0); MEAN CORPUSCULAR HGB CONC 33.6 g/dl (31.0-37.0); MONO # 0.8 (0.1-0.6); MONO % 16.9 % (1.0-6.0); RBC 3.87 10^6/uL (3.5-6.1); RED CELL DISTRIBUTION WIDTH 13.6 % (11.5-14.5); WHITE BLOOD COUNT 4.7 10^3/uL (4.5-11.0)
[2018-09-27 19:06] LABS: INR 1.02; PARTIAL THROMBOPLASTIN TIME 29.7 Seconds (26.9-38.3); PROTHROMBIN TIME 11.3 SECONDS (9.4-12.5)
[2018-09-27 19:12] LABS: ALB/GLOB RATIO 1.4 (1.1-1.8); ALBUMIN 4.4 g/dL (3.0-4.8); ALT/SGPT 23 U/L (7-56); AST/SGOT 55 U/L (17-59); BLOOD UREA NITROGEN 10 mg/dL (7-21); CALCIUM 8.8 mg/dL (8.4-10.5); GFR NON-AFRICAN AMERICAN > 60
[2018-09-27 19:22] LABS: TROPONIN I < 0.01 ng/mL
[2018-09-27] MEDS ORDERED: Potassium Chloride 20 mEq/15 ml LIQ UD PO STA (19:27)
[2018-09-27 19:32] LABS: CK-MB 3.2 ng/mL (0.0-3.6)
[2018-09-27] MEDS: Folic Acid 1 MG, Thiamine 100 MG, Multivitamin (MVI) 10 ML in Dextrose 5% In Water 1,00... IV SCH (19:46)
--- NOTE | 2018-09-27 20:16 | CARD ---
APPROVED REPORT Date of service: 09/27/2018 EKG Measurement Heart [id number] <Conclusion> NSR with first degree AVB Prolonged QT Abnormal ECG
[2018-09-27] MEDS ORDERED: Lidocaine 1% 5ml Abboject ONE (20:20)
--- NOTE | 2018-09-27 22:51 | CP.PCM.HP ---
<Viraj Simon - Last Filed: 09/28/18 04:29> History of Present Illness - History of Present Illness History of Present Illness: PGY-1 History and Physical for Dr. 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 Patient reports his last drink was yesterday. He states he was walking to a store when he became lightheaded, had LOC, and subsequently hit his head. He states the "bump" on his right forehead is from a fall 1-2 weeks ago. He complains of intermittent headaches and dizziness since sustaining the injury. He also has a R elbow laceration sutured on current ED visit, as per patient. He reports a history of lightheadedness and falls since his CVA ~1.5 y ears ago. He also endorses history of seizure but cannot recall when his last seizure was. He appears to have history of medication noncompliance, is not well versed on his own medical history; however, further information regarding medical history and medications was difficult to obtain as patient is mildly confused during interview. He is alert and oriented x 3 however. No fevers/chills, chest pain, palpitations, sob, cough, abdominal pain, nausea/vomiting/diarrhea/constipation, dysuria, or changes in stool. 12 pt ROS reviewed and otherwise negative. 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, L thalamus), HFrEF, aortic stenosis, HTN PSHx: AICD, inguinal hernia repair, back surgery, right ankle surgery Allergies: NKDA Home Meds: reviewed Social Hx: (+) alcohol--several cans of beers, shots of alcohol, "whatever I can get" more days than not for the past 30 years, + tobacco--1/2 ppd for 30 years, denies illicit drug use Family Hx: "brain cancer" PMD: unknown Pharmacy: listed pharmacy is [facility] pharmacy, patient also mentions [facility] ([address] [place] [address]; [phone]) Present on Admission - Present on Admission Any Indicators Present on Admission: No Review of Systems - Review of Systems All systems: reviewed and no additional remarkable complaints except Review of Systems: as per HPI Past Patient History - Infectious Disease Hx of Infectious Diseases: None - Tetanus Immunizations Tetanus Immunization: Unknown - Past Medical History & Family History Past Medical History?: Yes - Past Social History Smoking Status: Heavy Smoker > 10 Cigarettes Daily - CARDIAC Hx Cardiac Disorders: Yes Hx Cardia Arrhythmia: Yes Hx Congestive Heart Failure: Yes Hx Hypertension: Yes Hx Internal Defibrillator: Yes (about 7 yrs ago) 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: pt stated"I just have a defibrillator." - PULMONARY Hx Respiratory Disorders: No - NEUROLOGICAL Hx Neurological Disorder: Yes HX Cerebrovascular Accident: Yes (right sided weakness) Hx Seizures: Yes 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: off balance, difficulty climbing stairs since cva 1 1/2 yrs ago - HEENT Hx HEENT Problems: No - RENAL Hx Chronic Kidney Disease: No - ENDOCRINE/METABOLIC Hx Endocrine Disorders: No - HEMATOLOGICAL/ONCOLOGICAL Hx Blood Disorders: No - INTEGUMENTARY Hx Dermatological Problems: Yes (skin flushed) - MUSCULOSKELETAL/RHEUMATOLOGICAL Hx Falls: Yes (past) - GASTROINTESTINAL Hx Gastrointestinal Disorders: Yes (gastritis) - GENITOURINARY/GYNECOLOGICAL Hx Genitourinary Disorders: No - PSYCHIATRIC Hx Psychophysiologic Disorder: Yes Hx Substance Use: No - SURGICAL HISTORY Hx Cardiac Catheterization: Yes Hx Musculoskeletal Surgery: Yes Hx Orthopedic Surgery: Yes (r ankle, has a screw) Hx Valve Replacement: No 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: pt stated "I just have a defibrillator." - ANESTHESIA Hx Anesthesia: Yes Hx Anesthesia Reactions: No Hx Malignant Hyperthermia: No Meds Allergies/Adverse Reactions: Allergies Allergy/AdvReac Type Severity Reaction Status Date / Time No Known Allergies Allergy Verified 08/01/18 18:41 Physical Exam - Constitutional Appears: No Acute Distress, Confused (mildly) - Head Exam Additional comments: hematoma,~ 4cm on right side of forehead with superficial abrasion flushed, red face - Eye Exam Eye Exam: EOMI, Normal appearance, PERRL. absent: Scleral icterus Pupil Exam: NORMAL ACCOMODATION - ENT Exam ENT Exam: Mucous Membranes Dry, Normal Exam - Neck Exam Neck exam: Positive for: Full Rom, Normal Inspection. Negative for: Lymphadenopathy, Tenderness - Respiratory Exam Respiratory Exam: Clear to Auscultation Bilateral, NORMAL BREATHING PATTERN. absent: Accessory Muscle Use, Rales, Rhonchi, Wheezes, Respiratory Distress - Cardiovascular Exam Cardiovascular Exam: REGULAR RHYTHM, +S1, +S2 - GI/Abdominal Exam GI & Abdominal Exam: Normal Bowel Sounds, Soft. absent: Distended, Firm, Gu arding, Rebound, Rigid, Tenderness - Extremities Exam Extremities exam: Positive for: normal capillary refill, pedal pulses present. Negative for: calf tenderness, joint swelling, pedal edema Additional comments: abrasion noted to R anterior tibia old scabs noted to knees b/l - Back Exam Back exam: NORMAL INSPECTION - Neurological Exam Neurological exam: Alert, CN II-XII Intact, Oriented x3 Additional comments: no tremors noted - Skin Skin Exam: Abrasion (R anterior tibia), Dry, Intact, Warm Additional comments: findings as noted above Results - Vital Signs Recent Vital Signs: Last Vital Signs Temp 98.9 F 09/27/18 22:38 Pulse 68 09/27/18 22:38 Resp 18 09/27/18 22:38 BP 130/84 09/27/18 22:38 Pulse Ox 95 09/27/18 22:38 - Labs Result Diagrams: 09/27/18 18:40 09/27/18 18:40 Labs: Laboratory Results - last 24 hr 09/27/18 09/27/18 09/27/18 17:01 18:40 18:40 WBC 4.7 D RBC 3.87 Hgb 12.8 L Hct 38.1 L MCV 98.4 MCH 33.1 MCHC 33.6 RDW 13.6 Plt Count 193 MPV 10.0 Neut % (Auto) 59.9 Lymph % (Auto) 22.2 [place] % (Auto) 16.9 H Eos % (Auto) 0.4 L Baso % (Auto) 0.6 Lymph # (Auto) 1.1 L [place] # (Auto) 0.8 H Eos # (Auto) 0.0 Baso # (Auto) 0.03 Absolute Neuts (auto) 2.84 PT INR APTT Sodium 137 Potassium 3.5 L Chloride 98 Carbon Dioxide 25 Anion Gap 18 BUN 10 Creatinine 0.7 L Est GFR ( Amer) > 60 Est GFR (Non-Af Amer) > 60 POC Glucose (mg/dL) 135 H Random Glucose 107 Calcium 8.8 Magnesium 1.2 L Total Bilirubin 1.5 H AST 55 ALT 23 Alkaline Phosphatase 71 Lactate Dehydrogenase 596 Total Creatine Kinase 272 H CK-MB (CK-2) 3.2 CK-MB (CK-2) % Cancelled Troponin I < 0.01 Total Protein 7.4 Albumin 4.4 Globulin 3.0 Albumin/Globulin Ratio 1.4 Alcohol, Quantitative 09/27/18 09/27/18 18:40 18:40 WBC RBC Hgb Hct MCV MCH MCHC RDW Plt Count MPV Neut % (Auto) Lymph % (Auto) [place] % (Auto) Eos % (Auto) Baso % (Auto) Lymph # (Auto) [place] # (Auto) Eos # (Auto) Baso # (Auto) Absolute Neuts (auto) PT 11.3 INR 1.02 APTT 29.7 Sodium Potassium Chloride Carbon Dioxide Anion Gap BUN Creatinine Est GFR ( Amer) Est GFR (Non-Af Amer) POC Glucose (mg/dL) Random Glucose Calcium Magnesium Total Bilirubin AST ALT Alkaline Phosphatase Lactate Dehydrogenase Total Creatine Kinase CK-MB (CK-2) CK-MB (CK-2) % Troponin I Total Protein Albumin Globulin Albumin/Globulin Ratio Alcohol, Quantitative < 10 Assessment & Plan - Assessment and Plan (Free Text) Assessment: 53 year old male with pmhx of alcohol abuse, seizure disorder, CVA (1.5 years ago), 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 Plan: Syncope -EKG (09/28/18): accelerated junctional rhythm at 79 bpm, prolonged QT @ 452ms, no acute ST changes -f/u repeat EKG -front desk monitor -fall precautions -orthostatic vitals Head Trauma, R elbow laceration -4 cm hematoma on R forehead with superficial abrasion, 2 cm laceration on R elbow region sutured with two 4-0 nylon -CT head w/o contrast (09/28/18): No acute intraparenchymal hemorrhage. Chronic changes suspected within the maxillary sinuses. Nasal bone fractures which may be acute and/or chronic in nature. Clinical correlation advised. There is evidence of an old fracture deformity left zygomatic arch. Metallic density projects along the superolateral aspect of the left orbit Hx of Alcohol/Tobacco abuse -alcohol serum < 10 -no signs of active withdrawal on PE -CIWA protocol -fall, aspiration, seizure precautions -banana bag -MV/thiamine/folate -ativan 2 mg IVP q4 prn for signs of withdrawal -Nicotine patch 1 TD daily -alcohol/smoking cessation counseling Hx of Falls -CXR (09/28/18): no acute findings -XR R shoulder/humerus/elbow (09/28/18): no acute findings Hx of ICH -CT head without contrast (02/2017): moderate brain atrophy, 1.7 x 1.2 cm i ntraparenchymal hemorrhage L thalamus, mild surrounding edema. -PT/OT on board Hx of seizures -seizure precautions -unclear what/if any meds pt is currently on -listed pharmacy is [facility] pharmacy, patient also mentions [facility] ([address] [place] [address]; [phone]) -call pharmacy in AM to verify meds Hx of CVA -no residual deficits on PE -neurochecks -not currently on ASA/statin -verify meds with pharmacy in AM HFrEF s/p AICD placement -ECHO (02/2017): mild concentric LVH, systolic function mildly impaired with EF 45%. AV severely thickened, may be bicuspid, vegetation can not be ruled out. Mild to Moderate . -f/u repeat ECHO Moderate Aortic Stenosis -stable at this time -ECHO (02/2017): see A&P above -f/u repeat ECHO Hx of HTN -currently normotensive, continue to monitor -unclear what meds currently taking -call pharmacy in AM to verify all meds PPx, Diet, Disposition -DVT ppx: scds -GI ppx: protonix 40 mg IVP daily -Diet: HHD -PT on board Case discussed with Dr. Kim Simon DO, PGY-1 <Mariza Alvarez - Last Filed: 09/28/18 11:47> Results - Vital Signs Recent Vital Signs: Last Vital Signs Temp 98.0 F 09/28/18 06:00 Pulse 79 09/28/18 10:00 Resp 20 09/28/18 06:00 BP 140/81 09/28/18 06:00 Pulse Ox 96 09/28/18 06:00 - Labs Result Diagrams: 09/28/18 06:20 09/28/18 06:20 Labs: Laboratory Results - last 24 hr 09/27/18 09/27/18 09/27/18 17:01 18:40 18:40 WBC 4.7 D RBC 3.87 Hgb 12.8 L Hct 38.1 L MCV 98.4 MCH 33.1 MCHC 33.6 RDW 13.6 Plt Count 193 MPV 10.0 Neut % (Auto) 59.9 Lymph % (Auto) 22.2 [place] % (Auto) 16.9 H Eos % (Auto) 0.4 L Baso % (Auto) 0.6 Lymph # (Auto) 1.1 L [place] # (Auto) 0.8 H Eos # (Auto) 0.0 Baso # (Auto) 0.03 Absolute Neuts (auto) 2.84 PT INR APTT Sodium 137 Potassium 3.5 L Chloride 98 Carbon Dioxide 25 Anion Gap 18 BUN 10 Creatinine 0.7 L Est GFR ( Amer) > 60 Est GFR (Non-Af Amer) > 60 POC Glucose (mg/dL) 135 H Random Glucose 107 Calcium 8.8 Phosphorus Magnesium 1.2 L Total Bilirubin 1.5 H AST 55 ALT 23 Alkaline Phosphatase 71 Lactate Dehydrogenase 596 Total Creatine Kinase 272 H CK-MB (CK-2) 3.2 CK-MB (CK-2) % Cancelled Troponin I < 0.01 Total Protein 7.4 Albumin 4.4 Globulin 3.0 Albumin/Globulin Ratio 1.4 Alcohol, Quantitative 09/27/18 09/27/18 09/28/18 18:40 18:40 06:20 WBC 6.0 D RBC 4.05 Hgb 13.2 L Hct 39.8 L MCV 98.3 MCH 32.6 MCHC 33.2 RDW 13.5 Plt Count 181 MPV 10.0 Neut % (Auto) 48.9 L Lymph % (Auto) 28.8 [place] % (Auto) 18.5 H Eos % (Auto) 3.3 Baso % (Auto) 0.5 Lymph # (Auto) 1.7 [place] # (Auto) 1.1 H Eos # (Auto) 0.2 Baso # (Auto) 0.03 Absolute Neuts (auto) 2.93 PT 11.3 INR 1.02 APTT 29.7 Sodium Potassium Chloride Carbon Dioxide Anion Gap BUN Creatinine Est GFR ( Amer) Est GFR (Non-Af Amer) POC Glucose (mg/dL) Random Glucose Calcium Phosphorus Magnesium Total Bilirubin AST ALT Alkaline Phosphatase Lactate Dehydrogenase Total Creatine Kinase CK-MB (CK-2) CK-MB (CK-2) % Troponin I Total Protein Albumin Globulin Albumin/Globulin Ratio Alcohol, Quantitative < 10 09/28/18 06:20 WBC RBC Hgb Hct MCV MCH MCHC RDW Plt Count MPV Neut % (Auto) Lymph % (Auto) [place] % (Auto) Eos % (Auto) Baso % (Auto) Lymph # (Auto) [place] # (Auto) Eos # (Auto) Baso # (Auto) Absolute Neuts (auto) PT INR APTT Sodium 135 Potassium 3.4 L Chloride 99 Carbon Dioxide 28 Anion Gap 12 BUN 7 Creatinine 0.6 L Est GFR ( Amer) > 60 Est GFR (Non-Af Amer) > 60 POC Glucose (mg/dL) Random Glucose 101 Calcium 8.5 Phosphorus 3.0 Magnesium 1.8 Total Bilirubin 1.9 H AST 54 ALT 17 Alkaline Phosphatase 65 Lactate Dehydrogenase Total Creatine Kinase CK-MB (CK-2) CK-MB (CK-2) % Troponin I Total Protein 6.8 Albumin 3.8 Globulin 3.0 Albumin/Globulin Ratio 1.3 Alcohol, Quantitative Attending/Attestation - Attestation I have personally seen and examined this patient.: Yes I have fully participated in the care of the patient.: Yes I have reviewed all pertinent clinical information: Yes Notes (Text): 09/28/18 11:40 Pt seen with the resident by the bedside. Case discussed in detail. O/E pt has a defibrillator in the left upper anterior chest wall. Agree with documentation,assessment and plan of treatment 09/28/18 11:45
[2018-09-27] MEDS ORDERED: Magnesium Sulfate 2 gm/50 ml 2 GM/50 ML BAG IVPB ONE (23:55)
[2018-09-28 01:26] VITALS: RESP 20
[2018-09-28] MEDS ORDERED: Pneumococcal 23-Valent Vaccine IM ONE (01:26)
[2018-09-28] MEDS: Folic Acid 1 MG, Thiamine 100 MG, Multivitamin (MVI) 10 ML in Dextrose 5% In Water 1,00... IV SCH ×2 (01:45→06:49)
[2018-09-28 07:09] LABS: BASO # 0.03 K/mm3 (0.0-2.0); BASO % 0.5 % (0.0-3.0); EOS # 0.2 (0.0-0.7); EOS % 3.3 % (1.5-5.0); HEMOGLOBIN 13.2 g/dL (14.0-18.0); LYMPH # 1.7 (1.2-3.4); LYMPH % 28.8 % (22.0-35.0); MEAN CELL VOLUME 98.3 fl (80.0-105.0); MEAN CORPUSCULAR HEMOGLOBIN 32.6 pg (25.0-35.0); MEAN CORPUSCULAR HGB CONC 33.2 g/dl (31.0-37.0); MONO # 1.1 (0.1-0.6); MONO % 18.5 % (1.0-6.0); RBC 4.05 10^6/uL (3.5-6.1); RED CELL DISTRIBUTION WIDTH 13.5 % (11.5-14.5)
[2018-09-28 08:06] LABS: ALB/GLOB RATIO 1.3 (1.1-1.8); ALBUMIN 3.8 g/dL (3.0-4.8); ALT/SGPT 17 U/L (7-56); AST/SGOT 54 U/L (17-59); BLOOD UREA NITROGEN 7 mg/dL (7-21); CALCIUM 8.5 mg/dL (8.4-10.5); GFR NON-AFRICAN AMERICAN > 60
[2018-09-28] MEDS ORDERED: Potassium Chloride 20 mEq ER Tab PO ONE (08:41)
[2018-09-28] MEDS: Multivitamin With Minerals Tab PO SCH (09:29)
--- NOTE | 2018-09-28 09:36 | CP.PCM.PN ---
<Froylan Yusuf - Last Filed: 09/28/18 14:15> Subjective - Date & Time of Evaluation Date of Evaluation: 09/28/18 Time of Evaluation: 09:30 - Subjective Subjective: PGY-1 Medicine progress note for Dr. Hawkins Patient was seen and examined at bedside. No acute events overnight. Patient is resting comfortably and in no distress. He denies fevers, chills, shortness of breath, chest pain, nausea, vomiting, diarrhea, dysuria, or any other complaints. Objective - Vital Signs/Intake and Output Vital Signs (last 24 hours): Temp Pulse Resp BP Pulse Ox 98.0 F 72 20 140/81 96 09/28/18 06:00 09/28/18 06:00 09/28/18 06:00 09/28/18 06:00 09/28/18 06:00 Intake and Output: 09/28/18 09/28/18 06:59 18:59 Intake Total 1880 Output Total 900 Balance 980 - Medications Medications: Current Medications Folic Acid (Folic Acid) 1 mg PO DAILY JUSTINO Lorazepam (Ativan) 2 mg IVP Q4 PRN; Protocol PRN Reason: Symptoms of alcohol withdrawl Multivitamins/Minerals (Therapeutic-M Tab) 1 tab PO 0800 JUSTINO Nicotine (Nicoderm Cq) 1 patch TD DAILY JUSTINO Pantoprazole Sodium (Protonix Inj) 40 mg IVP DAILY JUSTINO Thiamine HCl (Vitamin B1 Tab) 100 mg PO DAILY JUSTINO - Labs Labs: 09/28/18 06:20 09/28/18 06:20 PT 11.3 SECONDS (9.4-12.5) 09/27/18 18:40 INR 1.02 09/27/18 18:40 APTT 29.7 Seconds (26.9-38.3) 09/27/18 18:40 - Additional Findings Additional findings: - Constitutional Appears: No Acute Distress, Confused (mildly) - Head Exam Additional comments: hematoma,~ 4cm on right side of forehead with superficial abrasion flushed, red face - Eye Exam Eye Exam: EOMI, Normal appearance, PERRL. absent: Scleral icterus Pupil Exam: NORMAL ACCOMODATION - ENT Exam ENT Exam: Mucous Membranes Dry, Normal Exam - Neck Exam Neck exam: Positive for: Full Rom, Normal Inspection. Negative for: Lymphadenopathy, Tenderness - Respiratory Exam Respiratory Exam: Clear to Auscultation Bilateral, NORMAL BREATHING PATTERN. absent: Accessory Muscle Use, Rales, Rhonchi, Wheezes, Respiratory Distress - Cardiovascular Exam Cardiovascular Exam: REGULAR RHYTHM, +S1, +S2 - GI/Abdominal Exam GI & Abdominal Exam: Normal Bowel Sounds, Soft. absent: Distended, Firm, Guarding, Rebound, Rigid, Tenderness - Extremities Exam Extremities exam: Positive for: normal capillary refill, pedal pulses present. Negative for: calf tenderness, joint swelling, pedal edema Additional comments: abrasion noted to R anterior tibia old scabs noted to knees b/l - Neurological Exam Neurological exam: Alert, CN II-XII Intact, Oriented x3 Additional comments: no tremors noted - Skin Skin Exam: Abrasion (R anterior tibia), Dry, Intact, Warm Assessment and Plan - Assessment and Plan (Free Text) Assessment: Patient is a 53 year old male with a past medical history of alcohol abuse, seizure disorder, CV, CHF, and HTN, admitted for syncope and alcohol intoxic ation. Plan: Syncope - Likely from alcohol abuse, r/o neurological vs cardiac etiologies - EKG (09/28/18): accelerated junctional rhythm at 79 bpm, prolonged QTc @ 518ms, no acute ST changes - Carotid ultrasound: bilateral 20-39% proximal ICA stenosis - Echocardiogram: pending - Start Keppra 500mg PO BID - Neurology consulted, Dr. Rodgers - Cardiology consulted, Dr. Richter - Continue to monitor on telemetry - Fall precautions - Check orthostatic vitals Hx of Falls - CT head w/o contrast (09/28/18): No acute intraparenchymal hemorrhage. Chronic changes suspected within the maxillary sinuses. Nasal bone fractures which may be acute and/or chronic in nature. - CXR (09/28/18): no acute findings - X-ray of R shoulder/humerus/elbow (09/28/18): no acute findings - 4 cm hematoma on R forehead with superficial abrasion, 2 cm laceration on R elbow region sutured with two 4-0 nylon Hx of Alcohol - Alcohol serum level: < 10 - CIWA: 0 - Fall, aspiration, seizure precautions - Banana bag - MV/thiamine/folate - Ativan 2 mg IVP Q4 PRN for withdrawal symptoms - Counseled on alcohol cessation Hx of seizures - Seizure precautions - Start Keppra 500mg PO BID - Ativan 2 mg IVP Q4 PRN Hypokalemia, hypomagnesemia - Replete as needed - COntinue to monitor Tobacco abuse disorder - Nicotine patch 1 TD daily - Counseled on smoking cessation Hx of CVA - CT head w/o contrast (09/28/18): No acute intraparenchymal hemorrhage. - Neurochecks - Patient not on ASA/statin HFrEF s/p AICD placement - Echo (02/2017): mild concentric LVH, systolic function mildly impaired with EF 45%. AV severely thickened, may be bicuspid, vegetation can not be ruled out. Mild to Moderate . - Repeat Echo: - Start Lisinopril 10mg QD Hx of HTN - Start Lisinopril 10mg QD - Continue to monitor PPx, Diet, Disposition -DVT ppx: SCD's -GI ppx: protonix 40 mg PO daily Patient seen and case discussed with attending, Dr. Hawkins. Froylan Yusuf, PGY-1 <Avelina Hawkins - Last Filed: 09/29/18 17:04> Objective - Vital Signs/Intake and Output Vital Signs (last 24 hours): Temp Pulse Resp BP Pulse Ox 98.4 F 77 20 127/83 98 09/29/18 00:01 09/29/18 06:00 09/29/18 00:01 09/29/18 00:01 09/29/18 00:01 - Labs Labs: 09/29/18 06:00 09/29/18 06:00 PT 11.3 SECONDS (9.4-12.5) 09/27/18 18:40 INR 1.02 09/27/18 18:40 APTT 29.7 Seconds (26.9-38.3) 09/27/18 18:40 Attending/Attestation - Attestation I have personally seen and examined this patient.: Yes I have fully participated in the care of the patient.: Yes I have reviewed all pertinent clinical information, including history, physical exam and plan: Yes Notes (Text): 09/29/18 17:04 Medical record note made by the resident after discussion with my direction and input after the patient was personally seen and examined by me. I have reviewed the chart and agree that the record accurately reflects by personal performance of the history, physical exam, data review, and medical decision-making, in the course for the patient. I have also personally directed the plan of care.
--- NOTE | 2018-09-28 09:46 | RAD ---
Date of service: 09/27/2018 PROCEDURE: CHEST RADIOGRAPH, 1 VIEW HISTORY: fall COMPARISON: 08/01/2018 FINDINGS: LUNGS: Clear. PLEURA: No pneumothorax or pleural fluid seen. CARDIOVASCULAR: No aortic atherosclerotic calcification present. Normal. OSSEOUS STRUCTURES: No significant abnormalities. VISUALIZED UPPER ABDOMEN: Normal. OTHER FINDINGS: Dual lead pacemaker IMPRESSION: No active disease.
--- NOTE | 2018-09-28 10:20 | RAD ---
Date of service: 09/27/2018 PROCEDURE: Radiographs of the right elbow. HISTORY: trauma COMPARISON: No prior. TECHNIQUE: 3 views obtained. FINDINGS: BONES: Normal. No fracture. JOINTS: Normal. No osteoarthritis. SOFT TISSUES: Normal. JOINT EFFUSION: None. OTHER FINDINGS: None. IMPRESSION: Unremarkable radiographs of the right elbow.
--- NOTE | 2018-09-28 10:22 | RAD ---
Date of service: 09/27/2018 PROCEDURE: Radiographs of the Right Shoulder HISTORY: fall COMPARISON: No prior. TECHNIQUE: 3 views obtained. FINDINGS: BONES: There is an old fracture deformity of the mid clavicle JOINTS: Normal. Glenohumeral and acromioclavicular joints preserved. No osteoarthritis. SOFT TISSUES: Normal. OTHER FINDINGS: None. IMPRESSION: No acute findings
--- NOTE | 2018-09-28 10:23 | RAD ---
PROCEDURE: Radiographs of the right humerus. HISTORY: fall COMPARISON: None. TECHNIQUE: 2 views obtained. FINDINGS: BONES: Normal. No fracture or focal lesion. SOFT TISSUES: Normal. OTHER FINDINGS: None. IMPRESSION: Normal radiographs of right humerus.
--- NOTE | 2018-09-28 10:55 | CT ---
Date of service: 09/27/2018 PROCEDURE: CT HEAD WITHOUT CONTRAST. HISTORY: trauma, fall COMPARISON: 09/10/2018 TECHNIQUE: Axial computed tomography images were obtained through the head/brain without intravenous contrast. Radiation dose: Total exam DLP = 906.77 mGy-cm. This CT exam was performed using one or more of the following dose reduction techniques: Automated exposure control, adjustment of the mA and/or kV according to patient size, and/or use of iterative reconstruction technique. FINDINGS: HEMORRHAGE: No intracranial hemorrhage. BRAIN: No mass effect or edema. There is mild atrophy VENTRICLES: Unremarkable. No hydrocephalus. CALVARIUM: Chronic fractures of the nasal bones left maxillary sinus and left zygomatic arch PARANASAL SINUSES: Unremarkable as visualized. No significant inflammatory changes. MASTOID AIR CELLS: Unremarkable as visualized. No inflammatory changes. OTHER FINDINGS: The report concurs with the preliminary [facility] report IMPRESSION: No acute intracranial findings
--- NOTE | 2018-09-28 10:59 | US ---
PROCEDURE: Bilateral carotid artery duplex ultrasound HISTORY: Carotid stenosis syncope PHYSICIAN(S): Antione Aaron MD. TECHNIQUE: Duplex sonography and color-flow Doppler were used to evaluate the carotid bifurcations and limited segments of the vertebral arteries bilaterally. FINDINGS: There is mild smooth heterogeneous echogenic plaque noted at the carotid bifurcations bilaterally. The peak systolic velocity in the proximal right internal carotid artery is 52 cm/sec. This corresponds to a 20 to 39% proximal right ICA stenosis. Normal systolic velocities are noted in the proximal right external carotid artery. There is antegrade flow in the right vertebral artery. The peak systolic velocity in the proximal left internal carotid artery is 43 cm/sec. This corresponds to a 20 to 39% proximal left ICA stenosis. Normal systolic velocities are noted in the proximal left external carotid artery. There is antegrade flow in the left vertebral artery. IMPRESSION: 1. Bilateral 20-39% proximal ICA stenoses. 2. Antegrade flow in both vertebral arteries.
--- NOTE | 2018-09-28 15:55 | CP.PCM.CON ---
<Ganesh Cole - Last Filed: 09/28/18 15:48> History of Present Illness - History of Present Illness History of Present Illness: Neuro consult note: Kelsey PGY - 2 Reason for consult: Syncope; Hx seizures 53 M with pertinent hx of alcohol abuse, seizure disorder, hemorrhagic CVA and HTN brought in by EMS because he fell in the grass. Does not remember falling this time. Says his last drink was Wednesday. When asked about his past history of falls, he states that he does not feel palpitations or chest pain or have an aura before he falls; but does say he gets dizzy every other week. Describes dizziness as sudden silveira, but it resolves shortly thereafter. Yesterday he d oes not recall feeling dizzy, and does not remember falling, which is different from when he has fallen in the past. Per EMR and patient history, he fell and hit his forehead 1-2 weeks ago, but this was a purely mechanical fall - he states he was carrying groceries for his girlfriend when he missed a step and fell. He describes his past seizures as without having an aura or loss of bowel bladder, no tongue biting, just falling. He remembers these events when he falls and does not generally have a post-ictal state. EMR review reveals that he had an EEG done in 2013 that did show possible seizure activity. Of note, patient had a hemorrhagic stroke 02/2017 states that his R side just went numb and got weak. 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, L thalamus), HFrEF, aortic stenosis, HTN PSHx: AICD, inguinal hernia repair, back surgery, right ankle surgery Allergies: NKDA Home Meds: Reviewed Social Hx: (+) alcohol for the past 30 years, +Tobacco 1/2 ppd for 30 years, denies illicit drug use Family Hx: Brain cancer PMD: Unknown Past Patient History - Infectious Disease Hx of Infectious Diseases: None - Tetanus Immunizations Tetanus Immunization: Unknown - Past Medical History & Family History Past Medical History?: Yes - Past Social History Smoking Status: Heavy Smoker > 10 Cigarettes Daily - CARDIAC Hx Cardiac Disorders: Yes Hx Congestive Heart Failure: Yes Hx Hypertension: Yes - PULMONARY Hx Respiratory Disorders: No - NEUROLOGICAL HX Cerebrovascular Accident: Yes (right sided weakness) - HEENT Hx HEENT Problems: No - RENAL Hx Chronic Kidney Disease: No - ENDOCRINE/METABOLIC Hx Endocrine Disorders: No - HEMATOLOGICAL/ONCOLOGICAL Hx Blood Disorders: No - INTEGUMENTARY Hx Dermatological Problems: Yes (skin flushed) - MUSCULOSKELETAL/RHEUMATOLOGICAL Hx Falls: Yes (past) - GASTROINTESTINAL Hx Gastrointestinal Disorders: Yes (gastritis) - GENITOURINARY/GYNECOLOGICAL Hx Genitourinary Disorders: No - PSYCHIATRIC Hx Psychophysiologic Disorder: Yes Hx Substance Use: No - SURGICAL HISTORY Hx Cardiac Catheterization: Yes Hx Musculoskeletal Surgery: Yes Hx Orthopedic Surgery: Yes (r ankle, has a screw) Hx Valve Replacement: No 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: pt stated "I just have a defibrillator." - ANESTHESIA Hx Anesthesia: Yes Hx Anesthesia Reactions: No Hx Malignant Hyperthermia: No Meds Allergies/Adverse Reactions: Allergies Allergy/AdvReac Type Severity Reaction Status Date / Time No Known Allergies Allergy Verified 08/01/18 18:41 - Medications Medications: Current Medications Folic Acid (Folic Acid) 1 mg PO DAILY [facility] Last Admin: 09/28/18 10:30 Dose: 1 mg Levetiracetam (Keppra) 500 mg PO BID [facility] Lisinopril (Zestril) 10 mg PO DAILY [facility] Lorazepam (Ativan) 2 mg IVP Q4 PRN; Protocol PRN Reason: Symptoms of alcohol withdrawl Last Admin: 09/28/18 12:20 Dose: 2 mg Metoprolol Tartrate (Lopressor) 25 mg PO BID [facility] Multivitamins/Minerals (Therapeutic-M Tab) 1 tab PO 0800 [facility] Last Admin: 09/28/18 09:29 Dose: 1 tab Nicotine (Nicoderm Cq) 1 patch TD DAILY [facility] Last Admin: 09/28/18 10:30 Dose: 1 patch Pantoprazole Sodium (Protonix Ec Tab) 40 mg PO ACB [facility] Thiamine HCl (Vitamin B1 Tab) 100 mg PO DAILY [facility] Last Admin: 09/28/18 10:29 Dose: 100 mg Physical Exam - Constitutional Appears: Well - Head Exam Head Exam: ATRAUMATIC, NORMAL INSPECTION, NORMOCEPHALIC - Eye Exam Eye Exam: EOMI, Normal appearance, PERRL Pupil Exam: NORMAL ACCOMODATION, PERRL - ENT Exam ENT Exam: Mucous Membranes Moist, Normal Exam - Neck Exam Neck exam: Positive for: Normal Inspection - Respiratory Exam Respiratory Exam: Clear to Auscultation Bilateral, NORMAL BREATHING PATTERN - Cardiovascular Exam Cardiovascular Exam: REGULAR RHYTHM - GI/Abdominal Exam GI & Abdominal Exam: Normal Bowel Sounds, Soft. absent: Tenderness - Extremities Exam Extremities exam: Positive for: normal inspection - Back Exam Back exam: NORMAL INSPECTION - Neurological Exam Neurological exam: Alert, CN II-XII Intact, Normal Gait, Oriented x3, Reflexes Normal - Psychiatric Exam Psychiatric exam: Normal Affect, Normal Mood - Skin Skin Exam: Dry, Intact, Normal Color, Warm - Additional Findings Additional findings: Mental status: The patient is alert, attentive, and oriented. Speech is clear and fluent with good repetition, comprehension, and naming. Cranial nerves: CN II - : Intact CN VII: Face is symmetric with normal eye closure and smile. CN VIII: Hearing is normal to rubbing fingers CN IX, X: Palate elevates symmetrically. Phonation is normal. CN XI: Head turning and shoulder shrug are intact CN XII: Tongue is midline with normal movements and no atrophy. Motor: Positive pronator drift of out-stretched arms on the right. Muscle bulk and tone are normal. Muscle strength: 5/5 b/l LE and UE Reflexes: 2+ b/l UE and LE Sensory: Light touch, pinprick, position sense, and vibration sense are intact in fingers and toes. Coordination: Rapid alternating movements and fine finger movements are diminished on the R. There are no abnormal or extraneous movements. Romberg is absent. Gait/Stance: Posture is normal. Gait is steady with normal steps, base, arm swing, and turning. Heel and toe walking are normal. Tandem gait is normal when the patient closes one of her eyes. Results - Vital Signs Recent Vital Signs: Last Vital Signs Temp 98.0 F 09/28/18 06:00 Pulse 79 09/28/18 10:00 Resp 20 09/28/18 06:00 BP 140/81 09/28/18 06:00 Pulse Ox 96 09/28/18 06:00 - Labs Result Diagrams: 09/28/18 06:20 09/28/18 06:20 Labs: Laboratory Results - last 24 hr 09/27/18 09/27/18 09/27/18 17:01 18:40 18:40 WBC 4.7 D RBC 3.87 Hgb 12.8 L Hct 38.1 L MCV 98.4 MCH 33.1 MCHC 33.6 RDW 13.6 Plt Count 193 MPV 10.0 Neut % (Auto) 59.9 Lymph % (Auto) 22.2 Kemper % (Auto) 16.9 H Eos % (Auto) 0.4 L Baso % (Auto) 0.6 Lymph # (Auto) 1.1 L Kemper # (Auto) 0.8 H Eos # (Auto) 0.0 Baso # (Auto) 0.03 Absolute Neuts (auto) 2.84 PT INR APTT Sodium 137 Potassium 3.5 L Chloride 98 Carbon Dioxide 25 Anion Gap 18 BUN 10 Creatinine 0.7 L Est GFR ( Amer) > 60 Est GFR (Non-Af Amer) > 60 POC Glucose (mg/dL) 135 H Random Glucose 107 Calcium 8.8 Phosphorus Magnesium 1.2 L Total Bilirubin 1.5 H AST 55 ALT 23 Alkaline Phosphatase 71 Lactate Dehydrogenase 596 Total Creatine Kinase 272 H CK-MB (CK-2) 3.2 CK-MB (CK-2) % Cancelled Troponin I < 0.01 Total Protein 7.4 Albumin 4.4 Globulin 3.0 Albumin/Globulin Ratio 1.4 Alcohol, Quantitative 09/27/18 09/27/18 09/27/18 18:40 18:40 22:55 WBC RBC Hgb Hct MCV MCH MCHC RDW Plt Count MPV Neut % (Auto) Lymph % (Auto) Kemper % (Auto) Eos % (Auto) Baso % (Auto) Lymph # (Auto) Kemper # (Auto) Eos # (Auto) Baso # (Auto) Absolute Neuts (auto) PT 11.3 INR 1.02 APTT 29.7 Sodium Potassium Chloride Carbon Dioxide Anion Gap BUN Creatinine Est GFR ( Amer) Est GFR (Non-Af Amer) POC Glucose (mg/dL) 127 H Random Glucose Calcium Phosphorus Magnesium Total Bilirubin AST ALT Alkaline Phosphatase Lactate Dehydrogenase Total Creatine Kinase CK-MB (CK-2) CK-MB (CK-2) % Troponin I Total Protein Albumin Globulin Albumin/Globulin Ratio Alcohol, Quantitative < 10 09/28/18 09/28/18 06:20 06:20 WBC 6.0 D RBC 4.05 Hgb 13.2 L Hct 39.8 L MCV 98.3 MCH 32.6 MCHC 33.2 RDW 13.5 Plt Count 181 MPV 10.0 Neut % (Auto) 48.9 L Lymph % (Auto) 28.8 Kemper % (Auto) 18.5 H Eos % (Auto) 3.3 Baso % (Auto) 0.5 Lymph # (Auto) 1.7 Kemper # (Auto) 1.1 H Eos # (Auto) 0.2 Baso # (Auto) 0.03 Absolute Neuts (auto) 2.93 PT INR APTT Sodium 135 Potassium 3.4 L Chloride 99 Carbon Dioxide 28 Anion Gap 12 BUN 7 Creatinine 0.6 L Est GFR ( Amer) > 60 Est GFR (Non-Af Amer) > 60 POC Glucose (mg/dL) Random Glucose 101 Calcium 8.5 Phosphorus 3.0 Magnesium 1.8 Total Bilirubin 1.9 H AST 54 ALT 17 Alkaline Phosphatase 65 Lactate Dehydrogenase Total Creatine Kinase CK-MB (CK-2) CK-MB (CK-2) % Troponin I Total Protein 6.8 Albumin 3.8 Globulin 3.0 Albumin/Globulin Ratio 1.3 Alcohol, Quantitative Assessment & Plan - Assessment and Plan (Free Text) Assessment: 53 M with alcohol abuse, past CVA, and seizure disorder presents for syncope and hx of seizures. Patient's Head CT is negative for bleed but shows atrophic ventricles. Plan Syncope, likely 2/2 poor po intake, alcohol intoxication Patient stated that he did not have anything to eat or drink yesterday prior to coming to the ED - Cardio on board, could be cardiogenic given severe decreased EF; given the placement of defibrillator, however, cardiac arrhythmia less likely - Carotid U/s shows bilateral 20-39% stenosis; CT Head negative for acute stroke - PT on board, they recommend home with services Seizure - Start Keppra 500 BID - The EEG in the chart is from before his intraparenchymal hemorrhage; likely that patient has seizure disorder <Darren Rodgers - Last Filed: 10/03/18 12:00> Results - Vital Signs Recent Vital Signs: Last Vital Signs Temp 98.4 F 09/29/18 00:01 Pulse 77 09/29/18 06:00 Resp 20 09/29/18 00:01 BP 127/83 09/29/18 00:01 Pulse Ox 98 09/29/18 00:01 - Labs Result Diagrams: 09/29/18 06:00 09/29/18 06:00 Attending/Attestation - Attestation I have personally seen and examined this patient.: Yes I have fully participated in the care of the patient.: Yes I have reviewed all pertinent clinical information: Yes Notes (Text): I agree with the assessment and plan. Will start Keppr 500 mg BID for seizure prophylaxis.
--- NOTE | 2018-09-28 20:55 | CARD ---
APPROVED REPORT Date of service: 09/28/2018 EXAM: Two-dimensional and M-mode echocardiogram with Doppler and color Doppler. INDICATION AORTIC STENOSIS 2D DIMENSIONS Left Atrium (2D)3.6 (1.6-4.0cm)IVSd1.0 (0.7-1.1cm) LVDd5.0 (3.9-5.9cm)LVOT Diameter2.2 (1.8-2.4cm) PWd1.1 (0.7-1.1cm)LVDs3.4 (2.5-4.0cm) FS (%) 33.4 %LVEF (%)61.8 (>50%) M-Mode DIMENSIONS Aortic Root2.40 (2.2-3.7cm)Aortic Cusp Exc.0.60 (1.5-2.0cm) Aortic Valve AoV Peak Xmjnikll114.0cm/sAoV VTI52.1cmAO Peak GR.25mmHg LVOT Peak Dapjprjh32.7cm/sLVOT VTI14.10cmAO Mean GR.15mmHg GONZALEZ (VMAX)1.54po6VHH (VTI)1.03cm2 Mitral Valve MV E Mkgfumpl34.0cm/sMV A Hwevrzmr54.4cm/sE/A ratio0.6 TDI E/Lateral E'0.0E/Medial E'0.0 Tricuspid Valve TR Peak [id number]/sRAP [id number] Peak Gr.23mmHg [id number] LEFT VENTRICLE The left ventricle is normal size. There is normal left ventricular wall thickness. The left ventricular function is normal. The left ventricular ejection fraction is within the normal range. There is normal LV segmental wall motion. Transmitral Doppler flow pattern is Grade I-abnormal relaxation pattern. RIGHT VENTRICLE The right ventricle is normal size. There is normal right ventricular wall thickness. The right ventricular systolic function is normal. There is a pacemaker lead in the right ventricle. ATRIA The left atrium size is normal. The right atrium size is normal. AORTIC VALVE The aortic valve is severely thickened. There is moderate to severe valvular aortic stenosis. MITRAL VALVE The mitral valve is mildly thickened. Mitral regurgitation is mild. TRICUSPID VALVE There is mild tricuspid regurgitation. GREAT VESSELS The aortic root is normal in size. <Conclusion> There is normal left ventricular wall thickness. The left ventricular function is normal. The left ventricular ejection fraction is within the normal range. There is normal LV segmental wall motion. Transmitral Doppler flow pattern is Grade I-abnormal relaxation pattern. The aortic valve is severely thickened. There is moderate to severe valvular aortic stenosis. Mitral regurgitation is mild. There is mild tricuspid regurgitation.
[2018-09-29 02:13] VITALS: BP 127/83; TEMP 98.4; O2SAT 98
[2018-09-29 02:46] VITALS: PULSE 77
[2018-09-29 06:49] LABS: BASO # 0.02 K/mm3 (0.0-2.0); BASO % 0.3 % (0.0-3.0); EOS # 0.2 (0.0-0.7); EOS % 2.8 % (1.5-5.0); HEMOGLOBIN 13.2 g/dL (14.0-18.0); LYMPH # 1.6 (1.2-3.4); LYMPH % 26.8 % (22.0-35.0); MEAN CELL VOLUME 98.5 fl (80.0-105.0); MEAN CORPUSCULAR HEMOGLOBIN 32.6 pg (25.0-35.0); MEAN CORPUSCULAR HGB CONC 33.1 g/dl (31.0-37.0); MEAN PLATELET VOLUME 10.3 fl (7.0-11.0); MONO # 0.9 (0.1-0.6); MONO % 15.5 % (1.0-6.0); RBC 4.05 10^6/uL (3.5-6.1); RED CELL DISTRIBUTION WIDTH 13.3 % (11.5-14.5); WHITE BLOOD COUNT 6.1 10^3/uL (4.5-11.0)
[2018-09-29 07:11] LABS: ALB/GLOB RATIO 1.2 (1.1-1.8); ALBUMIN 3.7 g/dL (3.0-4.8); ALT/SGPT 16 U/L (7-56); AST/SGOT 43 U/L (17-59); BLOOD UREA NITROGEN 6 mg/dL (7-21); CALCIUM 8.6 mg/dL (8.4-10.5); GFR NON-AFRICAN AMERICAN > 60
[2018-09-29] MEDS ORDERED: Pantoprazole 40 mg EC Tab PO SCH (07:30)
[2018-09-29] MEDS: Multivitamin With Minerals Tab PO SCH (09:34)
--- NOTE | 2018-09-29 11:48 | CON ---
DATE OF CONSULTATION: 09/29/2018 CARDIOLOGY CONSULTATION HISTORY: The patient is a 53-year-old male, who presents with a syncopal episode after an alcoholic binge. The patient's past medical history is notable for an ICD placement followed by an pigment pusher. It would be assumed that the patient had dilated cardiomyopathy, which is now, on echocardiogram recently, resolved. He denies angina, denies shortness of breath. He denies chest pain, denies shortness of breath. He has bruises from his fall. SOCIAL HISTORY: He is alcoholic. REVIEW OF SYSTEMS: He has mostly musculoskeletal and skin symptoms. SOCIAL HISTORY: He is also a smoker. PHYSICAL EXAMINATION: VITAL SIGNS: Stable. NECK: Negative JVD. LUNGS: Without rales. CARDIAC: Heart rate S1, S2. EXTREMITIES: Without edema. He has multiple bruises on the elbow and on his scalp. EKG shows normal sinus rhythm with no acute changes. LABORATORY DATA: His alcohol level is 231. Hemoglobin is 13. BUN and creatinine are normal. His troponin is negative. IMPRESSION: 1. Status post syncope after an alcoholic binge 2. Multiple bruises 3. 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 No LV outflow obstruction. His aortic valve, which shows some sclerosis and mild stenosis, is unchanged from one done 2 years ago. 4. Chronic obstructive pulmonary disease. 5. Probable diabetes mellitus. PLAN: Given these findings, I have discussed with the patient about the need to stop smoking. No further cardiac workup is necessary at this time. The patient needs to follow up with his cardiac pigment pusher. Antione Richter MD
--- NOTE | 2018-09-29 13:56 | CP.PCM.DIS ---
<Kings [place]ota - Last Filed: 09/29/18 13:40> Provider - Provider Date of Admission: 09/27/18 23:00 Attending physician: Avelina Hawkins MD Consults: 09/28/18 01:26 Transition In Care/Readmission Reduction Routine Comment: Physician Instructions: Reason For Exam: PROTOCOL 09/28/18 03:26 Cardiology Consult Routine Comment: Consulting Provider: Antione Richter Consulting Physician: Antione Richter Reason for Consult: Syncope, pt with AICD Neurology Consult Routine Comment: Consulting Provider: Darren Rodgers Consulting Physician: Darren Rodgers Reason for Consult: Syncope Time Spent in preparation of Discharge (in minutes): 40 Diagnosis - Discharge Diagnosis (1) Alcohol abuse Status: Chronic (2) Seizure disorder Status: Acute (3) (HFpEF) heart failure with preserved ejection fraction Status: Chronic (4) Aortic stenosis Status: Chronic Hospital Course - Lab Results Lab Results: Most Recent Lab Values WBC 6.1 10^3/uL (4.5-11.0) 09/29/18 06:00 RBC 4.05 10^6/uL (3.5-6.1) 09/29/18 06:00 Hgb 13.2 g/dL (14.0-18.0) L 09/29/18 06:00 Hct 39.9 % (42.0-52.0) L 09/29/18 06:00 MCV 98.5 fl (80.0-105.0) 09/29/18 06:00 MCH 32.6 pg (25.0-35.0) 09/29/18 06:00 MCHC 33.1 g/dl (31.0-37.0) 09/29/18 06:00 RDW 13.3 % (11.5-14.5) 09/29/18 06:00 Plt Count 175 10^3/uL (120.0-450.0) 09/29/18 06:00 MPV 10.3 fl (7.0-11.0) 09/29/18 06:00 Neut % (Auto) 54.6 % (50.0-68.0) 09/29/18 06:00 Lymph % (Auto) 26.8 % (22.0-35.0) 09/29/18 06:00 [place] % (Auto) 15.5 % (1.0-6.0) H 09/29/18 06:00 Eos % (Auto) 2.8 % (1.5-5.0) 09/29/18 06:00 Baso % (Auto) 0.3 % (0.0-3.0) 09/29/18 06:00 Lymph # (Auto) 1.6 (1.2-3.4) 09/29/18 06:00 [place] # (Auto) 0.9 (0.1-0.6) H 09/29/18 06:00 Eos # (Auto) 0.2 (0.0-0.7) 09/29/18 06:00 Baso # (Auto) 0.02 K/mm3 (0.0-2.0) 09/29/18 06:00 Absolute Neuts (auto) 3.32 (1.4-6.5) 09/29/18 06:00 PT 11.3 SECONDS (9.4-12.5) 09/27/18 18:40 INR 1.02 09/27/18 18:40 APTT 29.7 Seconds (26.9-38.3) 09/27/18 18:40 Sodium 137 mmol/L (132-148) 09/29/18 06:00 Potassium 4.0 mmol/L (3.6-5.0) 09/29/18 06:00 Chloride 103 mmol/L (98-107) 09/29/18 06:00 Carbon Dioxide 26 mmol/L (21-33) 09/29/18 06:00 Anion Gap 12 (10-20) 09/29/18 06:00 BUN 6 mg/dL (7-21) L 09/29/18 06:00 Creatinine 0.7 mg/dl (0.8-1.5) L 09/29/18 06:00 Est GFR ( Amer) > 60 09/29/18 06:00 Est GFR (Non-Af Amer) > 60 09/29/18 06:00 POC Glucose (mg/dL) 127 mg/dL (65-110) H 09/27/18 22:55 Random Glucose 93 mg/dL (70-110) 09/29/18 06:00 Calcium 8.6 mg/dL (8.4-10.5) 09/29/18 06:00 Phosphorus 3.6 mg/dL (2.5-4.5) 09/29/18 06:00 Magnesium 1.7 mg/dL (1.7-2.2) 09/29/18 06:00 Total Bilirubin 1.4 mg/dL (0.2-1.3) H 09/29/18 06:00 AST 43 U/L (17-59) 09/29/18 06:00 ALT 16 U/L (7-56) 09/29/18 06:00 Alkaline Phosphatase 65 U/L (38-126) 09/29/18 06:00 Lactate Dehydrogenase 596 U/L (333-699) 09/27/18 18:40 Total Creatine Kinase 272 U/L (35-230) H 09/27/18 18:40 CK-MB (CK-2) 3.2 ng/mL (0.0-3.6) 09/27/18 18:40 CK-MB (CK-2) % Cancelled 09/27/18 18:40 Troponin I < 0.01 ng/mL 09/27/18 18:40 Total Protein 6.8 g/dL (5.8-8.3) 09/29/18 06:00 Albumin 3.7 g/dL (3.0-4.8) 09/29/18 06:00 Globulin 3.1 gm/dL 09/29/18 06:00 Albumin/Globulin Ratio 1.2 (1.1-1.8) 09/29/18 06:00 Alcohol, Quantitative < 10 mg/dL (0-10) 09/27/18 18:40 - Hospital Course Hospital Course: Patient is a 53 year old male with past medical history of alcohol abuse, seizure disorder, CVA (1.5 years ago), 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 Patient sustained head injury and right elbow laceration from fall. Patient was unconscious for unknown amount of time. CT of the head was negative and all x-rays were negative. Patient admits to binge alcohol drinking and medication non-compliance. Patient was admitted for alcohol abuse with risk of withdrawal and evaluation for possible seizure. During hospital course, patient was monitored for EtOH withdrawal, but minimal Ativan was required. Patient fall was likely 2/2 poor PO intake and EtOH intoxication. Patient was started on Keppra by neurology for his seziure disorder. Patient was also evaluated by cardiology, who recommended resuming current medical management. Echo showed normal EF and severe , which was improved on prior echo which showed reduced EF. Patient was counselled on EtOH abuse and was advised complete cessation. Patient was discharged and instructed to follow up with the [facility] clinic. Medications on Discharge: - Folate, MV, Thiamine - Keppra 500 mg BID - Lisinopril 10 mg daily - Metoprolol tartrate 25 mg BID Discharge Exam - Head Exam Head Exam: ATRAUMATIC, NORMAL INSPECTION, NORMOCEPHALIC - Eye Exam Eye Exam: Normal appearance Pupil Exam: NORMAL ACCOMODATION - ENT Exam ENT Exam: Normal Exam - Respiratory Exam Respiratory Exam: Clear to PA & Lateral. absent: Rales, Rhonchi, Wheezes - Cardiovascular Exam Cardiovascular Exam: RRR, +S1, +S2, Systolic Murmur. absent: Diastolic murmur, Gallop, Rubs - GI/Abdominal Exam GI & Abdominal Exam: Soft. absent: Distended, Guarding, Rebound, Tenderness - Exam Exam: NORMAL INSPECTION - Extremities Exam Extremities exam: normal inspection - Back Exam Back exam: NORMAL INSPECTION - Neurological Exam Neurological exam: Alert, CN II-XII Intact, Oriented x3 - Psychiatric Exam Psychiatric exam: Normal Affect - Skin Skin Exam: Normal Color, Warm Discharge Plan - Discharge Medications Prescriptions: Folic Acid 1 mg PO DAILY #30 tab levETIRAcetam [Keppra] 500 mg PO BID #60 tab Lisinopril [Zestril] 10 mg PO DAILY #30 tab Multimineral/Multivitamin [Therapeutic-M Tab] 1 tab PO 0800 #30 tab Thiamine [Vitamin B1 Tab] 100 mg PO DAILY #30 tab - Follow Up Plan Condition: STABLE Disposition: HOME/ ROUTINE Instructions: Alcohol Use - When Is Drinking a Problem?, Preventing Falls in the Older Adult, Alcohol Intoxication (DC), Alcohol Withdrawal (DC) Additional Instructions: Please follow up with the [facility] clinic (ground floor) next , October 06 at 3 pm. Please take new medications as prescribed and resume home medications as indicated on discharge instructions Stop all alcohol use Proceed to ED if symptoms return Referrals: Darren Rodgers MD [Staff Provider] - <Avelina Hawkins - Last Filed: 09/29/18 17:04> Provider - Provider Date of Admission: 09/27/18 23:00 Attending physician: Avelina Hawkins MD Consults: 09/28/18 01:26 Transition In Care/Readmission Reduction Routine Comment: Physician Instructions: Reason For Exam: PROTOCOL 09/28/18 03:26 Cardiology Consult Routine Comment: Consulting Provider: Antione Richter Consulting Physician: Antione Richter Reason for Consult: Syncope, pt with AICD Neurology Consult Routine Comment: Consulting Provider: Darren Rodgers Consulting Physician: Darren Rodgers Reason for Consult: Syncope Hospital Course - Lab Results Lab Results: Most Recent Lab Values WBC 6.1 10^3/uL (4.5-11.0) 09/29/18 06:00 RBC 4.05 10^6/uL (3.5-6.1) 09/29/18 06:00 Hgb 13.2 g/dL (14.0-18.0) L 09/29/18 06:00 Hct 39.9 % (42.0-52.0) L 09/29/18 06:00 MCV 98.5 fl (80.0-105.0) 09/29/18 06:00 MCH 32.6 pg (25.0-35.0) 09/29/18 06:00 MCHC 33.1 g/dl (31.0-37.0) 09/29/18 06:00 RDW 13.3 % (11.5-14.5) 09/29/18 06:00 Plt Count 175 10^3/uL (120.0-450.0) 09/29/18 06:00 MPV 10.3 fl (7.0-11.0) 09/29/18 06:00 Neut % (Auto) 54.6 % (50.0-68.0) 09/29/18 06:00 Lymph % (Auto) 26.8 % (22.0-35.0) 09/29/18 06:00 [place] % (Auto) 15.5 % (1.0-6.0) H 09/29/18 06:00 Eos % (Auto) 2.8 % (1.5-5.0) 09/29/18 06:00 Baso % (Auto) 0.3 % (0.0-3.0) 09/29/18 06:00 Lymph # (Auto) 1.6 (1.2-3.4) 09/29/18 06:00 [place] # (Auto) 0.9 (0.1-0.6) H 09/29/18 06:00 Eos # (Auto) 0.2 (0.0-0.7) 09/29/18 06:00 Baso # (Auto) 0.02 K/mm3 (0.0-2.0) 09/29/18 06:00 Absolute Neuts (auto) 3.32 (1.4-6.5) 09/29/18 06:00 PT 11.3 SECONDS (9.4-12.5) 09/27/18 18:40 INR 1.02 09/27/18 18:40 APTT 29.7 Seconds (26.9-38.3) 09/27/18 18:40 Sodium 137 mmol/L (132-148) 09/29/18 06:00 Potassium 4.0 mmol/L (3.6-5.0) 09/29/18 06:00 Chloride 103 mmol/L (98-107) 09/29/18 06:00 Carbon Dioxide 26 mmol/L (21-33) 09/29/18 06:00 Anion Gap 12 (10-20) 09/29/18 06:00 BUN 6 mg/dL (7-21) L 09/29/18 06:00 Creatinine 0.7 mg/dl (0.8-1.5) L 09/29/18 06:00 Est GFR ( Amer) > 60 09/29/18 06:00 Est GFR (Non-Af Amer) > 60 09/29/18 06:00 POC Glucose (mg/dL) 127 mg/dL (65-110) H 09/27/18 22:55 Random Glucose 93 mg/dL (70-110) 09/29/18 06:00 Calcium 8.6 mg/dL (8.4-10.5) 09/29/18 06:00 Phosphorus 3.6 mg/dL (2.5-4.5) 09/29/18 06:00 Magnesium 1.7 mg/dL (1.7-2.2) 09/29/18 06:00 Total Bilirubin 1.4 mg/dL (0.2-1.3) H 09/29/18 06:00 AST 43 U/L (17-59) 09/29/18 06:00 ALT 16 U/L (7-56) 09/29/18 06:00 Alkaline Phosphatase 65 U/L (38-126) 09/29/18 06:00 Lactate Dehydrogenase 596 U/L (333-699) 09/27/18 18:40 Total Creatine Kinase 272 U/L (35-230) H 09/27/18 18:40 CK-MB (CK-2) 3.2 ng/mL (0.0-3.6) 09/27/18 18:40 CK-MB (CK-2) % Cancelled 09/27/18 18:40 Troponin I < 0.01 ng/mL 09/27/18 18:40 Total Protein 6.8 g/dL (5.8-8.3) 09/29/18 06:00 Albumin 3.7 g/dL (3.0-4.8) 09/29/18 06:00 Globulin 3.1 gm/dL 09/29/18 06:00 Albumin/Globulin Ratio 1.2 (1.1-1.8) 09/29/18 06:00 Alcohol, Quantitative < 10 mg/dL (0-10) 09/27/18 18:40 Attending/Attestation - Attestation I have personally seen and examined this patient.: Yes I have fully participated in the care of the patient.: Yes I have reviewed all pertinent clinical information, including history, physical exam and plan: Yes Notes (Text): 09/29/18 16:58 Medical record note made by the resident after discussion with my direction and input after the patient was personally seen and examined by me. I have reviewed the chart and agree that the record accurately reflects by personal performance of the history, physical exam, data review, and medical decision-making, in the course for the patient. I have also personally directed the plan of care. 53 year old male with past medical history of alcohol abuse, seizure disorder, CVA (1.5 years ago), ICH (02/2017, L thalamus), aortic stenosis, CHF with systolic dysfunction EF 33%,SP AICD placement, HTN and non compliance with medication was admitted brought in by EMS for as he was found to be unresponsive after alcohol ingestion. CT head was negative for any acute finding. Patient was monitored in telemetry for arrhythmia.Telemetry was unremarkable. He was evaluated by Neurology and has been started on Keppra. He has been advised to stop drinking and not to drive. Issue of compliance with medication was also discussed in detail with him. Prognosis is guarded due to ongoing alcohol abuse and non compliance . Management plan was discussed in detail with patient. Education was provided.
--- NOTE | 2018-09-30 09:05 | CP.PCM.PN ---
<KelseyGanesh - Last Filed: 09/30/18 09:01> Subjective - Date & Time of Evaluation Date of Evaluation: 09/29/18 Time of Evaluation: 09:02 - Subjective Subjective: Neurology progress note (Dr. Rodgers) - Kelsey, PGY -2 Patient seen and examined at bedside. Patient is doing well, no more complaints of dizziness. No acute overnight events. Objective - Vital Signs/Intake and Output Vital Signs (last 24 hours): Temp Pulse Resp BP Pulse Ox 98.4 F 77 20 127/83 98 09/29/18 00:01 09/29/18 06:00 09/29/18 00:01 09/29/18 00:01 09/29/18 00:01 - Labs Labs: 09/29/18 06:00 09/29/18 06:00 PT 11.3 SECONDS (9.4-12.5) 09/27/18 18:40 INR 1.02 09/27/18 18:40 APTT 29.7 Seconds (26.9-38.3) 09/27/18 18:40 - Constitutional Appears: Well - Head Exam Head Exam: ATRAUMATIC, NORMAL INSPECTION, NORMOCEPHALIC - Eye Exam Eye Exam: EOMI, Normal appearance, PERRL Pupil Exam: NORMAL ACCOMODATION, PERRL - ENT Exam ENT Exam: Mucous Membranes Moist, Normal Exam - Neck Exam Neck Exam: Full ROM, Normal Inspection. absent: Lymphadenopathy - Respiratory Exam Respiratory Exam: Clear to Ausculation Bilateral, NORMAL BREATHING PATTERN - Cardiovascular Exam Cardiovascular Exam: REGULAR RHYTHM, +S1, +S2. absent: Murmur - GI/Abdominal Exam GI & Abdominal Exam: absent: Tenderness - Extremities Exam Extremities Exam: Full ROM, Normal Capillary Refill, Normal Inspection. absent: Joint Swelling, Pedal Edema - Back Exam Back Exam: NORMAL INSPECTION - Neurological Exam Neurological Exam: Alert, Awake, CN II-XII Intact, Normal Gait, Oriented x3 - Psychiatric Exam Psychiatric exam: Normal Affect, Normal Mood - Skin Skin Exam: Dry, Intact, Normal Color, Warm Assessment and Plan - Assessment and Plan (Free Text) Assessment: 53 M with alcohol abuse, past CVA, and seizure disorder presents for syncope and hx of seizures. Patient's Head CT is negative for bleed but shows atrophic ventricles. Plan Syncope, likely 2/2 poor po intake, alcohol intoxication VS Acute Seizure Patient stated that he did not have anything to eat or drink yesterday prior to coming to the ED - Cardio on board, could be cardiogenic given severe decreased EF; given the placement of defibrillator, however, cardiac arrhythmia less likely - Carotid U/s shows bilateral 20-39% stenosis; CT Head negative for acute stroke - PT on board, they recommend home with services - Obtain better BP control Seizure - Start Keppra 500 BID - The EEG in the chart is from before his intraparenchymal hemorrhage; likely that patient has seizure disorder <Darren Rodgers - Last Filed: 10/03/18 11:50> Objective - Vital Signs/Intake and Output Vital Signs (last 24 hours): Temp Pulse Resp BP Pulse Ox 98.4 F 77 20 127/83 98 09/29/18 00:01 09/29/18 06:00 09/29/18 00:01 09/29/18 00:01 09/29/18 00:01 - Labs Labs: 09/29/18 06:00 09/29/18 06:00 PT 11.3 SECONDS (9.4-12.5) 09/27/18 18:40 INR 1.02 09/27/18 18:40 APTT 29.7 Seconds (26.9-38.3) 09/27/18 18:40 Attending/Attestation - Attestation I have personally seen and examined this patient.: Yes I have fully participated in the care of the patient.: Yes I have reviewed all pertinent clinical information, including history, physical exam and plan: Yes Notes (Text): I agree with the assessment and plan. Will continue seizure prophylaxis.
== END 2018-09-29 15:38 | disposition home or self-care (01) ==
LOC: ED 16:23 → ERH 23:00 → 3RNO 09-28 00:36
PROVIDERS: ADMIT Internal Medicine; ATTEND Internal Medicine
DX: F10.229 Alcohol dependence with intoxication, unspecified (principal); I50.22 Chronic systolic (congestive) heart failure; I11.0 Hypertensive heart disease with heart failure; G40.909 Epilepsy, unspecified, not intractable, without status epilepticus; S51.011A Laceration without foreign body of right elbow, initial encounter; W10.9XXA Fall (on) (from) unspecified stairs and steps, initial encounter; Y92.009 Unspecified place in unspecified non-institutional (private) residence as the place of occurrence of the external cause; J44.9 Chronic obstructive pulmonary disease, unspecified; F17.210 Nicotine dependence, cigarettes, uncomplicated; Z23 Encounter for immunization; Z86.73 Personal history of transient ischemic attack (TIA), and cerebral infarction without residual deficits; Z91.14 Patient's other noncompliance with medication regimen; Z91.19 Patient's noncompliance with other medical treatment and regimen; Z91.81 History of falling; Z95.810 Presence of automatic (implantable) cardiac defibrillator
CPT/HCPCS: 36415; 70450; 71045; 73030; 73060; 73080; 80053; 80320; 82550; 82553; 82948; 83615; 83735; 84100; 84484; 85025; 85610; 85730; 90471; 90715; 93005; 93306; 93880; 96365; 96375; 96376; 97162; 97530; 99285; C9113; G0378; G8978; G8979; J2060; J3411; J7070

== ENCOUNTER 2018-10-25 11:59 | Observation (INO) | payer OTHER ==
[2018-10-25 12:14] VITALS: BMI 22.1
--- NOTE | 2018-10-25 12:39 | ED PDOC ---
Arrival/HPI - General Chief Complaint: Lower Extremity Problem/Injury Time Seen by Provider: 10/25/18 12:03 Historian: Patient - History of Present Illness Narrative History of Present Illness (Text): 10/25/18 13:12 A 53 year old male, whose past medical history includes CHF, alcohol abuse, hypertension, ICH, and cardiac disease (s/p ICD), presents to the ED complaining of swollen right leg for the past week. Patient notes past similar symptoms where he had bilateral lower extremity swelling due to CHF. Patient denies any fevers, chills, headache, dizziness, chest pain, shortness of breath, dyspnea on exertion, cough, abdominal pain, nausea, vomiting, diarrhea, back pain, neck pain, urinary/bowel changes, or any other complaints. Time/Duration: < week Symptom Onset: Gradual Symptom Course: Unchanged Activities at Onset: Light Context: Home Past Medical History - Provider Review Nursing Documentation Reviewed: Yes - Past History Past History: Non-Contributing - Infectious Disease Hx of Infectious Diseases: None - Tetanus Immunization Tetanus Immunization: Unknown - Cardiac Hx Cardiac Disorders: Yes Hx Congestive Heart Failure: Yes Hx Hypertension: Yes - Pulmonary Hx Respiratory Disorders: No - Neurological HX Cerebrovascular Accident: Yes (right sided weakness) - HEENT Hx HEENT Disorder: No - Renal Hx Renal Disorder: No - Endocrine/Metabolic Hx Endocrine Disorders: No - Hematological/Oncological Hx Blood Disorders: No - Integumentary Hx Dermatological Disorder: Yes (skin flushed) - Musculoskeletal/Rheumatological Hx Falls: Yes (past) - Gastrointestinal Hx Gastrointestinal Disorders: Yes (gastritis) - Genitourinary/Gynecological Hx Genitourinary Disorders: No - Psychiatric Hx Psychophysiologic Disorder: Yes Hx Substance Use: No - Past Surgical History Past Surgical History: Unable to Obtain - Surgical History Hx Cardiac Catheterization: Yes Hx Musculoskeletal Surgery: Yes Hx Orthopedic Surgery: Yes (r ankle, has a screw) Hx Valve Replacement: No 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: pt stated "I just have a defibrillator." - Anesthesia Hx Anesthesia: Yes Hx Anesthesia Reactions: No Hx Malignant Hyperthermia: No - Suicidal Assessment Feels Threatened In Home Enviroment: No Family/Social History - Physician Review Nursing Documentation Reviewed: Yes Family/Social History: Unknown Family HX Smoking Status: Heavy Smoker > 10 Cigarettes Daily Hx Alcohol Use: Yes Hx Substance Use: No Hx Substance Use Treatment: No Allergies/Home Meds Allergies/Adverse Reactions: Allergies No Known Allergies Allergy (Verified 08/01/18 18:41) Home Medications: Home Meds Medication Instructions Recorded Confirmed Metoprolol Tartrate [Lopressor] 25 mg PO BID 08/26/17 09/28/18 Review of Systems - Physician Review All systems were reviewed & negative as marked: Yes - Review of Systems Musculoskeletal: Other (Right leg swollen) Physical Exam - Physical Exam Narrative Physical Exam (Text): 10/25/18 13:25 Gen: VS reviewed, alert, well developed, well nourished, nontoxic, mild distress. Intoxicated. Unkempt. ENT: normal pharynx. Eye: EOMI, PERRL. Neck: no JVD, supple, no adenopathy. CV: tachycardic, regular rhythm, no rubs, no murmur, no gallops, S1, S2, pulses equal and strong. Pulm: no distress, clear to auscultation, no wheeze, no rhonchi, breath sounds equal, no rales. Abd: soft, nontender, no guarding, no rebound, no rigidity, normal bowel sounds. Ext: bilateral pitting edema. Skin: good color, no rash, no cyanosis. Psych: responds appropriately to questions, normal affect. Neuro: oriented x 3, CN2-12 intact grossly, motor intact, sensation intact. Vital Signs Reviewed: Yes Vital Signs Temp Pulse Resp BP Pulse Ox 10/25/18 12:14 98.2 F 105 H 18 134/87 97 Temperature: Afebrile Blood Pressure: Normal Pulse: Tachycardic Respiratory Rate: Normal Appearance: Positive for: Unkept Medical Decision Making ED Course and Treatment: 10/25/18 13:30 Impression: A 53 year old male who presents to the ED complaining of a swollen right leg. Differential Diagnosis included but are not limited to: Plan: -- Labs -- EKG -- Chest X-Ray -- LE Ultrasound -- Reassess and disposition Prior Visits: Notes and results from previous visits were reviewed. Patient was last seen in the emergency department on Progress Notes: 10/25/18 12:38 procedure note: 2 sutures were removed from the right elbow. the sutures according to medical records was placed on 09.27.2018. wound is well scab with a scab overlying the wound. patient tolerated procedure well. 10/25/18 18:[address] kate to the hospitalist service, patient to be admitted for persistent tachycardia, high risk for alcohol withdrawal. CIWA = 0 during ED course and the patient has not required medications for acute withdrawal. - RAD Interpretation Narrative RAD Interpretations (Text): 10/25/18 13:37 Preliminary US negative for DVT as per US tech 10/25/18 17:[address] IMPRESSION: Streak artifact limits evaluation of the pulmonary arteries. No large central o r definite segmental pulmonary embolus evident. No focal consolidation. Hepatomegaly. Hepatic steatosis. Tiny probable gallstone. Nodular hypertrophy of the left adrenal gland. Osseous demineralization. Degenerative changes including intervertebral disc space narrowing and osteophyte formation. Severe intervertebral disc space narrowing at T11-T12. Loss of vertebral body height at T12 consistent with compression fracture, age indeterminate. If indicated, further evaluation may be considered with MRI. Chest X-Ray IMPRESSION: No active pulmonary disease. Extremity Ultrasound IMPRESSION: No sonographic evidence for deep venous thrombosis in the visualized segments of both lower extremities. Radiology Orders: 10/25/18 12:23 DUPLEX LOWER EXTRM VEIN BILAT [US] Stat 10/25/18 12:24 CXR [CHEST TWO VIEWS (PA/LAT)] [RAD] Stat - EKG Interpretation EKG Interpretation (Text): 10/25/18 13:51 EKG: NSR @ 92 bpm, nml qrs, nml axis, no acute sttw abn. prolonged QT. - Scribe Statement The provider has reviewed the documentation as recorded by the Pawan Can Provider Scribe Attestation: All medical record entries made by the Scribe were at my direction and personally dictated by me. I have reviewed the chart and agree that the record accurately reflects my personal performance of the history, physical exam, medical decision making, and the department course for this patient. I have also personally directed, reviewed, and agree with the discharge instructions and disposition. Disposition/Present on Arrival - Present on Arrival Any Indicators Present on Arrival: No History of DVT/PE: No History of Uncontrolled Diabetes: No Urinary Catheter: No History of Decub. Ulcer: No History Surgical Site Infection Following: None - Disposition Have Diagnosis and Disposition been Completed?: Yes Diagnosis: Alcohol withdrawal, Tachyarrhythmia Disposition: HOSPITALIZED Disposition Time: 14:30 Patient Plan: Observation Patient Problems: Current Active Problems Problem Status Onset Alcohol withdrawal Acute Tachyarrhythmia Acute Condition: GUARDED Forms: [employer] (K[place]akh)
[2018-10-25 13:17] LABS: BASO # 0.04 K/mm3 (0.0-2.0); BASO % 0.9 % (0.0-3.0); EOS % 0.9 % (1.5-5.0); HEMOGLOBIN 13.9 g/dL (14.0-18.0); LYMPH # 1.1 (1.2-3.4); MEAN CELL VOLUME 97.9 fl (80.0-105.0); MEAN CORPUSCULAR HEMOGLOBIN 32.9 pg (25.0-35.0); MEAN CORPUSCULAR HGB CONC 33.7 g/dl (31.0-37.0); MONO # 0.5 (0.1-0.6); RBC 4.22 10^6/uL (3.5-6.1); RED CELL DISTRIBUTION WIDTH 14.3 % (11.5-14.5); WHITE BLOOD COUNT 4.3 10^3/uL (4.5-11.0)
[2018-10-25 13:27] LABS: INR 0.92; PARTIAL THROMBOPLASTIN TIME 37.9 Seconds (26.9-38.3); PROTHROMBIN TIME 10.2 SECONDS (9.4-12.5)
[2018-10-25 13:42] LABS: ALB/GLOB RATIO 1.3 (1.1-1.8); ALBUMIN 4.3 g/dL (3.0-4.8); ALT/SGPT 35 U/L (7-56); AST/SGOT 80 U/L (17-59); BLOOD UREA NITROGEN 11 mg/dL (7-21); CALCIUM 8.5 mg/dL (8.4-10.5); GFR NON-AFRICAN AMERICAN > 60
[2018-10-25 13:51] LABS: B-TYPE NATRIURETIC PEPTIDE 93.9 pg/mL (0-450)
--- NOTE | 2018-10-25 14:04 | RAD ---
Date of service: 10/25/2018 HISTORY: Dyspnea, CHF COMPARISON: 09/27/2018 TECHNIQUE: Chest PA and lateral FINDINGS: LINES AND TUBES: None. LUNG AND PLEURA: The lungs are well inflated and clear. No pleural effusion or pneumothorax. HEART AND MEDIASTINUM: The heart is not enlarged. No aortic atherosclerotic calcifications present. There is stable position of left-sided dual lead permanent pacing device. The hilar and mediastinal contours are within normal limits. SKELETAL STRUCTURES: The bony structures are within normal limits for the patient's age. VISUALIZED UPPER ABDOMEN: Normal. OTHER FINDINGS: None. IMPRESSION: No active pulmonary disease.
--- NOTE | 2018-10-25 15:29 | US ---
HISTORY: Leg pain and swelling. Evaluate for DVT PHYSICIAN(S): Antione Aaron MD. TECHNIQUE: Duplex sonography and color-flow Doppler with graded compression were used to evaluate the deep venous systems of both lower extremities. FINDINGS: The visualized deep venous systems of both lower extremities are sonographically normal and compressible. Normal wave forms and augmentation are seen. There is no sonographic evidence for deep venous thrombosis in the visualized segments of both lower extremities. IMPRESSION: No sonographic evidence for deep venous thrombosis in the visualized segments of both lower extremities.
--- NOTE | 2018-10-25 17:23 | CT ---
Date of service: 10/25/2018 CTA chest PE protocol Indication: pulmonary embolism Technique: Contiguous axial images were obtained through the chest with intravenous contrast enhancement. Sagittal and coronal reconstructions were generated and reviewed. This CT exam was performed using 1 or more of the following dose reduction techniques: Automated exposure control, adjustment of the MAA and/or kV according to patient size, and/or use of iterative reconstruction technique. IV contrast: 100 mL Omnipaque 300 IV Radiation dose (DLP): 415.59 MGy-cm. Comparison: Chest x-ray performed 10/25/18 Findings: Visualized portions of the inferior thyroid gland appear unremarkable. The mediastinal and hilar vascular structures appear within normal limits. Dual lead left-sided AICD. The heart appears within normal limits of size. Coronary artery calcifications. Sub cm mediastinal/prevascular adenopathy, nonspecific. Streak artifact limits evaluation of the pulmonary arteries. No large central or segmental pulmonary embolus evident. No focal consolidation. No pleural effusion. No pneumothorax. No suspicious pulmonary nodules measuring greater than 5 mm. Limited visualized portions of the upper abdomen: Hepatomegaly. Hypoattenuation of the liver compatible with hepatic steatosis. Probable tiny gallstone. Nodular hypertrophy of the left adrenal gland. Partially imaged lumbar fusion hardware. Osseous demineralization. Degenerative changes. Severe interval vertebral disc space narrowing at T11-T12. Loss of vertebral body height at T12 consistent with compression fracture, age indeterminate. Impression: Streak artifact limits evaluation of the pulmonary arteries. No large central or definite segmental pulmonary embolus evident. No focal consolidation. Hepatomegaly. Hepatic steatosis. Tiny probable gallstone. Nodular hypertrophy of the left adrenal gland. Osseous demineralization. Degenerative changes including intervertebral disc space narrowing and osteophyte formation. Severe intervertebral disc space narrowing at T11-T12. Loss of vertebral body height at T12 consistent with compression fracture, age indeterminate. If indicated, further evaluation may be considered with MRI.
--- NOTE | 2018-10-25 18:23 | CP.PCM.HP ---
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 Patient states right leg swelling began 2 days ago and denies any inciting event including trauma, accident and lifestyle change. Patient states swelling is associated redness and denies any associated symptoms at this time. Patient states swelling is similar to previous episodes of B/L leg swelling from heart failure. Patient admits to drinking 3 to 5 shots of alcohol this morning. Patient was admitted to the hospital last month for alcohol withdrawal for 2 day hospital course and started on keppra by neurology for seizure disorder. Echo at that time showed normal EF and severe , which was improved on prior echo which showed reduced EF. Patient was discharged on folate, MV, thiamine, keppra 500mg BID, lisinopril 10mg and metoprolol tartrate 25mg BID and instructed to follow up with the [facility] clinic. Patient states he was unable to follow up with clinic due to issues with his insurance and states he has been inconsistent with his home medications. He currently denies CP, SOB, dizziness, palpitations, nausea, vomiting, abdominal pain, urinary complaints, numbness, tingling, recent travel, recent sickness and chills. 12 point ROS noted here, otherwise unr emarkable. PMD: 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 States he does not currently have a home Family Hx: "brain cancer" Pharmacy: listed pharmacy is [facility], patient also mentions [facility] ([address] [place] [address]; [phone]) Present on Admission - Present on Admission Any Indicators Present on Admission: No Past Patient History - Infectious Disease Hx of Infectious Diseases: None - Tetanus Immunizations Tetanus Immunization: Unknown - Past Medical History & Family History Past Medical History?: Yes - Past Social History Smoking Status: Heavy Smoker > 10 Cigarettes Daily - CARDIAC Hx Cardiac Disorders: Yes Hx Congestive Heart Failure: Yes Hx Hypertension: Yes - PULMONARY Hx Respiratory Disorders: No - NEUROLOGICAL HX Cerebrovascular Accident: Yes (right sided weakness) - HEENT Hx HEENT Problems: No - RENAL Hx Chronic Kidney Disease: No - ENDOCRINE/METABOLIC Hx Endocrine Disorders: No - HEMATOLOGICAL/ONCOLOGICAL Hx Blood Disorders: No - INTEGUMENTARY Hx Dermatological Problems: Yes (skin flushed) - MUSCULOSKELETAL/RHEUMATOLOGICAL Hx Falls: Yes (past) - GASTROINTESTINAL Hx Gastrointestinal Disorders: Yes (gastritis) - GENITOURINARY/GYNECOLOGICAL Hx Genitourinary Disorders: No - PSYCHIATRIC Hx Psychophysiologic Disorder: Yes Hx Substance Use: No - SURGICAL HISTORY Hx Cardiac Catheterization: Yes Hx Musculoskeletal Surgery: Yes Hx Orthopedic Surgery: Yes (r ankle, has a screw) Hx Valve Replacement: No 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: pt stated "I just have a defibrillator." - ANESTHESIA Hx Anesthesia: Yes Hx Anesthesia Reactions: No Hx Malignant Hyperthermia: No Meds Allergies/Adverse Reactions: Allergies Allergy/AdvReac Type Severity Reaction Status Date / Time No Known Allergies Allergy Verified 08/01/18 18:41 Physical Exam - Constitutional Appears: Non-toxic, No Acute Distress, Unkempt - Head Exam Head Exam: ATRAUMATIC, NORMAL INSPECTION Additional comments: dry skin peeling around nose and eyes - Eye Exam Eye Exam: EOMI Pupil Exam: PERRL - ENT Exam ENT Exam: Mucous Membranes Dry - Neck Exam Neck exam: Positive for: Normal Inspection - Respiratory Exam Respiratory Exam: Clear to Auscultation Bilateral. absent: Accessory Muscle Use, Wheezes, Respiratory Distress - Cardiovascular Exam Cardiovascular Exam: Tachycardia, +S1, +S2 - GI/Abdominal Exam GI & Abdominal Exam: Normal Bowel Sounds, Soft. absent: Firm, Guarding, Tenderness - Extremities Exam Extremities exam: Positive for: pedal pulses present. Negative for: calf tenderness Additional comments: scabs noted on B/L LE in various stages of healing. B/L legs are erythematous, +1 pitting edema B/L. DP +2 - Back Exam Back exam: NORMAL INSPECTION - Neurological Exam Neurological exam: Alert, CN II-XII Intact, Oriented x3 - Skin Skin Exam: Dry, Normal Color, Warm Results - Vital Signs Recent Vital Signs: Last Vital Signs Temp 98.2 F 10/25/18 12:14 Pulse 129 H 10/25/18 18:17 Resp 18 10/25/18 18:17 BP 129/76 10/25/18 18:17 Pulse Ox 95 10/25/18 18:17 - Labs Result Diagrams: 10/25/18 12:54 10/25/18 12:54 Labs: Laboratory Results - last 24 hr 10/25/18 10/25/18 10/25/18 12:54 12:54 12:54 WBC 4.3 L D RBC 4.22 Hgb 13.9 L Hct 41.3 L MCV 97.9 MCH 32.9 MCHC 33.7 RDW 14.3 Plt Count 100 L MPV 10.0 Neut % (Auto) 60.2 Lymph % (Auto) 26.0 [place] % (Auto) 12.0 H Eos % (Auto) 0.9 L Baso % (Auto) 0.9 Lymph # (Auto) 1.1 L [place] # (Auto) 0.5 Eos # (Auto) 0.0 Baso # (Auto) 0.04 Absolute Neuts (auto) 2.61 PT 10.2 INR 0.92 APTT 37.9 D-Dimer, Quantitative Sodium 143 Potassium 3.8 Chloride 102 Carbon Dioxide 27 Anion Gap 18 BUN 11 Creatinine 0.6 L Est GFR ( Amer) > 60 Est GFR (Non-Af Amer) > 60 Random Glucose 94 Calcium 8.5 Magnesium 1.6 L Total Bilirubin 0.9 AST 80 H D ALT 35 Alkaline Phosphatase 73 NT-Pro-B Natriuret Pep 93.9 Total Protein 7.5 Albumin 4.3 Globulin 3.3 Albumin/Globulin Ratio 1.3 TSH 3rd Generation Alcohol, Quantitative 10/25/18 10/25/18 10/25/18 12:54 12:54 12:54 WBC RBC Hgb Hct MCV MCH MCHC RDW Plt Count MPV Neut % (Auto) Lymph % (Auto) [place] % (Auto) Eos % (Auto) Baso % (Auto) Lymph # (Auto) [place] # (Auto) Eos # (Auto) Baso # (Auto) Absolute Neuts (auto) PT INR APTT D-Dimer, Quantitative 759 H Sodium Potassium Chloride Carbon Dioxide Anion Gap BUN Creatinine Est GFR ( Amer) Est GFR (Non-Af Amer) Random Glucose Calcium Magnesium Total Bilirubin AST ALT Alkaline Phosphatase NT-Pro-B Natriuret Pep Total Protein Albumin Globulin Albumin/Globulin Ratio TSH 3rd Generation 0.61 Alcohol, Quantitative 298 H Assessment & Plan - Assessment and Plan (Free Text) Assessment: This is a 53 year old male with past medical history of alcohol abuse, seizure disorder, CVA (1.5 years ago), 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 Noted to have alcohol level of 298 on admission. Plan: Alcohol Intoxication -alcohol serum 298 on admission -no signs of active withdrawal on PE -CIWA protocol -fall, aspiration, seizure precautions -banana bag started -Multivitamin, thiamine and folate -ativan 1 mg IVP q2 prn for signs of withdrawal -UDS pending -alcohol cessation counseling given to patient Tachycardia -consider 2/2 alcohol withdrawal -d-dimer elevated -10/25 CT chest shows no large central or definite segmental pulmonary embolus evident. Severe intervertebral disc space narrowing at T11-T12. Loss of vertebral body height at T12 consistent with compression fracture, age indeterminate. If indicated, further evaluation may be considered with MRI. -10/25 CXR shows no active pulmonary disease -10/25 Ext US shows no DVT -EKG shows NSR, not ST changes -given one dose of metoprolol 25mg now, will monitor. B/L Leg swelling -10/25 Ext US shows no DVT -afebrile, no WBC count -procalc pending -consider trauma (multilpe scabs in various healing stages) vs HFpEF (less likely) -patient received TDAP 09/27/18 HFpEF s/p AICD placement -ECHO (09/2018): EF of 61%, normal LV segmental wall motion, grade 1 abnormal relaxation pattern, aortic valve is severely thickened, moderate to severe valvular aortic stenosis, mild MR and TR -echo previously 02/2014 shows EF 35% Transaminitis -likely 2/2 alcohol abuse -Abd US 07/2018 shows mild hepatomegaly with fatty infiltration of the liver. No evidence of biliary obstruction, cholecystitis. Hx of tobacco abuse -nicotine patch daily -tobacco cessation counseling given Hx of ICH -intracranial hemorrhage in 03/2017 -CT head without contrast (02/2017): moderate brain atrophy, 1.7 x 1.2 cm intraparenchymal hemorrhage L thalamus, mild surrounding edema. Hx of seizures -seizure precautions, aspiration precautions -continue home keppra 500mg BID Hx of HTN -continue home medication metoprolol 25mg BID and lisinopril 10mg daily PPX -SCD -protonix -HHD Patient seen and case discussed with Dr. Alvarez <Mariza Alvarez - Last Filed: 10/26/18 01:47> Results - Vital Signs Recent Vital Signs: Last Vital Signs Temp 98.2 F 10/25/18 12:14 Pulse 108 H 10/25/18 21:10 Resp 18 10/25/18 21:10 BP 129/84 10/25/18 21:10 Pulse Ox 96 10/25/18 21:10 - Labs Result Diagrams: 10/25/18 12:54 10/25/18 12:54 Labs: Laboratory Results - last 24 hr 10/25/18 10/25/18 10/25/18 12:54 12:54 12:54 WBC 4.3 L D RBC 4.22 Hgb 13.9 L Hct 41.3 L MCV 97.9 MCH 32.9 MCHC 33.7 RDW 14.3 Plt Count 100 L MPV 10.0 Neut % (Auto) 60.2 Lymph % (Auto) 26.0 [place] % (Auto) 12.0 H Eos % (Auto) 0.9 L Baso % (Auto) 0.9 Lymph # (Auto) 1.1 L [place] # (Auto) 0.5 Eos # (Auto) 0.0 Baso # (Auto) 0.04 Absolute Neuts (auto) 2.61 PT 10.2 INR 0.92 APTT 37.9 D-Dimer, Quantitative Sodium 143 Potassium 3.8 Chloride 102 Carbon Dioxide 27 Anion Gap 18 BUN 11 Creatinine 0.6 L Est GFR ( Amer) > 60 Est GFR (Non-Af Amer) > 60 Random Glucose 94 Calcium 8.5 Magnesium 1.6 L Total Bilirubin 0.9 AST 80 H D ALT 35 Alkaline Phosphatase 73 NT-Pro-B Natriuret Pep 93.9 Total Protein 7.5 Albumin 4.3 Globulin 3.3 Albumin/Globulin Ratio 1.3 TSH 3rd Generation Urine Opiates Screen Urine Methadone Screen Ur Barbiturates Screen Ur Phencyclidine Scrn Ur Amphetamines Screen U Benzodiazepines Scrn U Oth Cocaine Metabols U Cannabinoids Screen Alcohol, Quantitative 10/25/18 10/25/18 10/25/18 12:54 12:54 12:54 WBC RBC Hgb Hct MCV MCH MCHC RDW Plt Count MPV Neut % (Auto) Lymph % (Auto) [place] % (Auto) Eos % (Auto) Baso % (Auto) Lymph # (Auto) [place] # (Auto) Eos # (Auto) Baso # (Auto) Absolute Neuts (auto) PT INR APTT D-Dimer, Quantitative 759 H Sodium Potassium Chloride Carbon Dioxide Anion Gap BUN Creatinine Est GFR ( Amer) Est GFR (Non-Af Amer) Random Glucose Calcium Magnesium Total Bilirubin AST ALT Alkaline Phosphatase NT-Pro-B Natriuret Pep Total Protein Albumin Globulin Albumin/Globulin Ratio TSH 3rd Generation 0.61 Urine Opiates Screen Urine Methadone Screen Ur Barbiturates Screen Ur Phencyclidine Scrn Ur Amphetamines Screen U Benzodiazepines Scrn U Oth Cocaine Metabols U Cannabinoids Screen Alcohol, Quantitative 298 H 10/25/18 19:16 WBC RBC Hgb Hct MCV MCH MCHC RDW Plt Count MPV Neut % (Auto) Lymph % (Auto) [place] % (Auto) Eos % (Auto) Baso % (Auto) Lymph # (Auto) [place] # (Auto) Eos # (Auto) Baso # (Auto) Absolute Neuts (auto) PT INR APTT D-Dimer, Quantitative Sodium Potassium Chloride Carbon Dioxide Anion Gap BUN Creatinine Est GFR ( Amer) Est GFR (Non-Af Amer) Random Glucose Calcium Magnesium Total Bilirubin AST ALT Alkaline Phosphatase NT-Pro-B Natriuret Pep Total Protein Albumin Globulin Albumin/Globulin Ratio TSH 3rd Generation Urine Opiates Screen Negative Urine Methadone Screen Negative Ur Barbiturates Screen Negative Ur Phencyclidine Scrn Negative Ur Amphetamines Screen Negative U Benzodiazepines Scrn Negative U Oth Cocaine Metabols Negative U Cannabinoids Screen Negative Alcohol, Quantitative Attending/Attestation - Attestation I have personally seen and examined this patient.: Yes I have fully participated in the care of the patient.: Yes I have reviewed all pertinent clinical information: Yes Notes (Text): Pt seen. Case discussed with the resident. O/E :Pt has AICD in L upper chest wall. Also,pt has erythema of both the feet and R lower leg.The skin is warm to touch. Additional IMP:Celluitis both feet and R lower leg. Agree with rest of documentation,assessment and plan of treatment. 10/25/18
[2018-10-25] MEDS ORDERED: Folic Acid 1 MG, Thiamine 100 MG, Multivitamin (MVI) 10 ML in Dextrose 5% In Water 1,00... IV SCH (18:30)
[2018-10-25] MEDS ORDERED: Multivitamin (MVI) 10 ML, Thiamine 100 MG, Folic Acid 1 MG in Sodium Chloride 0.9% 1,00... IV ONE (18:31)
[2018-10-25 19:48] LABS: BARBITURATES, UR NEGATIVE (NEGATIVE); BENZODIAZEPINES, UR NEGATIVE (NEGATIVE); OPIATES, UR NEGATIVE (NEGATIVE); PHENCYCLIDINE, UR NEGATIVE (NEGATIVE)
[2018-10-25] MEDS ORDERED: Magnesium Sulfate 2 gm/50 ml 2 GM/50 ML BAG IVPB ONE (20:37)
--- NOTE | 2018-10-25 20:55 | CARD ---
APPROVED REPORT Date of service: 10/25/2018 EKG Measurement Heart [id number] <Conclusion> Normal sinus rhythm Possible Anterior infarct, age undetermined CCR Abnormal ECG
[2018-10-25] MEDS: ceFAZolin 1 gm in NS 1 GM/100 ML BAG IVPB SCH (22:52)
[2018-10-26] MEDS: ceFAZolin 1 gm in NS 1 GM/100 ML BAG IVPB SCH ×2 (06:41→13:10)
[2018-10-26 06:59] LABS: BASO # 0.03 K/mm3 (0.0-2.0); BASO % 0.6 % (0.0-3.0); EOS # 0.1 (0.0-0.7); EOS % 2.6 % (1.5-5.0); HEMOGLOBIN 12.1 g/dL (14.0-18.0); LYMPH # 1.7 (1.2-3.4); LYMPH % 35.6 % (22.0-35.0); MEAN CELL VOLUME 98.4 fl (80.0-105.0); MEAN CORPUSCULAR HEMOGLOBIN 32.5 pg (25.0-35.0); MEAN CORPUSCULAR HGB CONC 33.1 g/dl (31.0-37.0); MEAN PLATELET VOLUME 10.1 fl (7.0-11.0); MONO # 0.8 (0.1-0.6); MONO % 17.9 % (1.0-6.0); RBC 3.72 10^6/uL (3.5-6.1); RED CELL DISTRIBUTION WIDTH 14.3 % (11.5-14.5); WHITE BLOOD COUNT 4.7 10^3/uL (4.5-11.0)
[2018-10-26 07:10] LABS: ALB/GLOB RATIO 1.3 (1.1-1.8); ALBUMIN 3.5 g/dL (3.0-4.8); ALT/SGPT 38 U/L (7-56); AST/SGOT 60 U/L (17-59); BLOOD UREA NITROGEN 15 mg/dL (7-21); CALCIUM 8.3 mg/dL (8.4-10.5); GFR NON-AFRICAN AMERICAN > 60
[2018-10-26] MEDS: Multivitamin With Minerals Tab PO SCH (09:54)
[2018-10-26] MEDS: Pantoprazole 40 mg EC Tab PO SCH (09:54)
[2018-10-26] MEDS ORDERED: Pantoprazole 40 mg EC Tab PO SCH (10:00)
--- NOTE | 2018-10-26 11:04 | CP.PCM.CON ---
<Narciso Reardon - Last Filed: 10/26/18 11:14> History of Present Illness - History of Present Illness History of Present Illness: Podiatry consult - Drs. Theodore/Carmen 53M seen and evaluated at bedside this AM with Dr. Morales for RLE pain. Patient is resting comfortably but appears mildly agitated. Patient states that he came into the hospital because he noticed RLE swelling and in the past had had swelling due to CHF. States that he had noticed some scrapes on his leg. Admits to alcohol use. Denies n/v/f/c today and has no other acute pedal complaints. 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, L thalamus), HFpEF, aortic stenosis, HTN PSHx: AICD, inguinal hernia repair, back surgery, right ankle surgery All: NKDA Past Patient History - Infectious Disease Hx of Infectious Diseases: None - Tetanus Immunizations Tetanus Immunization: Unknown - Past Medical History & Family History Past Medical History?: Yes - Past Social History Smoking Status: Heavy Smoker > 10 Cigarettes Daily - CARDIAC Hx Cardiac Disorders: Yes Hx Congestive Heart Failure: Yes Hx Hypertension: Yes Hx Pacemaker: Yes 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: AICd placement , aortic stenosis - PULMONARY Hx Respiratory Disorders: No 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: smokes 1PPD - NEUROLOGICAL Hx Neurological Disorder: Yes HX Cerebrovascular Accident: Yes (right sided weakness) - HEENT Hx HEENT Problems: No - RENAL Hx Chronic Kidney Disease: No - ENDOCRINE/METABOLIC Hx Endocrine Disorders: No - HEMATOLOGICAL/ONCOLOGICAL Hx Blood Disorders: No - INTEGUMENTARY Hx Dermatological Problems: Yes (skin flushed) - MUSCULOSKELETAL/RHEUMATOLOGICAL Hx Musculoskeletal Disorders: Yes Hx Falls: Yes Hx Fractures: Yes Hx Herniated Disk: Yes - GASTROINTESTINAL Hx Gastrointestinal Disorders: Yes (gastritis) - GENITOURINARY/GYNECOLOGICAL Hx Genitourinary Disorders: No - PSYCHIATRIC Hx Psychophysiologic Disorder: Yes Hx Substance Use: No (denies) 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: Alcohol abuse 3-5 shots daily - SURGICAL HISTORY Hx Surgeries: Yes Hx Cardiac Catheterization: Yes (stents) Hx Musculoskeletal Surgery: Yes Hx Orthopedic Surgery: Yes (r ankle, has a screw) Hx Valve Replacement: No 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: AICD placement - ANESTHESIA Hx Anesthesia: Yes Hx Anesthesia Reactions: No Hx Malignant Hyperthermia: No Meds Allergies/Adverse Reactions: Allergies Allergy/AdvReac Type Severity Reaction Status Date / Time No Known Allergies Allergy Verified 08/01/18 18:41 - Medications Medications: Current Medications Folic Acid (Folic Acid) 1 mg PO DAILY [facility] Last Admin: 10/26/18 09:53 Dose: 1 mg Cefazolin Sodium (Ancef 1gm In Ns) 1 gm in 100 mls @ 100 mls/hr IVPB Q8 [facility]; Protocol Last Admin: 10/26/18 06:41 Dose: 100 mls/hr Levetiracetam (Keppra) 500 mg PO BID [facility] Last Admin: 10/26/18 09:54 Dose: 500 mg Lisinopril (Zestril) 10 mg PO DAILY [facility] Last Admin: 10/26/18 09:54 Dose: 10 mg Lorazepam (Ativan) 1 mg IVP Q2 PRN; Protocol PRN Reason: Symptoms of alcohol withdrawl Last Admin: 10/25/18 20:17 Dose: 1 mg Metoprolol Tartrate (Lopressor) 25 mg PO BID [facility] Last Admin: 10/26/18 09:53 Dose: 25 mg Multivitamins/Minerals (Therapeutic-M Tab) 1 tab PO 0800 [facility] Last Admin: 10/26/18 09:54 Dose: 1 tab Nicotine (Nicoderm Cq) 1 patch TD DAILY [facility] Last Admin: 10/26/18 09:53 Dose: 1 patch Pantoprazole Sodium (Protonix Ec Tab) 40 mg PO DAILY [facility] Last Admin: 10/26/18 09:54 Dose: 40 mg Thiamine HCl (Vitamin B1 Tab) 100 mg PO DAILY [facility] Last Admin: 10/26/18 09:53 Dose: 100 mg Physical Exam - Constitutional Appears: Non-toxic - Head Exam Head Exam: ATRAUMATIC - Extremities Exam Additional comments: LE focused VASC: pulses palpable; cap refill <3 seconds; no edema noted to b/l LE DERM: nails are elongated and dystrophic, right second digit nail has lysed from nail bed, still attached at base ORTHO: pain to right second digit nail border, mild pain on palpation about the LE NEURO: intact - Neurological Exam Neurological exam: Alert, Oriented x3 - Psychiatric Exam Psychiatric exam: Normal Affect Results - Vital Signs Recent Vital Signs: Last Vital Signs Temp 98.6 F 10/26/18 05:40 Pulse 96 H 10/26/18 09:54 Resp 20 10/26/18 05:40 BP 114/54 L 10/26/18 09:54 Pulse Ox 97 10/26/18 05:40 - Labs Result Diagrams: 10/26/18 06:45 10/26/18 06:45 Labs: Laboratory Results - last 24 hr 10/25/18 10/25/18 10/25/18 12:54 12:54 12:54 WBC 4.3 L D RBC 4.22 Hgb 13.9 L Hct 41.3 L MCV 97.9 MCH 32.9 MCHC 33.7 RDW 14.3 Plt Count 100 L MPV 10.0 Neut % (Auto) 60.2 Lymph % (Auto) 26.0 [place] % (Auto) 12.0 H Eos % (Auto) 0.9 L Baso % (Auto) 0.9 Lymph # (Auto) 1.1 L [place] # (Auto) 0.5 Eos # (Auto) 0.0 Baso # (Auto) 0.04 Absolute Neuts (auto) 2.61 PT 10.2 INR 0.92 APTT 37.9 D-Dimer, Quantitative Sodium 143 Potassium 3.8 Chloride 102 Carbon Dioxide 27 Anion Gap 18 BUN 11 Creatinine 0.6 L Est GFR ( Amer) > 60 Est GFR (Non-Af Amer) > 60 Random Glucose 94 Calcium 8.5 Phosphorus Magnesium 1.6 L Total Bilirubin 0.9 AST 80 H D ALT 35 Alkaline Phosphatase 73 NT-Pro-B Natriuret Pep 93.9 Total Protein 7.5 Albumin 4.3 Globulin 3.3 Albumin/Globulin Ratio 1.3 TSH 3rd Generation Urine Opiates Screen Urine Methadone Screen Ur Barbiturates Screen Ur Phencyclidine Scrn Ur Amphetamines Screen U Benzodiazepines Scrn U Oth Cocaine Metabols U Cannabinoids Screen Alcohol, Quantitative 10/25/18 10/25/18 10/25/18 12:54 12:54 12:54 WBC RBC Hgb Hct MCV MCH MCHC RDW Plt Count MPV Neut % (Auto) Lymph % (Auto) [place] % (Auto) Eos % (Auto) Baso % (Auto) Lymph # (Auto) [place] # (Auto) Eos # (Auto) Baso # (Auto) Absolute Neuts (auto) PT INR APTT D-Dimer, Quantitative 759 H Sodium Potassium Chloride Carbon Dioxide Anion Gap BUN Creatinine Est GFR ( Amer) Est GFR (Non-Af Amer) Random Glucose Calcium Phosphorus Magnesium Total Bilirubin AST ALT Alkaline Phosphatase NT-Pro-B Natriuret Pep Total Protein Albumin Globulin Albumin/Globulin Ratio TSH 3rd Generation 0.61 Urine Opiates Screen Urine Methadone Screen Ur Barbiturates Screen Ur Phencyclidine Scrn Ur Amphetamines Screen U Benzodiazepines Scrn U Oth Cocaine Metabols U Cannabinoids Screen Alcohol, Quantitative 298 H 10/25/18 10/26/18 10/26/18 19:16 06:45 06:45 WBC 4.7 RBC 3.72 Hgb 12.1 L Hct 36.6 L MCV 98.4 MCH 32.5 MCHC 33.1 RDW 14.3 Plt Count 86 L MPV 10.1 Neut % (Auto) 43.3 L Lymph % (Auto) 35.6 H [place] % (Auto) 17.9 H Eos % (Auto) 2.6 Baso % (Auto) 0.6 Lymph # (Auto) 1.7 [place] # (Auto) 0.8 H Eos # (Auto) 0.1 Baso # (Auto) 0.03 Absolute Neuts (auto) 2.03 PT INR APTT D-Dimer, Quantitative Sodium 137 Potassium 3.7 Chloride 101 Carbon Dioxide 29 Anion Gap 11 BUN 15 Creatinine 0.7 L Est GFR ( Amer) > 60 Est GFR (Non-Af Amer) > 60 Random Glucose 89 Calcium 8.3 L Phosphorus 3.8 Magnesium 1.8 Total Bilirubin 1.4 H AST 60 H D ALT 38 Alkaline Phosphatase 62 NT-Pro-B Natriuret Pep Total Protein 6.3 Albumin 3.5 Globulin 2.8 Albumin/Globulin Ratio 1.3 TSH 3rd Generation Urine Opiates Screen Negative Urine Methadone Screen Negative Ur Barbiturates Screen Negative Ur Phencyclidine Scrn Negative Ur Amphetamines Screen Negative U Benzodiazepines Scrn Negative U Oth Cocaine Metabols Negative U Cannabinoids Screen Negative Alcohol, Quantitative Assessment & Plan - Assessment and Plan (Free Text) Assessment: 53M with elongated dystrophic toenails Plan: Patient seen and evaluated with Dr. Carmen PERSAUD, absent leukocytosis Nails cut with nail nipper without incident - patient tolerated well Feet cleansed with saline No open lesions or clinical signs of infection Podiatry to sign off, please reconsult if any acute problems present Thank you for the consult - Date & Time Date: 10/26/18 Time: 11:05 <Sai Morales - Last Filed: 10/26/18 18:12> Meds - Medications Medications: Current Medications Amoxicillin/Clavulanate Potassium (Augmentin 875 Mg-125 Mg Tab) 1 tab PO Q12 [facility]; Protocol Folic Acid (Folic Acid) 1 mg PO DAILY [facility] Last Admin: 10/26/18 09:53 Dose: 1 mg Levetiracetam (Keppra) 500 mg PO BID [facility] Last Admin: 10/26/18 17:24 Dose: 500 mg Lisinopril (Zestril) 10 mg PO DAILY [facility] Last Admin: 10/26/18 09:54 Dose: 10 mg Lorazepam (Ativan) 1 mg IVP Q2 PRN; Protocol PRN Reason: Symptoms of alcohol withdrawl Last Admin: 10/25/18 20:17 Dose: 1 mg Metoprolol Tartrate (Lopressor) 25 mg PO BID [facility] Last Admin: 10/26/18 17:24 Dose: 25 mg Multivitamins/Minerals (Therapeutic-M Tab) 1 tab PO 0800 [facility] Last Admin: 10/26/18 09:54 Dose: 1 tab Nicotine (Nicoderm Cq) 1 patch TD DAILY [facility] Last Admin: 10/26/18 09:53 Dose: 1 patch Pantoprazole Sodium (Protonix Ec Tab) 40 mg PO DAILY [facility] Last Admin: 10/26/18 09:54 Dose: 40 mg Thiamine HCl (Vitamin B1 Tab) 100 mg PO DAILY [facility] Last Admin: 10/26/18 09:53 Dose: 100 mg Results - Vital Signs Recent Vital Signs: Last Vital Signs Temp 98.4 F 10/26/18 17:38 Pulse 112 H 10/26/18 17:47 Resp 18 10/26/18 17:38 BP 136/84 10/26/18 17:38 Pulse Ox 97 10/26/18 05:40 - Labs Result Diagrams: 10/26/18 06:45 10/26/18 06:45 Labs: Laboratory Results - last 24 hr 10/25/18 10/25/18 10/26/18 13:00 19:16 06:45 WBC 4.7 RBC 3.72 Hgb 12.1 L Hct 36.6 L MCV 98.4 MCH 32.5 MCHC 33.1 RDW 14.3 Plt Count 86 L MPV 10.1 Neut % (Auto) 43.3 L Lymph % (Auto) 35.6 H [place] % (Auto) 17.9 H Eos % (Auto) 2.6 Baso % (Auto) 0.6 Lymph # (Auto) 1.7 [place] # (Auto) 0.8 H Eos # (Auto) 0.1 Baso # (Auto) 0.03 Absolute Neuts (auto) 2.03 Sodium Potassium Chloride Carbon Dioxide Anion Gap BUN Creatinine Est GFR ( Amer) Est GFR (Non-Af Amer) Random Glucose Calcium Phosphorus Magnesium Total Bilirubin AST ALT Alkaline Phosphatase Total Protein Albumin Globulin Albumin/Globulin Ratio 25-OH Vitamin D Total Procalcitonin < 0.05 L Urine Opiates Screen Negative Urine Methadone Screen Negative Ur Barbiturates Screen Negative Ur Phencyclidine Scrn Negative Ur Amphetamines Screen Negative U Benzodiazepines Scrn Negative U Oth Cocaine Metabols Negative U Cannabinoids Screen Negative 10/26/18 10/26/18 06:45 10:20 WBC RBC Hgb Hct MCV MCH MCHC RDW Plt Count MPV Neut % (Auto) Lymph % (Auto) [place] % (Auto) Eos % (Auto) Baso % (Auto) Lymph # (Auto) [place] # (Auto) Eos # (Auto) Baso # (Auto) Absolute Neuts (auto) Sodium 137 Potassium 3.7 Chloride 101 Carbon Dioxide 29 Anion Gap 11 BUN 15 Creatinine 0.7 L Est GFR ( Amer) > 60 Est GFR (Non-Af Amer) > 60 Random Glucose 89 Calcium 8.3 L Phosphorus 3.8 Magnesium 1.8 Total Bilirubin 1.4 H AST 60 H D ALT 38 Alkaline Phosphatase 62 Total Protein 6.3 Albumin 3.5 Globulin 2.8 Albumin/Globulin Ratio 1.3 25-OH Vitamin D Total 35.7 Procalcitonin Urine Opiates Screen Urine Methadone Screen Ur Barbiturates Screen Ur Phencyclidine Scrn Ur Amphetamines Screen U Benzodiazepines Scrn U Oth Cocaine Metabols U Cannabinoids Screen Attending/Attestation - Attestation I have personally seen and examined this patient.: Yes I have fully participated in the care of the patient.: Yes I have reviewed all pertinent clinical information: Yes
--- NOTE | 2018-10-26 13:12 | CP.PCM.PN ---
Subjective - Date & Time of Evaluation Date of Evaluation: 10/26/18 Time of Evaluation: 09:45 - Subjective Subjective: Alida Prince PGY1 Hospital Progress Note Patient seen and examined at bedside this morning. No acute events reported overnight. Patient seen resting comfortably in bed and states he slept well and tolerating diet without complaints. Denies CP, nausea, vomiting, abdominal pain, numbness, tingling and diaphoresis. Objective - Vital Signs/Intake and Output Vital Signs (last 24 hours): Temp Pulse Resp BP Pulse Ox 97.9 F 92 H 19 148/87 97 10/26/18 12:00 10/26/18 12:00 10/26/18 12:00 10/26/18 12:00 10/26/18 05:40 Intake and Output: 10/26/18 10/26/18 06:59 18:59 Intake Total 1480 Output Total 275 Balance 1205 - Medications Medications: Current Medications Folic Acid (Folic Acid) 1 mg PO DAILY [facility] Last Admin: 10/26/18 09:53 Dose: 1 mg Cefazolin Sodium (Ancef 1gm In Ns) 1 gm in 100 mls @ 100 mls/hr IVPB Q8 [facility]; Protocol Last Admin: 10/26/18 06:41 Dose: 100 mls/hr Levetiracetam (Keppra) 500 mg PO BID [facility] Last Admin: 10/26/18 09:54 Dose: 500 mg Lisinopril (Zestril) 10 mg PO DAILY [facility] Last Admin: 10/26/18 09:54 Dose: 10 mg Lorazepam (Ativan) 1 mg IVP Q2 PRN; Protocol PRN Reason: Symptoms of alcohol withdrawl Last Admin: 10/25/18 20:17 Dose: 1 mg Metoprolol Tartrate (Lopressor) 25 mg PO BID [facility] Last Admin: 10/26/18 09:53 Dose: 25 mg Multivitamins/Minerals (Therapeutic-M Tab) 1 tab PO 0800 [facility] Last Admin: 10/26/18 09:54 Dose: 1 tab Nicotine (Nicoderm Cq) 1 patch TD DAILY [facility] Last Admin: 10/26/18 09:53 Dose: 1 patch Pantoprazole Sodium (Protonix Ec Tab) 40 mg PO DAILY [facility] Last Admin: 10/26/18 09:54 Dose: 40 mg Thiamine HCl (Vitamin B1 Tab) 100 mg PO DAILY [facility] Last Admin: 10/26/18 09:53 Dose: 100 mg - Labs Labs: 10/26/18 06:45 10/26/18 06:45 PT 10.2 SECONDS (9.4-12.5) 10/25/18 12:54 INR 0.92 10/25/18 12:54 APTT 37.9 Seconds (26.9-38.3) 10/25/18 12:54 Physical Exam - Constitutional Appears: Non-toxic, No Acute Distress, Unkempt - Head Exam Head Exam: ATRAUMATIC, NORMAL INSPECTION Additional comments: dry skin peeling around nose and eyes - Eye Exam Eye Exam: EOMI Pupil Exam: PERRL - ENT Exam ENT Exam: Mucous Membranes Dry - Neck Exam Neck exam: Positive for: Normal Inspection - Respiratory Exam Respiratory Exam: Clear to Auscultation Bilateral. absent: Accessory Muscle Use, Wheezes, Respiratory Distress - Cardiovascular Exam Cardiovascular Exam: +S1, +S2, positive for systolic murmur - GI/Abdominal Exam GI & Abdominal Exam: Normal Bowel Sounds, Soft. absent: Firm, Guarding, Tenderness - Extremities Exam Extremities exam: Positive for: pedal pulses present. Negative for: calf tenderness Additional comments: scabs noted on B/L LE in various stages of healing. 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 Noted to have alcohol level of 298 on admission. Discharge planning for tomorrow Plan: Alcohol Intoxication -alcohol serum 298 on admission -no signs of active withdrawal on PE -CIWA score 3, 5 , 6 -required one dose of ativan overnight -fall, aspiration, seizure precautions -Multivitamin, thiamine and folate -ativan 1 mg IVP q2 prn for signs of withdrawal -UDS negative -alcohol cessation counseling given to patient extensively at bedside -physical therapy Tachycardia - improved -consider 2/2 alcohol withdrawal -d-dimer elevated -10/25 CT chest shows no large central or definite segmental pulmonary embolus evident. Severe intervertebral disc space narrowing at T11-T12. Loss of vertebral body height at T12 consistent with compression fracture, age indeterminate. If indicated, further evaluation may be considered with MRI. -10/25 CXR shows no active pulmonary disease -10/25 Ext US shows no DVT -EKG shows NSR, not ST changes -continue lopressor 25mg BID B/L Leg swelling - resolved -2/2 trauma vs cellulitis vs CHF (less likely) -augmentin day 2 -10/25 Ext US shows no DVT -afebrile, no WBC count -procalc WNL -patient received TDAP 09/27/18 -podiatry on consult HFpEF s/p AICD placement -ECHO (09/2018): EF of 61%, normal LV segmental wall motion, grade 1 abnormal relaxation pattern, aortic valve is severely thickened, moderate to severe valvular aortic stenosis, mild MR and TR -echo previously 02/2014 shows EF 35% Transaminitis - improving -likely 2/2 alcohol abuse -Abd US 07/2018 shows mild hepatomegaly with fatty infiltration of the liver. No evidence of biliary obstruction, cholecystitis. Hx of tobacco abuse -nicotine patch daily -tobacco cessation counseling given Hx of ICH -intracranial hemorrhage in 03/2017 -CT head without contrast (02/2017): moderate brain atrophy, 1.7 x 1.2 cm intraparenchymal hemorrhage L thalamus, mild surrounding edema. Hx of seizures -seizure precautions, aspiration precautions -continue home keppra 500mg BID Hx of HTN -continue home medication metoprolol 25mg BID and lisinopril 10mg daily PPX -SCD -protonix -HHD Patient seen and case discussed with Dr. Hawkins
[2018-10-26] MEDS: Amoxicillin-Clav 875-125 mg Tab PO SCH (21:37)
[2018-10-27 06:25] LABS: BASO # 0.03 K/mm3 (0.0-2.0); BASO % 0.7 % (0.0-3.0); EOS # 0.1 (0.0-0.7); EOS % 2.4 % (1.5-5.0); HEMOGLOBIN 12.1 g/dL (14.0-18.0); LYMPH # 1.3 (1.2-3.4); LYMPH % 28.8 % (22.0-35.0); MEAN CELL VOLUME 98.1 fl (80.0-105.0); MEAN CORPUSCULAR HEMOGLOBIN 32.4 pg (25.0-35.0); MEAN CORPUSCULAR HGB CONC 33.1 g/dl (31.0-37.0); MEAN PLATELET VOLUME 10.8 fl (7.0-11.0); MONO # 0.8 (0.1-0.6); MONO % 18.4 % (1.0-6.0); RBC 3.73 10^6/uL (3.5-6.1); RED CELL DISTRIBUTION WIDTH 13.8 % (11.5-14.5); WHITE BLOOD COUNT 4.5 10^3/uL (4.5-11.0)
[2018-10-27 06:27] VITALS: O2SAT 97
[2018-10-27 06:35] LABS: ALB/GLOB RATIO 1.2 (1.1-1.8); ALBUMIN 3.6 g/dL (3.0-4.8); ALT/SGPT 33 U/L (7-56); AST/SGOT 72 U/L (17-59); BLOOD UREA NITROGEN 12 mg/dL (7-21); CALCIUM 8.6 mg/dL (8.4-10.5); GFR NON-AFRICAN AMERICAN > 60
[2018-10-27] MEDS: Multivitamin With Minerals Tab PO SCH (09:49)
[2018-10-27] MEDS: Amoxicillin-Clav 875-125 mg Tab PO SCH (09:50)
[2018-10-27] MEDS: Pantoprazole 40 mg EC Tab PO SCH (09:50)
[2018-10-27 11:50] VITALS: BP 136/84; RESP 18; TEMP 98
[2018-10-27 14:12] VITALS: PULSE 107
--- NOTE | 2018-10-27 14:21 | CP.PCM.DIS ---
Provider - Provider Date of Admission: 10/25/18 18:02 Attending physician: Avelina Hawkins MD Consults: 10/25/18 20:44 Podiatry Consult Routine Comment: Consulting Provider: Gloria Theodore Consulting Physician: Gloria Theodore Reason for Consult: right lower extremity cellulitis, wound care 10/26/18 02:25 Social Work Referral Routine Comment: admission assessment protocol Physician Instructions: Reason For Exam: bess score 12 10/26/18 03:05 Transition In Care/Readmission Reduction Routine Comment: Physician Instructions: Reason For Exam: admission assessment protocol 10/27/18 10:50 Cribber [Case Management Referral] Routine Comment: Physician Instructions: Reason For Exam: eleno care approval Reason for Referral: Discharge Planning Time Spent in preparation of Discharge (in minutes): 35 Hospital Course - Lab Results Lab Results: Most Recent Lab Values WBC 4.5 10^3/uL (4.5-11.0) 10/27/18 05:45 RBC 3.73 10^6/uL (3.5-6.1) 10/27/18 05:45 Hgb 12.1 g/dL (14.0-18.0) L 10/27/18 05:45 Hct 36.6 % (42.0-52.0) L 10/27/18 05:45 MCV 98.1 fl (80.0-105.0) 10/27/18 05:45 MCH 32.4 pg (25.0-35.0) 10/27/18 05:45 MCHC 33.1 g/dl (31.0-37.0) 10/27/18 05:45 RDW 13.8 % (11.5-14.5) 10/27/18 05:45 Plt Count 96 10^3/uL (120.0-450.0) L 10/27/18 05:45 MPV 10.8 fl (7.0-11.0) 10/27/18 05:45 Neut % (Auto) 49.7 % (50.0-68.0) L 10/27/18 05:45 Lymph % (Auto) 28.8 % (22.0-35.0) 10/27/18 05:45 [place] % (Auto) 18.4 % (1.0-6.0) H 10/27/18 05:45 Eos % (Auto) 2.4 % (1.5-5.0) 10/27/18 05:45 Baso % (Auto) 0.7 % (0.0-3.0) 10/27/18 05:45 Lymph # (Auto) 1.3 (1.2-3.4) 10/27/18 05:45 [place] # (Auto) 0.8 (0.1-0.6) H 10/27/18 05:45 Eos # (Auto) 0.1 (0.0-0.7) 10/27/18 05:45 Baso # (Auto) 0.03 K/mm3 (0.0-2.0) 10/27/18 05:45 Absolute Neuts (auto) 2.25 (1.4-6.5) 10/27/18 05:45 PT 10.2 SECONDS (9.4-12.5) 10/25/18 12:54 INR 0.92 10/25/18 12:54 APTT 37.9 Seconds (26.9-38.3) 10/25/18 12:54 D-Dimer, Quantitative 759 ng/mlDDU (0-243) H 10/25/18 12:54 Sodium 136 mmol/L (132-148) 10/27/18 05:45 Potassium 3.9 mmol/L (3.6-5.0) 10/27/18 05:45 Chloride 100 mmol/L (98-107) 10/27/18 05:45 Carbon Dioxide 27 mmol/L (21-33) 10/27/18 05:45 Anion Gap 12 (10-20) 10/27/18 05:45 BUN 12 mg/dL (7-21) 10/27/18 05:45 Creatinine 0.7 mg/dl (0.8-1.5) L 10/27/18 05:45 Est GFR ( Amer) > 60 10/27/18 05:45 Est GFR (Non-Af Amer) > 60 10/27/18 05:45 Random Glucose 101 mg/dL (70-110) 10/27/18 05:45 Calcium 8.6 mg/dL (8.4-10.5) 10/27/18 05:45 Phosphorus 3.8 mg/dL (2.5-4.5) 10/26/18 06:45 Magnesium 1.8 mg/dL (1.7-2.2) 10/26/18 06:45 Total Bilirubin 1.4 mg/dL (0.2-1.3) H 10/27/18 05:45 AST 72 U/L (17-59) H 10/27/18 05:45 ALT 33 U/L (7-56) 10/27/18 05:45 Alkaline Phosphatase 60 U/L (38-126) 10/27/18 05:45 NT-Pro-B Natriuret Pep 93.9 pg/mL (0-450) 10/25/18 12:54 Total Protein 6.5 g/dL (5.8-8.3) 10/27/18 05:45 Albumin 3.6 g/dL (3.0-4.8) 10/27/18 05:45 Globulin 2.9 gm/dL 10/27/18 05:45 Albumin/Globulin Ratio 1.2 (1.1-1.8) 10/27/18 05:45 25-OH Vitamin D Total 35.7 NG/ML (30.0-100.0) 10/26/18 10:20 Procalcitonin < 0.05 NG/ML (0.19-0.49) L 10/25/18 13:00 TSH 3rd Generation 0.61 mIU/mL (0.46-4.68) 10/25/18 12:54 Urine Opiates Screen Negative (NEGATIVE) 10/25/18 19:16 Urine Methadone Screen Negative (NEGATIVE) 10/25/18 19:16 Ur Barbiturates Screen Negative (NEGATIVE) 10/25/18 19:16 Ur Phencyclidine Scrn Negative (NEGATIVE) 10/25/18 19:16 Ur Amphetamines Screen Negative (NEGATIVE) 10/25/18 19:16 U Benzodiazepines Scrn Negative (NEGATIVE) 10/25/18 19:16 U Oth Cocaine Metabols Negative (NEGATIVE) 10/25/18 19:16 U Cannabinoids Screen Negative (NEGATIVE) 10/25/18 19:16 Alcohol, Quantitative 298 mg/dL (0-10) H 10/25/18 12:54 Physical Exam - Constitutional Appears: Non-toxic, No Acute Distress, Unkempt - Head Exam Head Exam: ATRAUMATIC, NORMAL INSPECTION Additional comments: - Eye Exam Eye Exam: EOMI Pupil Exam: PERRL - ENT Exam ENT Exam: Mucous Membranes Dry - Neck Exam Neck exam: Positive for: Normal Inspection - Respiratory Exam Respiratory Exam: Clear to Auscultation Bilateral. absent: Accessory Muscle Use, Wheezes, Respiratory Distress - Cardiovascular Exam Cardiovascular Exam: +S1, +S2, positive for systolic murmur - GI/Abdominal Exam GI & Abdominal Exam: Normal Bowel Sounds, Soft. absent: Firm, Guarding, Tenderness - Extremities Exam Extremities exam: Positive for: pedal pulses present. Negative for: calf tenderness Additional comments: scabs noted on B/L LE in various stages of healing. DP +2 - Back Exam Back exam: NORMAL INSPECTION - Neurological Exam Neurological exam: Alert, CN II-XII Intact, Oriented x3. 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 Patient states right leg swelling began 2 days ago and denies any inciting event including trauma, accident and lifestyle change. Patient states swelling is associated redness and denies any associated symptoms at this time. Patient states swelling is similar to previous episodes of B/L leg swelling from heart failure. Patient admits to drinking 3 to 5 shots of alcohol this morning. Patient was admitted to the hospital last month for alcohol withdrawal for 2 day hospital course and started on keppra by neurology for seizure disorder. Echo at that time showed normal EF and severe , which was improved on prior echo which showed reduced EF. Patient was discharged on folate, MV, thiamine, keppra 500mg BID, lisinopril 10mg and metoprolol tartrate 25mg BID and instructed to follow up with the [facility] neighborhood clinic. Patient states he was unable to follow up with clinic due to issues with his insurance and states he has been inconsistent with his home medications. During hospital course patient was afebrile and no WBC noted. CXR shows no active disease. Patient noted to be tachycardic with elevated d-dimer. Ext US did not show DVT and CT chest was negative for PE. EKG shows NSR, not ST changes. Alcohol serum noted to be 298 on admission with no signs of active withdrawal on physical exam. CIWA score was 3, 5 , 6 within first 24 hours. Patient started on banana bag as well as ativan 1mg q2 prn. The following day, patient's CIWA score was 0 x3 q4 hours. Patient was put on fall, aspiration and seizure precautions. Patient was given extensive counseling on alcohol cessation and tobacco cessation. Patient verbally agreed to follow up with [facility] and complete [facility] paperwork. Patient agreed with discharge today and all of patient's questions were answered to satisfaction. Patient received medications to bedside. Discharge Plan - Discharge Medications Prescriptions: Folic Acid 1 mg PO DAILY #30 tab levETIRAcetam [Keppra] 500 mg PO BID #60 tab Lisinopril [Zestril] 10 mg PO DAILY #30 tab Metoprolol Tartrate [Lopressor] 25 mg PO BID #60 tab Multimineral/Multivitamin [Therapeutic-M Tab] 1 tab PO 0800 #30 tab Pantoprazole [Protonix EC Tab] 40 mg PO DAILY #30 ect Thiamine [Vitamin B1 Tab] 100 mg PO DAILY #30 tab - Follow Up Plan Condition: GUARDED Disposition: HOME/ ROUTINE Instructions: Quitting Smoking for Older Adults, Alcohol Withdrawal (DC) Additional Instructions: Please follow up with [facility] clinic within 7-10 days of discharge. As per our discussion you prefer to make an appointment with [facility] that works with you and you will complete [facility] paperwork prior to arriving for your appointment. The clinic number has been provided to you. Please continue your home medications. We have provided you with a 30 day supple, and for your convenience, have provided your medications to bedside. Pleaase stop drinking alcohol and smoking as per our extensive discussion. Please return to the ED for any new or worsening symptoms. Referrals: [facility] at [facility] [Outside]
== END 2018-10-27 17:06 | disposition home or self-care (01) ==
LOC: ED 11:59 → ERH 18:02 → 2RNO 21:13
PROVIDERS: ADMIT Internal Medicine; ATTEND Internal Medicine
DX: F10.239 Alcohol dependence with withdrawal, unspecified (principal); Y90.8 Blood alcohol level of 240 mg/100 ml or more; I11.0 Hypertensive heart disease with heart failure; I50.32 Chronic diastolic (congestive) heart failure; G40.909 Epilepsy, unspecified, not intractable, without status epilepticus; F17.210 Nicotine dependence, cigarettes, uncomplicated; I35.0 Nonrheumatic aortic (valve) stenosis; M48.04 Spinal stenosis, thoracic region; R00.0 Tachycardia, unspecified; Z95.810 Presence of automatic (implantable) cardiac defibrillator; Z86.73 Personal history of transient ischemic attack (TIA), and cerebral infarction without residual deficits
CPT/HCPCS: 36415; 71046; 71275; 80053; 80320; 80324; 80345; 80346; 80349; 80353; 80358; 80361; 82306; 83735; 83880; 83992; 84100; 84145; 84443; 85025; 85378; 85610; 85730; 93005; 93970; 96374; 97116; 97162; 97530; 99285; G0378; G8978; G8980; J0690; J2060; J3411; J7030; Q9967

== ENCOUNTER 2018-10-30 19:25 | Emergency (ER) | payer OTHER ==
[2018-10-30 19:25] VITALS: BMI 22.1
[2018-10-30 19:51] VITALS: BP 138/87; PULSE 100; RESP 18; TEMP 97.8; O2SAT 100
--- NOTE | 2018-10-30 20:08 | ED PDOC ---
Arrival/HPI - General Chief Complaint: Alcohol Ingestion Time Seen by Provider: 10/30/18 19:26 Historian: Patient - History of Present Illness Narrative History of Present Illness (Text): 10/30/18 20:07 A 53 year old male was brought in by [employer] to the ED for public alcohol intoxication. Patient admitted to have been drinking alcohol. Patient denies any somatic complaints. Symptom Onset: Gradual Symptom Course: Unchanged Activities at Onset: Light Context: Street Past Medical History - Provider Review Nursing Documentation Reviewed: Yes - Past History Past History: Non-Contributing - Infectious Disease Hx of Infectious Diseases: None - Tetanus Immunization Tetanus Immunization: Unknown - Cardiac Hx Cardiac Disorders: Yes Hx Congestive Heart Failure: Yes Hx Hypertension: Yes - Pulmonary Hx Respiratory Disorders: No 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: smokes 1PPD - Neurological HX Cerebrovascular Accident: Yes (right sided weakness) - HEENT Hx HEENT Disorder: No - Renal Hx Renal Disorder: No - Endocrine/Metabolic Hx Endocrine Disorders: No - Hematological/Oncological Hx Blood Disorders: No - Integumentary Hx Dermatological Disorder: Yes (skin flushed) - Musculoskeletal/Rheumatological Hx Musculoskeletal Disorders: Yes Hx Falls: Yes Hx Fractures: Yes Hx Herniated Disk: Yes - Gastrointestinal Hx Gastrointestinal Disorders: Yes (gastritis) - Genitourinary/Gynecological Hx Genitourinary Disorders: No - Psychiatric Hx Psychophysiologic Disorder: Yes Hx Substance Use: No (denies) 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: Alcohol abuse 3-5 shots daily - Past Surgical History Past Surgical History: Unable to Obtain - Surgical History Hx Cardiac Catheterization: Yes (stents) Hx Musculoskeletal Surgery: Yes Hx Orthopedic Surgery: Yes (r ankle, has a screw) Hx Valve Replacement: No 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: AICD placement - Anesthesia Hx Anesthesia: Yes Hx Anesthesia Reactions: No Hx Malignant Hyperthermia: No - Suicidal Assessment Feels Threatened In Home Enviroment: No Family/Social History - Physician Review Nursing Documentation Reviewed: Yes Family/Social History: No Known Family HX Smoking Status: Light Smoker < 10 Cigarettes Daily Hx Alcohol Use: Yes (3-5 shots daily) Hx Substance Use: No (denies) Hx Substance Use Treatment: No Allergies/Home Meds Allergies/Adverse Reactions: Allergies No Known Allergies Allergy (Verified 10/30/18 19:31) Review of Systems - Review of Systems Systems not reviewed;Unavailable: Intoxicated Physical Exam - Physical Exam Physical Exam Limitations: Intoxication Vital Signs Reviewed: Yes Vital Signs Temp Pulse Resp BP Pulse Ox 10/30/18 19:50 97.8 F 100 H 18 138/87 100 Temperature: Afebrile Blood Pressure: Normal Pulse: Tachycardic Respiratory Rate: Normal Appearance: Positive for: Well-Appearing, Non-Toxic, Comfortable Mental Status: Positive for: Alert and Oriented X 3 - Systems Exam Head: Present: Atraumatic, Normocephalic Pupils: Present: PERRL Extroacular Muscles: Present: EOMI Conjunctiva: Present: Normal Mouth: Present: Moist Mucous Membranes Neck: Present: Normal Range of Motion Respiratory/Chest: Present: Clear to Auscultation, Good Air Exchange. No: Respiratory Distress, Accessory Muscle Use Cardiovascular: Present: Regular Rate and Rhythm, Normal S1, S2. No: Murmurs Abdomen: No: Tenderness, Distention, Peritoneal Signs Back: Present: Normal Inspection Upper Extremity: Present: Normal Inspection. No: Cyanosis, Edema Lower Extremity: Present: Normal Inspection. No: Edema Neurological: Present: GCS=15, CN II-XII Intact, Speech Normal, Motor Func Grossly Intact, Normal Sensory Function Skin: Present: Warm, Dry, Normal Color. No: Rashes Psychiatric: Present: Alert, Oriented x 3, Intoxicated Medical Decision Making ED Course and Treatment: 10/30/18 20:14 Impression: A 53 year old male who was brought in to ED by Reji JAMES for public intoxication. Plan: -- Reassess and disposition Prior Visits: Notes and results from previous visits were reviewed. 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 - Scribe Statement The provider has reviewed the documentation as recorded by the Pawan Can Provider Scribe Attestation: All medical record entries made by the Pawan were at my direction and personally dictated by me. I have reviewed the chart and agree that the record accurately reflects my personal performance of the history, physical exam, medical decision making, and the department course for this patient. I have also personally directed, reviewed, and agree with the discharge instructions and disposition. Disposition/Present on Arrival - Present on Arrival Any Indicators Present on Arrival: No History of DVT/PE: No History of Uncontrolled Diabetes: No Urinary Catheter: No History of Decub. Ulcer: No History Surgical Site Infection Following: None - Disposition Have Diagnosis and Disposition been Completed?: Yes Diagnosis: Alcohol abuse Disposition: HOME/ ROUTINE Disposition Time: 20:09 Condition: GOOD Discharge Instructions (ExitCare): Alcohol Intoxication (ED), Abuse of Alcohol (ED), Alcohol Dependence (ED) Additional Instructions: Avoid excessive use of alcohol/follow up with your doctor Referrals: PCP,NO [Primary Care Provider] - Follow up with primary [facility] [Outside] - Follow up with primary Forms: [employer] (Yakut)
== END 2018-10-30 20:15 | disposition home or self-care (01) ==
LOC: ED 19:25
DX: F10.129 Alcohol abuse with intoxication, unspecified (principal); F17.210 Nicotine dependence, cigarettes, uncomplicated; I50.9 Heart failure, unspecified; Z86.73 Personal history of transient ischemic attack (TIA), and cerebral infarction without residual deficits; I10 Essential (primary) hypertension

== ENCOUNTER 2018-10-31 10:41 | Emergency (ER) | payer OTHER ==
[2018-10-31 10:41] VITALS: BMI 22.1
[2018-10-31 12:04] LABS: BASO # 0.04 K/mm3 (0.0-2.0); BASO % 0.8 % (0.0-3.0); EOS % 0.4 % (1.5-5.0); HEMOGLOBIN 11.9 g/dL (14.0-18.0); LYMPH # 0.9 (1.2-3.4); LYMPH % 18.6 % (22.0-35.0); MEAN CELL VOLUME 98.6 fl (80.0-105.0); MEAN CORPUSCULAR HEMOGLOBIN 32.7 pg (25.0-35.0); MEAN CORPUSCULAR HGB CONC 33.1 g/dl (31.0-37.0); MEAN PLATELET VOLUME 8.8 fl (7.0-11.0); MONO # 0.7 (0.1-0.6); MONO % 14.7 % (1.0-6.0); RBC 3.64 10^6/uL (3.5-6.1); RED CELL DISTRIBUTION WIDTH 14.2 % (11.5-14.5); WHITE BLOOD COUNT 4.9 10^3/uL (4.5-11.0)
[2018-10-31 12:15] LABS: INR 0.93; PROTHROMBIN TIME 10.5 SECONDS (9.4-12.5)
[2018-10-31 12:18] LABS: ALB/GLOB RATIO 1.3 (1.1-1.8); ALBUMIN 4.1 g/dL (3.0-4.8); ALT/SGPT 88 U/L (7-56); AST/SGOT 208 U/L (17-59); BLOOD UREA NITROGEN 11 mg/dL (7-21); CALCIUM 8.4 mg/dL (8.4-10.5); GFR NON-AFRICAN AMERICAN > 60
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
[2018-10-31 12:45] LABS: PH,URINE 5.5 (4.7-8.0); URINE BILIRUBIN NEGATIVE (NEGATIVE); URINE BLOOD NEGATIVE (NEGATIVE); URINE GLUCOSE (UA) NEGATIVE (NEGATIVE); URINE LEUKOCYTE ESTERASE NEGATIVE Leu/uL (NEGATIVE); URINE PROTEIN 30 mg/dL (<30 mg/dL); URINE UROBILINOGEN 0.2 E.U./dL (<1 E.U./dL)
[2018-10-31 12:50] LABS: URINE APPEARANCE CLEAR (CLEAR); URINE COLOR YELLOW (YELLOW)
[2018-10-31 12:53] LABS: URINE AMORPHOUS SEDIMENT FEW /hpf; URINE BACTERIA MANY /hpf; URINE EPITHELIAL CELLS 0 - 2 /hpf (0-5); URINE FINE GRANULAR CAST 0 - 2 /hpf; URINE HYALINE CAST 0 - 2 /hpf; URINE RBC 0 - 2 /hpf (0-2)
[2018-10-31 13:05] VITALS: BP 122/85; PULSE 100; RESP 19; TEMP 99; O2SAT 99
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
== END 2018-10-31 13:07 | disposition home or self-care (01) ==
LOC: ED 10:41
DX: F10.10 Alcohol abuse, uncomplicated (principal); S22.32XA Fracture of one rib, left side, initial encounter for closed fracture; Y04.0XXA Assault by unarmed brawl or fight, initial encounter; I50.9 Heart failure, unspecified; I10 Essential (primary) hypertension; F17.210 Nicotine dependence, cigarettes, uncomplicated
CPT/HCPCS: 71260; 74177; 80053; 80320; 81001; 85025; 85610; 85730; 99285; Q9967

== ENCOUNTER 2018-10-31 19:05 | Inpatient (IN) | payer OTHER ==
[2018-10-31 19:05] VITALS: BMI 22.1
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
[2018-10-31 21:00] LABS: HEMOGLOBIN 11.8 g/dL (14.0-18.0); MEAN CELL VOLUME 98.6 fl (80.0-105.0); MEAN CORPUSCULAR HEMOGLOBIN 32.9 pg (25.0-35.0); MEAN CORPUSCULAR HGB CONC 33.3 g/dl (31.0-37.0); RBC 3.59 10^6/uL (3.5-6.1); RED CELL DISTRIBUTION WIDTH 14.2 % (11.5-14.5); WHITE BLOOD COUNT 5.6 10^3/uL (4.5-11.0)
[2018-10-31 21:11] LABS: INR 0.99; PARTIAL THROMBOPLASTIN TIME 28.5 Seconds (26.9-38.3)
[2018-10-31 21:18] LABS: ALB/GLOB RATIO 1.4 (1.1-1.8); ALBUMIN 4.3 g/dL (3.0-4.8); ALT/SGPT 77 U/L (7-56); AST/SGOT 135 U/L (17-59); BLOOD UREA NITROGEN 12 mg/dL (7-21); CALCIUM 8.7 mg/dL (8.4-10.5); GFR NON-AFRICAN AMERICAN > 60
[2018-10-31 21:22] LABS: TROPONIN I < 0.01 ng/mL
[2018-10-31 21:32] LABS: CK-MB 2.8 ng/mL (0.0-3.6)
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
[2018-10-31] MEDS ORDERED: Folic Acid 1 MG, Thiamine 100 MG, Multivitamin (MVI) 10 ML in Dextrose 5% In Water 1,00... IV SCH (21:45)
[2018-11-01 07:21] LABS: HEMOGLOBIN 11.5 g/dL (14.0-18.0); MEAN CELL VOLUME 98.6 fl (80.0-105.0); MEAN CORPUSCULAR HEMOGLOBIN 32.2 pg (25.0-35.0); MEAN CORPUSCULAR HGB CONC 32.7 g/dl (31.0-37.0); MEAN PLATELET VOLUME 9.4 fl (7.0-11.0); RBC 3.57 10^6/uL (3.5-6.1); RED CELL DISTRIBUTION WIDTH 13.8 % (11.5-14.5); WHITE BLOOD COUNT 5.1 10^3/uL (4.5-11.0)
[2018-11-01 07:45] LABS: ALB/GLOB RATIO 1.3 (1.1-1.8); ALBUMIN 3.9 g/dL (3.0-4.8); ALT/SGPT 65 U/L (7-56); AST/SGOT 101 U/L (17-59); BLOOD UREA NITROGEN 11 mg/dL (7-21); CALCIUM 8.2 mg/dL (8.4-10.5); GFR NON-AFRICAN AMERICAN > 60
--- NOTE | 2018-11-01 08:00 | RAD ---
Date of service: 10/31/2018 HISTORY: syncope COMPARISON: 10/25/2018 TECHNIQUE: 1 view obtained. FINDINGS: LUNGS: No active pulmonary disease. PLEURA: No significant pleural effusion identified, no pneumothorax apparent. CARDIOVASCULAR: No aortic atherosclerotic calcification present. Normal cardiac size. No pulmonary vascular congestion. OSSEOUS STRUCTURES: No significant abnormalities. VISUALIZED UPPER ABDOMEN: Normal. OTHER FINDINGS: Pacemaker IMPRESSION: No active disease.
[2018-11-01] MEDS ORDERED: Potassium Chloride 20 mEq ER Tab PO STA (08:57)
--- NOTE | 2018-11-01 09:01 | CT ---
Date of service: 10/31/2018 PROCEDURE: CT HEAD WITHOUT CONTRAST. HISTORY: syncope COMPARISON: None available. TECHNIQUE: Axial computed tomography images were obtained through the head/brain without intravenous contrast. Radiation dose: Total exam DLP = 898.39 mGy-cm. This CT exam was performed using one or more of the following dose reduction techniques: Automated exposure control, adjustment of the mA and/or kV according to patient size, and/or use of iterative reconstruction technique. FINDINGS: HEMORRHAGE: No intracranial hemorrhage. BRAIN: No mass effect or edema. Mild white matter ischemic changes. VENTRICLES: Unremarkable. No hydrocephalus. CALVARIUM: Unremarkable. PARANASAL SINUSES: Unremarkable as visualized. No significant inflammatory changes. MASTOID AIR CELLS: Unremarkable as visualized. No inflammatory changes. OTHER FINDINGS: None. IMPRESSION: No acute hemorrhage.
--- NOTE | 2018-11-01 11:39 | CARD ---
APPROVED REPORT Date of service: 10/31/2018 EKG Measurement Heart [id number] <Conclusion> Sinus tachycardia Septal infarct, age undetermined Abnormal ECG
[2018-11-01] MEDS: Multivitamin With Minerals Tab PO SCH (11:49)
[2018-11-01] MEDS: Pantoprazole 40 mg EC Tab PO SCH (11:50)
[2018-11-01] MEDS ORDERED: Magnesium Sulfate 2 gm/50 ml 2 GM/50 ML BAG IVPB ONE (16:01)
[2018-11-01 19:56] LABS: BARBITURATES, UR NEGATIVE (NEGATIVE); BENZODIAZEPINES, UR NEGATIVE (NEGATIVE); OPIATES, UR NEGATIVE (NEGATIVE); PHENCYCLIDINE, UR NEGATIVE (NEGATIVE)
--- NOTE | 2018-11-01 20:11 | CP.PCM.PN ---
Subjective - Date & Time of Evaluation Date of Evaluation: 11/01/18 Time of Evaluation: 20:10 - Subjective Subjective: S: Patient reports palpable chest pain worse with cough. Patient reported no associated symptoms O: RRR, CTA bilaterally, NT/ND, BS+ A and P: Will order EKG, tropx2, CBC,CMP Objective - Vital Signs/Intake and Output Vital Signs (last 24 hours): Temp Pulse Resp BP Pulse Ox 97.9 F 90 20 106/70 100 11/01/18 18:00 11/01/18 18:34 11/01/18 18:00 11/01/18 18:34 11/01/18 01:18 Intake and Output: 11/01/18 11/02/18 18:59 06:59 Intake Total 1074 Output Total 720 Balance 354 - Medications Medications: Current Medications Folic Acid (Folic Acid) 1 mg PO DAILY [facility] Last Admin: 11/01/18 11:49 Dose: 1 mg Ibuprofen (Motrin Tab) 400 mg PO Q6H PRN PRN Reason: Pain, moderate (4-7) Levetiracetam (Keppra) 500 mg PO BID [facility] Last Admin: 11/01/18 18:35 Dose: 500 mg Lisinopril (Zestril) 10 mg PO DAILY [facility] Last Admin: 11/01/18 11:49 Dose: 10 mg Lorazepam (Ativan) 2 mg IVP Q2 PRN; Protocol PRN Reason: Symptoms of alcohol withdrawl Last Admin: 11/01/18 14:00 Dose: 2 mg Lorazepam (Ativan) 2 mg IVP Q6H JUSTINO; Protocol Last Admin: 11/01/18 18:37 Dose: Not Given Metoprolol Tartrate (Lopressor) 25 mg PO BID [facility] Last Admin: 11/01/18 18:34 Dose: 25 mg Multivitamins/Minerals (Therapeutic-M Tab) 1 tab PO 0800 [facility] Last Admin: 11/01/18 11:49 Dose: 1 tab Pantoprazole Sodium (Protonix Ec Tab) 40 mg PO DAILY [facility] Last Admin: 11/01/18 11:50 Dose: 40 mg Thiamine HCl (Vitamin B1 Tab) 100 mg PO DAILY [facility] Last Admin: 11/01/18 11:49 Dose: 100 mg - Labs Labs: 11/01/18 07:00 11/01/18 07:00 PT 11.0 SECONDS (9.4-12.5) 10/31/18 20:56 INR 0.99 10/31/18 20:56 APTT 28.5 Seconds (26.9-38.3) 10/31/18 20:56
[2018-11-01 20:30] LABS: BASO # 0.03 K/mm3 (0.0-2.0); BASO % 0.5 % (0.0-3.0); EOS # 0.1 (0.0-0.7); EOS % 1.2 % (1.5-5.0); HEMOGLOBIN 12.3 g/dL (14.0-18.0); LYMPH # 1.6 (1.2-3.4); LYMPH % 23.8 % (22.0-35.0); MEAN PLATELET VOLUME 9.3 fl (7.0-11.0); MONO # 1.5 (0.1-0.6); MONO % 23.5 % (1.0-6.0); PLATELET COUNT 221 10^3/uL (120.0-450.0); RBC 3.73 10^6/uL (3.5-6.1); RED CELL DISTRIBUTION WIDTH 13.9 % (11.5-14.5); WHITE BLOOD COUNT 6.6 10^3/uL (4.5-11.0)
[2018-11-01 20:51] LABS: TROPONIN I < 0.01 ng/mL
[2018-11-01 20:54] LABS: ALB/GLOB RATIO 1.2 (1.1-1.8); ALBUMIN 3.9 g/dL (3.0-4.8); ALT/SGPT 52 U/L (7-56); AST/SGOT 62 U/L (17-59); BLOOD UREA NITROGEN 9 mg/dL (7-21); CALCIUM 8.5 mg/dL (8.4-10.5); GFR NON-AFRICAN AMERICAN > 60
[2018-11-01 21:24] LABS: EOSINOPHIL 2 % (0.0-3.0); LYMPHOCYTE 23 % (22.0-35.0); MONOCYTE 17 % (1.0-6.0); NEUTROPHIL 58 % (50.0-70.0)
[2018-11-02 07:26] LABS: HEMOGLOBIN 12.3 g/dL (14.0-18.0); MEAN CELL VOLUME 99.5 fl (80.0-105.0); MEAN CORPUSCULAR HEMOGLOBIN 33.2 pg (25.0-35.0); MEAN CORPUSCULAR HGB CONC 33.3 g/dl (31.0-37.0); MEAN PLATELET VOLUME 9.9 fl (7.0-11.0); RBC 3.71 10^6/uL (3.5-6.1); RED CELL DISTRIBUTION WIDTH 13.8 % (11.5-14.5); WHITE BLOOD COUNT 7.1 10^3/uL (4.5-11.0)
[2018-11-02 07:44] LABS: ALB/GLOB RATIO 1.2 (1.1-1.8); ALBUMIN 3.8 g/dL (3.0-4.8); ALT/SGPT 42 U/L (7-56); AST/SGOT 69 U/L (17-59); BLOOD UREA NITROGEN 12 mg/dL (7-21); CALCIUM 8.3 mg/dL (8.4-10.5); GFR NON-AFRICAN AMERICAN > 60
[2018-11-02] MEDS: Pantoprazole 40 mg EC Tab PO SCH (09:28)
[2018-11-02] MEDS: Multivitamin With Minerals Tab PO SCH (09:28)
--- NOTE | 2018-11-02 12:30 | CP.PCM.PN ---
Subjective - Date & Time of Evaluation Date of Evaluation: 11/02/18 Time of Evaluation: 12:22 - Subjective Subjective: Progress Note for Hospitalist Service - Elsie Stephen PGY2 IM Resident Patient seen and examined this AM. Patient noted to be restrful overnight. Patient with single episode of chest pain, trops drawn shown to be negative. Chest pain today reported to left sided rib pain in conjunction with his chronic rib pain secondary to rib fracture. Denies shortness of breath, abdominal discomfort, hallucinations auditory or visual. Patient reports tremors controllable and he feels his symptoms are controlled. Objective - Vital Signs/Intake and Output Vital Signs (last 24 hours): Temp Pulse Resp BP Pulse Ox 97.8 F 86 19 106/66 96 11/02/18 12:00 11/02/18 12:00 11/02/18 12:00 11/02/18 12:00 11/02/18 09:00 Intake and Output: 11/02/18 11/02/18 06:59 18:59 Intake Total 1074 Output Total 920 Balance 154 - Medications Medications: Current Medications Folic Acid (Folic Acid) 1 mg PO DAILY [facility] Last Admin: 11/02/18 09:27 Dose: 1 mg Ibuprofen (Motrin Tab) 400 mg PO Q6H PRN PRN Reason: Pain, moderate (4-7) Last Admin: 11/02/18 09:36 Dose: 400 mg Levetiracetam (Keppra) 500 mg PO BID [facility] Last Admin: 11/02/18 09:27 Dose: 500 mg Lisinopril (Zestril) 10 mg PO DAILY [facility] Last Admin: 11/02/18 09:29 Dose: Not Given Lorazepam (Ativan) 2 mg IVP Q2 PRN; Protocol PRN Reason: Symptoms of alcohol withdrawl Last Admin: 11/01/18 14:00 Dose: 2 mg Lorazepam (Ativan) 2 mg IVP Q6H [facility]; Protocol Last Admin: 11/02/18 06:50 Dose: Not Given Metoprolol Tartrate (Lopressor) 25 mg PO BID [facility] Last Admin: 11/02/18 09:28 Dose: 25 mg Multivitamins/Minerals (Therapeutic-M Tab) 1 tab PO 0800 [facility] Last Admin: 11/02/18 09:28 Dose: 1 tab Pantoprazole Sodium (Protonix Ec Tab) 40 mg PO DAILY [facility] Last Admin: 11/02/18 09:28 Dose: 40 mg Thiamine HCl (Vitamin B1 Tab) 100 mg PO DAILY [facility] Last Admin: 11/02/18 09:28 Dose: 100 mg - Labs Labs: 11/02/18 06:40 11/02/18 06:40 PT 11.0 SECONDS (9.4-12.5) 10/31/18 20:56 INR 0.99 10/31/18 20:56 APTT 28.5 Seconds (26.9-38.3) 10/31/18 20:56
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
[2018-11-02 17:31] VITALS: BP 123/75; RESP 20; TEMP 97.9; O2SAT 97
[2018-11-02 18:15] VITALS: PULSE 106
--- NOTE | 2018-11-02 19:34 | CARD ---
APPROVED REPORT Date of service: 11/01/2018 EKG Measurement Heart [id number] 196P [id number] <Conclusion> Suspect arm lead reversal, interpretation assumes no reversal Normal sinus rhythm Lateral infarct, age undetermined Inferior infarct, age undetermined Prolonged QT Abnormal ECG
== END 2018-11-02 18:22 | disposition home or self-care (01) | DRG 775 ==
LOC: ED 19:05 → ERH 22:59 → 2RNO 11-01 01:52 → OBSVTOIN 11-01 16:05
PROVIDERS: ADMIT Internal Medicine; ATTEND Internal Medicine
DX: F10.239 Alcohol dependence with withdrawal, unspecified (principal); I11.0 Hypertensive heart disease with heart failure; I50.32 Chronic diastolic (congestive) heart failure; G40.909 Epilepsy, unspecified, not intractable, without status epilepticus; I35.0 Nonrheumatic aortic (valve) stenosis; K21.9 Gastro-esophageal reflux disease without esophagitis; F17.210 Nicotine dependence, cigarettes, uncomplicated; Y90.0 Blood alcohol level of less than 20 mg/100 ml; Z86.73 Personal history of transient ischemic attack (TIA), and cerebral infarction without residual deficits; Z95.810 Presence of automatic (implantable) cardiac defibrillator